=== PATIENT | male | born 1965 | race Caucasian/White ===

== ENCOUNTER 2023-08-27 11:30 | Outpatient (OUT) | payer MEDICARE, SELFPAY ==
--- NOTE | 2023-08-27 11:34 | CA_ITS ---
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 : 1965 Requested By: ELISHA HOLM Order Number: [id number] Reading MD: CRICKET ALCARAZ Interpretive Statements Biphasic doppler waveform PVR waveform with normal upstroke,amplitude and dicrotic notch Right: - significant pressure gradient between thigh and calf cuff - normal WARREN Left: - no significant pressure gradient between cuffs - normal WARREN Impression: - elevated indices (B/L thigh) consistent with calcified, noncompressible arterial guzman, which may underestimate the degree of arterial disease present - normal arterial evaluation of the lower extremities without hemodynamic impairment of the B/L lower extremities at rest (right WARREN 1.27, left WARREN 1.20) Electronically Signed On 08-28-2023 7:07:48 EST by CRICKET ALCARAZ
== END 2023-08-27 11:31 | disposition home or self-care (01) ==
LOC: CARD 11:30
PROVIDERS: PCP Nurse Practitioner; Visit Provider Nurse Practitioner
DX: I73.9 Peripheral vascular disease, unspecified (principal); M79.89 Other specified soft tissue disorders
CPT/HCPCS: 93923

== ENCOUNTER 2023-09-06 08:39 | Outpatient (OUT) | payer MEDICARE, SELFPAY ==
--- NOTE | 2023-09-06 08:41 | US_ITS ---
[place] [id number] Patient Name: SAPPHIRE PALMER MRN: [id number] date: 1965 Sex: M Assigned Patient Location: US Current Patient Location: US Accession/Order Number: [id number] Exam Date: 09/06/2023 08:46 Report Date: 09/06/2023 15:18 At the request of: ELISHA HOLM Procedure: US arterial duplex LE BI EXAMINATION: US arterial duplex LE BI HISTORY: Skin Ulcer Of Right Great Toe L97.519, Peripheral Arterial COMPARISON: No relevant comparison available. TECHNIQUE: Color duplex Doppler ultrasound evaluation analysis was performed in the usual manner. FINDINGS: RIGHT LOWER EXTREMITY ARTERIAL Triphasic waveforms proximally. Biphasic waveform below the knee. Mild scattered atherosclerotic plaque External Iliac PSV: 126.6 cm/s External Iliac EDV: 10.3 cm/s Common Femoral PSV: 106.9 cm/s Common Femoral EDV: 10.3 cm/s Superficial Femoral Proximal PSV: 101.0 cm/s Proximal EDV: 8.4 cm/s Mid PSV: 79.3 cm/s Mid EDV: 4.4 cm/s Distal PSV: 98.9 cm/s Distal EDV: 8.4 cm/s Popliteal Proximal PSV: 65.0 cm/s Popliteal Proximal EDV: 11.7 cm/s Posterior Tibial Proximal PSV: 82.8 cm/s Proximal EDV: 13.3 cm/s Mid PSV: 92.5 cm/s Mid EDV: 13.3 cm/s Distal PSV: 86.0 cm/s Distal EDV: 14.9 cm/s Anterior Tibial Proximal PSV: 58.5 cm/s Proximal EDV: 9.1 cm/s Mid PSV: 35.4 cm/s Mid EDV: 6.9 cm/s Distal PSV: 43.1 cm/s Distal EDV: 4.7 cm/s LEFT LOWER EXTREMITY ARTERIAL Triphasic waveform throughout. Mild atherosclerotic plaque External Iliac PSV: 105.0 cm/s External Iliac EDV: 8.4 cm/s Common Femoral PSV: 108.9 cm/s Common Femoral EDV: 8.4 cm/s Superficial Femoral Proximal PSV: 91.2 cm/s Proximal EDV: 4.4 cm/s Mid PSV: 91.2 cm/s Mid EDV: 0.0 cm/s Distal PSV: 91.1 cm/s Distal EDV: 0.0 cm/s Popliteal Proximal PSV: Popliteal Proximal EDV: Posterior Tibial Proximal PSV: 87.6 cm/s Proximal EDV: 8.5 cm/s Mid PSV: 56.9 cm/s Mid EDV: 0.0 cm/s Distal PSV: 108.6 cm/s Distal EDV: Anterior Tibial Proximal PSV: 42.9 cm/s Proximal EDV: 4.4 cm/s Mid PSV: 44.3 cm/s Mid EDV: 0.0 cm/s Distal PSV: 27.9 cm/s Distal EDV: 6.6 cm/s US/US arterial duplex LE BI IMPRESSION: Moderate right leg ischemic pattern distal to the knee Normal left leg waveform Electronically authenticated by: EVA ELLIS Date: 09/06/2023 15:18
== END 2023-09-06 08:40 | disposition home or self-care (01) ==
LOC: US 08:39
PROVIDERS: PCP Nurse Practitioner; Visit Provider Nurse Practitioner
DX: L97.519 Non-pressure chronic ulcer of other part of right foot with unspecified severity (principal); I73.9 Peripheral vascular disease, unspecified
CPT/HCPCS: 93925

== ENCOUNTER 2023-09-11 12:33 | Outpatient (OUT) | payer MEDICARE, SELFPAY ==
--- NOTE | 2023-09-11 12:56 | VEIN_ITS ---
Patient Name: SAPPHIRE PALMER MR#: [id number] : 1965 Exam Date: 09/11/2023 Ordering Doctor: DR EVA ELLIS M.D. RADIOLOGY REPORT PROCEDURE: FACILITY EST COMPREHENSIVE VEIN CENTER - OFFICE VISIT INITIAL COMPARISON: None. PROGRESS NOTES: [age] year old male who presents with a 4 year history of lower extremity swelling, dilated bulging veins, leg pain, aching, burning, heaviness, itching. The patient's right leg symptoms are worse than the left. There has been a progression of symptoms over time. This increases with prolonged leg dependency. The patient describes an improvement with rest, elevation, exercise, support stockings, and [id number] medications. The patient denies any signs and symptoms to suggest arterial ischemia. The patient describes a family history : Unknown family history. The patient has drinking and smoking history of colon current smoker; occasional alcohol consumption. Patient has a past medical history significant for chronic knee pain, rheumatoid arthritis, leg swelling, hypertension, chronic back pain, type 2 diabetes mellitus, cellulitis and wounds. The patient denies a history of deep venous thrombus or pulmonary embolus. See separate history and physical for medication list. No prior treatment for varicose or spider veins. Current use of compression stockings. After review of nurse notes, history and physical exam I discussed at length the pathophysiology of venous hypertension and possible treatments, therapies and strategies available. We discussed at length the importance of elevating the lower extremities above the level of the heart, increased physical activity and compression stocking use. Ultrasound venous reflux study performed today was discussed at length with the patient. The report demonstrates abnormally dilated and incompetent great saphenous veins and small saphenous veins bilaterally along with abnormal manager development veins and multiple incompetent branch saphenous varicosities.. PHYSICAL EXAM: The right leg demonstrates several varicosities, a few spider veins, toe ulceration, marked edema, significant skin changes and skin discoloration. The left leg demonstrates several varicosities, a few spider veins, no ulceration, marked edema, significant skin changes and skin discoloration. Both thighs, legs and feet were symmetrically warm to the touch. Good posterior tibial and dorsalis pedis pulses were present bilaterally. VEIN/ Facility EST Comprehensive IMPRESSION: 1. Bilateral lower extremity venous insufficiency 2. Bilateral lower extremity varicose veins 3. Marked bilateral lower extremity subcutaneous edema 4. No flow significant arterial disease 5. CEAP: C4a, EP, AP, FL PLAN: 1. Continued use of compression stockings 2. Elevated legs and increased physical activity symptomatic relief 3. Endovenous laser ablation of right great saphenous, left great saphenous, right small saphenous, left small saphenous veins. 4. Microfoam chemical ablation of bilateral branch saphenous varicosities. Nurse notes, history and physical were reviewed and confirmed, see attached forms. The nurse was present throughout the physical exam and consultation Dictated by: Kameron Morales M.D. on 09/11/2023 at 14:48 Approved by: Kameron Morales M.D. on 09/11/2023 at 14:54
--- NOTE | 2023-09-11 12:56 | VEIN_ITS ---
Patient Name: SAPPHIRE PALMER MR#: [id number] : 1965 Exam Date: 09/11/2023 Ordering Doctor: DR EVA ELLIS M.D. RADIOLOGY REPORT PROCEDURE: VC EXT VENOUS REFLUX NIKO LMTD COMPARISON: None. INDICATIONS: I83.813 Painful varicose veins of bilateral lower extremities TECHNIQUE: Duplex imaging of the lower extremity to assess the deep and superficial venous system for the presence of deep or superficial venous incompetence and to document the location and severity of disease. The study includes evaluation of the great saphenous vein (GSV), anterior accessory saphenous vein (AASV) and small saphenous vein (SSV). Patient scanned in reverse Trendelenburg and standing. FINDINGS: RIGHT LOWER EXTREMITY: Saphenofemoral Junction Reflux: Yes 9.7mm 2.2 sec GSV: Diam (mm) Reflux/ Time (sec) Proximal Thigh 7.8 Yes 1.9 Mid Thigh 6.2 Yes 2.1 Distal Thigh 7.6 Yes 2.6 Prox Calf 6.4 Yes 1.0 Mid Calf 3.4 Saphenopopliteal Junction Reflux: 7.8 Yes 1.0 SSV: Proximal Calf 7.5 Yes 2.6 Mid Calf 5.9 No AASV: Not present Proximal Thigh Mid Thigh Distal Thigh Thrombi: No acute or chronic thrombus visualized Compressibility: Normal Flow: Normal Preforator: Dist/med calf 5.8mm with 0.6s Tech Note: Incompetent GSV and SSV. Patent varicose vein prox/med calf 3.8mm with 0.5s reflux. Patent varicose vein prox/med calf 4.9mm with 0.8s reflux. 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 Tech Note: Incompetent GSV and SSV. GSV was previously ablated from SFJ to mid-thigh. Patent varicose vein dist/med calf 6.7mm with 1.2s reflux. Patent varicose vein prox/med calf 4.1mm with 3.5s reflux. CONCLUSION: 1. Abnormally dilated and incompetent great saphenous and small saphenous veins bilaterally. 2. 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 Dictated by: Kameron Morales M.D. on 09/11/2023 at 14:15 Approved by: Kameron Morales M.D. on 09/11/2023 at 14:48
== END 2023-09-11 12:34 | disposition home or self-care (01) ==
LOC: VC 12:33
PROVIDERS: PCP Nurse Practitioner; Visit Provider Radiology Diagnostic Radiology
DX: M79.89 Other specified soft tissue disorders (principal); I83.813 Varicose veins of bilateral lower extremities with pain
CPT/HCPCS: 93970; G0463

== ENCOUNTER 2023-10-09 12:46 | Outpatient (OUT) | payer MEDICARE, SELFPAY ==
--- NOTE | 2023-10-09 12:47 | VEIN_ITS ---
[address] [id number] Patient Name: SAPPHIRE PALMER MRN: [id number] date: 1965 Sex: M Assigned Patient Location: Current Patient Location: Accession/Order Number: [id number] Exam Date: 10/09/2023 12:50 Report Date: 10/09/2023 14:06 At the request of: EVA ELLIS Procedure: VC Endovenous Ablation 1VeinRT EXAMINATION: VC Endovenous Ablation 1Vein RT great saphenous vein HISTORY: I83.813 Bilateral painful varicose veins COMPARISON: No relevant comparison available. TECHNIQUE: The risks and benefits of the procedure had been previously discussed, and were rediscussed at length. Informed written consent was obtained. Aga Figueroa and Cleve Cyr assisted. Time out procedure was performed. The right lower extremity was prepared and draped in the usual sterile fashion to allow knee flexion in the sterile field. Duplex ultrasound probe was draped in a sterile cover, sterile transmission gel was used. Venous mapping was performed with the areas of dilation and large tributaries marked. The total length was 42 cm from the entry mid lower leg to 3 cm below the saphenofemoral junction. The diameter of the greater saphenous vein ranged from 5-8 mm. A 30 gauge needle and 1% buffered lidocaine was used to anesthetize the entry site. A 4 mm incision was made with a scalpel and the saphenous vein was entered percutaneously under direct ultrasound guidance with a micropuncture set, a single stick was successful in gaining access. A micro-guide wire was inserted and the needle removed. A micro-set including a dilator was inserted over the microwire and the needle and dilator were removed. A 0.018 guide wire was inserted through the micro-set and threaded through the saphenous vein to the saphenofemoral junction. The dilator was removed and an introducer sheath was inserted over the wire until the end of the sheath entered the saphenofemoral junction. The dilator and wire were removed and the 600 micron fiber was introduced and placed and positioned so that it extended beyond the sheath and was 3 cm peripheral to the saphenofemoral femoral junction. Final position of the fiber was determined by ultrasound guidance and duplex imaging. Tumescent anesthetic was delivered by ultrasound guidance. 225 cc of fluid was delivered along the entire course of the saphenous vein. The solution consisted of 1000 cc of normal saline with 40 mL of 1% lidocaine and 20 mL of sodium bicarbonate. A final positioning check was made. The energy source was turned on by means of the foot pedal and the fiber and sheath were withdrawn. The total number of Joules delivered was 2191. The laser was active for 274seconds under continuous pulse, average laser use of 8 J. Laser start time 1:39 PM 10/09/2023 . Laser stop time 1:44 PM 10/09/2023 . A duplex ultrasound revealed compressibility and flow at the saphenofemoral junction immediately after the procedure. Hemostasis at the access site was achieved. The skin incision of the saphenous vein was closed with a 4 x 4. A compression stocking was applied. Postop instructions were given. A follow up appointment was recommended and scheduled. The patient tolerated the procedure well and was discharged in good condition . VEIN/VC Endovenous Ablation 1VeinRT IMPRESSION: Technically successful endovenous laser ablation of the right saphenous vein Electronically authenticated by: EVA ELLIS Date: 10/09/2023 14:06
[2023-10-09] MEDS: LIDOCAINE HCL 1% 100 MG/10 ML MDV INJ (13:14)
[2023-10-09] MEDS: 0.9 % SODIUM CHLORIDE 500 ML, LIDOCAINE HCL 20 ML, SODIUM BICARBONATE 10 MEQ INJ (13:15)
== END 2023-10-09 12:47 | disposition home or self-care (01) ==
LOC: VC 12:46
PROVIDERS: PCP Nurse Practitioner; Visit Provider Radiology Diagnostic Radiology
DX: I83.813 Varicose veins of bilateral lower extremities with pain (principal)
CPT/HCPCS: 36478

== ENCOUNTER 2023-10-16 13:21 | Outpatient (OUT) | payer MEDICARE, SELFPAY ==
--- NOTE | 2023-10-16 13:23 | VEIN_ITS ---
Patient Name: SAPPHIRE PALMER MR#: [id number] : 1965 Exam Date: 10/16/2023 Ordering Doctor: DR EVA ELLIS M.D. RADIOLOGY REPORT PROCEDURE: VC EXT VENOUS RT LMTD COMPARISON: None. INDICATIONS: Phlebitis of superficial veins of rt lower extremity I80.01 TECHNIQUE: Lower extremity ramirez scale and Duplex Doppler evaluation of the deep venous system from the inguinal ligament through the calf veins. FINDINGS: REGION: Right lower extremity. THROMBI: Negative for DVT. Heat induced thrombus visualized 1.7cm from the SFJ. The heat induced thrombus extends from groin to proximal calf. COMPRESSIBILITY: Non-compressible segments corresponding to thrombus FLOW: Areas of no flow corresponding to thrombus OTHER: CONCLUSION: 1. Successful post ablation occlusion of right great saphenous vein. Dictated by: Kameron Morales M.D. on 10/16/2023 at 14:12 Approved by: Kameron Morales M.D. on 10/16/2023 at 14:13
--- NOTE | 2023-10-16 13:28 | VEIN_ITS ---
Patient Name: SAPPHIRE PALMER MR#: [id number] : 1965 Exam Date: 10/16/2023 Ordering Doctor: DR EVA ELLIS M.D. RADIOLOGY REPORT PROCEDURE: VC FACILITY EST LMTD VEIN CENTER - OFFICE VISIT FOLLOW UP COMPARISON: None. PROGRESS NOTES: The patient reports improvement in leg symptoms. There has been interval reduction in varicosities. The patient has followed our recommendations to walk 20-30 minutes once or twice per day since the procedure. Physical exam demonstrates decrease in varicosities of the leg. Persistent varicosities are identified along the right leg and marked edema. Review of the ultrasound performed the same day demonstrates occlusive thrombus extending throughout the treated vein(s), see separate report, consistent with a successful ablation. No thrombus extending into or beyond the saphenofemoral junction. The patient expressed a desire to proceed with treatment of bilateral lower extremity incompetent superficial veins. The patient was informed that treatment was a process and would require several procedures/sessions. VEIN/ Facility EST LMTD IMPRESSION: 1. Successful ablation of the right great saphenous vein(s). 2. Persistent marked right lower extremity edema and bilateral varicose veins and lower extremity symptoms. PLAN: 1. Endovenous laser ablation of left great saphenous vein. Nurse notes, history and physical were reviewed and confirmed, see attached forms. The nurse was present throughout the physical exam and consultation Dictated by: Kameron Morales M.D. on 10/16/2023 at 14:13 Approved by: Kameron Morales M.D. on 10/16/2023 at 14:14
--- OUTSIDE RECORDS SUMMARY | 2023-10-16 15:34 | XMS_ITS | CCD ---
Author Name Unknown Address [address] [place] [address] Organization [facility] Care Team Providers Care Assistant Restaurant General Manager Name Role Phone AICHHOLZ, CLOTH WASHER BACK TENDER ELISHA Admitting Unavailable AICHHOLZ, CLOTH WASHER BACK TENDER ELISHA Attending Unavailable AICHHOLZ, CLOTH WASHER BACK TENDER ELISHA Primary Care Unavailable AICHHOLZ, CLOTH WASHER BACK TENDER ELISHA Consulting Unavailable DR JEMIMA DELATORRE Consulting Unavailable AICHHOLZ, CLOTH WASHER BACK TENDER ELISHA Admitting Unavailable AICHHOLZ, CLOTH WASHER BACK TENDER ELISHA Attending Unavailable AICHHOLZ, CLOTH WASHER BACK TENDER ELISHA Primary Care Unavailable AICHHOLZ, CLOTH WASHER BACK TENDER ELISHA Consulting Unavailable DR JEMIMA DELATORRE Consulting Unavailable BRIAN, IMMANUEL Attending Unavailable CLIFFORD, DREAD Attending Unavailable CLIFFORD, DREAD Referring Unavailable CLIFFORD, DREAD Attending Unavailable CLIFFORD, DREAD Referring Unavailable JUSTO, RAWISH Attending Unavailable CLIFFORD, DREAD Attending Unavailable OVITT, MARIANNA Attending Unavailable OVITT, MARIANNA Referring Unavailable BRIAN, IMMANUEL Attending Unavailable BRIAN, IMMANUEL Admitting Unavailable BRIAN, IMMANUEL Attending Unavailable BRIAN, IMMANUEL Referring Unavailable BRIAN, IMMANUEL Referring Unavailable BRIAN, IMMANUEL Referring Unavailable BRIAN, IMMANUEL Referring Unavailable CLIFFORD, DREAD Referring Unavailable CLIFFORD, DREAD Referring Unavailable CLIFFORD, DREAD Attending Unavailable CLIFFORD, DREAD Referring Unavailable CLIFFORD, DREAD Attending Unavailable CLIFFORD, DREAD Referring Unavailable Allergies Allergy Classification Reported Allergen(s) Allergy Type Date of Onset Reaction(s) Facility (2 sources) Simvastatin; Translations: [SIMVASTATIN] Drug Allergy 06-19-2017 [facility] Repository Problems Active Problems Problem Classification Problem Date Documented Date Episodic/Chronic Diabetes mellitus with complications (1 source) Type 2 diabetes mellitus with diabetic polyneuropathy; Translations: [TYPE 2 DM W/DIABETIC POLYNEUROPATHY] Onset: 11-08-2022 Chronic Gout and other crystal arthropathies (4 sources) Idiopathic chronic gout, multiple sites, without tophus (tophi); Translations: [IDIOPATH CHR GOUT MX SITE NO TOPHUS] Onset: 11-01-2022 Chronic Other screening for suspected conditions (not mental disorders or infectious disease) (1 source) Encounter for screening for malignant neoplasm of prostate; Translations: [ENC SCREEN MALIG NEOPLASM PROSTATE] Onset: 11-08-2022 Episodic Residual codes; unclassified (5 sources) Localized edema; Translations: [LOCALIZED EDEMA] Onset: 11-08-2022 Episodic Spondylosis; intervertebral disc disorders; other back problems (2 sources) Postlaminectomy syndrome, not elsewhere classified; Translations: [Postlaminectomy syndrome, not elsewhere classified] Onset: 08-01-2022 Chronic Unclassified (2 sources) Post-op; Translations: [Post-op] Onset: 10-29-2022 Unclassified (2 sources) Pre-op Exam; Translations: [Pre-op Exam] Onset: 09-24-2022 Past or Other Problems Problem Classification Problem Date Documented Date Episodic/Chronic Immunizations and screening for infectious disease (2 sources) Other specified abnormal immunological findings in serum; Translations: [Other specified abnormal immunological findings in serum] Onset: 01-11-2023 Episodic Other nervous system disorders (2 sources) Other acute postprocedural pain; Translations: [Other acute postprocedural pain] Onset: 10-03-2022 Episodic Residual codes; unclassified (2 sources) Pain, unspecified; Translations: [Pain, unspecified] Onset: 10-03-2022 Episodic Spondylosis; intervertebral disc disorders; other back problems (2 sources) Intervertebral disc disorders with radiculopathy, lumbar region; Translations: [Intervertebral disc disorders with radiculopathy, lumbar region] Onset: 12-27-2022 Episodic Results Test Name Value Interpretation Reference Range Facility Office Visiton 08-06-2023 Follow-up visit [id number] Marilyn Palmer 1965 M Date Provider Department Center 08/06/2023 Dave-DREAD CAST[facility]O [facility] Family History Adopted: Yes Family history unknown: Yes Level of Service:36297 [place] OFFICE/OUTPT VISIT,PROCEDURE ONLY Reason for Visit and Comments: Baclofen Pump Refill [698] Normal [facility] Office Visiton 05-28-2023 Follow-up visit [id number] Marilyn Palmer n T 1965 M Date Provider Department Center 05/28/2023 DREAD MURO [facility] [place] Family History Adopted: Yes Family history unknown: Yes Level of Service:13076 [place] OFFICE/OUTPT VISIT,PROCEDURE ONLY Normal [facility] Office Visiton 03-26-2023 Follow-up visit [id number] Marilyn Palmer n T 1965 M Date Provider Department Center 03/26/2023 DREAD UMRO [facility] Family History Adopted: Yes Family history unknown: Yes Level of Service:38434 [place] OFFICE/OUTPT VISIT,PROCEDURE ONLY Reason for Visit and Comments: Follow-up [773453] - Pump refill - alarm date 04/10 Normal [facility] MR LUMBAR SPINE WO CONTRASTo n 02-01-2023 MR LUMBAR SPINE WO CONTRAST MR LUMBAR SPINE WO CONTRAST 02/01/2023 8:17 AM CLINICAL INDICATIONS: Back pain. Lumbar postlaminectomy syndrome. TECHNIQUE: Multiplanar multisequence MR images of the lumbar spine were obtained without IV contrast. COMPARISON: 08/12/2017. FINDINGS: Posterior antonio and screw fixation L4-S1. No suspicious bone marrow replacing process, no significant bone marrow edema. Conus terminates at T12-L1. No distal cord signal change. T12-L1: Disc height loss, diffuse disc bulge, marginal disc osteophyte extends into the foraminal extra foraminal regions. Mild left greater than right neural foraminal narrowing. Minimal thecal sac narrowing. L1-L2: Diffuse disc bulge, ligament of flavum thickening. Marginal disc osteophyte extends into the left greater than right foraminal extraforaminal regions. Moderate focal thecal sac narrowing. Moderate to severe left, mild/moderate right, neural foraminal narrowing. Trace facet effusions L2-L3: Diffuse disc bulge, marginal disc osteophyte extends into the left greater the right foraminal extra foraminal regions. Ligamentum flavum thickening. Moderate to severe focal thecal sac narrowing. Crowding of the subarticular zones without overt nerve root impingement. Posterior facet arthropathy with fluid tracking into left ligament of flavum thickening. Moderate to severe bilateral neural foraminal narrowing. L3-L4: Disc height loss, diffuse disc bulge, marginal disc osteophyte extends into the foraminal and extraforaminal regions, right more so than left. Moderate to severe focal thecal sac narrowing. Crowding bilateral subarticular zones. Moderate neural foraminal narrowing. L4-L5: Disc height loss, marginal disc osteophyte extends of the right greater than left foraminal extra foraminal regions. Prior laminectomy, capacious thecal sac. Mild/moderate right greater than left neural foraminal narrowing. L5-S1: Left hemilaminectomy. Disc height loss, diffuse disc bulge, marginal disc osteophyte extends of the right greater than left foraminal and extra foraminal regions. Mild focal thecal sac narrowing. Moderate right, mild left, neural foraminal narrowing. Fatty replacement, edema within the lower paraspinal musculature. IMPRESSION: Slightly progressive multilevel degenerative changes, level by level assessment detailed in the body of the report. Thecal sac narrowing most noted, moderate to severe, at L2-3 and L3-4. Capacious thecal sac at the operative levels. Neural foraminal narrowing most noted, moderate to severe, at left L1-2, and bilateral L2-3. Approved by:Qamar Zamarripa on02/08/2023 9:01 AM. I, Desmond Farmer,have reviewed the image(s) and agree with the findings in this report. Electronically signed: Desmond Farmer. Normal [facility] Office Visiton 01-29-2023 Follow-up visit [id number] Marilyn Palmer 1965 M Date Provider Department Center 01/29/2023 170-DREAD CASTILLO [facility] Family History Adopted: Yes Family history unknown: Yes Level of Service:59154 [place] OFFICE/OUTPT VISIT,PROCEDURE ONLY Reason for Visit and Comments: Follow-up [040820] - Pump Refill alarm date 02/07/23 [facility] Office Visiton 01-11-2023 Follow-up visit [id number] Marilyn Palmer T 1965 M Date Provider Department Center 01/11/2023 1211-KELSEA KEMP [facility] RHEUM [facility] Family History Adopted: Yes Family history unknown: Yes Level of Service:67412 [place] OFFICE/OUTPATIENT NEW LOW MDM 30-44 MINUTES (GC) Reason for Visit and Comments: New Patient [632] Normal [facility] Office Visiton 12-27-2022 Follow-up visit [id number] Marilyn Palmer T 1965 M Date Provider Department Center 12/27/2022 DREAD MUR[facility] Family History Adopted: Yes Family history unknown: Yes Level of Service:19730 [place] OFFICE/OUTPATIENT NEW LOW MDM 30-44 MINUTES Reason for Visit and Comments: New Patient [632] - Pump alarm date 02/07/23 [facility] RONI by IFAon 12-07-2022 Antinuclear Antibodies, IFA Negative Normal [facility] Comment on above: Result Comment: Nega tive <1:80 Borderline 1:80 Positive >1:80 ICAP nomenclature: AC-0 For more information about Hep-2 cell patterns use ANApatterns.org, the official website for the International Consensus on Antinuclear Antibody (RONI) Patterns (ICAP). Performed By: #### A NAIFA #### [facility] [address] [address] [address] Shweta Dillard ANTISTREPTOLYSIN O AB (ASO)o n 12-06-2022 Antistreptolysin O Ab 72.7 IU/mL Normal 0.0-200.0 [facility] Comment on above: Performed By: #### A SOAB #### [facility] [address] [address] [address] Shweta Dillard RHEUMATOID FACTORon 12-06-19 23 RA Latex Turbid. 42.4 IU/mL Critically high <14.0 [facility] Comment on above: Performed By: #### R F #### [facility] [address] [address] [address] Shweta Dillard CRPon 12-05-2022 CRP 0.5 mg/dL Normal <=1.0 [facility] Comment on above: Performed By: #### C RP ####[facility] [address] [place], [place] [address]EmDr. Shweta Dillard SED RATE WESTERGRENon 2022 SED RATE 15 mm/hr Normal <=20 [facility] Comment on above: Performed By: #### S EDR #### [facility] [address] [address] [address] Shweta Dillard US TYLER DOP LEG RTon 12-05-19 23 US TYLER DOP LEG RT EXAMINATION: US TYLER DOP LEG RT HISTORY: Localized edema COMPARISON: XR venous Doppler leg right 11/01/2022 FINDINGS: REGION: Right lower extremity THROMBI: None. COMPRESSIBILITY: Normal compressibility. FLOW: Normal waveform and antegrade flow between 5 and 20 cm/s. OTHER: Subcutaneous edema. IMPRESSION: 1. No deep vein thrombus within the right lower extremity. Electronically authenticated by: JEMIMA DELATORRE Date: 2022-12-05 10:24 Normal [facility] Office Visiton 11-28-2022 Follow-up visit [id number] Marilyn Palmer 1965 M Date Provider Department Center 11/28/2022 MARIANNA ROCHA [facility] [place] Family History Adopted: Yes Family history unknown: Yes Level of Service:66362 [place] OFFICE/OUTPT VISIT,PROCEDURE ONLY Reason for Visit and Comments: Baclofen Pump Refill [698] Normal [facility] CBC AUTO DIFFon 11-01-2022 BASO # 0.1 103/ul Normal 0.0-0.1 [facility] Comment on above: Performed By: #### C BC #### [facility] [address] [place] [address] Dr. Shweta Dillard Basophils/100 WBC (Bld) 0.8 % Normal 0.2-2.0 [facility] Comment on above: Performed By: #### C BC #### [facility] [address] [place] [address] Dr. Shweta Dillard EO # 0.3 103/ul Normal 0.0-0.7 [facility] Comment on above: Performed By: #### C BC #### [facility] [address] [place] [address] Dr. Shweta Dillard Eosinophils/100 WBC (Bld) 3.5 % Normal 0.9-7.0 [facility] Comment on above: Performed By: #### C BC #### [facility] [address] [place] [address] Dr. Shweta Dillard Erythrocyte distribution width (RBC) [Ratio] 13.2 % Normal 11.0-15.0 [facility] Comment on above: Performed By: #### C BC #### [facility] [address] [place] [address] Dr. Shweta Dillard Hematocrit (Bld) [Volume fraction] 45.6 % Normal 42.0-54.0 [facility] Comment on above: Performed By: #### C BC #### [facility] [address] [place] [address] Dr. Shweta Dillard Hemoglobin (Bld) [Mass/Vol] 13.6 g/dL Critically low 14.0-18.0 [facility] Comment on above: Performed By: #### C BC #### [facility] [address] [place] [address] Dr. Shweta Dillard IG # 0.07 10e3/ul Critically high 0.00-0.03 [facility] Comment on above: Performed By: #### C BC #### [facility] [address] [place] [address] Dr. Shweta Dillard IG % 0.7 % Critically high 0.0-0.5 [facility] Comment on above: Performed By: #### C BC #### [facility] [address] [place] [address] Dr. Shweta Dillard LYMPH # 3.4 103/ul Normal 1.2-3.8 [facility] Comment on above: Performed By: #### C BC #### [facility] [address] [place] [address] Dr. Shweta Dillard Lymphocytes/100 WBC (Bld) 34.6 % Normal 20.5-60.0 [facility] Comment on above: Performed By: #### C BC #### [facility] [address] [place] [address] Dr. Shweta Dillard MANUAL DIFF REQ NO Normal [facility] Comment on above: Performed By: #### C BC #### [facility] [address] [place] [address] Dr. Shweta Dillard MCH (RBC) [Entitic mass] 29.4 pg Normal 25.9-34.0 [facility] Comment on above: Performed By: #### C BC #### [facility] [address] [place] [address] Dr. Shweta Dillard MCHC (RBC) [Mass/Vol] 29.8 g/dL Critically low 29.9-35.2 [facility] Comment on above: Performed By: #### C BC #### [facility] [address] [place] [address] Dr. Shweta Dillard MCV (RBC) [Entitic vol] 98.7 fL Critically high 80.0-94.0 [facility] Comment on above: Performed By: #### C BC #### [facility] [address] [place] [address] Dr. Shweta Dillard MONO # 0.7 103/ul Normal 0.3-0.8 [facility] Comment on above: Performed By: #### C BC #### [facility] [address] [place] [address] Dr. Shweta Dillard Monocytes/100 WBC (Bld) 7.4 % Normal 1.7-12.0 [facility] Comment on above: Performed By: #### C BC #### [facility] [address] [place] [address] Dr. Shweta Dillard NEUT # 5.2 103/ul Normal 1.4-6.5 [facility] Comment on above: Performed By: #### C BC #### [facility] [address] [place] [address] Dr. Shweta Dillard Neutrophils/100 WBC (Bld) 53.0 % Normal 43.0-75.0 [facility] Comment on above: Performed By: #### C BC #### [facility] [address] [place] [address] Dr. Shweta Dillard Platelet mean volume (Bld) [Entitic vol] 9.9 fL Normal 9.5-13.5 [facility] Comment on above: Performed By: #### C BC #### [facility] [address] [place] [address] Dr. Shweta Dillard PLT 253 103/ul Normal 150-450 [facility] Comment on above: Performed By: #### C BC #### [facility] [address] [place], [place] [address] Dr. Shweta Dillard RBC 4.62 106/ul Critically low 4.70-6.10 [facility] Comment on above: Performed By: #### C BC #### [facility] [address] [place], [place] [address] Dr. Shweta Dillard WBC 9.8 103/ul Normal 4.0-11.0 [facility] Comment on above: Performed By: #### C BC #### [facility] [id number] Shweta Dillard DIRECT LDLon 11-01-2022 Cholesterol in LDL [Mass/Vol] 105 mg/dL Normal [facility] Comment on above: Performed By: #### U ZAIRA, CMP, DLDL, LIPID ####[facility] [address] [address]DrMarky Dillard DLDL NORMAL SEE BELOW Normal [facility] Comment on above: Result Comment: <100 mg/dl OPTIMAL 100 - 129 mg/dl NEAR OR ABOVE OPTIMAL 130 - 159 mg/dl BORDERLINE HIGH 160 - 189 mg/dl HIGH >190 mg/dl VERY HIGH Performed By: #### U ZAIRA, CMP, DLDL, LIPID ####[facility] [address] [id number][address] Shweta Dillard GLYCOHEMOGLOBIN A1Con 2022 ADA RECOMMENDATION SEE BELOW Normal [facility] Comment on above: Result Comment: ADA RECOMMENDED LIMIT 4.0 - 6.0 ADA THERAPEUTIC TARGET < 7.0 ACTION SUGGESTED > 7.0 Performed By: #### A 1C ####[facility] [address] [id number][address] Shweta Dillard Glucose [Mass/Vol] 114 mg/dL Normal [facility] Comment on above: Performed By: #### A 1C ####[facility] [address] [id number]. Shweta Dillard HbA1c (Bld) [Mass fraction] 5.6 % Normal 4.5-6.2 [facility] Comment on above: Performed By: #### A 1C ####[facility] [address] [place], [place] [address]FfDr. Shweta Dillard LIPID PROFILEon 11-01-2022 CHOL-HDL RATIO NORM SEE BELOW Normal [facility] Comment on above: Result Comment: 3.3 - 4.4 LOW RISK 4.4 - 7.1 AVERAGE RISK 7.1 - 11.0 MODERATE RISK >11.0 HIGH RISK Performed By: #### U ZAIRA, CMP, DLDL, LIPID #### [facility] [address] [address] [address] Shweta Dillard Cholesterol [Mass/Vol] 172 mg/dL Normal <=200 [facility] Comment on above: Performed By: #### U ZAIRA, CMP, DLDL, LIPID #### [facility] [address] [address] [address] Shweta Dillard Cholesterol in HDL [Mass/Vol] 31 mg/dL Critically low 40-60 [facility] Comment on above: Performed By: #### U ZAIRA, CMP, DLDL, LIPID #### [facility] [address] [address] [address] Shweta Dillard Cholesterol in LDL [Mass/Vol] 49.6 mg/dL Normal [facility] Comment on above: Performed By: #### U ZAIRA, CMP, DLDL, LIPID #### [facility] [address] [address] [address] Shweta Dillard Cholesterol.total/Ch olesterol in HDL [Mass ratio] 5.5 {ratio} Normal [facility] Comment on above: Performed By: #### U ZAIRA, CMP, DLDL, LIPID #### [facility] [address] [address] [address] Shweta Dillard HDL NORMAL > or = 60 mg/dl - LO W CARDIOVASCULAR RISK <40 mg/dl - HIGH CARDIOVASCULAR RISK Normal [facility] Comment on above: Performed By: #### U ZAIRA, CMP, DLDL, LIPID #### [facility] [address] [address] [address] Shweta Dillard LDL CALC NORMAL SEE BELOW Normal [facility] Comment on above: Result Comment: <100 mg/dl OPTIMAL 100 - 129 mg/dl NEAR OR ABOVE OPTIMAL 130 - 159 mg/dl BORDERLINE HIGH 160 - 189 mg/dl HIGH >190 mg/dl VERY HIGH Performed By: #### U ZAIRA, CMP, DLDL, LIPID #### [facility] [address] [address] [address] Shweta Dillard Triglyceride [Mass/Vol] 457 mg/dL Critically high <=150 [facility] Comment on above: Performed By: #### U ZAIRA, CMP, DLDL, LIPID #### [facility] [address] [address] [address] Shweta Dillard VLDL CALC 91.4 mg/dL Normal [facility] Comment on above: Performed By: #### U ZAIRA, CMP, DLDL, LIPID #### [facility] [address] [address] [address] Shweta Dillard MICROALBUMIN, RAND URon 10-21 mALB <1.3 Normal <=30.0 [facility] Comment on above: Performed By: #### M ALBR ####[facility] [address] [address]Dr. Shweta Dillard PROF 14(COMP METB)on 023 Albumin [Mass/Vol] 4.0 g/dL Normal 3.4-5.0 [facility] Comment on above: Performed By: #### U ZAIRA, CMP, DLDL, LIPID #### [facility] [address] [address] [address] Shweta Dillard Albumin/Globulin [Mass ratio] 1.3 {ratio} Normal [facility] Comment on above: Performed By: #### U ZAIRA, CMP, DLDL, LIPID #### [facility] [address] [address] [address] Shweta Dillard ALP [Catalytic activity/Vol] 95 U/L Normal 46-116 [facility] Comment on above: Performed By: #### U ZAIRA, CMP, DLDL, LIPID #### [facility] [address] [address] [address] Shweta Dillard ALT [Catalytic activity/Vol] 25 U/L Normal 16-63 [facility] Comment on above: Performed By: #### U ZAIRA, CMP, DLDL, LIPID #### [facility] [address] [address] [address] Shweta Dillard Anion gap [Moles/Vol] 13.4 mmol/L Normal [facility] Comment on above: Performed By: #### U ZAIRA, CMP, DLDL, LIPID #### [facility] [address] [address] [address] Shweta Dillard AST [Catalytic activity/Vol] 18 U/L Normal 15-37 [facility] Comment on above: Performed By: #### U ZAIRA, CMP, DLDL, LIPID #### [facility] [address] [address] [address] Shweta Dillard Bilirubin [Mass/Vol] 0.2 mg/dL Normal 0.2-1.0 [facility] Comment on above: Performed By: #### U ZAIRA, CMP, DLDL, LIPID #### [facility] [address] [address] [address] Shweta Dillard Calcium [Mass/Vol] 9.0 mg/dL Normal 8.5-10.1 [facility] Comment on above: Performed By: #### U ZAIRA, CMP, DLDL, LIPID #### [facility] [address] [address] [address] Shweta Dillard Chloride [Moles/Vol] 100 mmol/L Normal 98-107 [facility] Comment on above: Performed By: #### U ZAIRA, CMP, DLDL, LIPID #### [facility] [address] [address] [address] Shweta Dillard CO2 [Moles/Vol] 30.0 mmol/L Normal 21.0-32.0 [facility] Comment on above: Performed By: #### U ZAIRA, CMP, DLDL, LIPID #### [facility] [address] [address] [address] Shweta Dillard Creatinine [Mass/Vol] 0.89 mg/dL Normal 0.70-1.30 [facility] Comment on above: Performed By: #### U ZAIRA, CMP, DLDL, LIPID #### [facility] [address] [address] [address] Shweta Dillard EGFR-AF ERITREAN >60 Normal >=[address] [facility] Comment on above: Performed By: #### U ZAIRA, CMP, DLDL, LIPID #### [facility] [address] [address] [address] Shweta Dillard EGFR-NON AF ERITREAN >60 Normal >=60 [facility] Comment on above: Performed By: #### U ZAIRA, CMP, DLDL, LIPID #### [facility] [address] [address] [address] Shweta Dillard Globulin (S) [Mass/Vol] 3.1 g/dL Normal [facility] Comment on above: Performed By: #### U ZAIRA, CMP, DLDL, LIPID #### [facility] [address] [place] [address] Dr. Shweta Dillard Glucose [Mass/Vol] 125 mg/dL Critically high 74-106 [facility] Comment on above: Performed By: #### U ZAIRA, CMP, DLDL, LIPID #### [facility] [address] [address] [address] Shweta Dillard Potassium [Moles/Vol] 4.4 mmol/L Normal 3.5-5.1 [facility] Comment on above: Performed By: #### U ZAIRA, CMP, DLDL, LIPID #### [facility] [address] [address] [address] Shweta Dillard Protein [Mass/Vol] 7.1 g/dL Normal 6.4-8.2 [facility] Comment on above: Performed By: #### U ZAIRA, CMP, DLDL, LIPID #### [facility] [address] [place] [address] Dr. Shweta Dillard Sodium [Moles/Vol] 139 mmol/L Normal 136-145 [facility] Comment on above: Performed By: #### U ZAIRA, CMP, DLDL, LIPID #### [facility] [address] [address] [address] Shweta Dillard Urea nitrogen [Mass/Vol] 25.0 mg/dL Critically high 7.0-18.0 [facility] Comment on above: Performed By: #### U ZAIRA, CMP, DLDL, LIPID #### [facility] [address] [place] [address] [address] Shweta Dillard Urea nitrogen/Creatinine [Mass ratio] 28.1 mg/mg Normal [facility] Comment on above: Performed By: #### U ZAIRA, CMP, DLDL, LIPID #### [facility] [address] [address] [address] Shweta Dillard UA RANDOM W/MICROSCOPICon BACTERIA NONE SEEN Normal NONE SEEN [facility] Comment on above: Performed By: #### U AMIC ####[facility] [address] [place] [address]Dr. Shweta Dillard Bilirubin Ql (U) Negative Normal NEGATIVE [facility] Comment on above: Performed By: #### U AMIC ####[facility] [address] [place] [place] [address]Dr. Shweta Dillard CAST NONE SEEN Normal NONE SEEN [facility] Comment on above: Performed By: #### U AMIC ####[facility] [address] [place] [address]Dr. Shweta Dillard Clarity (U) CLEAR Normal CLEAR [facility] Comment on above: Performed By: #### U AMIC ####[facility] [address] [place] [address]Dr. Shweta Dillard Color (U) LT. YELLOW Normal YELLOW [facility] Comment on above: Performed By: #### U AMIC ####[facility] [address] [place] [address]Dr. Shweta Dillard Crystals LM Nom (Urine sed) NONE SEEN Normal NONE SEEN [facility] Comment on above: Performed By: #### U AMIC ####[facility] [address] [place] [address]Dr. Shweta Dillard Epithelial cells LM Ql (Urine sed) RARE Normal NONE SEEN /RARE [facility] Comment on above: Performed By: #### U AMIC ####[facility] [address] [place] [address]Dr. Shweta Dillard Glucose Ql (U) Negative Normal NEGATIVE The [facility] Comment on above: Performed By: #### U AMIC ####[facility] [address] [place] [address]Dr. Shweta Dillard Hemoglobin Ql (U) Negative Normal NEGATIVE The [facility] Comment on above: Performed By: #### U AMIC ####[facility] [address] [place], [place] [address]Dr. Shweta Dillard Ketones Ql (U) Negative Normal NEGATIVE The [facility] Comment on above: Performed By: #### U AMIC ####[facility] [address] [place], [place] [address]Dr. Shweta Dillard LEUKOCYTES Negative Normal NEGATIVE [facility] Comment on above: Performed By: #### U AMIC ####[facility] [address] [place], [place] [address]Dr. Yilan Dillard MUCOUS NONE SEEN Normal NONE SEEN [facility] Comment on above: Performed By: #### U AMIC ####[facility] [address] [place], [place] [address]Dr. Shweta Dillard Nitrite Ql (U) Negative Normal NEGATIVE [facility] Comment on above: Performed By: #### U AMIC ####[facility] [address] [place], [place] [address]Dr. Shweta Dillard pH (U) 5.0 [pH] Normal 5-9 [facility] Comment on above: Performed By: #### U AMIC ####[facility] [address] [place], [place] [address]Dr. Shweta Dillard RBC NONE SEEN Abnormal 0-2 [facility] Comment on above: Performed By: #### U AMIC ####[facility] [address] [place], [place] [address]Dr. Shweta Dillard SPEC GRAVITY 1.020 Normal 1.005-<=1.025 [facility] Comment on above: Performed By: #### U AMIC ####[facility] [address] [place], [place] [address]Og. Shweta Dillard UA PROTEIN Negative Normal NEGATIVE/ TRACE [facility] Comment on above: Performed By: #### U AMIC ####[facility] [address] [place], [place] [address]Lh. Shweta Dillard Urobilinogen Qn (U) 0.2 {Bruce'U}/dL Normal 0.2 - 1. 0 [facility] Comment on above: Performed By: #### U AMIC ####[facility] [address] [place], [place] [address]Nd. Shweta Dillard WBC NONE SEEN Normal NONE SEEN [facility] Comment on above: Performed By: #### U AMIC ####[facility] [address] [place], [place] [address]Wu. Shweta Dillard URIC ACID SERUMon 11-01-2022 Urate [Mass/Vol] 3.7 mg/dL Normal 3.5-7.2 [facility] Comment on above: Performed By: #### U ZAIRA, CMP, DLDL, LIPID #### [facility] [address] [place], [place] [address] Dr. Shweta Dillard US TYLER DOP LEG RTon 11-01-19 23 US TYLER DOP LEG RT EXAMINATION: US TYLER DOP LEG RT HISTORY: Localized edema ; right lower leg swelling COMPARISON: No relevant comparison available. FINDINGS: REGION: Right lower extremity THROMBI: None. COMPRESSIBILITY: Normal compressibility. FLOW: Normal waveform and antegrade flow between 5 and 20 cm/s. OTHER: Subcutaneous edema. IMPRESSION: 1. No deep vein thrombus within the right lower extremity. Electronically authenticated by: JEMIMA DELATORRE Date: 2022-11-01 10:54 Normal [facility] Office Visiton 10-29-2022 Follow-up visit [id number] Marilyn Palmer 1965 M Date Provider Department Center 10/29/2022 IMMANUEL ESPAÑA [facility] SURG Second Fl Family History Adopted: Yes Family history unknown: Yes Level of Service:11678 [place] POSTOP FOLLOW UP VISIT RELATED TO ORIGINAL PX Reason for Visit and Comments: Post-op [483] - s/p 10/03/22 pump replacement. Give new refill date: Patient states he has back and hip pain. Has not changed [facility] 36on 10-03-2022 36 Had pump replaced today. New alarm date 12/05/22. Please schedule patient for pump refill. Thank you. [facility] HPon 10-03-2022 HP H&P reviewed. The patient was examined and there are no changes to the H&P. [facility] NURSNOTEon 10-03-2022 NURSNOTE Discharge instructio ns reviewed with , no questions or concerns at this time. [facility] NURSNOTE 40 ml mixture of pf hydromorphone 15mg/ml; pf bupivicaine 15mg/ml injected into new medtronic pain pump by Dr. Torres. [facility] OPNOTEon 10-03-2022 OPNOTE Date: 10/03/2022 Location: [facility] OR Name: Sapphire Palmer, : 1965, Diagnosis Pre-op Diagnosis * Post laminectomy syndrome [M96.1] Post-op Diagnosis * Post laminectomy syndrome [M96.1] Procedures REPLACEMENT, PUMP, PROGRAMMABLE, FOR INTRATHECAL DRUG INFUSION [address]779 - [place] IMPLTJ REVJ/RPSG ITHCL/EDRL CATH WELDER PRODUCTION LINE COMBINATION W/O SANCHEZ Exchange of intrathecal pump with Medtronic 40 ml Synchromed II. Surgeons * Immanuel Torres - Primary Procedure Summary Anesthesia: General ASA: III Estimated Blood Loss: None Drains: * None in log * Implants Type Name Action Serial No. Device PUMP,SYNCHROMED,INFUSI ON,40CC - [id number] - [id number] Implanted [id number] Staff: Events Administrative Assistant: Arvind Jimenez RN Scrub Person: Libia Elmore CST Branch Retail Executive: Eileen Hernandez CSA Indications: Sapphire Palmer is an 57 y.o. male who is having surgery for Post laminectomy syndrome [M96.1]. Findings: Catheter patent. Complications: None; patient tolerated the procedure well. Disposition: PACU - hemodynamically stable. Condition: stable Specimens Collected: No specimens collected during this procedure. Attending Attestation: I performed the procedure. Immanuel Brian Normal [facility] OPNOTE REPLACEMENT, PUMP, PROGRAMMABLE, FOR INTRATHECAL DRUG INFUSION (L) Operative Note Date: 10/03/2022 Location: [facility] OR Name: Sapphire Palmer, : 1965, Diagnosis Pre-op Diagnosis * Post laminectomy syndrome [M96.1] Post-op Diagnosis * Post laminectomy syndrome [M96.1] Procedures REPLACEMENT, PUMP, PROGRAMMABLE, FOR INTRATHECAL DRUG INFUSION 10052 - [place] IMPLTJ REVJ/RPSG ITHCL/EDRL CATH WELDER PRODUCTION LINE COMBINATION W/O SANCHEZ Exchange of intrathecal pump with 40 ml Medtronic Synchromed II pump. Surgeons * Immanuel Torres - Primary Procedure Summary Anesthesia: General ASA: III Estimated Blood Loss: Minimal Drains: * None in log * Implants Type Name Action Serial No. Device PUMP,SYNCHROMED,INFUSI ON,40CC - [id number] - [id number] Implanted [id number] Staff: Events Administrative Assistant: Dinesh Lara RN; Arvind Jimenez RN Scrub Person: Libia Elmore, COLD WATER MACHINE OPERATOR Branch Retail Executive: Eileen Hernandez CSA Indications: Sapphire Palmer is an 57 y.o. male who is having surgery for Post laminectomy syndrome [M96.1]. He has a longstanding history of low back pain despite prior surgical intervention, and had undergone placement of an intrathecal pump system. He has been maintained on a stable dose of intrathecal morphine and bupivacaine. Recent interrogation of his intrathecal system revealed that the pump was reaching its elective replacement interval by dates. As such, the patient was offered exchange of the intrathecal pump for a new SynchroMed 2 pump. After discussion of the risks, benefits, and alternatives, he elected to proceed and informed consent was obtained. Procedure Details: The patient was brought to the operating theater. The patient was transferred from a cart to the operative table. General endotracheal anesthesia was induced without difficulty. Adequate vascular access was ensured. No Barton catheter was placed. The patient was rolled into the right lateral decubitus position and secured in this position with a morejon bag and multiple straps of tape. Care was taken to ensure that all pressure points were padded adequately. The arms were positioned in front of the patient on arm boards. The proposed sites of surgery in the left abdominal region and the site of spinal access in the low lumbar midline were identified. The patient was positioned for potential access to the lumbar site should the catheter need to be revised during the same procedure. Both sites were marked, prepped, and draped in the normal sterile fashion. A time-out was performed confirming the correct patient, procedure, and site. It was ensured that preoperative antibiotics have been delivered. Attention was turned to the abdominal site. Here, the existing well-healed transverse scar was infiltrated with 0.25% bupivacaine with epinephrine. The skin was reopened sharply along the line of the existing well-healed scar. Dissection was carried down sharply through the superficial tissue to the capsule surrounding the existing pump. This capsule was opened sharply. Monopolar cautery was used to expand the opening along the line of the existing incision. The pump could be clearly identified. Several fibrous bands were dissected free from around the margins of the pump and it was grasped with a clamp. It was extracted from the subcutaneous pocket without difficulty. The abdominal segment of catheter was scarred into the tissue surrounding the pump. It was dissected free from the scar tissue with monopolar cautery. The abdominal segment of catheter and the existing pump were wrapped in an antibiotic soaked sponge. Hemostasis was ensured within the abdominal pocket. The margins of the pocket were remodeled with monopolar cautery to better accommodate the new pump. A Touhy needle was introduced into the catheter access port of the existing pump and aspiration revealed brisk return of clear fluid consistent with a patent catheter. Meanwhile a new Medtronic SynchroMed II 40 mL pump was prepared on the back table. It was filled with 37 mL of intrathecal hydromorphone at a concentration of 15 mg/mL and bupivacaine at a concentration of 15 mg/ml. The existing pump was then disconnected the abdominal segment. The new pump was introduced onto the catheter and secured with a sutureless connection. Aspiration of the catheter access port with a Tuohy needle revealed brisk return of clear CSF. Excess portions of the catheter were then well behind the pump. It was reinserted into the subcutaneous pocket with the side port in the 10 o'clock position facing the patient. The wound was again irrigated thoroughly and hemostasis was ensured. The pump was secured to the surrounding tissue with 2-0 silk suture. Vancomycin powder was instilled within the wound to help prevent infection. The wound was then reapproximated in multiple layers with resorbable suture and the skin was closed with Dermabond. At the conclusion of skin closure, all counts were kailee (more content not included)... Normal [facility] POCT GLUCOSE METER UNSOLICIT ED RESULTSon 10-03-2022 Glucose [Mass/Vol] 115 mg/dL High 70-105 [facility] Comment on above: Result Comment: pbar retcorson Performed By: #### L [id number] ####[facility] (BEAKER)[address] [place] [address] Telephoneon 10-03-2022 Telephone [id number] Marilyn Palmer 1965 M Date Provider Department Center 10/03/2022 MARIANNA ROCHA [facility] Second Fl Family History Adopted: Yes Family history unknown: Yes Normal [facility] APTTon 09-24-2022 ACTIVATED PARTIAL THROMBOPLASTIN TIME IN PPP BY COAGULATION ASSAY 29.6 Seconds Normal 25.0-35.0 [facility] Comment on above: Performed By: #### L [id number] ####[facility] (BEAKER)[address] [place] [address] BASIC METABOLIC PANELon Anion gap [Moles/Vol] 3 mmol/L Low 7-20 [facility] Comment on above: Performed By: #### L [id number] ####[facility] [place] [address] Calcium [Mass/Vol] 9.5 mg/dL Normal 8.6-10.3 [facility] Comment on above: Performed By: #### L [id number] ####[facility] (BEAKER)[address] [place] [address] Chloride [Moles/Vol] 102 mmol/L Normal 98-107 [facility] Comment on above: Performed By: #### L [id number] ####[facility] (BEAKER)[address] [place] [address] CO2 [Moles/Vol] 32 mmol/L High 21-31 [facility] Comment on above: Performed By: #### L [id number] ####[facility] ([facility])[address] [place] [address] Creatinine [Mass/Vol] 0.78 mg/dL Normal 0.70-1.30 [facility] Comment on above: Performed By: #### L [id number] ####[facility] ([facility])[address] [place] [address] GLOMERULAR FILTRATION RATE ML/MIN/1.73 SQ M.PREDICTED 101.6 mL/min/1.73m*2 Normal >60.0 [facility] Comment on above: Result Comment: The [facility]???s estimated glomerular filtration rate (eGFR) will no longer include consideration of race in its calculation. The National Kidney Foundation???s eGFR Task Force developed new recommendations for the estimation of the glomerular filtration rate in the [place] They recommend immediate implementation of the new equation refit without the race variable in all laboratories because the calculation does not include race. In addition to not including race in the calculation and reporting, it included diversity in its development, and has acceptable performance characteristics and potential consequences that do not disproportionately affect any one group of individuals. Performed By: #### L AB15 ####[facility] ([facility])[address] [place] [address] Glucose [Mass/Vol] 109 mg/dL High 70-100 [facility] Comment on above: Performed By: #### L [id number] ####[facility] ([facility])[address] [place] [address] Potassium [Moles/Vol] 4.8 mmol/L Normal 3.5-5.1 [facility] Comment on above: Performed By: #### L AB15 ####[facility] ([facility])[address] [place] [address] Sodium [Moles/Vol] 137 mmol/L Normal 136-145 [facility] Comment on above: Performed By: #### L [id number] ####[facility] ([facility])[address] [place] [address] Urea nitrogen [Mass/Vol] 18 mg/dL Normal 7-25 [facility] Comment on above: Performed By: #### L [id number] ####[facility] [place] [address] UREA NITROGEN/CREATININE (MASS RATIO) IN SER/PLAS 23.08 Normal [facility] Comment on above: Performed By: #### L [id number] ####[facility] [place] [address] CBC WITH AUTO DIFFERENTIALon 09-24-2022 Basophils (Bld) [#/Vol] 0.07 10*3/uL Normal 0.00-0.20 [facility] Comment on above: Performed By: #### L [id number] ####[facility] ([facility] [place] [address] Basophils/100 WBC (Bld) 0.9 % Normal 0.0-1.0 [facility] Comment on above: Performed By: #### L [id number] ####[facility] (BEAKER)[address] [place] [address] Eosinophils (Bld) [#/Vol] 0.19 10*3/uL Normal 0.00-0.50 [facility] Comment on above: Performed By: #### L [id number] ####[facility] (BEAKER)[address] [place] [address] Eosinophils/100 WBC (Bld) 2.4 % Normal 0.0-6.0 [facility] Comment on above: Performed By: #### L [id number] ####[facility] (BEAKER)[address] [address] ERYTHROCYTE DISTRIBUTION WIDTH (RATIO) STANDARD DEVIATION 43.6 Normal [facility] Comment on above: Performed By: #### L [id number] ####[facility] (BEAKER)[address] [place] [address] Erythrocyte distribution width (RBC) [Ratio] 12.7 % Normal 11.5-15.0 [facility] Comment on above: Performed By: #### L [id number] ####[facility] (BEAKER)[address] [place] [address] ERYTHROCYTE MEAN CORPUSCULAR HEMOGLOBIN CONCENTRATION (G/DL) BY AUTOMATED 31.0 g/dL Low 32.0-35.0 [facility] Comment on above: Performed By: #### L [id number] ####[facility] (BEAKER)[address] [place] [address] Hematocrit (Bld) [Volume fraction] 44.5 % Normal 39.0-55.0 [facility] Comment on above: Performed By: #### L [id number] ####[facility] [place] [address] Hemoglobin (Bld) [Mass/Vol] 13.8 g/dL Normal 13.0-17.0 [facility] Comment on above: Performed By: #### L [id number] ####[facility] (BEAKER)[address] [place] [address] Immature granulocytes (Bld) [#/Vol] 0.07 10*3/uL Normal 0.00-0.20 [facility] Comment on above: Performed By: #### L [id number] ####[facility] (BEAKER)[address] [place] [address] Immature granulocytes/100 WBC (Bld) 0.9 % Normal 0.0-1.0 [facility] Comment on above: Performed By: #### L [id number] ####[facility] (BEAKER)[address] [place] [address] Lymphocytes (Bld) [#/Vol] 2.18 10*3/uL Normal 1.20-4.00 [facility] Comment on above: Performed By: #### L [id number] ####[facility] (BEAKER)[address] [place] [address] Lymphocytes/100 WBC (Bld) 27.9 % Normal 20.0-45.0 [facility] Comment on above: Performed By: #### L [id number] ####[facility] (BEAKER)[address] [place] [address] MCH (RBC) [Entitic mass] 28.9 pg Normal 27.0-33.0 [facility] Comment on above: Performed By: #### L [id number] ####[facility] (BEAKER)[address] [place] [address] MCV (RBC) [Entitic vol] 93.3 fL Normal 82.0-98.0 [facility] Comment on above: Performed By: #### L [id number] ####[facility] (BEAKER)[address] [place] [address] Monocytes (Bld) [#/Vol] 0.57 10*3/uL Normal 0.10-1.00 [facility] Comment on above: Performed By: #### L [id number] ####[facility] (BEAKER)[address] [place] [address] Monocytes/100 WBC (Bld) 7.3 % Normal 5.0-12.0 [facility] Comment on above: Performed By: #### L [id number] ####[facility] (BEAKER)[address] [place] [address] Neutrophils (Bld) [#/Vol] 4.74 10*3/uL Normal 1.60-7.60 [facility] Comment on above: Performed By: #### L [id number] ####[facility] (BEAKER)[address] [place] [address] Neutrophils/100 WBC (Bld) 60.6 % Normal 40.0-72.0 [facility] Comment on above: Performed By: #### L [id number] ####[facility] (BEAKER)[address] [place] [address] NRBC (PER 100 WBCS) BY AUTOMATED COUNT 0.0 % Normal 0.0-0.0 [facility] Comment on above: Performed By: #### L [id number] ####[facility] (BEAKER)[address] [place] [address] PLATELETS (10*3/UL) IN BLOOD AUTOMATED COUNT 251 10*3/uL Normal 150-400 [facility] Comment on above: Performed By: #### L [id number] ####[facility] (BEAKER)[address] [place] [address] RBC (Bld) [#/Vol] 4.77 10*6/uL Normal 4.20-5.70 [facility] [place] [facility] Comment on above: Performed By: #### L [id number] ####[facility] (BEAKER)[address] [place] [address] WBC (Bld) [#/Vol] 7.82 10*3/uL Normal 4.00-10.60 [facility] [place] [facility] Comment on above: Performed By: #### L [id number] ####[facility] (BEAKER)[address] [place] [address] Consulton 09-24-2022 Consult [id number] Marilyn Palmer rubens Wanger 1965 M Date Provider Department Center 09/24/2022 Donna0-IMMANUEL TORRES [facility] Second Fl Family History Adopted: Yes Family history unknown: Yes Level of Service:[address] [place] OFFICE/OUTPATIENT ESTABLISHED LOW MDM 20-29 MIN Reason for Visit and Comments: Pre-op Exam [[id number]] - pump replacement scheduled 10/03/22 Normal [facility] HPon 09-24-2022 Neurosurgery Clinic Note Chief Complaint: Intrathecal pump CAIT. Interval History: Sapphire Palmer is a 57 y.o. year-old male who presents to neurosurgery clinic to discuss exchange of his existing intrathecal pump because it is entered its elective replacement interval. He relates a very longstanding history of severe low back pain. He had undergone lumbar decompressive surgery followed by lumbar fusion, then placement of a spinal cord stimulator which was removed for lack of effect, and finally placement of an intrathecal [place] [address] Roldan. The pump has been maintained in the neurosurgery clinics at [facility]. He has had a stable pump dose since 2018. Does not currently see the pain management doctors. Recent interrogation interrogation of his pump system had revealed that the pump had reached its elective replacement interval. Problem List: Patient Active Problem List Diagnosis Lumbar post-laminectomy syndrome Lumbosacral spondylosis without myelopathy Cellulitis of lower limb Chronic back pain Contact dermatitis Degeneration of lumbar intervertebral disc Edema of lower extremity HTN (hypertension), benign Hip pain Knee pain Postoperative pain Pure hyperglyceridemia Retention of urine Sciatica Solar degeneration Stasis dermatitis Muscle spasm of back Pain-dysfunction syndrome Severe obesity (BMI 35.0-39.9) with comorbidity (CMS/HCC) Varicose veins of left lower extremity with pain Venous insufficiency of both lower extremities Past Medical History: Past Medical History: Diagnosis Date Arthritis Gout Hyperlipidemia Hypertension Prediabetes 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 Sleep apnea Past Surgical History: Past Surgical History: Procedure Laterality Date BACK SURGERY SCS Implant & Removal, Lumbar Fusion IMPLANTATION / REPLACEMENT INFUSION PUMP PROSTHODONTIC PROCEDURE Medications: Current Outpatient Medications Medication Instructions acetaminophen (TYLENOL) 650 mg, oral, Every 6 hours PRN albuterol 90 mcg/actuation inhaler 2 puffs, inhalation, Every 4 hours PRN cetirizine (ZyrTEC) 10 mg tablet 1 tablet, oral, Daily febuxostat (Uloric) 40 mg tablet 1 tablet, oral, Daily flu vacc [id number] 6mos up,PF, (Fluzone Quad [id number], PF,) 60 mcg (15 mcg x 4)/0.5 mL syringe PHARMACY ADMINISTERED furosemide (Lasix) 20 mg tablet 1 tablet, oral, Daily PRN lisinopriL-hydrochloro thiazide 20-12.5 mg tablet 1 tablet, oral, Daily RT metFORMIN (Glucophage) 500 mg tablet 1 tablet, oral, Twice daily. Allergies: Allergies Allergen Reactions Simvastatin Swelling Other reaction(s): Other Pt unsure of reaction Review of Systems: Review of Systems Constitutional: Negative. Respiratory: Negative. Genitourinary: Negative. Neurological: Positive for headaches. Exam: Vitals: Vitals: 09/24/22 0944 BP: 126/70 Pulse: 69 Temp: 36.8 ???C (98.3 ???F) General: Awake, alert, NAD. Well groomed. HEENT: Normocephalic, atraumatic. Neck supple without lymphadenopathy. Heart: Regular rate and rhythm. Lungs: Clear to auscultation bilaterally. Abdomen: Soft, non-tender, non-distended. Bowel sounds present. Well healed left abdominal pump site. Extremities: No cyanosis or edema. No noted deformities. Neurologic: Appropriate affect during exam. Oriented x 3. Normal fluency and prosody of speech. Content appropriate and higher function appears intact. CN II-XII grossly intact. PERRL. EOMI. Face symmetric strength and sensation. Tongue midline. Shoulder shrug full strength and symmetric. Palate elevates symmetrically. Motor 5/5 throughout. No pronator drift. Sensation intact to light touch throughout. FTN intact. Interrogation: Vehcontronic 40 ml Synchromed II Refill date: 10/12/22 EOS date: 12/03/21 Primary drug: Hydromorphone 15mg/ml Secondary drug: Bupivacaine 15 mg/ml Current volume: 12 ml Primary drug rate 7.679 mg /day PTM: 0.141 mg q 12 hrs Silenced CAIT alarm today. Lab: No visits with results within 30 Day(s) from this visit. Latest known visit with results is: [facility] Encounter on 03/05/2019 Component Date Value Ref Range Status Glucose 03/05/2019 114 (A) 70 - 100 mg/dL Final BUN 03/05/2019 17 7 - 25 mg/dL Final Creatinine 03/05/2019 0.79 0.70 - 1.30 mg/dL Final Sodium 03/05/2019 135 (A) 136 - 145 meq/L Final Potassium 03/05/2019 4.3 3.5 - 5.1 meq/L Final Chloride 03/05/2019 103 98 - 107 meq/L Final CO2 03/05/2019 27 21 - 31 meq/L Final Calcium 03/05/2019 9.3 8.6 - 10.3 mg/dL Final eGFR - Non- 03/05/2019 >60 >60 ml/min/1.73sq m Final eGFR - 03/05/2019 >60 >60 ml/min/1.73sq m Final Imaging: No results found for this or any previous visit from the past 360 days. Impression: Mr. Palmer is a 57-year-old gentleman with a chronic pain syndrome pain syndrome primarily involving the low back. He has been on a stable dose of stable dose (more content not included)... Normal [facility] Letter (Out)on 09-24-2022 Letter (Out) [id number] Marilyn Palmer 1965 M Date Provider Department Center 09/24/2022 [id number], GENERIC PRO*INIT None Family History Adopted: Yes Family history unknown: Yes Normal [facility] MRSA/MSSA DNA NASALon 2021 MRSA DNA Negative Normal Negative, Invalid [facility] Comment on above: Performed By: #### L [id number] ####[facility] ([employer])[address] [place] [address] MSSA DNA Negative Normal Negative, Invalid [facility] Comment on above: Performed By: #### L [id number] ####[facility] ([facility])[address] [place] [address] PROTIME-INRon 09-24-2022 INR IN PPP BY COAGULATION ASSAY 0.92 Normal 0.90-1.10 [facility] Comment on above: Result Comment: ACCC P RECOMMENDED INR FOR WARFARIN THERAPY CONDITION INR PROPHYLAXIS OF VENOUS THROMBOSIS 2-3 (HIGH-RISK SURGERY) TREATMENT OF VENOUS THROMBOSIS 2-3 TREATMENT OF PULMONARY EMBOLISM 2-3 PREVENTION OF SYSTEMIC EMBOLISM: 2-3 ACUTE MYOCARDIAL INFARCTION TISSUE HEART VALVES VALVULAR HEART DISEASE ATRIAL FIBRILLATION RECURRENT SYSTEMIC EMBOLISM MECHANICAL HEART VALVE 2.5-3.5 FROM: ORAL ANTICOAGULANTS. MECHANISM OF ACTION, CLINICAL EFFECTIVENESS, AND OPTIMAL THERAPEUTIC RANGE. CHEST 1995;108:231S-246S. Performed By: #### L [id number] ####[facility] ([employer])[address] [place] [address] PROTHROMBIN TIME (PT) IN PPP BY COAGULATION ASSAY 12.4 Seconds Normal 12.3-14.8 [facility] Comment on above: Performed By: #### L [id number] ####[facility] ([facility])[address] [place] [address] SARS-COV-2 IGG, QUALITATIVEo n 09-24-2022 COVID-19 IGG ANTIBODY Negative Normal Negative [facility] Comment on above: Result Comment: Nega tive results do not rule out SARS-CoV-2 infection, particularly in those who have been in contact with the virus. Follow-up testing with a molecular diagnostic test should be considered to rule out infection in these individuals. Results from antibody testing should not be used as the sole basis to diagnose or exclude SARS-CoV-2 infection or to inform infection status. INTERPRETIVE INFORMATION: COVID-19 IgG, Qualitative by DENISE The COVID-19 IgG, Qualitative by DENISE test is for in vitro diagnostic use under an FDA Emergency Use Authorization (EUA). In compliance with this authorization, please visit [email or web address] for more information and to access the applicable information sheets. This test should not be used for screening of donated blood. Use for the qualitative detection of IgG antibodies against the nucleocapsid protein of SARS-CoV-2 (COVID-19) that develop in response to natural infection with SARS-CoV-2. These antibodies do not develop as a result of a COVID-19 vaccination. There are no current recommendations for assessing COVID-19 vaccine response. Performed by [facility], [address] [place], [place] [id number] [email or web address], Kaden Montejo MD, PHD, Lab. Director Performed By: #### L [id number] ####[facility] ([facility])[address] [place] [address] TYPE AND SCREENon 09-24-2022 AB SCREEN Negative Normal [facility] Comment on above: Performed By: #### L [id number] ####[facility], ABO group Nom (Bld) O Normal [facility] Comment on above: Performed By: #### L [id number] ####[facility], RH TYPE IN BLOOD Positive Normal [facility] Comment on above: Performed By: #### L [id number] ####[facility], Encounters Encounter Date Encounter Type Care Provider Facility Start: 08-06-2023 ambulatory [facility] Start: 05-28-2023 ambulatory [facility] Start: 03-26-2023 ambulatory [facility] Start: 02-01-2023 End: 02-02-2023 ambulatory DREAD CASTILLO [facility] Start: 01-29-2023 ambulatory [facility] Start: 01-11-2023 End: 01-11-2023 ambulatory KEL[facility] Start: 12-27-2022 End: 12-28-2022 ambulatory [facility] Start: 12-27-2022 ambulatory [facility] Start: 12-05-2022 End: 12-06-2022 ambulatory MANDA HOLM Facility:[facility] Start: 11-28-2022 End: [facility] Start: 11-01-2022 End: 11-02-2022 ambulatory MANDA HOLM Facility:[facility] Start: 10-29-2022 End: 10-29-2022 ambulatory [facility] Start: 10-03-2022 End: 10-04-2022 ambulatory [facility] Start: 09-24-2022 End: 09-25-2022 ambulatory [facility] Start: 09-24-2022 End: 09-24-2022 [facility] Procedures Date Procedure Procedure Detail Performing Clinician Start: 11-01-2022 PSA screening MANDA HOLM Comment on above: Performed By: #### P [facility] #### [facility] [address] [place] [address] Dr. Shweta Dillard Payers Date Payer Category Payer Unknown [id number] 1965 Unknown [id number] 1957 Medicare [id number] Clinical Notes 04-27-2021 to 08-06-2023 Note Date & Type Note Facility 08-06-2023 Note PROCEDURE PERFORMED: Intrathecal pump refill. PERFORMING PROVIDER: Dread Castillo Nurse Practitioner. NIGHT MONITOR: Marcy Avendano RN PREPROCEDURE DIAGNOSIS: Post laminectomy syndrome POSTPROCEDURE DIAGNOSIS: Post laminectomy syndrome INDICATION FOR THE PROCEDURE: 57 year old male here for follow up for intrathecal pain pump refill. He states his dose currently has continued to control his pain. 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 Torres No date: KNEE SURGERY; Left No date: PROSTHODONTIC PROCEDURE Social History Tobacco Use Smoking status: Every Day Packs/day: 1.00 Years: 25.00 Pack years: 25 Types: Cigarettes Smokeless tobacco: Never Alcohol use: Yes Alcohol/week: 1.0 standard drink Types: 1 Cans of beer per week Drug use: Never Review of patient's family history indicates: Adopted: Yes -- Simvastatin -- Swelling -- Other reaction(s): Other Pt unsure of reaction Patient's Medications New Prescriptions No medications on file Previous Medications ACETAMINOPHEN (TYLENOL) 325 MG TABLET Take 650 mg by mouth every 6 (six) hours if needed. ALBUTEROL 90 MCG/ACTUATION INHALER Inhale 2 puffs every 4 (four) hours if needed. CETIRIZINE (ZYRTEC) 10 MG TABLET Take 1 tablet by mouth in the morning. FEBUXOSTAT (ULORIC) 40 MG TABLET Take 1 tablet by mouth 1 (one) time each day. FUROSEMIDE (LASIX) 20 MG TABLET Take 1 tablet by mouth if needed each day. LISINOPRIL 30 MG TABLET Take 30 mg by mouth in the morning. METFORMIN (GLUCOPHAGE) 500 MG TABLET Take 1 tablet by mouth with breakfast. Twice daily. Modified Medications No medications on file Discontinued Medications No medications on file Physical examination: BP 139/78 Pulse 62 Resp 16 Ht 1.854 m (6' 1 ) Wt 122 kg (270 lb) SpO2 98% BMI 35.62 kg/m??? Constitutional: In no apparent distress. Vital signs reviewed. Chest: Respirations regular and nonlabored. Extremities without edema. Skin warm and dry without pallor. -pain pump at Left lower quadrant Neuro: GCS 15/15. Attention and memory intact. Musculoskeletal: Moves all extremities symmetrically. Muscle tone without hyper or hypotonicity. Muscle bulk appropriate for age. DESCRIPTION OF THE PROCEDURE: The patient was taken to the procedure room. A time-out was performed and the patient's identity as well as the procedure to be performed and the medication and concentration were verified by 2 nurses. Start time: 0945 End time: The pump was interrogated prior to initiation of the procedure. The patient was positioned supine. The area over the pump site was cleansed with chloraprep and allowed to dry. Area was draped in sterile fashion. The pump was accessed using sterile technique utilizing the needle provided in the Medtronic pump refill kit. The remaining medication in the pump reservoir was withdrawn, discarded, and witnessed by 2 nurses. 8ml of waste. The pump reservoir was refilled. The needle was withdrawn. Site was cleaned and sterile bandage applied. The patient tolerated the procedure well. Pump was reprogrammed following the refill using the information below and reprogramming was verified by 2 nurses. Pump printout was provided to patient . The patient will follow up for pump refill as scheduled or sooner if new or worsening problems. Discussed with patient signs and symptoms of medication overdose or withdrawal and other potential complications. EXPECTED REMAINING VOLUME OF MEDICATION IN RESERVOIR PRIOR TO REFILL: 7.9ml ACTUAL REMAINING VOLUME OF MEDICATION IN RESERVOIR PRIOR TO REFILL: 8.1ml CURRENT MEDICATION AND CONCENTRATION PRIOR TO REFILL: Dilaudid 15 mg/mL with bupivacaine 15 mg/mL, 40 mL. CURRENT DOSE: Dilaudid 6.902 mg/day with bupivacaine mg/day disabled ptm VOLUME OF MEDICATION REFILLED: 40ml BRIDGE BOLUS PROGRAMMED: n/a NEW DOSE: n/a COMPLICATIONS: None. ESTIMATED BLOOD LOSS: None. CAIT: June 2029 ALARM DATE: 10/27/23 REFILL DATE: 10/22/23 Diagnosis Plan 1. Postlaminectomy syndrome, unspecified region PUMP W REPROG & REFILL REQUIRING PHYSICIAN SKILL [facility] 05-28-2023 Note PROCEDURE PERFORMED: Intrathecal pump refill. PERFORMING PROVIDER: Dread Castillo Nurse Practitioner. NIGHT MONITOR: Marcy Avendano RN PREPROCEDURE DIAGNOSIS: Post laminectomy syndrome POSTPROCEDURE DIAGNOSIS: Post laminectomy syndrome INDICATION FOR THE PROCEDURE: 57 year old male here for follow up for intrathecal pain pump refill. He states his dose currently has continued to control his pain. 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 Torres No date: KNEE SURGERY; Left No date: PROSTHODONTIC PROCEDURE Social History Tobacco Use Smoking status: Every Day Packs/day: 1.00 Years: 25.00 Pack years: 25 Types: Cigarettes Smokeless tobacco: Never Alcohol use: Yes Alcohol/week: 1.0 standard drink Types: 1 Cans of beer per week Drug use: Never Review of patient's family history indicates: Adopted: Yes -- Simvastatin -- Swelling -- Other reaction(s): Other Pt unsure of reaction Patient's Medications New Prescriptions No medications on file Previous Medications ACETAMINOPHEN (TYLENOL) 325 MG TABLET Take 650 mg by mouth every 6 (six) hours if needed. ALBUTEROL 90 MCG/ACTUATION INHALER Inhale 2 puffs every 4 (four) hours if needed. CETIRIZINE (ZYRTEC) 10 MG TABLET Take 1 tablet by mouth in the morning. FEBUXOSTAT (ULORIC) 40 MG TABLET Take 1 tablet by mouth 1 (one) time each day. FUROSEMIDE (LASIX) 20 MG TABLET Take 1 tablet by mouth if needed each day. LISINOPRIL 30 MG TABLET Take 30 mg by mouth in the morning. METFORMIN (GLUCOPHAGE) 500 MG TABLET Take 1 tablet by mouth with breakfast. Twice daily. Modified Medications No medications on file Discontinued Medications No medications on file Physical examination: BP 139/78 Pulse 62 Resp 16 Ht 1.854 m (6' 1 ) Wt 122 kg (270 lb) SpO2 98% BMI 35.62 kg/m??? Constitutional: In no apparent distress. Vital signs reviewed. Chest: Respirations regular and nonlabored. Extremities without edema. Skin warm and dry without pallor. -pain pump at Left lower quadrant Neuro: GCS 15/15. Attention and memory intact. Musculoskeletal: Moves all extremities symmetrically. Muscle tone without hyper or hypotonicity. Muscle bulk appropriate for age. DESCRIPTION OF THE PROCEDURE: The patient was taken to the procedure room. A time-out was performed and the patient's identity as well as the procedure to be performed and the medication and concentration were verified by 2 nurses. Start time: 1004 End time: 1024 The pump was interrogated prior to initiation of the procedure. The patient was positioned supine. The area over the pump site was cleansed with chloraprep and allowed to dry. Area was draped in sterile fashion. The pump was accessed using sterile technique utilizing the needle provided in the Medtronic pump refill kit. The remaining medication in the pump reservoir was withdrawn, discarded, and witnessed by 2 nurses. 8ml of waste. The pump reservoir was refilled. The needle was withdrawn. Site was cleaned and sterile bandage applied. The patient tolerated the procedure well. Pump was reprogrammed following the refill using the information below and reprogramming was verified by 2 nurses. Pump printout was provided to patient . The patient will follow up for pump refill as scheduled or sooner if new or worsening problems. Discussed with patient signs and symptoms of medication overdose or withdrawal and other potential complications. EXPECTED REMAINING VOLUME OF MEDICATION IN RESERVOIR PRIOR TO REFILL: 7.6ml ACTUAL REMAINING VOLUME OF MEDICATION IN RESERVOIR PRIOR TO REFILL: 8ml CURRENT MEDICATION AND CONCENTRATION PRIOR TO REFILL: Dilaudid 15 mg/mL with bupivacaine 15 mg/mL, 40 mL. CURRENT DOSE: Dilaudid 6.902 mg/day with bupivacaine mg/day disabled ptm VOLUME OF MEDICATION REFILLED: 40ml BRIDGE BOLUS PROGRAMMED: n/a NEW DOSE: n/a COMPLICATIONS: None. ESTIMATED BLOOD LOSS: None. CAIT: June 2029 ALARM DATE: 08/18/23 REFILL DATE: 08/06/23 Diagnosis Plan 1. Lumbar post-laminectomy syndrome PUMP W REPROG & REFILL REQUIRING PHYSICIAN SKILL [facility] 03-26-2023 Note PROCEDURE PERFORMED: Intrathecal pump refill. PERFORMING PROVIDER: Dread Castillo Nurse Practitioner. NIGHT MONITOR: Marcy Avendano RN PREPROCEDURE DIAGNOSIS: Post laminectomy syndrome POSTPROCEDURE DIAGNOSIS: Post laminectomy syndrome INDICATION FOR THE PROCEDURE: 57 year old male here for follow up for intrathecal pain pump refill. He states his dose currently has continued to control his pain. 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 Torres No date: KNEE SURGERY; Left No date: PROSTHODONTIC PROCEDURE Social History Tobacco Use Smoking status: Every Day Packs/day: 1.00 Years: 25.00 Pack years: 25 Types: Cigarettes Smokeless tobacco: Never Alcohol use: Yes Alcohol/week: 1.0 standard drink Types: 1 Cans of beer per week Drug use: Never Review of patient's family history indicates: Adopted: Yes -- Simvastatin -- Swelling -- Other reaction(s): Other Pt unsure of reaction Patient's Medications New Prescriptions No medications on file Previous Medications ACETAMINOPHEN (TYLENOL) 325 MG TABLET Take 650 mg by mouth every 6 (six) hours if needed. ALBUTEROL 90 MCG/ACTUATION INHALER Inhale 2 puffs every 4 (four) hours if needed. CETIRIZINE (ZYRTEC) 10 MG TABLET Take 1 tablet by mouth in the morning. FEBUXOSTAT (ULORIC) 40 MG TABLET Take 1 tablet by mouth 1 (one) time each day. FUROSEMIDE (LASIX) 20 MG TABLET Take 1 tablet by mouth if needed each day. LISINOPRIL 30 MG TABLET Take 30 mg by mouth in the morning. METFORMIN (GLUCOPHAGE) 500 MG TABLET Take 1 tablet by mouth with breakfast. Twice daily. Modified Medications No medications on file Discontinued Medications No medications on file Physical examination: BP 139/78 Pulse 62 Resp 16 Ht 1.854 m (6' 1 ) Wt 122 kg (270 lb) SpO2 98% BMI 35.62 kg/m??? Constitutional: In no apparent distress. Vital signs reviewed. Chest: Respirations regular and nonlabored. Extremities without edema. Skin warm and dry without pallor. -pain pump at Left lower quadrant Neuro: GCS 15/15. Attention and memory intact. Musculoskeletal: Moves all extremities symmetrically. Muscle tone without hyper or hypotonicity. Muscle bulk appropriate for age. DESCRIPTION OF THE PROCEDURE: The patient was taken to the procedure room. A time-out was performed and the patient's identity as well as the procedure to be performed and the medication and concentration were verified by 2 nurses. Start time: 0945 End time: 1003 The pump was interrogated prior to initiation of the procedure. The patient was positioned supine. The area over the pump site was cleansed with chloraprep and allowed to dry. Area was draped in sterile fashion. The pump was accessed using sterile technique utilizing the needle provided in the Medtronic pump refill kit. The remaining medication in the pump reservoir was withdrawn, discarded, and witnessed by 2 nurses. 8ml of waste. The pump reservoir was refilled. The needle was withdrawn. Site was cleaned and sterile bandage applied. The patient tolerated the procedure well. Pump was reprogrammed following the refill using the information below and reprogramming was verified by 2 nurses. Pump printout was provided to patient . The patient will follow up for pump refill as scheduled or sooner if new or worsening problems. Discussed with patient signs and symptoms of medication overdose or withdrawal and other potential complications. EXPECTED REMAINING VOLUME OF MEDICATION IN RESERVOIR PRIOR TO REFILL: 11.2ml ACTUAL REMAINING VOLUME OF MEDICATION IN RESERVOIR PRIOR TO REFILL: 10ml CURRENT MEDICATION AND CONCENTRATION PRIOR TO REFILL: Dilaudid 15 mg/mL with bupivacaine 15 mg/mL, 40 mL. CURRENT DOSE: Dilaudid 7.673 mg/day with bupivacaine 7.673 mg/day with patient administered dose 0.141 mg per dose, 1 dose every 12 hours as needed for pain. VOLUME OF MEDICATION REFILLED: 40ml BRIDGE BOLUS PROGRAMMED: n/a NEW DOSE: n/a COMPLICATIONS: None. ESTIMATED BLOOD LOSS: None. CAIT: June 2029 ALARM DATE: 06/05/2023 REFILL DATE: 05/28/2023 Diagnosis Plan 1. Postlaminectomy syndrome, lumbar PUMP W REPROG & REFILL REQUIRING PHYSICIAN SKILL [facility] 01-29-2023 Note PROCEDURE PERFORMED: Intrathecal pump refill. PERFORMING PROVIDER: Dread Castillo Nurse Practitioner. NIGHT MONITOR: Marcy Godinez RN PREPROCEDURE DIAGNOSIS: Post laminectomy syndrome POSTPROCEDURE DIAGNOSIS: Post laminectomy syndrome INDICATION FOR THE PROCEDURE: 57 year old male here for follow up for intrathecal pain pump refill. He states his dose currently has continued to control his pain. 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 Torres No date: KNEE SURGERY; Left No date: PROSTHODONTIC PROCEDURE Social History Tobacco Use Smoking status: Every Day Packs/day: 1.00 Years: 25.00 Pack years: 25 Types: Cigarettes Smokeless tobacco: Never Alcohol use: Yes Alcohol/week: 1.0 standard drink Types: 1 Cans of beer per week Drug use: Never Review of patient's family history indicates: Adopted: Yes -- Simvastatin -- Swelling -- Other reaction(s): Other Pt unsure of reaction Patient's Medications New Prescriptions No medications on file Previous Medications ACETAMINOPHEN (TYLENOL) 325 MG TABLET Take 650 mg by mouth every 6 (six) hours if needed. ALBUTEROL 90 MCG/ACTUATION INHALER Inhale 2 puffs every 4 (four) hours if needed. CETIRIZINE (ZYRTEC) 10 MG TABLET Take 1 tablet by mouth in the morning. FEBUXOSTAT (ULORIC) 40 MG TABLET Take 1 tablet by mouth 1 (one) time each day. FUROSEMIDE (LASIX) 20 MG TABLET Take 1 tablet by mouth if needed each day. LISINOPRIL 30 MG TABLET Take 30 mg by mouth in the morning. METFORMIN (GLUCOPHAGE) 500 MG TABLET Take 1 tablet by mouth with breakfast. Twice daily. Modified Medications No medications on file Discontinued Medications No medications on file Physical examination: BP 139/78 Pulse 62 Resp 16 Ht 1.854 m (6' 1 ) Wt 122 kg (270 lb) SpO2 98% BMI 35.62 kg/m??? Constitutional: In no apparent distress. Vital signs reviewed. Chest: Respirations regular and nonlabored. Extremities without edema. Skin warm and dry without pallor. -pain pump at Left lower quadrant Neuro: GCS 15/15. Attention and memory intact. Musculoskeletal: Moves all extremities symmetrically. Muscle tone without hyper or hypotonicity. Muscle bulk appropriate for age. DESCRIPTION OF THE PROCEDURE: The patient was taken to the procedure room. A time-out was performed and the patient's identity as well as the procedure to be performed and the medication and concentration were verified by 2 nurses. Start time: 1022 End time: 1030 The pump was interrogated prior to initiation of the procedure. The patient was positioned supine. The area over the pump site was cleansed with chloraprep and allowed to dry. Area was draped in sterile fashion. The pump was accessed using sterile technique utilizing the needle provided in the Medtronic pump refill kit. The remaining medication in the pump reservoir was withdrawn, discarded, and witnessed by 2 nurses. 8ml of waste. The pump reservoir was refilled. The needle was withdrawn. Site was cleaned and sterile bandage applied. The patient tolerated the procedure well. Pump was reprogrammed following the refill using the information below and reprogramming was verified by 2 nurses. Pump printout was provided to patient . The patient will follow up for pump refill as scheduled or sooner if new or worsening problems. Discussed with patient signs and symptoms of medication overdose or withdrawal and other potential complications. EXPECTED REMAINING VOLUME OF MEDICATION IN RESERVOIR PRIOR TO REFILL: 8ml ACTUAL REMAINING VOLUME OF MEDICATION IN RESERVOIR PRIOR TO REFILL: 8ml CURRENT MEDICATION AND CONCENTRATION PRIOR TO REFILL: Dilaudid 15 mg/mL with bupivacaine 15 mg/mL, 40 mL. CURRENT DOSE: Dilaudid 7.673 mg/day with bupivacaine 7.673 mg/day with patient administered dose 0.141 mg per dose, 1 dose every 12 hours as needed for pain. VOLUME OF MEDICATION REFILLED: 40ml BRIDGE BOLUS PROGRAMMED: n/a NEW DOSE: n/a COMPLICATIONS: None. ESTIMATED BLOOD LOSS: None. CAIT: June 2029 ALARM DATE: 04/10/23 REFILL DATE: 03/26/23 Diagnosis Plan 1. Lumbar post-laminectomy syndrome PUMP W REPROG & REFILL REQUIRING PHYSICIAN SKILL [facility] 01-11-2023 Note ---- Attestation signed by Tal Chery MD at 01/11/2023 4:07 PM By using the attestations below, the signing clinician agrees that I have read and verify that the documentation has been personally reviewed by me and ensure that the documentation accurately reflects the encounter. GC: I personally saw this patient on the day of the encounter, performed the tay portion(s) of the service and participated in the management and confirm the resident's documentation. Please note there may be an additional personal documentation from me. ---- Subjective Patient ID: Sapphire Palmer is a 57 y.o. male who presents for No chief complaint on file.. HPI 57 year old male with past medical history of HTN, gout, pre diabetic, asthma, back pain 2/2 degenerative disc disease s/p surgery and pain pump presented to our clinic to establish care. He was referred by his PCP for concerns of elevated Rheumatoid factor. Has had leg swelling for 6 years now. Pt reports that it feels as if they continue to worsen. Unsure as to why rheumatoid factor was done. It was elevated, inflammatory markers are negative. He was given Prednisone as per the pt and while he was on it his leg swelling was reduced and they felt clay temperer than usual. Pt denies pain in small joints of his hands, morning stiffness or joint swelling. Review of Systems Constitutional: Negative for appetite change, chills, diaphoresis, fatigue and fever. HENT: Negative for congestion, mouth sores, nosebleeds, sinus pressure and sinus pain. Eyes: Negative for pain, discharge, redness and itching. Respiratory: Negative for cough and shortness of breath. Cardiovascular: Positive for leg swelling. Negative for chest pain and palpitations. Musculoskeletal: Positive for back pain. Negative for arthralgias, gait problem, joint swelling and myalgias. Objective There were no vitals taken for this visit. Physical Exam Constitutional: Appearance: Normal appearance. HENT: Head: Normocephalic and atraumatic. Nose: Nose normal. Mouth/Throat: Mouth: Mucous membranes are moist. Eyes: Extraocular Movements: Extraocular movements intact. Pulmonary: Effort: Pulmonary effort is normal. Musculoskeletal: General: Normal range of motion. Cervical back: Normal range of motion. Neurological: Mental Status: He is alert. Assessment/Plan Diagnoses and all orders for this visit: Rheumatoid factor positive - Sedimentation rate - C-reactive protein - Cyclic citrul peptide antibody, IgG - Protein electrophoresis, serum - Hepatitis C antibody 57 year old male with past medical history of HTN, gout, pre diabetic, asthma, back pain 2/2 degenerative disc disease s/p surgery and pain pump presented to our clinic to establish care. He was referred by his PCP for concerns of elevated Rheumatoid factor. Elevated rheumatoid factor -Does not seem to be of clinical significance at this point given that he does not have symptoms of RA like swelling, pain or morning stiffness of small joints -His inflammatory markers were also negative Plan: -Will obtain CCP, Hepatitis C and SPEP and repeat inflammatory markers -Follow up in 8 months 2. Leg swelling -Not explained by elevated RF -Needs to be evaluated by lymphedema or started on diuretic, management per PCP Seen by Dr. Chery and Dr. Kemp [facility] 12-27-2022 Note HPI: Referral source: 12/27/22 CC: Chief Complaint Patient presents with New Patient Pump alarm date 02/07/23 Pain Assessment Pain Assessment: 0-10 Pain Score: 7 Pain Type: Chronic pain Pain Location: Back Pain Orientation: Lower, Right, Left Pain Radiating Towards: Hips Pain Descriptors: Sharp, Stabbing, Shooting, Burning, Tingling, Dull, Aching, Throbbing, Cramping, Other (Comment) (Weakness) Pain Frequency: Constant/continuous Pain Onset: Ongoing Date Pain First Started: (15+ years ago) Clinical Progression: Gradually improving Aggravating Factors: Bending, Other (Comment) (Sitting, lifting and getting up from sitting) Result of Injury: No Work-Related Injury: No Pain Interventions: Other (Comment) (Physical Therapy few years ago) Sapphire Palmer is a 57 y.o. year-old male lumbar decompressive surgery followed by lumbar fusion L4- S1, then placement of a spinal cord stimulator which was removed for lack of effect, and finally placement of an intrathecal [place] [address] Roldan. Changed on 10/[address] Torres. He continues to have low back pain 04/29 that goes down to his bilateral hips to his on his anterior thighs to knees. He states can stand but has hard time walking for long periods of time. He staets his pump does help him with his pain and functional capacity. He is currently on Dilaudid 15 mg/mL with bupivacaine 15 mg/mL, 40 mL. Dilaudid 7.673 mg/day with bupivacaine 7.673 mg/day with patient administered dose 0.141 mg per dose, 1 dose every 12 hours as needed for pain. He has not had updated xray or MRI of his lumbar spine since 2016. 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 Torres KNEE SURGERY Left PROSTHODONTIC PROCEDURE Imaging: MRI LUMBAR SPINE W WO CONTRAST 08/12/2017 10:14 AM EDT SIGNS AND SYMPTOMS: M54.5 Low back pain I10 TECHNOLOGIST COMMENTS: Lower back pain with bilateral lower extremity pain and difficulty ambulating. QUESTION FOR THE RADIOLOGIST: , , please schedule on a clinic day of [facility] Saturday day or am, to be schedule in 3 weeks , , , Ordering Provider - TANGELA ERICKSON MD , ...More In Sending System PROTOCOL: The following pulse sequences were utilized when imaging the lumbar spine: sagittal T2, sagittal T1, sagittal STIR, axial T2, and axial T1. Post contrast images obtained in sagittal T1 and axial T1. CONTRAST: Contrast: DOTAREM, 20 milliliter, Intravenous COMPARISON: MRI dated October 20, 2013 FINDINGS: The bones of the lumbar spine are in anatomic alignment. There is evidence of posterior fusion from L4 through S1. There is preservation of vertebral body heights. There is moderate intervertebral disc height loss at T12-L1 with Modic type II endplate degenerative change. There is also mild disc height loss at L2-L3 and L3-L4 with Modic type I endplate edema at L2-L3. The marrow signals within normal limits, otherwise. The conus terminates at the inferior endplate of the T12 vertebral body level. No epidural or paraspinous fluid collection is appreciated. There is enhancing scar tissue in the posterior lateral right epidural space at the L5-S1 level on series 6 image 6 and series 8 image 6, closely approximating the posterior margin of the traversing right S1 nerve root. There is however no evidence of nerve root encasement. A pain pump catheter is present. Extensive the spinal canal at the level of the L1-L2 intervertebral disc and extending cranially off the superior margin of this study. At T12-L1: There is a broad-based disc bulge contributing to mild spinal canal stenosis with mild left greater than right neural foraminal narrowing. At L1-L2: There is a normal disc, central canal, and neural foramen. At L2-L3: There is a circumferential disc bulge with bilateral facet and ligamentum flavum degenerative change causing mild to moderate spinal canal narrowing along with moderate to severe bilateral neural foraminal narrowing. At L3-L4: There is a circumferential disc bulge with a T2 hyperintense annular fissure centrally. There is mild spinal canal narrowing with moderate right and mild left neural foraminal narrowing. At L4-L5: There is endplate osteophyte formation without significant disc pathology. No spinal canal narrowing. There is mild bilateral neural foraminal stenosis. At L5-S1: Bilateral facet degenerative changes are present with endplate osteophyte formation. This contributes to moderate bilateral neural foraminal narrowin (more content not included)... [facility] 11-28-2022 Note PROCEDURE PERFORMED: Intrathecal pump refill. PERFORMING PROVIDER: Marianna Nur Nurse Practitioner. NIGHT MONITOR: Dulce Fink MA. PREPROCEDURE DIAGNOSIS: Lumbar postlaminectomy syndrome. POSTPROCEDURE DIAGNOSIS: Lumbar postlaminectomy syndrome. INDICATION FOR THE PROCEDURE: Longstanding low back pain. No dose change is being requested at this time. 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 No date: Sleep apnea Past Surgical History: No date: BACK SURGERY Comment: SCS Implant & Removal, Lumbar Fusion No date: IMPLANTATION / REPLACEMENT INFUSION PUMP No date: PROSTHODONTIC PROCEDURE Social History Tobacco Use Smoking status: Every Day Packs/day: 1.00 Years: 25.00 Pack years: 25 Types: Cigarettes Smokeless tobacco: Never Alcohol use: Yes Alcohol/week: 1.0 standard drink Types: 1 Cans of beer per week Drug use: Never Review of patient's family history indicates: Adopted: Yes -- Simvastatin -- Swelling -- Other reaction(s): Other Pt unsure of reaction Patient's Medications New Prescriptions No medications on file Previous Medications ACETAMINOPHEN (TYLENOL) 325 MG TABLET Take 650 mg by mouth every 6 (six) hours if needed. ALBUTEROL 90 MCG/ACTUATION INHALER Inhale 2 puffs every 4 (four) hours if needed. CETIRIZINE (ZYRTEC) 10 MG TABLET Take 1 tablet by mouth in the morning. FEBUXOSTAT (ULORIC) 40 MG TABLET Take 1 tablet by mouth 1 (one) time each day. FLU VACC [id number] 6MOS UP,PF, (FLUZONE QUAD [id number], PF,) 60 MCG (15 MCG X 4)/0.5 ML [facility] ADMINISTERED FUROSEMIDE (LASIX) 20 MG TABLET Take 1 tablet by mouth if needed each day. LISINOPRIL-HYDROCHLOROTHIAZIDE 20-12.5 MG TABLET Take 1 tablet by mouth in the morning. METFORMIN (GLUCOPHAGE) 500 MG TABLET Take 1 tablet by mouth. Twice daily. Modified Medications No medications on file Discontinued Medications ALLOPURINOL (ZYLOPRIM) 100 MG TABLET Take 1 tablet by mouth 1 (one) time each day. CETIRIZINE 10 MG CAPSULE Take 1 tablet by mouth 1 (one) time each day. FINASTERIDE (PROSCAR) 5 MG TABLET Take 1 tablet by mouth 1 (one) time each day. FUROSEMIDE (LASIX) 40 MG TABLET Take 1 tablet by mouth 1 (one) time each day. LISINOPRIL 30 MG TABLET Take 1 tablet by mouth 1 (one) time each day. NICOTINE (NICODERM CQ) 21 MG/[address] 1 patch on the skin 1 (one) time each day. OMEGA-3 (FISH OIL) 300-1,000 MG CAPSULE Take 1,000 mg by mouth in the morning and at bedtime. TAMSULOSIN (FLOMAX) 0.4 MG 24 HR CAPSULE Take 1 capsule by mouth 1 (one) time each day. TIOTROPIUM (SPIRIVA WITH HANDIHALER) 18 MCG INHALATION CAPSULE Physical examination: BP 127/77 (BP Location: Left arm) Pulse 64 Temp 36.7 ???C (98.1 ???F) (Oral) Ht 1.829 m (6') Wt 122 kg (270 lb) BMI 36.62 kg/m??? Constitutional: In no apparent distress. Vital signs reviewed. Chest: Respirations regular and nonlabored. Extremities without edema. Skin warm and dry without pallor. Neuro: GCS 15/15. Attention and memory intact. No dysarthria or aphasia. Musculoskeletal: Moves all extremities symmetrically. Muscle tone without hyper or hypotonicity. Muscle bulk appropriate for age. Ambulatory without a device with antalgic gait. DESCRIPTION OF THE PROCEDURE: The patient was taken to the procedure room. A time-out was performed and the patient's identity as well as the procedure to be performed and the medication and concentration were verified by 2 nurses. Start time: 1045. End time: 1125. The pump was interrogated prior to initiation of the procedure. The patient was positioned right lateral decubitus. The area over the pump site was cleansed with Betadine and allowed to dry. Area was draped in sterile fashion. There was difficulty accessing the pump that ultimately required the use of ultrasound for successful access. The pump was accessed using sterile technique utilizing the needle provided in the [employer] pump refill kit. The remaining medication in the pump reservoir was withdrawn, discarded, and witnessed by 2 nurses. The pump reservoir was refilled. The needle was withdrawn. Site was cleaned and sterile bandage applied. The patient tolerated the procedure well. Pump was reprogrammed following the refill using the information below and reprogramming was verified by 2 nurses. Pump printout was provided to patient. The patient will follow up for pump refill as scheduled or sooner if new or worsening problems. Discussed with patient signs and symptoms of medication overdose or withdrawal and other potential complications. EXPECTED REMAINING VOLUME OF MEDICATION IN RESERVOIR PRIOR TO REFILL: 6.6 mL. ACTUAL REMAINING VOLUME OF MEDICATION IN RESERVOIR PRIOR TO REFILL: 7mL old drug wasted and witnessed by 2 nurses. CURRENT MEDICATION AND CONCENTRATION PRIOR TO R (more content not included)... [facility] 10-29-2022 Note Neurosurgery Clinic Note Chief Complaint: Post op. Interval History: Sapphire Palmer is a 57 y.o. year-old male who presents for postoperative follow-up after recent exchange of an indwelling intrathecal pump for treatment of chronic pain. He denies any difficulty with his wounds and states they have been healing well. His pain is under stable control. He notes no symptoms of overdose or withdrawal. In general in general he is pleased in general he is pleased with with his surgery. With his surgery. Problem List: Patient Active Problem List Diagnosis Lumbar post-laminectomy syndrome Lumbosacral spondylosis without myelopathy Cellulitis of lower limb Chronic back pain Contact dermatitis Degeneration of lumbar intervertebral disc Edema of lower extremity HTN (hypertension), benign Hip pain Knee pain Postoperative pain Pure hyperglyceridemia Retention of urine Sciatica Solar degeneration Stasis dermatitis Muscle spasm of back Pain-dysfunction syndrome Severe obesity (BMI 35.0-39.9) with comorbidity (CMS/HCC) Varicose veins of left lower extremity with pain Venous insufficiency of both lower extremities Chronic pain syndrome Past Medical History: Past Medical History: Diagnosis Date Arthritis Chronic pain disorder Diabetes mellitus (CMS/HCC) Gout Hyperlipidemia Hypertension Joint pain Prediabetes 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 Past Surgical History: Past Surgical History: Procedure Laterality Date BACK SURGERY SCS Implant & Removal, Lumbar Fusion BACK SURGERY IMPLANTATION / REPLACEMENT INFUSION PUMP 2015, DILAUDID INTRATHECAL PUMP IMPLANTATION 10/03/2022 Exchange of intrathecal pump, Dr. Torres KNEE SURGERY Left PROSTHODONTIC PROCEDURE Medications: Current Outpatient Medications Medication Instructions acetaminophen (TYLENOL) 650 mg, oral, Every 6 hours PRN albuterol 90 mcg/actuation inhaler 2 puffs, inhalation, Every 4 hours PRN cetirizine (ZyrTEC) 10 mg tablet 1 tablet, oral, Daily febuxostat (Uloric) 40 mg tablet 1 tablet, oral, Daily flu vacc [id number] 6mos up,PF, (Fluzone Quad [id number], PF,) 60 mcg (15 mcg x 4)/0.5 mL syringe PHARMACY ADMINISTERED furosemide (Lasix) 20 mg tablet 1 tablet, oral, Daily PRN lisinopriL-hydrochlorothiazide 20-12.5 mg tablet 1 tablet, oral, Daily RT metFORMIN (Glucophage) 500 mg tablet 1 tablet, oral, Daily with breakfast, Twice daily. Allergies: Allergies Allergen Reactions Simvastatin Swelling Other reaction(s): Other Pt unsure of reaction Review of Systems: Review of Systems Constitutional: Negative. Negative for chills, fatigue and fever. Musculoskeletal: Positive for back pain (has back pain and hip pain). Neurological: Negative. Negative for dizziness, tremors, seizures, syncope, facial asymmetry, speech difficulty, weakness, light-headedness, numbness and headaches. Exam: Vitals: Vitals: 10/29/22 0948 BP: 123/70 Pulse: 60 Temp: 36.6 ???C (97.9 ???F) General: Awake, alert, NAD. Well groomed. HEENT: Normocephalic, atraumatic. Neck supple without lymphadenopathy. Heart: Regular rate and rhythm. Lungs: Clear to auscultation bilaterally. Abdomen: Soft, non-tender, non-distended. Bowel sounds present. Left abdominal site healing well with small residual dermabond in place. Extremities: No cyanosis or edema. No noted deformities. Lab: Admission on 10/03/2022, Discharged on 10/03/2022 Component Date Value Ref Range Status Glucose POC 10/03/2022 115 (A) 70 - 105 mg/dL Final Imaging: No results found for this or any previous visit from the past 360 days. Impression: Mr. Palmer is a 57-year-old gentleman who presents for postoperative follow-up after undergoing exchange of his existing Medtronic 40 cc SynchroMed 2 pump on 10/03/2022. He is healing well and has no new concerns today. He may liberalize his activity but was advised not to soak the wounds in water until the skin was completely healed. Plan: The patient was given a new refill and alarm date today. We will also coordinate his transition to ongoing care by the pain management team. [facility] 10-03-2022 Note Patient: Sapphire fragoso Procedure Summary Date: 10/03/22 Room / Location: [facility] OPERATING ROOM 03 / [facility] Operating Room Anesthesia Start: 953 Anesthesia Stop: 110 Procedure: REPLACEMENT, PUMP, PROGRAMMABLE, FOR INTRATHECAL DRUG INFUSION (Left) Diagnosis: Post laminectomy syndrome (Post laminectomy syndrome [M96.1]) Surgeons: Immanuel Torres MD Responsible Provider: Vishal Red MD Anesthesia Type: general ASA Status: 3 Anesthesia Type: general Vitals Value Taken Time BP 132/68 10/03/22 1102 Temp 36.4 ???C (97.5 ???F) 10/03/22 1102 Pulse 67 10/03/22 1102 Resp 21 10/03/22 1102 SpO2 100 % 10/03/22 1102 Anesthesia Post Evaluation Patient location during evaluation: PACU Patient participation: complete - patient participated Level of consciousness: awake and alert Pain management: adequate Airway patency: patent Cardiovascular status: acceptable Respiratory status: acceptable Hydration status: acceptable No notable events documented. [facility] 10-03-2022 Note Airway Date/Time: 10/03/2022 10:00 AM Urgency: elective Airway not difficult General Information and Staff Patient location during procedure: OR Resident/PRESS SERVICE READER/CAA: Aislinn Stephens MD Performed: resident/PRESS SERVICE READER/CAA Indications and Patient Condition Indications for airway management: anesthesia Spontaneous ventilation: present Sedation level: deep Preoxygenated: yes Mask difficulty assessment: 1 - vent by mask Planned trial extubation Final Airway Details Final airway type: endotracheal airway Successful airway: ETT Successful intubation technique: video laryngoscopy Blade: Agudelo Blade size: #3 ETT size (mm): 7.5 Cormack-Lehane Classification: grade I - full view of glottis Placement verified by: chest auscultation and capnometry Measured from: lips ETT to lips (cm): 23 Number of attempts at approach: 1 [facility] 10-03-2022 Note Patient: Sapphire fragoso Procedure Information Date/Time: 10/03/22 1000 Procedure: REPLACEMENT, PUMP, PROGRAMMABLE, FOR INTRATHECAL DRUG INFUSION (Left) - C-arm, Medtronic Syncromed II 40 mL Intrathecal Pain Pump,start at 10 am-surgeon has meeting, Lateral decubitus, standard table, beanbag, arm licea, axillary roll, lots of foam, wide silk tape, REP NOTIFIED 09/12 JK Location: [facility] OPERATING ROOM 03 / [facility] Operating Room Surgeons: Immanuel Torres MD Relevant Problems Cardio (+) HTN (hypertension), benign (+) Varicose veins of left lower extremity with pain (+) Venous insufficiency of both lower extremities Clinical information reviewed: Tobacco Allergies Meds Med Hx Surg Hx Fam Hx Soc Hx Physical Exam Airway Mallampati: I TM distance: >3 FB Neck ROM: full Cardiovascular Rhythm: regular Rate: normal Comments: HTN, on lasix and Lisinopril, Can climb a flight of stairs slowly. Denies any angina/equivalents with exertion. Denies OH/Stents/Known cardiac issues Dental Comments: Missing upper. None loose lower Pulmonary Breath sounds clear to auscultation Comments: Smoker 1ppd since age of 20. Denies using inhalers. Possible SUSANA-snores. Abdominal - normal exam (+) obese Abdomen: soft Other findings: 09/24/22 IMPRESSION: Normal sinus rhythm Incomplete right bundle branch block Borderline ECG HTN controlled on meds, DM2 on metformin not on insulin. Sugars in low 100s fasting. Has a dilaudid bupi intrathecal pump here for routine replacement of pump and check of catheter. No narcotics used over the pain pump. Current pain 6/10. Anesthesia Plan ASA 3 general (Lateral) The patient is a current smoker. Patient was previously instructed to abstain from smoking on day of procedure. Patient smoked on day of procedure. intravenous induction Postoperative administration of opioids is intended. Anesthetic plan and risks discussed with patient. Use of blood products discussed with patient who consented to blood products. Additional Equipment Requests Other Requests: Lateral arm board and ax roll [facility] 09-24-2022 Note Neurosurgery Clinic Note Chief Complaint: Intrathecal pump CAIT. Interval History: Sapphire Palmer is a 57 y.o. year-old male who presents to neurosurgery clinic to discuss exchange of his existing intrathecal pump because it is entered its elective replacement interval. He relates a very longstanding history of severe low back pain. He had undergone lumbar decompressive surgery followed by lumbar fusion, then placement of a spinal cord stimulator which was removed for lack of effect, and finally placement of an intrathecal [place] [address] [place]. The pump has been maintained in the neurosurgery clinics at [facility]. He has had a stable pump dose since 2018. Does not currently see the pain management doctors. Recent interrogation interrogation of his pump system had revealed that the pump had reached its elective replacement interval. Problem List: Patient Active Problem List Diagnosis Lumbar post-laminectomy syndrome Lumbosacral spondylosis without myelopathy Cellulitis of lower limb Chronic back pain Contact dermatitis Degeneration of lumbar intervertebral disc Edema of lower extremity HTN (hypertension), benign Hip pain Knee pain Postoperative pain Pure hyperglyceridemia Retention of urine Sciatica Solar degeneration Stasis dermatitis Muscle spasm of back Pain-dysfunction syndrome Severe obesity (BMI 35.0-39.9) with comorbidity (CMS/HCC) Varicose veins of left lower extremity with pain Venous insufficiency of both lower extremities Past Medical History: Past Medical History: Diagnosis Date Arthritis Gout Hyperlipidemia Hypertension Prediabetes 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 Sleep apnea Past Surgical History: Past Surgical History: Procedure Laterality Date BACK SURGERY SCS Implant & Removal, Lumbar Fusion IMPLANTATION / REPLACEMENT INFUSION PUMP PROSTHODONTIC PROCEDURE Medications: Current Outpatient Medications Medication Instructions acetaminophen (TYLENOL) 650 mg, oral, Every 6 hours PRN albuterol 90 mcg/actuation inhaler 2 puffs, inhalation, Every 4 hours PRN cetirizine (ZyrTEC) 10 mg tablet 1 tablet, oral, Daily febuxostat (Uloric) 40 mg tablet 1 tablet, oral, Daily flu vacc [id number] 6mos up,PF, (Fluzone Quad [id number], PF,) 60 mcg (15 mcg x 4)/0.5 mL syringe PHARMACY ADMINISTERED furosemide (Lasix) 20 mg tablet 1 tablet, oral, Daily PRN lisinopriL-hydrochlorothiazide 20-12.5 mg tablet 1 tablet, oral, Daily RT metFORMIN (Glucophage) 500 mg tablet 1 tablet, oral, Twice daily. Allergies: Allergies Allergen Reactions Simvastatin Swelling Other reaction(s): Other Pt unsure of reaction Review of Systems: Review of Systems Constitutional: Negative. Respiratory: Negative. Genitourinary: Negative. Neurological: Positive for headaches. Exam: Vitals: Vitals: 09/24/22 0944 BP: 126/70 Pulse: 69 Temp: 36.8 ???C (98.3 ???F) General: Awake, alert, NAD. Well groomed. HEENT: Normocephalic, atraumatic. Neck supple without lymphadenopathy. Heart: Regular rate and rhythm. Lungs: Clear to auscultation bilaterally. Abdomen: Soft, non-tender, non-distended. Bowel sounds present. Well healed left abdominal pump site. Extremities: No cyanosis or edema. No noted deformities. Neurologic: Appropriate affect during exam. Oriented x 3. Normal fluency and prosody of speech. Content appropriate and higher function appears intact. CN II-XII grossly intact. PERRL. EOMI. Face symmetric strength and sensation. Tongue midline. Shoulder shrug full strength and symmetric. Palate elevates symmetrically. Motor 5/5 throughout. No pronator drift. Sensation intact to light touch throughout. FTN intact. Interrogation: Vehcontronic 40 ml Synchromed II Refill date: 10/12/22 EOS date: 12/03/21 Primary drug: Hydromorphone 15mg/ml Secondary drug: Bupivacaine 15 mg/ml Current volume: 12 ml Primary drug rate 7.679 mg /day PTM: 0.141 mg q 12 hrs Silenced CAIT alarm today. Lab: No visits with results within 30 Day(s) from this visit. Latest known visit with results is: [facility] Encounter on 03/05/2019 Component Date Value Ref Range Status Glucose 03/05/2019 114 (A) 70 - 100 mg/dL Final BUN 03/05/2019 17 7 - 25 mg/dL Final Creatinine 03/05/2019 0.79 0.70 - 1.30 mg/dL Final Sodium 03/05/2019 135 (A) 136 - 145 meq/L Final Potassium 03/05/2019 4.3 3.5 - 5.1 meq/L Final Chloride 03/05/2019 103 98 - 107 meq/L Final CO2 03/05/2019 27 21 - 31 meq/L Final Calcium 03/05/2019 9.3 8.6 - 10.3 mg/dL Final eGFR - Non- 03/05/2019 >60 >60 ml/min/1.73sq m Final eGFR - 03/05/2019 >60 >60 ml/min/1.73sq m Final Imaging: No results found for this or any previous visit from the past 360 days. Impression: Mr. Palmer is a 57-year-old gentleman with a chronic pain syndrome pain syndrome primarily involving the low back. He has been on a stable dose of stable dose (more content not included)... [facility] 03-29-2022 Note MR#: [id number] [facility] Pt. Name: Sapphire Palmer Surgery Date: 03/28/2022 Room #: 2H Date of : 1965 PROCEDURE NOTE ATTENDING: Marianna Nur NP PERFORMING PROVIDER: Marianna Nur Nurse Practitioner. NIGHT MONITOR: Hyacinth Coleman RN. PREPROCEDURE DIAGNOSIS: Lumbar post-laminectomy syndrome. POSTPROCEDURE DIAGNOSIS: Lumbar post-laminectomy syndrome. PROCEDURE PERFORMED: Intrathecal pump refill. INDICATION FOR THE PROCEDURE: The patient has a chronic longstanding low back and leg pain. He is not requesting a pump dose change at this time. Vital signs reviewed and found to be stable. He is alert and awake. In no apparent distress. Respirations are regular and nonlabored. Skin is warm, dry without pallor. He moves all extremities symmetrically. Ambulatory without device and with an antalgic gait. DESCRIPTION OF THE PROCEDURE: The patient was taken to the procedure room. A time-out was performed and the patient's identity as well as the procedure to be performed and the medication and concentration were verified by 2 nurses. The pump was interrogated prior to initiation of procedure. The patient was positioned in the right lateral decubitus position. The area over the pump site was cleansed with Betadine and allowed to dry. Area was draped in sterile fashion. The pump was accessed using sterile technique utilizing the needle provided in the Vehcontronic pump refill kit. The old medication in the pump reservoir was withdrawn, discarded, and witnessed by 2 nurses. The pump reservoir was refilled. Needle was withdrawn. Site was cleaned and sterile bandage applied. The patient tolerated the procedure well. Pump was reprogrammed following the refill using the information below and reprogramming was verified by 2 nurses. Pump printout was provided to the patient. The patient will follow up for pump refill as scheduled or sooner if new or worsening problems. Discussed with patient signs and symptoms of medication overdose or withdrawal and other potential complications. Expected remaining volume of medication reservoir prior to refill: 10.3 mL. Actual remaining volume: 8 mL of old drug, which was discarded, wasted, and witnessed by 2 nurses. Current drug and concentration prior to refill: Dilaudid 15 mg/mL with bupivacaine 15 mg/mL. Current dose: Dilaudid 6.979 mg per day with bupivacaine 6.979 mg per day with the patient administered dose of 0.141 mg per dose, 1 dose every 6 hours as needed for pain. Volume of medication refilled: Dilaudid 15 mg/mL with bupivacaine 15 mg/mL, 40 mL volume. Alarm date: June 11, 2022. Refill date: May 30, 2022. COMPLICATIONS: None. ESTIMATED BLOOD LOSS: None. Electronically Signed by: Marianna Nur NP 03/30/2022 06:05 P Marianna Nur NP Date Dict: 03/28/2022/10:46 A/Marianna Nur NP Date Trans: 03/29/2022 01:46 Mady/ulysses [id number] [facility] 01-24-2022 Note MR#: [id number] [facility] Pt. Name: Sapphire Palmer Surgery Date: 01/24/2022 Room #: Date of : 1965 PROCEDURE NOTE ATTENDING: Marianna Nur NP PERFORMING PROVIDER: Marianna Nur Nurse Practitioner. NIGHT MONITOR: Hyacinth Coleman RN. PREPROCEDURE DIAGNOSIS: Lumbar post-laminectomy syndrome. POSTPROCEDURE DIAGNOSIS: Lumbar post-laminectomy syndrome. PROCEDURE PERFORMED: Intrathecal pump refill. INDICATION FOR THE PROCEDURE: This is a patient who has longstanding chronic low back and leg pain due to lumbar post-laminectomy syndrome. No dose change is being requested at this time. Vital signs were reviewed and found to be stable. He is alert and awake. In no apparent distress. Respirations regular and nonlabored. Skin is warm and dry without pallor. He moves all extremities symmetrically. Ambulatory with an antalgic gait without a device. DESCRIPTION OF THE PROCEDURE: The patient was taken to the procedure room. A time-out was performed, and the patient's identity as well as the procedure to be performed and the medication and concentration were verified by 2 nurses. The pump was interrogated prior to initiation of procedure. The patient was positioned in the right lateral decubitus position. The area of the pump site was cleansed with Betadine and allowed to dry. Area was draped in sterile fashion. The pump was accessed using sterile technique utilizing the needle provided in the Medtronic pump refill kit. The old medication in the pump reservoir was withdrawn, discarded, and witnessed by 2 nurses. The pump reservoir was refilled. The needle was withdrawn. Site was clean and sterile bandage applied. The patient tolerated procedure well. Pump was reprogrammed following the refill using the information below and reprogramming was verified by 2 nurses. Pump printout was provided to the patient. The patient will follow up for pump refill as scheduled or sooner if new or worsening problems. Discussed with the patient signs and symptoms of medication overdose or withdrawal and other potential complications. Expected remaining volume of medication in reservoir prior to refill: 6.8 mL. Actual remaining volume: 5 mL of old drug, which was discarded, wasted, and witnessed by 2 nurses. Current drug and concentration prior to refill: Dilaudid 15 mg/mL with bupivacaine 15 mg/mL. Current dose: Dilaudid 6.979 mg per day with bupivacaine 6.979 mg per day with the patient administered dose of 0.141 mg per dose, 1 dose every 6 hours as needed for pain. Volume of medication refilled: Dilaudid 15 mg/mL with bupivacaine 15 mg/mL, 40 mL volume. Alarm date: April 09, 2022. Refill date: March 28, 2022. COMPLICATIONS: None. ESTIMATED BLOOD LOSS: None. Electronically Signed by: Marianna Nur NP 01/26/2022 03:24 P Marianna Nur NP Date Dict: 01/24/2022/01:37 P/Marianna Nur NP Date Trans: 01/24/2022 04:48 P/ulysses [id number] [facility] 11-16-2021 Note MR#: [id number] [facility] Pt. Name: Sapphire Palmer Surgery Date: 11/15/2021 Room #: 1H Date of : 1965 PROCEDURE NOTE ATTENDING: Marianna Nur NP PREPROCEDURE DIAGNOSIS: Lumbar post-laminectomy syndrome. POSTPROCEDURE DIAGNOSIS: Lumbar post-laminectomy syndrome. PROCEDURE PERFORMED: Intrathecal pump refill. INDICATION FOR THE PROCEDURE: This patient has a longstanding chronic pain in his back and legs. He is not requesting a pump dose change at this time. Vital signs were reviewed and found to be stable. He is alert and awake. In no apparent distress. Respirations are regular and nonlabored. Skin is warm and dry without pallor. He moves all extremities symmetrically with a somewhat antalgic gait. Ambulatory without a device. DESCRIPTION OF THE PROCEDURE: The patient was taken to the procedure room. A time-out was performed, and the patient's identity as well as the procedure to be performed and the medication and concentration were verified by 2 nurses. The pump was interrogated prior to initiation of procedure. The patient was positioned in the right lateral decubitus position. The area of the pump site was cleansed with Betadine and allowed to dry. Area was draped in sterile fashion. The pump was accessed using sterile technique utilizing the needle provided in the Medtronic pump refill kit. The old medication in the pump reservoir was withdrawn, discarded, and witnessed by 2 nurses. The pump reservoir was refilled. The needle was withdrawn. Site was cleaned and sterile bandage applied. The patient tolerated the procedure well. Pump was reprogrammed following the refill using the information below and reprogramming was verified by 2 nurses. Pump printout was provided to the patient. The patient will follow up for pump refill as scheduled or sooner if new or worsening problems. Discussed with the patient signs and symptoms of medication overdose or withdrawal and other potential complications. Expected remaining volume of medication in reservoir prior to refill: 10.1 mL. Actual remaining volume: 8 mL of old drug, which was discarded, wasted, and witnessed by 2 nurses. Current drug and concentration prior to refill: Dilaudid 15 mg/mL, bupivacaine 15 mg/mL. Current dose: Dilaudid 6.979 mg per day with bupivacaine 6.979 mg per day with the patient administered dose of 0.141 mg per dose, 1 dose every 6 hours as needed for pain. Volume of medication refilled: Dilaudid 15 mg/mL with bupivacaine 15 mg/mL, 40 mL volume. Alarm date: January 29, 2022. Refill date: January 17, 2022. COMPLICATIONS: None. ESTIMATED BLOOD LOSS: None. Electronically Signed by: Marianna Nur NP 11/20/2021 12:27 P Marianna Nur NP Date Dict: 11/15/2021/11:02 A/Marianna Nur NP Date Trans: 11/16/2021 03:25 Mady/ulysses [id number] [facility] 09-14-2021 Note MR#: [id number] [facility] Pt. Name: Sapphire Palmer Surgery Date: 09/13/2021 Room #: 1H Date of : 1965 PROCEDURE NOTE ATTENDING: Marianna Nur NP PREPROCEDURE DIAGNOSIS: Lumbar post-laminectomy syndrome. POSTPROCEDURE DIAGNOSIS: Lumbar post-laminectomy syndrome. PROCEDURE PERFORMED: Intrathecal pump refill. INDICATION FOR THE PROCEDURE: This is a patient who has longstanding low back and leg pain due to lumbar post-laminectomy syndrome. He is requesting a slight pump dose increase at this time. He states he does use his the patient administered doses about once per day. Discussed that he can use every 6 hours as needed and that if he is only using them once per day could decrease frequency but patient would like to remain unchanged at this time. Vital signs are reviewed and found to be stable. He is alert and awake. In no apparent distress. Respirations regular and nonlabored. Skin is warm and dry without pallor. He moves all extremities symmetrically. Ambulatory without a device with an antalgic gait. DESCRIPTION OF THE PROCEDURE: The patient was taken to the procedure room. A time-out was performed, and the patient's identity as well as the procedure to be performed and the medication and concentration were verified by 2 nurses. The pump was interrogated prior to initiation of procedure. The patient was positioned in the right lateral decubitus position. The area of the pump site was cleansed with Betadine and allowed to dry. Area was draped in sterile fashion. The pump was accessed using sterile technique utilizing the needle provided in the Medtronic pump refill kit. The old medication in the pump reservoir was withdrawn, discarded, and witnessed by 2 nurses. The pump reservoir was refilled. Needle was withdrawn. Site was cleaned and sterile bandage applied. The patient tolerated the procedure well. Pump was reprogrammed following the refill using the information below and reprogramming was verified by 2 nurses. Pump printout was provided to the patient. The patient will follow up for pump refill as scheduled or sooner for worsening problems. Discussed with the patient signs and symptoms of medication overdose or withdrawal and other potential complications. Expected remaining volume of medication in reservoir prior to refill: 9.8 mL. Actual remaining volume: 10 mL of old drug, which was discarded, wasted, and witnessed by 2 nurses. Current drug and concentration prior to refill: Dilaudid 15 mg/mL with bupivacaine 15 mg/mL. Current dose: Dilaudid 6.341 mg per day with bupivacaine 6.341 mg per day with the patient administered dose of 0.141 mg per dose, 1 dose every 6 hours as needed for pain. Volume of medication refilled: Dilaudid 15 mg/mL, bupivacaine 15 mg/mL, 40 mL volume. New dose: Increased 10% to new daily dose of Dilaudid 6.979 mg per day with bupivacaine 6.979 mg per day with the patient administered dose of 0.141 mg per dose, 1 dose every 6 hours as needed for pain. Alarm date: November 27, 2021. Refill date: November 15, 2021. COMPLICATIONS: None. ESTIMATED BLOOD LOSS: None. Electronically Signed by: Marianna Nur NP 09/19/2021 08:13 A Marianna Nur NP Date Dict: 09/13/2021/10:37 A/Marianna Nur NP Date Trans: 09/13/2021 11:54 P/ulysses [id number] [facility] 07-05-2021 Note MR#: [id number] [facility] Pt. Name: Sapphire Palmer Surgery Date: 07/05/2021 Room #: 1H Date of : 1965 PROCEDURE NOTE ATTENDING: Marianna Nur NP NIGHT MONITOR: Hyacinth Coleman RN PREPROCEDURE DIAGNOSIS: Lumbar post-laminectomy syndrome. POSTPROCEDURE DIAGNOSIS: Lumbar post-laminectomy syndrome. PROCEDURE PERFORMED: Intrathecal pump refill. INDICATION FOR THE PROCEDURE: This patient has longstanding chronic low back pain due to lumbar post-laminectomy syndrome. He is not requesting a pump dose change at this time. Vital signs reviewed and found to be stable. He is alert and awake. In no apparent distress. Respirations regular and unlabored. Skin is warm and dry with pallor. He moves all extremities symmetrically. He is ambulatory independently with a somewhat antalgic gait. DESCRIPTION OF PROCEDURE: The patient was taken to the procedure room. A time-out was performed and the patient's identity as well as the procedure to be performed and the medication and concentration were verified by 2 nurses. The pump was interrogated prior to initiation of procedure. The patient was positioned in the right lateral decubitus position. The area over the pump site was cleansed with Betadine and allowed to dry. The area was draped in sterile fashion. The pump was accessed using sterile technique utilizing the needle provided in the Medtronic pump refill kit. The old medication in the pump reservoir was withdrawn, discarded, and witnessed by 2 nurses. The pump reservoir was refilled. The needle was withdrawn. Site was cleaned and sterile bandage was applied. The patient tolerated the procedure well. Pump was reprogrammed following the refill using the information below and reprogramming was verified by 2 nurses. Pump printout was provided to the patient. The patient will follow up for pump refill as scheduled or sooner if new or worsening problems. Discussed with the patient signs and symptoms of medication overdose or withdrawal and other potential complications. Expected remaining volume of medication in reservoir prior to refill: 9.7 mL. Actual remaining volume: 8 mL of old drug, which was discarded, wasted, and witnessed by 2 nurses. Current drug and concentration prior to refill: Dilaudid 15 mg/mL with bupivacaine 15 mg/mL. Current dose: Dilaudid 6.341 mg per day with bupivacaine 6.341 mg per day with the patient administered dose of 0.141 mg per dose, 1 dose every 6 hours as needed for pain. Volume of medication refilled: Dilaudid 15 mg/mL with bupivacaine 15 mg/mL, 40 mL volume. Alarm date: September 25, 2021. Refill date: September 13, 2021. COMPLICATIONS: None. ESTIMATED BLOOD LOSS: None. Electronically Signed by: Marianna Nur NP 07/07/2021 12:00 P Marianna Nur NP Date Dict: 07/05/2021/11:09 Mady/Marianna Nur NP Date Trans: 07/05/2021 12:01 P/mmo [id number] [facility] 04-27-2021 Note MR#: [id number] [facility] Pt. Name: Sapphire Palmer Surgery Date: 04/26/2021 Room #: 1H Date of : 1965 PROCEDURE NOTE ATTENDING: Marianna Nur NP NIGHT MONITOR: Hyacinth Coleman RN PREPROCEDURE DIAGNOSIS: Lumbar post-laminectomy syndrome. POSTPROCEDURE DIAGNOSIS: Lumbar post-laminectomy syndrome. PROCEDURE PERFORMED: Intrathecal pump refill. INDICATION FOR THE PROCEDURE: The patient has longstanding low back pain due to lumbar post-laminectomy syndrome. He is requesting a slight pump dose change at this time. Vital signs reviewed and found to be stable. He is alert and awake. In no apparent distress. Respirations are regular and nonlabored. Skin is warm and dry without pallor. He moves all extremities symmetrically. He is ambulatory without a device with an antalgic gait. DESCRIPTION OF PROCEDURE: The patient was taken to the procedure room. A time-out was performed. The patient's identity as well as procedure to be performed and the medication and concentration were verified by 2 nurses. The pump was interrogated prior to initiation of procedure. The patient was positioned in the right lateral decubitus position. The area over the pump site was cleansed with Betadine and allowed to dry. Area was draped in sterile fashion. The pump was accessed using sterile technique utilizing the needle provided in the Medtronic pump refill kit. The old medication in pump reservoir was withdrawn, discarded, and witnessed by 2 nurses. The pump reservoir was refilled. Needle was withdrawn. Site was cleaned and sterile bandage was applied. The patient tolerated the procedure well. Pump was reprogrammed following the refill using the information below and reprogramming was verified by 2 nurses. Pump printout was provided to the patient. The patient will follow up for pump refill as scheduled or sooner for new or worsening problems. Discussed with the patient signs and symptoms of medication overdose or withdrawal and other potential complications. Expected remaining volume of medication in reservoir prior to refill: 8.4 mL. Actual remaining volume: 7.5 mL of old drug, which was discarded, wasted, and witnessed by 2 nurses. Current drug and concentration prior to refill: Dilaudid 15 mg/mL with bupivacaine 15 mg/mL. Current dose: Dilaudid 6.038 mg per day with bupivacaine 6.038 mg per day with the patient administered dose of 0.141 mg per dose, 1 dose every 6 hours as needed for pain. Volume of medication refilled: Dilaudid 15mg/mL with bupivacaine 15 mg/mL, 40 mL volume. New dose: Increased 5% to new daily dose of Dilaudid 6.341 mg per day with bupivacaine 6.341 mg per day with the patient administered dose of 0.141 mg per dose, 1 dose every 6 hours as needed for pain. Alarm date: 07/17/2021. Refill date: 07/05/2021. COMPLICATIONS: None. ESTIMATED BLOOD LOSS: None. Electronically Signed by: Marianna Nur NP 04/28/2021 04:20 P Marianna Nur NP Date Dict: 04/26/2021/11:09 Mady/Marianna Nur NP Date Trans: 04/27/2021 02:00 A/ulysses [id number] [facility] Summary Purpose Family History No Family History Records FoundNo Family History Records FoundNo Family History Records Found Advance Directives No Advanced Directives Records FoundNo Advanced Directives Records FoundNo Advanced Directives Records Found Additional Source Comments (unrecognized sect ion and content) No Status Records FoundNo Status Records FoundNo Status Records Found INFORMATION SOURCE (unrecogn ized section and content) DATE CREATED AUTHOR 04/03/2022 [facility] DATE CREATED AUTHOR AUTHOR'S ORGANIZ ATION 12/10/2022 [facility] DATE CREATED AUTHOR AUTHOR'S ORGANIZ ATION 08/11/2023 [facility] FOR RECORDS PERTAINING TO PATIENTS WHO ARE OR HAVE BEEN ENROLLED IN A CHEMICAL DEPENDENCY/SUBSTANCEABUSE PROGRAM, SOME INFORMATION MAY BE OMITTED. This clinical summary was aggregated from multiple sources. Caution should be exercised in using it in the provision of clinical care. This summary normalizes information from multiple sources, and as a consequence, information in this document may materially change the coding, format and clinical context of patient data. In addition, data may be omitted in some cases. CLINICAL DECISIONS SHOULD BE BASED ON THE PRIMARY CLINICAL RECORDS. The [facility] [facility]. provides no warranty or guarantee of the accuracy or completeness of information in this document.
== END 2023-10-16 13:22 | disposition home or self-care (01) ==
LOC: VC 13:21
PROVIDERS: PCP Nurse Practitioner; Visit Provider Radiology Diagnostic Radiology
DX: I80.01 Phlebitis and thrombophlebitis of superficial vessels of right lower extremity (principal)
CPT/HCPCS: 93971; G0463

== ENCOUNTER 2023-10-18 10:07 | Outpatient (OUT) | payer MEDICARE, SELFPAY ==
[2023-10-18] MEDS: LIDOCAINE HCL 1% 100 MG/10 ML MDV INJ (10:07)
[2023-10-18] MEDS: 0.9 % SODIUM CHLORIDE 500 ML, LIDOCAINE HCL 20 ML, SODIUM BICARBONATE 10 MEQ INJ (10:07)
--- NOTE | 2023-10-18 10:08 | VEIN_ITS ---
The [address] [address] Patient Name: SAPPHIRE PALMER MRN: [id number] date: 1965 Sex: M Assigned Patient Location: Current Patient Location: Accession/Order Number: [id number] Exam Date: 10/18/2023 10:12 Report Date: 10/18/2023 11:36 At the request of: EVA ELLIS Procedure: VC Endovenous Ablation 1VeinLT EXAMINATION: VC Endovenous Ablation 1VeinLT HISTORY: I83.813 Bilateral painful varicose veins The risks and benefits of the procedure had been previously discussed, and were rediscussed at length. Informed written consent was obtained. Cleve Cyr RN and Micki Figueroa RDMS, RVT assisted. Time out procedure was performed. The left lower extremity was prepared and draped in the usual sterile fashion to allow knee flexion in the sterile field. Duplex ultrasound probe was draped in a sterile cover, sterile transmission gel was used. Venous mapping was performed with the areas of dilation and large tributaries marked. The total length was 22 cm from the entry just [id number] to midproximal thigh at level of prior vein closure. The diameter of the left great saphenous vein ranged from 5.7 mm. A 30 gauge needle and 1% buffered lidocaine was used to anesthetize the entry site. A 4 mm incision was made with a scalpel and the saphenous vein was entered percutaneously under direct ultrasound guidance with a micropuncture set, a single stick was successful in gaining access. A micro-guide wire was inserted and the needle removed. A micro-set including a dilator was inserted over the microwire and the needle and dilator were removed. A guide wire was inserted through the micro-set and guided through the saphenous vein to the saphenofemoral junction. The dilator was removed and an introducer sheath was inserted over the wire until the end of the sheath entered the saphenofemoral junction. The dilator and wire were removed and the 600 micron fiber was introduced and placed and positioned so that it extended beyond the sheath and was 3 cm distal to the saphenofemoral or saphenopopliteal junction. Final position of the fiber was determined by ultrasound guidance and duplex imaging. Tumescent anesthetic was delivered by ultrasound guidance. 175 cc of fluid was delivered along the entire course of the saphenous vein. The solution consisted of 1000 cc of normal saline with 40 mL of 1% lidocaine and 20 mL of sodium bicarbonate. A final positioning check was made. The energy source was turned on by means of the foot pedal and the fiber and sheath were withdrawn. The total number of Joules delivered was 1305. The laser was active for 163 seconds under continuous pulse, average laser use of 8 J. Laser start time 11:05 AM, 10/18/2023. Laser stop time 11:08 AM, 10/18/2023. A duplex ultrasound revealed compressibility and flow at the saphenofemoral junction immediately after the procedure. Hemostasis at the access site was achieved. The skin incision of the saphenous vein was closed with a 4 x 4. A compression stocking was applied. Postop instructions were given. A follow up appointment was recommended and scheduled. The patient tolerated the procedure well. Electronically authenticated by: JEMIMA DELATORRE Date: 10/18/2023 11:36
--- OUTSIDE RECORDS SUMMARY | 2023-10-18 10:11 | XMS_ITS | CCD ---
Author Name Unknown Address [address] [place] [address] Organization [facility] Care Team Providers Care Cigarette Examiner Name Role Phone AICHHOLZ, SUPERVISOR [employer] ELISHA Admitting Unavailable AICHHOLZ, SUPERVISOR [employer]HA Attending Unavailable AICHHOLZ, SUPERVISOR [employer] Primary Care Unavailable AICHHOLZ, SUPERVISOR [employer] Consulting Unavailable DR JEMIMA DELATORRE Consulting Unavailable AICHHOLZ, SUPERVISOR [employer] Admitting Unavailable AICHHOLZ, SUPERVISOR [employer] Attending Unavailable AICHHOLZ, SUPERVISOR [employer] Primary Care Unavailable AICHHOLZ, SUPERVISOR [employer] Consulting Unavailable DR JEMIMA DELATORRE Consulting [...] Simvastatin; Translations: [SIMVASTATIN] Drug Allergy 06-19-2017 [facility] Repository Problems Active Problems Problem Classification [...] Range Facility Office Visiton 08-06-2023 Follow-up visit [id number] Marilyn Palmer 1965 M Date Provider Department Center 08/06/2023 Dave-DREAD CASTILLO MP PAIN [facility] Family History Adopted: Yes Family history unknown: Yes Level of Service:69201 RI OFFICE/OUTPT VISIT,PROCEDURE ONLY Reason for Visit and Comments: Baclofen Pump Refill [698] Normal [facility] Office Visiton 05-28-2023 Follow-up visit [id number] Marilyn Palmer n T 1965 M Date Provider Department Center 05/28/2023 DREAD MURO PAIN [facility] [place] Family History Adopted: Yes Family history unknown: Yes Level of Service:12258 RI OFFICE/OUTPT VISIT,PROCEDURE ONLY Normal [facility] Office Visiton 03-26-2023 Follow-up visit [id number] Marilyn Palmer n T 1965 M Date Provider Department Center 03/26/2023 DREAD MURO [facility] Family History Adopted: Yes Family history unknown: Yes Level of Service:28493 RI OFFICE/OUTPT VISIT,PROCEDURE ONLY Reason for Visit and Comments: Follow-up [182530] - Pump refill - alarm date 04/10 Normal [facility] MR LUMBAR SPINE WO CONTRASTo n [...] this report. Electronically signed: Desmond Farmer. Normal [facility] Office Visiton 01-29-2023 Follow-up visit [id number] Marilyn Palmer 1965 M Date Provider Department Center 01/29/2023 170-DREAD CASTILLO MP [facility] Family History Adopted: Yes Family history unknown: Yes Level of Service:49745 RI OFFICE/OUTPT VISIT,PROCEDURE ONLY Reason for Visit and Comments: Follow-up [460771] - Pump Refill alarm date 02/07/23 [facility] Office Visiton 01-11-2023 Follow-up visit [id number] Marilyn Palmer T 1965 M Date Provider Department Center 01/11/2023 1211-KELSEA KEMP [facility] RHEUM José Miguel He[facility] Family History Adopted: Yes Family history unknown: Yes Level of Service:18426 RI OFFICE/OUTPATIENT NEW LOW MDM 30-44 MINUTES (GC) Reason for Visit and Comments: New Patient [632] Normal [facility] Office Visiton 12-27-2022 Follow-up visit [id number] Marilyn Palmer T 1965 M Date Provider Department Center 12/27/2022 DREAD MURO PAIN [facility] Family History Adopted: Yes Family history unknown: Yes Level of Service:06838 RI OFFICE/OUTPATIENT NEW LOW MDM 30-44 MINUTES Reason for Visit and Comments: New Patient [632] - Pump alarm date 02/07/23 [facility] RONI by IFAon 12-07-2022 Antinuclear Antibodies, IFA Negative Normal [facility] Comment on above: Result Comment: Nega tive <1:80 Borderline 1:80 Positive >1:80 ICAP nomenclature: AC-0 For more information about Hep-2 cell patterns use ANApatterns.org, the official website for the International Consensus on Antinuclear Antibody (RONI) Patterns (ICAP). Performed By: #### A NAIFA #### [facility] [address] [address] [address] Shweta Dillard ANTISTREPTOLYSIN O AB (ASO)o n 12-06-2022 Antistreptolysin O Ab 72.7 IU/mL Normal 0.0-200.0 [facility] Comment on above: Performed By: #### A SOAB #### [facility] [address] [address] [address] Shweta Dillard RHEUMATOID FACTORon 12-06-19 23 RA Latex Turbid. 42.4 IU/mL Critically high <14.0 [facility] Comment on above: Performed By: #### R F #### [facility] [address] [address] [address] Shweta Dillard CRPon 12-05-2022 CRP 0.5 mg/dL Normal <=1.0 [facility] Comment on above: Performed By: #### C RP ####[facility] [address] [place], [place] [address]BsDr. Shweta Dillard SED RATE WESTERGRENon 2022 SED RATE 15 mm/hr Normal <=20 [facility] Comment on above: Performed By: #### S EDR #### [facility] [address] [address] [address] Shweta Dillard US TYLER DOP LEG [...] by: JEMIMA DELATORRE Date: 2022-12-05 10:24 Normal [facility] Office Visiton 11-28-2022 Follow-up visit [id number] Marilyn Palmer 1965 M Date Provider Department Center 11/28/2022 MARIANNA [facility] SURG [place] Family History Adopted: Yes Family history unknown: Yes Level of Service:85188 RI OFFICE/OUTPT VISIT,PROCEDURE ONLY Reason for Visit and Comments: Baclofen Pump Refill [698] Normal [facility] CBC AUTO DIFFon 11-01-2022 BASO # 0.1 103/ul Normal 0.0-0.1 [facility] Comment on above: Performed By: #### C BC #### [facility] [address] [place] [address] Dr. Shweta Dillard Basophils/100 WBC (Bld) 0.8 % Normal 0.2-2.0 [facility] Comment on above: Performed By: #### C BC #### [facility] [address] [place] [address] Dr. Shweta Dillard EO # 0.3 103/ul Normal 0.0-0.7 [facility] Comment on above: Performed By: #### C BC #### [facility] [address] [place] [address] Dr. Shweta Dillard Eosinophils/100 WBC (Bld) 3.5 % Normal 0.9-7.0 [facility] Comment on above: Performed By: #### C BC #### [facility] [address] [place] [address] Dr. Shweta Dillard Erythrocyte distribution width (RBC) [Ratio] 13.2 % Normal 11.0-15.0 [facility] Comment on above: Performed By: #### C BC #### [facility] [address] [place] [address] Dr. Shewta Dillard Hematocrit (Bld) [Volume fraction] 45.6 % Normal 42.0-54.0 [facility] Comment on above: Performed By: #### C BC #### [facility] [address] [place] [address] Dr. Shweta Dillard Hemoglobin (Bld) [Mass/Vol] 13.6 g/dL Critically low 14.0-18.0 [facility] Comment on above: Performed By: #### C BC #### [facility] [address] [place] [address] Dr. Shweta Dillard IG # 0.07 10e3/ul Critically high 0.00-0.03 [facility] Comment on above: Performed By: #### C BC #### [facility] [address] [place] [address] Dr. Shweta Dillard IG % 0.7 % Critically high 0.0-0.5 [facility] Comment on above: Performed By: #### C BC #### [facility] [address] [place] [address] Dr. Shweta Dillard LYMPH # 3.4 103/ul Normal 1.2-3.8 [facility] Comment on above: Performed By: #### C BC #### [facility] [address] [place] [address] Dr. Shweta Dillard Lymphocytes/100 WBC (Bld) 34.6 % Normal 20.5-60.0 [facility] Comment on above: Performed By: #### C BC #### [facility] [address] [place] [address] Dr. Shweta Dillard MANUAL DIFF REQ NO Normal [facility] Comment on above: Performed By: #### C BC #### [facility] [address] [place] [address] Dr. Shweta Dillard MCH (RBC) [Entitic mass] 29.4 pg Normal 25.9-34.0 [facility] Comment on above: Performed By: #### C BC #### [facility] [address] [place] [address] Dr. Shweta Dillard MCHC (RBC) [Mass/Vol] 29.8 g/dL Critically low 29.9-35.2 [facility] Comment on above: Performed By: #### C BC #### [facility] [address] [place] [address] Dr. Shweta Dillard MCV (RBC) [Entitic vol] 98.7 fL Critically high 80.0-94.0 [facility] Comment on above: Performed By: #### C BC #### [facility] [address] [place] [address] Dr. Swheta Dillard MONO # 0.7 103/ul Normal 0.3-0.8 [facility] Comment on above: Performed By: #### C BC #### [facility] [address] [place] [address] Dr. Shweta Dillard Monocytes/100 WBC (Bld) 7.4 % Normal 1.7-12.0 [facility] Comment on above: Performed By: #### C BC #### [facility] [address] [place] [address] Dr. Shweta Dillard NEUT # 5.2 103/ul Normal 1.4-6.5 [facility] Comment on above: Performed By: #### C BC #### [facility] [address] [place] [address] Dr. Shweta Dillard Neutrophils/100 WBC (Bld) 53.0 % Normal 43.0-75.0 [facility] Comment on above: Performed By: #### C BC #### [facility] [address] [place] [address] Dr. Shweta Dillard Platelet mean volume (Bld) [Entitic vol] 9.9 fL Normal 9.5-13.5 [facility] Comment on above: Performed By: #### C BC #### [facility] [address] [place] [address] Dr. Shweta Dillard PLT 253 103/ul Normal 150-450 [facility] Comment on above: Performed By: #### C BC #### [facility] [address] [place], [place] [address] Dr. Shweta Dillard RBC 4.62 106/ul Critically low 4.70-6.10 [facility] Comment on above: Performed By: #### C BC #### [facility] [address] [place], [place] [address] Dr. Shweta Dillard WBC 9.8 103/ul Normal 4.0-11.0 [facility] Comment on above: Performed By: #### C BC #### [facility] [id number] Shweta Dillard DIRECT LDLon 11-01-2022 Cholesterol in LDL [Mass/Vol] 105 mg/dL Normal [facility] Comment on above: Performed By: #### U ZAIRA, CMP, DLDL, LIPID ####[facility] [address] [address]DrMarky Dillard DLDL NORMAL SEE BELOW Normal [facility] Comment on above: Result Comment: <100 mg/dl OPTIMAL 100 - 129 mg/dl NEAR OR ABOVE OPTIMAL 130 - 159 mg/dl BORDERLINE HIGH 160 - 189 mg/dl HIGH >190 mg/dl VERY HIGH Performed By: #### U ZAIRA, CMP, DLDL, LIPID ####[facility] [address] [id number]. Shweta Dillard GLYCOHEMOGLOBIN A1Con 2022 ADA RECOMMENDATION SEE BELOW Normal [facility] Comment on above: Result Comment: ADA RECOMMENDED LIMIT 4.0 - 6.0 ADA THERAPEUTIC TARGET < 7.0 ACTION SUGGESTED > 7.0 Performed By: #### A 1C ####[facility] [address] [id number]. Shweta Dillard Glucose [Mass/Vol] 114 mg/dL Normal [facility] Comment on above: Performed By: #### A 1C ####[facility] [address] [id number]. Shweta Dillrad HbA1c (Bld) [Mass fraction] 5.6 % Normal 4.5-6.2 [facility] Comment on above: Performed By: #### A 1C ####[facility] [address] [place], [place] [address]EvDr. Shweta Dillard LIPID PROFILEon 11-01-2022 CHOL-HDL RATIO NORM SEE BELOW Normal [facility] Comment on above: Result Comment: 3.3 - 4.4 LOW RISK 4.4 - 7.1 AVERAGE RISK 7.1 - 11.0 MODERATE RISK >11.0 HIGH RISK Performed By: #### U ZAIRA, CMP, DLDL, LIPID #### [facility] [address] [address] [address] Shweta Dillard Cholesterol [Mass/Vol] 172 mg/dL Normal <=200 [facility] Comment on above: Performed By: #### U ZAIRA, CMP, DLDL, LIPID #### [facility] [address] [address] [address] Shweta Dillard Cholesterol in HDL [Mass/Vol] 31 mg/dL Critically low 40-60 [facility] Comment on above: Performed By: #### U ZAIRA, CMP, DLDL, LIPID #### [facility] [address] [address] [address] Shweta Dillard Cholesterol in LDL [Mass/Vol] 49.6 mg/dL Normal [facility] Comment on above: Performed By: #### U ZAIRA, CMP, DLDL, LIPID #### [facility] [address] [address] [address] Shweta Dillard Cholesterol.total/Ch olesterol in HDL [Mass ratio] 5.5 {ratio} Normal [facility] Comment on above: Performed By: #### U ZAIRA, CMP, DLDL, LIPID #### [facility] [address] [address] [address] Shweta Dillard HDL NORMAL > or = 60 mg/dl - LO W CARDIOVASCULAR RISK <40 mg/dl - HIGH CARDIOVASCULAR RISK Normal [facility] Comment on above: Performed By: #### U ZAIRA, CMP, DLDL, LIPID #### [facility] [address] [address] [address] Shweta Dillard LDL CALC NORMAL SEE BELOW Normal [facility] Comment on above: Result Comment: <100 mg/dl OPTIMAL 100 - 129 mg/dl NEAR OR ABOVE OPTIMAL 130 - 159 mg/dl BORDERLINE HIGH 160 - 189 mg/dl HIGH >190 mg/dl VERY HIGH Performed By: #### U ZAIRA, CMP, DLDL, LIPID #### [facility] [address] [address] [address] Shweta Dillard Triglyceride [Mass/Vol] 457 mg/dL Critically high <=150 [facility] Comment on above: Performed By: #### U ZAIRA, CMP, DLDL, LIPID #### [facility] [address] [address] [address] Shweta Dillard VLDL CALC 91.4 mg/dL Normal [facility] Comment on above: Performed By: #### U ZAIRA, CMP, DLDL, LIPID #### [facility] [address] [address] [address] Shweta Dillard MICROALBUMIN, RAND URon 10-21 mALB <1.3 Normal <=30.0 [facility] Comment on above: Performed By: #### M ALBR ####[facility] [address] [address]Dr. Shweta Dillard PROF 14(COMP METB)on 023 Albumin [Mass/Vol] 4.0 g/dL Normal 3.4-5.0 [facility] Comment on above: Performed By: #### U ZAIRA, CMP, DLDL, LIPID #### [facility] [address] [address] [address] Shweta Dillard Albumin/Globulin [Mass ratio] 1.3 {ratio} Normal [facility] Comment on above: Performed By: #### U ZAIRA, CMP, DLDL, LIPID #### [facility] [address] [address] [address] Shweta Dillard ALP [Catalytic activity/Vol] 95 U/L Normal 46-116 [facility] Comment on above: Performed By: #### U ZAIRA, CMP, DLDL, LIPID #### [facility] [address] [address] [address] Shweta Dillard ALT [Catalytic activity/Vol] 25 U/L Normal 16-63 [facility] Comment on above: Performed By: #### U ZAIRA, CMP, DLDL, LIPID #### [facility] [address] [address] [address] Shweta Dillard Anion gap [Moles/Vol] 13.4 mmol/L Normal [facility] Comment on above: Performed By: #### U ZAIRA, CMP, DLDL, LIPID #### [facility] [address] [address] [address] Shweta Dillard AST [Catalytic activity/Vol] 18 U/L Normal 15-37 [facility] Comment on above: Performed By: #### U ZAIRA, CMP, DLDL, LIPID #### [facility] [address] [address] [address] Shweta Dillard Bilirubin [Mass/Vol] 0.2 mg/dL Normal 0.2-1.0 [facility] Comment on above: Performed By: #### U ZAIRA, CMP, DLDL, LIPID #### [facility] [address] [address] [address] Shweta Dillard Calcium [Mass/Vol] 9.0 mg/dL Normal 8.5-10.1 [facility] Comment on above: Performed By: #### U ZAIRA, CMP, DLDL, LIPID #### [facility] [address] [address] [address] Shweta Dillard Chloride [Moles/Vol] 100 mmol/L Normal 98-107 [facility] Comment on above: Performed By: #### U ZAIRA, CMP, DLDL, LIPID #### [facility] [address] [address] [address] Shweta Dillard CO2 [Moles/Vol] 30.0 mmol/L Normal 21.0-32.0 [facility] Comment on above: Performed By: #### U ZAIRA, CMP, DLDL, LIPID #### [facility] [address] [address] [address] Shweta Dillard Creatinine [Mass/Vol] 0.89 mg/dL Normal 0.70-1.30 [facility] Comment on above: Performed By: #### U ZAIRA, CMP, DLDL, LIPID #### [facility] [address] [address] [address] Shweta Dillard EGFR-AF BURUNDIAN >60 Normal >=60 [facility] Comment on above: Performed By: #### U ZAIRA, CMP, DLDL, LIPID #### [facility] [address] [address] [address] Shweta Dillard EGFR-NON AF BURUNDIAN >60 Normal >=60 [facility] Comment on above: Performed By: #### U ZAIRA, CMP, DLDL, LIPID #### [facility] [address] [address] [address] Shweta Dillard Globulin (S) [Mass/Vol] 3.1 g/dL Normal [facility] Comment on above: Performed By: #### U ZAIRA, CMP, DLDL, LIPID #### [facility] [address] [place] [address] Dr. Shweta Dillard Glucose [Mass/Vol] 125 mg/dL Critically high 74-106 [facility] Comment on above: Performed By: #### U ZAIRA, CMP, DLDL, LIPID #### [facility] [address] [address] [address] Shweta Dillard Potassium [Moles/Vol] 4.4 mmol/L Normal 3.5-5.1 [facility] Comment on above: Performed By: #### U ZAIRA, CMP, DLDL, LIPID #### [facility] [address] [address] [address] Shweta Dillard Protein [Mass/Vol] 7.1 g/dL Normal 6.4-8.2 [facility] Comment on above: Performed By: #### U ZAIRA, CMP, DLDL, LIPID #### [facility] [address] [place] [address] Dr. Shweta Dillard Sodium [Moles/Vol] 139 mmol/L Normal 136-145 [facility] Comment on above: Performed By: #### U ZAIRA, CMP, DLDL, LIPID #### [facility] [address] [address] [address] Shweta Dillard Urea nitrogen [Mass/Vol] 25.0 mg/dL Critically high 7.0-18.0 [facility] Comment on above: Performed By: #### U ZAIRA, CMP, DLDL, LIPID #### [facility] [address] [address] [address] Shweta Dillard Urea nitrogen/Creatinine [Mass ratio] 28.1 mg/mg Normal [facility] Comment on above: Performed By: #### U ZAIRA, CMP, DLDL, LIPID #### [facility] [address] [address] [address] Shweta Dillard UA RANDOM W/MICROSCOPICon BACTERIA NONE SEEN Normal NONE SEEN [facility] Comment on above: Performed By: #### U AMIC ####[facility] [address] [address]Dr. Shweta Dillard Bilirubin Ql (U) Negative Normal NEGATIVE [facility] Comment on above: Performed By: #### U AMIC ####[facility] [address] [address]Dr. Shweta Dillard CAST NONE SEEN Normal NONE SEEN [facility] Comment on above: Performed By: #### U AMIC ####[facility] [address] [address]Dr. Shweta Dillard Clarity (U) CLEAR Normal CLEAR [facility] Comment on above: Performed By: #### U AMIC ####[facility] [address] [address]Dr. Shweta Dillard Color (U) LT. YELLOW Normal YELLOW [facility] Comment on above: Performed By: #### U AMIC ####[facility] [address] [address]Dr. Shweta Dillard Crystals LM Nom (Urine sed) NONE SEEN Normal NONE SEEN [facility] Comment on above: Performed By: #### U AMIC ####[facility] [address] [address]Dr. Shweta Dillard Epithelial cells LM Ql (Urine sed) RARE Normal NONE SEEN /RARE [facility] Comment on above: Performed By: #### U AMIC ####[facility] [address] [address]Dr. Shweta Dillard Glucose Ql (U) Negative Normal NEGATIVE [facility] Comment on above: Performed By: #### U AMIC ####[facility] [address] [address]Dr. Shweta Dillard Hemoglobin Ql (U) Negative Normal NEGATIVE [facility] Comment on above: Performed By: #### U AMIC ####[facility] [address] [place], [place] [address]Dr. Shweta Dillard Ketones Ql (U) Negative Normal NEGATIVE [facility] Comment on above: Performed By: #### U AMIC ####[facility] [address] [place], [place] [address]Dr. Shweta Dillard LEUKOCYTES Negative Normal NEGATIVE [facility] Comment on above: Performed By: #### U AMIC ####[facility] [address] [place], [place] [address]Dr. Yilan Dillard MUCOUS NONE SEEN Normal NONE SEEN [facility] Comment on above: Performed By: #### U AMIC ####[facility] [address] [place], [place] [address]Dr. Shweta Dillard Nitrite Ql (U) Negative Normal NEGATIVE [facility] Comment on above: Performed By: #### U AMIC ####[facility] [address] [place], [place] [address]Dr. Shweta Dillard pH (U) 5.0 [pH] Normal 5-9 [facility] Comment on above: Performed By: #### U AMIC ####[facility] [address] [place], [place] [address]Dr. Shweta Dillard RBC NONE SEEN Abnormal 0-2 [facility] Comment on above: Performed By: #### U AMIC ####[facility] [address] [place], [place] [address]Dr. Shweta Dillard SPEC GRAVITY 1.020 Normal 1.005-<=1.025 [facility] Comment on above: Performed By: #### U AMIC ####[facility] [address] [place], [place] [address]Na. Shweta Dillard UA PROTEIN Negative Normal NEGATIVE/ TRACE [facility] Comment on above: Performed By: #### U AMIC ####[facility] [address] [place], [place] [address]Ii. Shweta Dillard Urobilinogen Qn (U) 0.2 {Bruce'U}/dL Normal 0.2 - 1. 0 [facility] Comment on above: Performed By: #### U AMIC ####[facility] [address] [place], [place] [address]Iw. Shweta Dillard WBC NONE SEEN Normal NONE SEEN [facility] Comment on above: Performed By: #### U AMIC ####[facility] [address] [place], [place] [address]Dm. Shweta Dillard URIC ACID SERUMon 11-01-2022 Urate [Mass/Vol] 3.7 mg/dL Normal 3.5-7.2 [facility] Comment on above: Performed By: #### U ZAIRA, CMP, DLDL, LIPID #### [facility] [address] [place], [place] [address] Dr. Shweta Dillard US TYLER DOP LEG [...] JEMIMA DELATORRE Date: 2022-11-01 10:54 Normal [facility] Office Visiton 10-29-2022 Follow-up visit [id number] Marilyn Palmer 1965 M Date Provider Department Center 10/29[facility]20[facility] [place] Family History Adopted: Yes Family history unknown: Yes Level of Service:92154 RI POSTOP FOLLOW UP VISIT RELATED TO ORIGINAL PX Reason for Visit and Comments: Post-op [483] - s/p 10/03/22 pump replacement. Give new refill date: Patient states he has back and hip pain. Has not changed [facility] 36on 10-03-2022 36 Had pump replaced today. New alarm date 12/05/22. Please schedule patient for pump refill. Thank you. [facility] HPon 10-03-2022 HP H&P reviewed. The patient was examined and there are no changes to the H&P. [facility] NURSNOTEon 10-03-2022 NURSNOTE Discharge instructio ns reviewed with , no questions or concerns at this time. [facility] NURSNOTE 40 ml mixture of pf hydromorphone 15mg/ml; pf bupivicaine 15mg/ml injected into new medtronic pain pump by Dr. Torres. [facility] OPNOTEon 10-03-2022 OPNOTE Date: 10/03/2022 Location: [facility] OR Name: Sapphire Palmer, : 1965, Diagnosis Pre-op Diagnosis * Post laminectomy syndrome [M96.1] Post-op Diagnosis * Post laminectomy syndrome [M96.1] Procedures REPLACEMENT, PUMP, PROGRAMMABLE, FOR INTRATHECAL DRUG INFUSION 45744 - [place] IMPLTJ REVJ/RPSG ITHCL/EDRL CATH GEOPHYSICAL DATA TECHNICIAN W/O SANCHEZ Exchange of intrathecal pump with Medtronic 40 ml Synchromed II. Surgeons * Immanuel Torres - Primary Procedure Summary Anesthesia: General ASA: III Estimated Blood Loss: None Drains: * None in log * Implants Type Name Action Serial No. Device PUMP,SYNCHROMED,INFUSI ON,40CC - [id number] - [id number] Implanted [id number] Staff: Signal Worker: Arvind Jimenez RN Scrub Person: Libia Elmore CST Stewardesses Teacher: Eileen Hernandez CSA Indications: Sapphire Palmer is an 57 y.o. male who is having surgery for Post laminectomy syndrome [M96.1]. Findings: Catheter patent. Complications: None; patient tolerated the procedure well. Disposition: PACU - hemodynamically stable. Condition: stable Specimens Collected: No specimens collected during this procedure. Attending Attestation: I performed the procedure. Immanuel Brian Normal [facility] OPNOTE REPLACEMENT, PUMP, PROGRAMMABLE, FOR INTRATHECAL DRUG INFUSION (L) Operative Note Date: 10/03/2022 Location: [facility] OR Name: Sapphire Palmer, : 1965, Diagnosis Pre-op Diagnosis * Post laminectomy syndrome [M96.1] Post-op Diagnosis * Post laminectomy syndrome [M96.1] Procedures REPLACEMENT, PUMP, PROGRAMMABLE, FOR INTRATHECAL DRUG INFUSION 01352 - RI IMPLTJ REVJ/RPSG ITHCL/EDRL CATH GEOPHYSICAL DATA TECHNICIAN W/O SANCHEZ Exchange of intrathecal pump with 40 ml Medtronic Synchromed II pump. Surgeons * Immanuel Torres - Primary Procedure Summary Anesthesia: General ASA: III Estimated Blood Loss: Minimal Drains: * None in log * Implants Type Name Action Serial No. Device PUMP,SYNCHROMED,INFUSI ON,40CC - [id number] - [id number] Implanted [id number] Staff: Signal Worker: Dinesh Lara RN; Arvind Jimenez RN Scrub Person: Libia Elmore, RN MDS COORDINATOR Stewardesses Teacher: Eileen Hernandez CSA Indications: Sapphire Palmer is [...] were kailee (more content not included)... Normal [facility] POCT GLUCOSE METER UNSOLICIT ED RESULTSon 10-03-2022 Glucose [Mass/Vol] 115 mg/dL High 70-105 [facility] Comment on above: Result Comment: pbar retcorson Performed By: #### L [id number] ####[facility] (BEAKER)[address] [place] [address] Telephoneon 10-03-2022 Telephone [phone] Marilyn Palmer 1965 M Date Provider Department Center 10/03/2022 MARIANNA ROCHA [facility] SURG Second Fl Family History Adopted: Yes Family history unknown: Yes Normal [facility] APTTon 09-24-2022 ACTIVATED PARTIAL THROMBOPLASTIN TIME IN PPP BY COAGULATION ASSAY 29.6 Seconds Normal 25.0-35.0 [facility] Comment on above: Performed By: #### L [id number] ####[facility] (BEAKER)[address] [place] [address] BASIC METABOLIC PANELon Anion gap [Moles/Vol] 3 mmol/L Low 7-20 [facility] Comment on above: Performed By: #### L [id number] ####[facility] [place] [address] Calcium [Mass/Vol] 9.5 mg/dL Normal 8.6-10.3 [facility] Comment on above: Performed By: #### L [id number] ####[facility] (BEAKER)[address] [place] [address] Chloride [Moles/Vol] 102 mmol/L Normal 98-107 [facility] Comment on above: Performed By: #### L [id number] ####[facility] (BEAKER)[address] [place] [address] CO2 [Moles/Vol] 32 mmol/L High 21-31 [facility] Comment on above: Performed By: #### L [id number] ####[facility] ([facility])[address] [place] [address] Creatinine [Mass/Vol] 0.78 mg/dL Normal 0.70-1.30 [facility] Comment on above: Performed By: #### L [id number] ####[facility] ([facility])[address] [place] [address] GLOMERULAR FILTRATION RATE ML/MIN/1.73 SQ M.PREDICTED 101.6 mL/min/1.73m*2 Normal >60.0 [facility] Comment on above: Result Comment: The [facility]???s estimated glomerular filtration rate (eGFR) will [...] of individuals. Performed By: #### L [id number] ####[facility] ([facility])[address] [place] [address] Glucose [Mass/Vol] 109 mg/dL High 70-100 [facility] Comment on above: Performed By: #### L [id number] ####[facility] ([facility])[address] [place] [address] Potassium [Moles/Vol] 4.8 mmol/L Normal 3.5-5.1 [facility] Comment on above: Performed By: #### L [id number] ####[facility] ([facility])[address] [place] [address] Sodium [Moles/Vol] 137 mmol/L Normal 136-145 [facility] Comment on above: Performed By: #### L [id number] ####[facility] ([facility])[address] [place] [address] Urea nitrogen [Mass/Vol] 18 mg/dL Normal 7-25 [facility] Comment on above: Performed By: #### L [id number] ####[facility] [address] UREA NITROGEN/CREATININE (MASS RATIO) IN SER/PLAS 23.08 Normal [facility] Comment on above: Performed By: #### L [id number] ####[facility] [address] CBC WITH AUTO DIFFERENTIALon 09-24-2022 Basophils (Bld) [#/Vol] 0.07 10*3/uL Normal 0.00-0.20 [facility] Comment on above: Performed By: #### L [id number] ####[facility] ([facility] [address] Basophils/100 WBC (Bld) 0.9 % Normal 0.0-1.0 [facility] Comment on above: Performed By: #### L [id number] ####[facility] (BEAKER)[address] [address] Eosinophils (Bld) [#/Vol] 0.19 10*3/uL Normal 0.00-0.50 [facility] Comment on above: Performed By: #### L [id number] ####[facility] (BEAKER)[address] [address] Eosinophils/100 WBC (Bld) 2.4 % Normal 0.0-6.0 [facility] Comment on above: Performed By: #### L [id number] ####[facility] (BEAKER)[address] [address] ERYTHROCYTE DISTRIBUTION WIDTH (RATIO) STANDARD DEVIATION 43.6 Normal [facility] Comment on above: Performed By: #### L [id number] ####[facility] (BEAKER)[address] [address] Erythrocyte distribution width (RBC) [Ratio] 12.7 % Normal 11.5-15.0 [facility] Comment on above: Performed By: #### L [id number] ####[facility] (BEAKER)[address] [place] [address] ERYTHROCYTE MEAN CORPUSCULAR HEMOGLOBIN CONCENTRATION (G/DL) BY AUTOMATED 31.0 g/dL Low 32.0-35.0 [facility] Comment on above: Performed By: #### L [id number] ####[facility] (BEAKER)[address] [place] [address] Hematocrit (Bld) [Volume fraction] 44.5 % Normal 39.0-55.0 [facility] Comment on above: Performed By: #### L [id number] ####[facility] [place] [address] Hemoglobin (Bld) [Mass/Vol] 13.8 g/dL Normal 13.0-17.0 [facility] Comment on above: Performed By: #### L [id number] ####[facility] (BEAKER)[address] [place] [address] Immature granulocytes (Bld) [#/Vol] 0.07 10*3/uL Normal 0.00-0.20 [facility] Comment on above: Performed By: #### L [id number] ####[facility] (BEAKER)[address] [place] [address] Immature granulocytes/100 WBC (Bld) 0.9 % Normal 0.0-1.0 [facility] Comment on above: Performed By: #### L [id number] ####[facility] (BEAKER)[address] [place] [address] Lymphocytes (Bld) [#/Vol] 2.18 10*3/uL Normal 1.20-4.00 [facility] Comment on above: Performed By: #### L [id number] ####[facility] (BEAKER)[address] [place] [address] Lymphocytes/100 WBC (Bld) 27.9 % Normal 20.0-45.0 [facility] Comment on above: Performed By: #### L [id number] ####[facility] (BEAKER)[address] [place] [address] MCH (RBC) [Entitic mass] 28.9 pg Normal 27.0-33.0 [facility] Comment on above: Performed By: #### L [id number] ####[facility] (BEAKER)[address] [place] [address] MCV (RBC) [Entitic vol] 93.3 fL Normal 82.0-98.0 [facility] Comment on above: Performed By: #### L [id number] ####[facility] (BEAKER)[address] [place] [address] Monocytes (Bld) [#/Vol] 0.57 10*3/uL Normal 0.10-1.00 [facility] Comment on above: Performed By: #### L [id number] ####[facility] (BEAKER)[address] [place] [address] Monocytes/100 WBC (Bld) 7.3 % Normal 5.0-12.0 [facility] Comment on above: Performed By: #### L [id number] ####[facility] (BEAKER)[address] [place] [address] Neutrophils (Bld) [#/Vol] 4.74 10*3/uL Normal 1.60-7.60 [facility] Comment on above: Performed By: #### L [id number] ####[facility] (BEAKER)[address] [place] [address] Neutrophils/100 WBC (Bld) 60.6 % Normal 40.0-72.0 [facility] Comment on above: Performed By: #### L [id number] ####[facility] (BEAKER)[address] [place] [address] NRBC (PER 100 WBCS) BY AUTOMATED COUNT 0.0 % Normal 0.0-0.0 [facility] Comment on above: Performed By: #### L [id number] ####[facility] (BEAKER)[address] [place] [address] PLATELETS (10*3/UL) IN BLOOD AUTOMATED COUNT 251 10*3/uL Normal 150-400 [facility] Comment on above: Performed By: #### L [id number] ####[facility] (BEAKER)[address] [place] [address] RBC (Bld) [#/Vol] 4.77 10*6/uL Normal 4.20-5.70 [facility] Comment on above: Performed By: #### L [id number] ####[facility] (BEAKER)[address] [place] [address] WBC (Bld) [#/Vol] 7.82 10*3/uL Normal 4.00-10.60 [facility] Comment on above: Performed By: #### L [id number] ####[facility] (BEAKER)[address] [place] [address] Consulton 09-24-2022 Consult [id number] Marilyn Palmer rubens Wagner 1965 M Date Provider Department Center 09/24/2022 Donna0-IMMANUEL TORRES [facility] SURG Second Fl Family History Adopted: Yes Family history unknown: Yes Level of Service:48130 [place] OFFICE/OUTPATIENT ESTABLISHED LOW MDM 20-29 MIN Reason for Visit and Comments: Pre-op Exam [[id number]] - pump replacement scheduled 10/03/22 Normal [facility] HPon 09-24-2022 Neurosurgery Clinic Note Chief [...] been maintained in the neurosurgery clinics at [facility]. He has had a stable pump dose [...] tablet 1 tablet, oral, Daily flu vacc [id number] 6mos up,PF, (Fluzone Quad 0657-2896, PF,) 60 mcg (15 mcg x 4)/0.5 [...] to light touch throughout. FTN intact. Interrogation: Job App Plustronic 40 ml Synchromed II Refill date: 10/12/22 [...] stable dose (more content not included)... Normal [facility] Letter (Out)on 09-24-2022 Letter (Out) [id number] Marilyn Palmer 1965 M Date Provider Department Center 09/24/2022 [id number], GENERIC PRO*INIT None Family History Adopted: Yes Family history unknown: Yes Normal [facility] MRSA/MSSA DNA NASALon 2021 MRSA DNA Negative Normal Negative, Invalid [facility] Comment on above: Performed By: #### L [id number] ####[facility] (INXPO)[address] [place] [address] MSSA DNA Negative Normal Negative, Invalid [facility] Comment on above: Performed By: #### L [id number] ####[facility] ([facility])[address] [place] [address] PROTIME-INRon 09-24-2022 INR IN PPP BY COAGULATION ASSAY 0.92 Normal 0.90-1.10 [facility] Comment on above: Result Comment: ACCC [...] CHEST 1995;108:231S-246S. Performed By: #### L [id number] ####[facility] ([employer])[address] [place] [address] PROTHROMBIN TIME (PT) IN PPP BY COAGULATION ASSAY 12.4 Seconds Normal 12.3-14.8 [facility] Comment on above: Performed By: #### L [id number] ####[facility] (BEAKER)[address] [place] [address] SARS-COV-2 IGG, QUALITATIVEo n 09-24-2022 COVID-19 IGG ANTIBODY Negative Normal Negative [facility] Comment on above: Result Comment: Nega [...] In compliance with this authorization, please visit [email or web address] for more information and to access the [...] for assessing COVID-19 vaccine response. Performed by [employer] [address] [place], [place] [id number] www.[employer], Kaden Montejo MD, PHD, Lab. Director Performed By: #### L [id number] ####[facility] (ION)[address] [place] [address] TYPE AND SCREENon 09-24-2022 AB SCREEN Negative Normal [facility] Comment on above: Performed By: #### L [id number] ####[facility] BLOOD [facility], ABO group Nom (Bld) O Normal [facility] Comment on above: Performed By: #### L [id number] ####[facility], RH TYPE IN BLOOD Positive Normal [facility] Comment on above: Performed By: #### L [id number] ####[facility], Encounters Encounter Date Encounter Type Care Provider Facility Start: 08-06-2023 ambulatory DREAD CASTILLO [facility] Start: 05-28-2023 ambulatory DREAD CASTILLO [facility] Start: 03-26-2023 ambulatory DREAD CASTILLO [facility] Start: 02-01-2023 End: 02-02-2023 ambulatory DREAD CASTILLO [facility] Start: 01-29-2023 ambulatory DREAD CASTILLO [facility] Start: 01-11-2023 End: 01-11-2023 ambulatory KELSEA [facility] Start: 12-27-2022 End: 12-28-2022 ambulatory DREAD [facility] Start: 12-27-2022 ambulatory DREAD CASTILLO [facility] Start: 12-05-2022 End: 12-06-2022 ambulatory MANDA HOLM Facility:[facility] Start: 11-28-2022 End: [facility]: 11-01-2022 End: 11-02-2022 ambulatory MANDA HOLM Facility:[facility] Start: 10-29-2022 End: 10-29-2022 ambulatory [facility] Start: 10-03-2022 End: 10-04-2022 ambulatory [facility] Start: 09-24-2022 End: 09-25-2022 ambulatory [facility] Start: 09-24-2022 End: 09-24-2022 [facility] Procedures Date Procedure Procedure Detail Performing Clinician Start: 11-01-2022 PSA screening MANDA HOLM Comment on above: Performed By: #### P [facility] #### [facility] [address] [place] [address] Dr. Shweta Dillard Payers Date Payer Category Payer Unknown [id number] 1965 Unknown [id number] 1957 Medicare [id number] Clinical Notes 04-27-2021 to 08-06-2023 Note Date & Type Note Facility 08-06-2023 Note PROCEDURE PERFORMED: Intrathecal pump refill. PERFORMING PROVIDER: Dread Castillo Nurse Practitioner. FIELD RESEARCH ASSOCIATE: Marcy Avendano RN PREPROCEDURE DIAGNOSIS: Post laminectomy [...] W REPROG & REFILL REQUIRING PHYSICIAN SKILL [facility] 05-28-2023 Note PROCEDURE PERFORMED: Intrathecal pump refill. PERFORMING PROVIDER: Dread Castillo Nurse Practitioner. FIELD RESEARCH ASSOCIATE: Marcy Avendano RN PREPROCEDURE DIAGNOSIS: Post laminectomy [...] W REPROG & REFILL REQUIRING PHYSICIAN SKILL [facility] 03-26-2023 Note PROCEDURE PERFORMED: Intrathecal pump refill. PERFORMING PROVIDER: Dread Castillo Nurse Practitioner. FIELD RESEARCH ASSOCIATE: Marcy Avendano RN PREPROCEDURE DIAGNOSIS: Post laminectomy [...] W REPROG & REFILL REQUIRING PHYSICIAN SKILL [facility] 01-29-2023 Note PROCEDURE PERFORMED: Intrathecal pump refill. PERFORMING PROVIDER: Dread Castillo Nurse Practitioner. FIELD RESEARCH ASSOCIATE: Marcy Godinez RN PREPROCEDURE DIAGNOSIS: Post laminectomy [...] W REPROG & REFILL REQUIRING PHYSICIAN SKILL [facility] 01-11-2023 Note ---- Attestation signed by [...] leg swelling was reduced and they felt rn manager than usual. Pt denies pain in small [...] Seen by Dr. Chery and Dr. Kemp [facility] 12-27-2022 Note HPI: Referral source: 12/27/22 [...] please schedule on a clinic day of [facility] Saturday day or am, to be schedule [...] neural foraminal narrowin (more content not included)... [facility] 11-28-2022 Note PROCEDURE PERFORMED: Intrathecal pump refill. PERFORMING PROVIDER: Marianna Nur Nurse Practitioner. FIELD RESEARCH ASSOCIATE: Dulce Fink MA. PREPROCEDURE DIAGNOSIS: Lumbar postlaminectomy [...] 1 (one) time each day. FLU VACC [id number] 6MOS UP,PF, (FLUZONE QUAD 7036-0854, PF,) 60 MCG (15 MCG X 4)/0.5 [...] technique utilizing the needle provided in the [employer] App Plustronic pump refill kit. The remaining medication in [...] PRIOR TO R (more content not included)... [facility] 10-29-2022 Note Neurosurgery Clinic Note Chief [...] tablet 1 tablet, oral, Daily flu vacc [id number] 6mos up,PF, (Fluzone Quad 3758-2394, PF,) 60 mcg (15 mcg x 4)/0.5 [...] ongoing care by the pain management team. [facility] 10-03-2022 Note Patient: Sapphire fraogso Procedure Summary Date: 10/03/22 Room / Location: [facility] OPERATING ROOM 03 / [facility] Operating Room Anesthesia Start: 953 Anesthesia [...] Hydration status: acceptable No notable events documented. [facility] 10-03-2022 Note Airway Date/Time: 10/03/2022 10:00 AM Urgency: elective Airway not difficult General Information and Staff Patient location during procedure: OR Resident/UNIT MANAGER CONVENIENCE STORES/CAA: Aislinn Stephens MD Performed: resident/UNIT MANAGER [employer]/CAA Indications and Patient Condition Indications for airway [...] 23 Number of attempts at approach: 1 [facility] 10-03-2022 Note Patient: Sapphire fragoso Procedure Information Date/Time: 10/03/22 1000 Procedure: REPLACEMENT, PUMP, PROGRAMMABLE, FOR INTRATHECAL DRUG INFUSION (Left) - C-arm, Medtronic Syncromed II 40 mL Intrathecal Pain Pump,start at 10 am-surgeon has meeting, Lateral decubitus, standard table, beanbag, arm licea, axillary roll, lots of foam, wide silk tape, REP NOTIFIED 09/12 JK Location: [facility] OPERATING ROOM 03 / [facility] Operating Room Surgeons: Immanuel Torres MD [...] slowly. Denies any angina/equivalents with exertion. Denies AL/Stents/Known cardiac issues Dental Comments: Missing upper. None [...] Requests: Lateral arm board and ax roll [facility] 09-24-2022 Note Neurosurgery Clinic Note Chief [...] been maintained in the neurosurgery clinics at [facility]. He has had a stable pump dose [...] tablet 1 tablet, oral, Daily flu vacc [id number] 6mos up,PF, (Fluzone Quad 2193-0272, PF,) 60 mcg (15 mcg x 4)/0.5 [...] to light touch throughout. FTN intact. Interrogation: Job App Plustronic 40 ml Synchromed II Refill date: 10/12/22 [...] of stable dose (more content not included)... [facility] 03-29-2022 Note MR#: [id number] [facility] Pt. Name: Sapphire Palmer Surgery Date: 03/28/2022 Room #: 2H Date of : 1965 PROCEDURE NOTE ATTENDING: Marianna Nur NP PERFORMING PROVIDER: Marianna Nur Nurse Practitioner. FIELD RESEARCH ASSOCIATE: Hyacinth Coleman RN. PREPROCEDURE DIAGNOSIS: Lumbar post-laminectomy [...] technique utilizing the needle provided in the [employer] Plustronic pump refill kit. The old medication in [...] Nur NP Date Trans: 03/29/2022 01:46 Mady/ulysses [id number]:[id number] [facility] 01-24-2022 Note MR#: [id number] [facility] Pt. Name: Sapphire Palmer Surgery Date: 01/24/2022 Room #: Date of : 1965 PROCEDURE NOTE ATTENDING: Marianna Nur NP PERFORMING PROVIDER: Marianna Nur Nurse Practitioner. FIELD RESEARCH ASSOCIATE: Hyacinth Coleman RN. PREPROCEDURE DIAGNOSIS: Lumbar post-laminectomy [...] Nur NP Date Trans: 01/24/2022 04:48 P/ulysses [id number] [facility] 11-16-2021 Note MR#: [id number] [facility] Pt. Name: Sapphire Palmer Surgery Date: [...] Nur NP Date Trans: 11/16/2021 03:25 Mady/ulysses [id number] [facility] 09-14-2021 Note MR#: [id number] [facility] Pt. Name: Sapphire Palmer Surgery Date: [...] Nur NP Date Trans: 09/13/2021 11:54 P/ulysses [id number] [facility] 07-05-2021 Note MR#: [id number] [facility] Pt. Name: Sapphire Palmer Surgery Date: 07/05/2021 Room #: 1H Date of : 1965 PROCEDURE NOTE ATTENDING: Marianna Nur NP FIELD RESEARCH ASSOCIATE: Hyacinth Coleman RN PREPROCEDURE DIAGNOSIS: Lumbar post-laminectomy [...] Nur NP Date Trans: 07/05/2021 12:01 P/mmo [id number] [facility] 04-27-2021 Note MR#: [id number] [facility] Pt. Name: Sapphire Palmer Surgery Date: 04/26/2021 Room #: 1H Date of : 1965 PROCEDURE NOTE ATTENDING: Marianna Nur NP FIELD RESEARCH ASSOCIATE: Hyacinth Coleman RN PREPROCEDURE DIAGNOSIS: Lumbar post-laminectomy [...] Marianna Nur NP 04/28/2021 04:20 P Marianna Nru NP Date Dict: 04/26/2021/11:09 Mady/Marianna Nur NP Date Trans: 04/27/2021 02:00 A/ulysses [id number]:[id number] [facility] Summary Purpose Family History No Family History Records FoundNo Family History Records FoundNo Family History Records Found Advance Directives No Advanced Directives Records FoundNo Advanced Directives Records FoundNo Advanced Directives Records Found Additional Source Comments (unrecognized sect ion and content) No Status Records FoundNo Status Records FoundNo Status Records Found INFORMATION SOURCE (unrecogn ized section and content) DATE CREATED AUTHOR 04/03/2022 [facility] DATE CREATED AUTHOR AUTHOR'S ORGANIZ ATION 12/10/2022 [facility] DATE CREATED AUTHOR AUTHOR'S ORGANIZ ATION 08/11/2023 [facility] FOR RECORDS PERTAINING TO PATIENTS WHO ARE [...] BE BASED ON THE PRIMARY CLINICAL RECORDS. [facility]. provides no warranty or guarantee of the accuracy or completeness of information in this document.
== END 2023-10-18 10:08 | disposition home or self-care (01) ==
LOC: VC 10:07
PROVIDERS: PCP Radiology Diagnostic Radiology; Visit Provider Radiology Diagnostic Radiology
DX: I83.813 Varicose veins of bilateral lower extremities with pain (principal)
CPT/HCPCS: 36478

== ENCOUNTER 2023-10-25 11:08 | Outpatient (OUT) | payer MEDICARE, SELFPAY ==
--- NOTE | 2023-10-25 11:10 | VEIN_ITS ---
Patient Name: SAPPHIRE PALMER MR#: [id number] : 1965 Exam Date: 10/25/2023 Ordering Doctor: DR JOHNIE PEREZ M.D. RADIOLOGY REPORT PROCEDURE: VC EXT VENOUS LT LIMITED COMPARISON: None. INDICATIONS: I80.02 Phlebitis of superficial veins of lt lower extremity TECHNIQUE: Lower extremity ramirez scale and Duplex Doppler evaluation of the deep venous system from the inguinal ligament through the calf veins. FINDINGS: REGION: Left lower extremity. THROMBI: Negative for DVT. Heat induced thrombus visualized arising at mid thigh and extending through proximal calf. COMPRESSIBILITY: Non-compressible segments corresponding to thrombus FLOW: Areas of no flow corresponding to thrombus CONCLUSION: Post ablation occlusion of the treated left great saphenous vein, no deep vein thrombus Dictated by: Johnie Perez MD on 10/25/2023 at 12:13 Approved by: Johnie Perez MD on 10/25/2023 at 12:14
--- NOTE | 2023-10-25 11:10 | VEIN_ITS ---
Patient Name: SAPPHIRE PALMER MR#: [id number] : 1965 Exam Date: 10/25/2023 Ordering Doctor: DR JOHNIE PEREZ M.D. RADIOLOGY REPORT PROCEDURE: [facility] - OFFICE VISIT FOLLOW UP [facility] PROGRESS NOTES: The patient reports some mild tenderness of the distal left thigh related to intravenous laser ablation of the left great saphenous vein. The patient did not require oral analgesics. The patient has worn his compression stocking and try to exercise. Physical exam demonstrates the incision is sealed. No areas of erythema or warmth. No active ulceration. Thrombosed left great saphenous vein can be partially palpated Review of the ultrasound performed the same day demonstrates occlusive thrombus extending throughout the treated left great saphenous vein. No deep vein thrombus. The patient expressed a desire to proceed with treatment of incompetent small saphenous veins with intravenous laser ablation. VEIN/[facility] IMPRESSION: 1. Successful ablation of the left great saphenous vein 2. Persistent incompetent bilateral small saphenous vein. PLAN: Intravenous laser ablation right small saphenous vein Nurse notes, history and physical were reviewed and confirmed, see attached forms. The nurse was present throughout the physical exam and consultation Dictated by: Johnie Perez MD on 10/25/2023 at 12:15 Approved by: Johnie Perez MD on 10/25/2023 at 12:16
--- OUTSIDE RECORDS SUMMARY | 2023-10-25 11:23 | XMS_ITS | CCD ---
Author Name Unknown Address [address] [place] [address] Organization [facility] Care Team Providers Care Radial Drill Press Set Up Operator Name Role Phone AICHHOLZ, HOBBING PRESS OPERATOR ELISHA Admitting Unavailable AICHHOLZ, HOBBING PRESS OPERATOR ELISHA Attending Unavailable AICHHOLZ, HOBBING PRESS OPERATOR ELISHA Primary Care Unavailable AICHHOLZ, HOBBING PRESS OPERATOR ELISHA Consulting Unavailable DR JEMIMA DELATORRE Consulting Unavailable AICHHOLZ, HOBBING PRESS OPERATOR ELISHA Admitting Unavailable AICHHOLZ, HOBBING PRESS OPERATOR ELISHA Attending Unavailable AICHHOLZ, HOBBING PRESS OPERATOR ELISHA Primary Care Unavailable AICHHOLZ, HOBBING PRESS OPERATOR ELISHA Consulting Unavailable DR JEMIMA DELATORRE Consulting Unavailable CLIFFORD, DREAD Attending Unavailable CLIFFORD, DREAD Referring Unavailable JUSTO, RAWISH Attending Unavailable CLIFFORD, DREAD Attending Unavailable OVITT, MARIANNA Attending Unavailable OVITT, MARIANNA Referring Unavailable BRIAN, IMMANUEL Attending Unavailable CLIFFORD, DREAD Attending Unavailable CLIFFORD, DREAD Referring Unavailable CLIFFORD, DREAD Attending Unavailable CLIFFORD, DREAD Referring Unavailable CLIFFORD, DREAD Attending Unavailable CLIFFORD, DREAD Referring Unavailable CLIFFORD, DREAD Attending Unavailable CLIFFORD, DREAD Referring Unavailable CLIFFORD, DREAD Referring Unavailable CLIFFORD, DREAD Referring Unavailable Allergies Allergy Classification Reported Allergen(s) Allergy Type Date of Onset Reaction(s) Facility (2 sources) Simvastatin; Translations: [SIMVASTATIN] Drug Allergy 06-19-2017 [facility] Repository Problems Active Problems Problem Classification Problem [...] (2 sources) Post-op; Translations: [Post-op] Onset: 10-29-2022 Past or Other Problems Problem Classification Problem Date Documented Date Episodic/Chronic Immunizations and screening for infectious disease (2 sources) Other specified abnormal immunological findings in serum; Translations: [Other specified abnormal immunological findings in serum] Onset: 01-11-2023 Episodic Spondylosis; intervertebral disc disorders; other back problems (2 sources) Intervertebral disc disorders with radiculopathy, lumbar region; Translations: [Intervertebral disc disorders with radiculopathy, lumbar region] Onset: 12-27-2022 Episodic Results Test Name Value Interpretation Reference Range Facility Office Visiton 10-22-2023 Follow-up visit [id number] Sapphire Palmer 1965 [facility] Provider Department Center 10/22/2023 DREAD MURO MP PAIN Medical [place] Family History Adopted: Yes Family history unknown: Yes Level of Service:71528 [place] OFFICE/OUTPT VISIT,PROCEDURE ONLY Reason for Visit and Comments: Follow-up [252314] [facility] Office Visiton 08-06-2023 Follow-up visit [id number] Sapphire Palmer 1965 [facility] Provider Department Center 08/06/2023 DREAD MURO MP Medical [place] Family History Adopted: Yes Family history unknown: Yes Level of Service:63490 [place] OFFICE/OUTPT VISIT,PROCEDURE ONLY Reason for Visit and Comments: Baclofen Pump Refill [698] [facility] Office Visiton 05-28-2023 Follow-up visit [id number] Sapphire Palmer 1965 [facility] Provider Department Center 05/28/2023 DREAD MURO MP PAIN Medical [place] Family History Adopted: Yes Family history unknown: Yes Level of Service:08837 [place] OFFICE/OUTPT VISIT,PROCEDURE ONLY Normal [facility] Office Visiton 03-26-2023 Follow-up visit [id number] Sapphire Palmer 1965 M Date Provider Department Center 03/26/2023 170-CLIFFORD DREAD TRACEY PAIN Medical [place] Family History Adopted: Yes Family history unknown: Yes Level of Service:86519 [place] OFFICE/OUTPT VISIT,PROCEDURE ONLY Reason for Visit and Comments: Follow-up [495883] - Pump refill - alarm date 04/10 Normal [facility] MR LUMBAR SPINE WO CONTRASTo n 02-01-2023 [...] in this report. Electronically signed: Desmond Farmer. [facility] Office Visiton 01-29-2023 Follow-up visit [id number] Sapphire Palmer 1965 Date Provider Department Center 01/29/2023 170-DREAD CASTILLO MP PAIN Medical [place] Family History Adopted: Yes Family history unknown: Yes Level of Service:36412 [place] OFFICE/OUTPT VISIT,PROCEDURE ONLY Reason for Visit and Comments: Follow-up [864208] - Pump Refill alarm date 02/07/23 [facility] Office Visiton 01-11-2023 Follow-up visit [id number] Sapphire Palmer 1965 M Date Provider Department Center 01/11/2023 1211-KELSEA KEMP C RHEUM José Miguel Heal Family History Adopted: Yes Family history unknown: Yes Level of Service:51770 [place] OFFICE/OUTPATIENT NEW LOW MDM 30-44 MINUTES (GC) Reason for Visit and Comments: New Patient [632] [facility] Office Visiton 12-27-2022 Follow-up visit [id number] Sapphire Palmer 1965 M Date Provider Department Center 12/27/2022 DREAD MURO MP PAIN Medical [place] Family History Adopted: Yes Family history unknown: Yes Level of Service:80220 [place] OFFICE/OUTPATIENT NEW LOW MDM 30-44 MINUTES Reason for Visit and Comments: New Patient [632] - Pump alarm date 02/07/23 Normal [facility] RONI by IFAon 12-07-2022 Antinuclear Antibodies, IFA Negative Normal [facility] Comment on above: Result Comment: Nega tive <1:80 Borderline 1:80 Positive >1:80 ICAP nomenclature: AC-0 For more information about Hep-2 cell patterns use ANApatterns.org, the official website for the International Consensus on Antinuclear Antibody (RONI) Patterns (ICAP). Performed By: #### A NAIFA #### [facility] [address] [address] [address] Shweta Dillard ANTISTREPTOLYSIN O AB (ASO)o n 12-06-2022 Antistreptolysin O Ab 72.7 IU/mL Normal 0.0-200.0 [facility] Comment on above: Performed By: #### A SOAB #### [facility] [address] [address] [address] Shweta Dillard RHEUMATOID FACTORon 12-06-19 RA Latex Turbid. 42.4 IU/mL Critically high <14.0 [facility] Comment on above: Performed By: #### R F #### [facility] [address] [address] [address] Shweta Dillard CRPon 12-05-2022 CRP 0.5 mg/dL Normal <=1.0 [facility] Comment on above: Performed By: #### C RP ####[facility] [address] [place], [place] [address]QnDr. Shweta Dillard SED RATE WESTERGRENon 2022 SED RATE 15 mm/hr Normal <=20 [facility] Comment on above: Performed By: #### S EDR #### [facility] [address] [address] [address] Shweta Dillard US TYLER DOP LEG RTon 02-15-20 23 US TYLER DOP LEG RT EXAMINATION: [...] by: JEMIMA DELATORRE Date: 2022-12-05 10:24 Normal [facility] Office Visiton 11-28-2022 Follow-up visit [id number] Sapphire Palmer Kristy 1965 M Date Provider Department Center 11/28/2022 Chance-MARIANNA HAYES [facility] SURG Second Fl Family History Adopted: Yes Family history unknown: Yes Level of Service:54666 [place] OFFICE/OUTPT VISIT,PROCEDURE ONLY Reason for Visit and Comments: Baclofen Pump Refill [698] Normal [facility] CBC AUTO DIFFon 11-01-2022 BASO # 0.1 103/ul Normal 0.0-0.1 [facility] Comment on above: Performed By: #### C BC #### [facility] [address] [place] [address] Dr. Shweta Dillard Basophils/100 WBC (Bld) 0.8 % Normal 0.2-2.0 [facility] Comment on above: Performed By: #### C BC #### [facility] [address] [place] [address] Dr. Shweta Dillard EO # 0.3 103/ul Normal 0.0-0.7 [facility] Comment on above: Performed By: #### C BC #### [facility] [address] [place] [address] Dr. Shweta Dillard Eosinophils/100 WBC (Bld) 3.5 % Normal 0.9-7.0 [facility] Comment on above: Performed By: #### C BC #### [facility] [address] [place] [address] Dr. Shweta Dillard Erythrocyte distribution width (RBC) [Ratio] 13.2 % Normal 11.0-15.0 [facility] Comment on above: Performed By: #### C BC #### [facility] [address] [place] [address] Dr. Shweta Dillard Hematocrit (Bld) [Volume fraction] 45.6 % Normal 42.0-54.0 [facility] Comment on above: Performed By: #### C BC #### [facility] [address] [place] [address] Dr. Shweta Dillard Hemoglobin (Bld) [Mass/Vol] 13.6 g/dL Critically low 14.0-18.0 [facility] Comment on above: Performed By: #### C BC #### [facility] [address] [place] [address] Dr. Shweta Dillard IG # 0.07 10e3/ul Critically high 0.00-0.03 [facility] Comment on above: Performed By: #### C BC #### [facility] [address] [place] [address] Dr. Shweta Dillard IG % 0.7 % Critically high 0.0-0.[address] [facility] Comment on above: Performed By: #### C BC #### [facility] [address] [place] [address] Dr. Shweta Dillard LYMPH # 3.4 103/ul Normal 1.2-3.8 [facility] Comment on above: Performed By: #### C BC #### [facility] [address] [place] [address] Dr. Shweta Dillard Lymphocytes/100 WBC (Bld) 34.6 % Normal 20.5-60.0 [facility] Comment on above: Performed By: #### C BC #### [facility] [address] [place] [address] Dr. Shweta Dillard MANUAL DIFF REQ NO Normal [facility] Comment on above: Performed By: #### C BC #### [facility] [address] [place] [address] Dr. Shweta Dillard MCH (RBC) [Entitic mass] 29.4 pg Normal 25.9-34.0 [facility] Comment on above: Performed By: #### C BC #### [facility] [address] [address] [address] Shweta Dillard MCHC (RBC) [Mass/Vol] 29.8 g/dL Critically low 29.9-35.2 [facility] Comment on above: Performed By: #### C BC #### [facility] [address] [place] [address] Dr. Shweta Dillard MCV (RBC) [Entitic vol] 98.7 fL Critically high 80.0-94.0 [facility] Comment on above: Performed By: #### C BC #### [facility] [address] [place] [address] Dr. Shweta Dillard MONO # 0.7 103/ul Normal 0.3-0.8 [facility] Comment on above: Performed By: #### C BC #### [facility] [address] [place] [address] Dr. Shweta Dillard Monocytes/100 WBC (Bld) 7.4 % Normal 1.7-12.0 [facility] Comment on above: Performed By: #### C BC #### [facility] [address] [place] [address] Dr. Shweta Dillard NEUT # 5.2 103/ul Normal 1.4-6.5 [facility] Comment on above: Performed By: #### C BC #### [facility] [address] [place] [address] Dr. Shweta Dillard Neutrophils/100 WBC (Bld) 53.0 % Normal 43.0-75.0 [facility] Comment on above: Performed By: #### C BC #### [facility] [address] [place] [address] Dr. Shweta Dillard Platelet mean volume (Bld) [Entitic vol] 9.9 fL Normal 9.5-13.5 [facility] Comment on above: Performed By: #### C BC #### [facility] [address] [place] [address] Dr. Shweta Dillard PLT 253 103/ul Normal 150-450 [facility] Comment on above: Performed By: #### C BC #### [facility] [address] [place] [address] Dr. Shweta Dillard RBC 4.62 106/ul Critically low 4.70-6.10 [facility] Comment on above: Performed By: #### C BC #### [facility] [address] [address] [address] Shweta Dillard WBC 9.8 103/ul Normal 4.0-11.0 [facility] Comment on above: Performed By: #### C BC #### [facility] [address] [address] [address] Shweta Dillard DIRECT LDLon 11-01-2022 Cholesterol in LDL [Mass/Vol] 105 mg/dL Normal [facility] Comment on above: Performed By: #### U ZAIRA, CMP, DLDL, LIPID ####[facility] [address] [address]DrMarky Dillard DLDL NORMAL SEE BELOW Normal [facility] Comment on above: Result Comment: <100 mg/dl OPTIMAL 100 - 129 mg/dl NEAR OR ABOVE OPTIMAL 130 - 159 mg/dl BORDERLINE HIGH 160 - 189 mg/dl HIGH >190 mg/dl VERY HIGH Performed By: #### U ZAIRA, CMP, DLDL, LIPID ####[facility] [address] [address]Dr. Shweta Dillard GLYCOHEMOGLOBIN A1Con 2022 ADA RECOMMENDATION SEE BELOW Normal [facility] Comment on above: Result Comment: ADA RECOMMENDED LIMIT 4.0 - 6.0 ADA THERAPEUTIC TARGET < 7.0 ACTION SUGGESTED > 7.0 Performed By: #### A 1C ####[facility] [address] [address]Dr. Shweta Dillard Glucose [Mass/Vol] 114 mg/dL Normal [facility] Comment on above: Performed By: #### A 1C ####[facility] [address] [address]Dr. Shweta Dillard HbA1c (Bld) [Mass fraction] 5.6 % Normal 4.5-6.2 [facility] Comment on above: Performed By: #### A 1C ####[facility] [address] [address]Dr. Shweta Dillard LIPID PROFILEon 11-01-2022 CHOL-HDL RATIO NORM SEE BELOW Normal [facility] Comment on above: Result Comment: 3.3 - 4.4 LOW RISK 4.4 - 7.1 AVERAGE RISK 7.1 - 11.0 MODERATE RISK >11.0 HIGH RISK Performed By: #### U ZAIRA, CMP, DLDL, LIPID #### [facility] [address] [address] [address] Shweta Dillard Cholesterol [Mass/Vol] 172 mg/dL Normal <=200 [facility] Comment on above: Performed By: #### U ZAIRA, CMP, DLDL, LIPID #### [facility] [address] [address] [address] Shweta Dillard Cholesterol in HDL [Mass/Vol] 31 mg/dL Critically low 40-60 [facility] Comment on above: Performed By: #### U ZAIRA, CMP, DLDL, LIPID #### [facility] [address] [address] [address] Shweta Dillard Cholesterol in LDL [Mass/Vol] 49.6 mg/dL Normal [facility] Comment on above: Performed By: #### U ZAIRA, CMP, DLDL, LIPID #### [facility] [address] [address] [address] Shweta Dillard Cholesterol.total/Cho lesterol in HDL [Mass ratio] 5.5 {ratio} Normal [facility] Comment on above: Performed By: #### U ZAIRA, CMP, DLDL, LIPID #### [facility] [address] [address] [address] Shweta Dillard HDL NORMAL > or = 60 mg/dl - LOW CARDIOVASCULAR RISK <40 mg/dl - HIGH CARDIOVASCULAR RISK Normal [facility] Comment on above: Performed By: #### U ZAIRA, CMP, DLDL, LIPID #### [facility] [address] [address] [address] Shweta Dillard LDL CALC NORMAL SEE BELOW Normal [facility] Comment on above: Result Comment: <100 mg/dl OPTIMAL 100 - 129 mg/dl NEAR OR ABOVE OPTIMAL 130 - 159 mg/dl BORDERLINE HIGH 160 - 189 mg/dl HIGH >190 mg/dl VERY HIGH Performed By: #### U ZAIRA, CMP, DLDL, LIPID #### [facility] [address] [address] [address] Shweta Dillard Triglyceride [Mass/Vol] 457 mg/dL Critically high <=150 [facility] Comment on above: Performed By: #### U ZAIRA, CMP, DLDL, LIPID #### [facility] [address] [address] [address] Shweta Dillard VLDL CALC 91.4 mg/dL Normal [facility] Comment on above: Performed By: #### U ZAIRA, CMP, DLDL, LIPID #### [facility] [address] [address] [address] Shweta Dillard MICROALBUMIN, RAND URon 10-21 mALB <1.3 Normal <=30.0 [facility] Comment on above: Performed By: #### M ALBR ####[facility] [address] [address]Dr. Shweta Dillard PROF 14(COMP METB)on 023 Albumin [Mass/Vol] 4.0 g/dL Normal 3.4-5.0 [facility] Comment on above: Performed By: #### U ZAIRA, CMP, DLDL, LIPID #### [facility] [address] [address] [address] Shweta Dillard Albumin/Globulin [Mass ratio] 1.3 {ratio} Normal [facility] Comment on above: Performed By: #### U ZAIRA, CMP, DLDL, LIPID #### [facility] [address] [address] [address] Shweta Dillard ALP [Catalytic activity/Vol] 95 U/L Normal 46-116 [facility] Comment on above: Performed By: #### U ZAIRA, CMP, DLDL, LIPID #### [facility] [address] [address] [address] Shweta Dillard ALT [Catalytic activity/Vol] 25 U/L Normal 16-63 [facility] Comment on above: Performed By: #### U ZAIRA, CMP, DLDL, LIPID #### [facility] [address] [address] [address] Shweta Dillard Anion gap [Moles/Vol] 13.4 mmol/L Normal Th e [facility] Comment on above: Performed By: #### U ZAIRA, CMP, DLDL, LIPID #### [facility] [address] [address] [address] Shweta Dillard AST [Catalytic activity/Vol] 18 U/L Normal 15-37 [facility] Comment on above: Performed By: #### U ZAIRA, CMP, DLDL, LIPID #### [facility] [address] [address] [address] Shweta Dillard Bilirubin [Mass/Vol] 0.2 mg/dL Normal 0.2-1.0 [facility] Comment on above: Performed By: #### U ZAIRA, CMP, DLDL, LIPID #### [facility] [address] [place] [address] Dr. Shweta Dillard Calcium [Mass/Vol] 9.0 mg/dL Normal 8.5-10.1 [facility] Comment on above: Performed By: #### U ZAIRA, CMP, DLDL, LIPID #### [facility] [address] [address] [address] Shweta Dillard Chloride [Moles/Vol] 100 mmol/L Normal 98-107 [facility] Comment on above: Performed By: #### U ZAIRA, CMP, DLDL, LIPID #### [facility] [address] [address] [address] Shweta Dillard CO2 [Moles/Vol] 30.0 mmol/L Normal 21.0-32.0 [facility] Comment on above: Performed By: #### U ZAIRA, CMP, DLDL, LIPID #### [facility] [address] [address] [address] Shweta Dillard Creatinine [Mass/Vol] 0.89 mg/dL Normal 0.70-1.30 [facility] Comment on above: Performed By: #### U ZAIRA, CMP, DLDL, LIPID #### [facility] [address] [address] [address] Shweta Dillard EGFR-AF LATVIAN >60 Normal >=60 [facility] Comment on above: Performed By: #### U ZAIRA, CMP, DLDL, LIPID #### [facility] [address] [address] [address] Shweta Dillard EGFR-NON AF LATVIAN >60 Normal >=60 [facility] Comment on above: Performed By: #### U ZAIRA, CMP, DLDL, LIPID #### [facility] [address] [address] [address] Shweta Dillard Globulin (S) [Mass/Vol] 3.1 g/dL Normal [facility] Comment on above: Performed By: #### U ZAIRA, CMP, DLDL, LIPID #### [facility] [address] [address] [address] Shweta Dillard Glucose [Mass/Vol] 125 mg/dL Critically high 74-106 [facility] Comment on above: Performed By: #### U ZAIRA, CMP, DLDL, LIPID #### [facility] [address] [address] [address] Shweta Dillard Potassium [Moles/Vol] 4.4 mmol/L Normal 3.5-5.1 [facility] Comment on above: Performed By: #### U ZAIRA, CMP, DLDL, LIPID #### [facility] [address] [address] [address] Shweta Dillard Protein [Mass/Vol] 7.1 g/dL Normal 6.4-8.2 [facility] Comment on above: Performed By: #### U ZAIRA, CMP, DLDL, LIPID #### [facility] [address] [address] [address] Shweta Dillard Sodium [Moles/Vol] 139 mmol/L Normal 136-145 [facility] Comment on above: Performed By: #### U ZAIRA, CMP, DLDL, LIPID #### [facility] [address] [address] [address] Shweta Dillard Urea nitrogen [Mass/Vol] 25.0 mg/dL Critically high 7.0-18.0 [facility] Comment on above: Performed By: #### U ZAIRA, CMP, DLDL, LIPID #### [facility] [address], [place] [address] Dr. Shweta Dillard Urea nitrogen/Creatinine [Mass ratio] 28.1 mg/mg Normal [facility] Comment on above: Performed By: #### U ZAIRA, CMP, DLDL, LIPID #### [facility] [address], [place] [address] Dr. Shweta Dillard UA RANDOM W/MICROSCOPICon BACTERIA NONE SEEN Normal NONE SEEN [facility] Comment on above: Performed By: #### U AMIC ####[facility] [address] [address]Dr. Shweta Dillard Bilirubin Ql (U) Negative Normal NEGATIVE [facility] Comment on above: Performed By: #### U AMIC ####[facility] [address] [address]DrMarky Dillard CAST NONE SEEN Normal NONE SEEN [facility] Comment on above: Performed By: #### U AMIC ####[facility] [address] [address]Dr. Shweta Dillard Clarity (U) CLEAR Normal CLEAR [facility] Comment on above: Performed By: #### U AMIC ####[facility] [address] [address]Dr. Shweta Dillard Color (U) LT. YELLOW Normal YELLOW [facility] Comment on above: Performed By: #### U AMIC ####[facility] [address] [address]Dr. Shweta Dillard Crystals LM Nom (Urine sed) NONE SEEN Normal NONE SEEN [facility] Comment on above: Performed By: #### U AMIC ####[facility] [address] [id number]. Shweta Dillard Epithelial cells LM Ql (Urine sed) RARE Normal NONE SEEN /RARE [facility] Comment on above: Performed By: #### U AMIC ####[facility] [address] [address]Dr. Shweta Dillard Glucose Ql (U) Negative Normal NEGATIVE [facility] Comment on above: Performed By: #### U AMIC ####[facility] [address] [address]Dr. Shweta Nishant Hemoglobin Ql (U) Negative Normal NEGATIVE [facility] Comment on above: Performed By: #### U AMIC ####[facility] [address] [address]Dr. Shweta Dillard Ketones Ql (U) Negative Normal NEGATIVE [facility] Comment on above: Performed By: #### U AMIC ####[facility] [address] [place], [place] [address]Dr. Shweta Dillard LEUKOCYTES Negative Normal NEGATIVE [facility] Comment on above: Performed By: #### U AMIC ####[facility] [address] [place], [place] [address]Dr. Shweta Dillard MUCOUS NONE SEEN Normal NONE SEEN [facility] Comment on above: Performed By: #### U AMIC ####[facility] [address] [place], [place] [address]Dr. Shweta Dillard Nitrite Ql (U) Negative Normal NEGATIVE [facility] Comment on above: Performed By: #### U AMIC ####[facility] [address] [place], [place] [address]Dr. Shweta Dillard pH (U) 5.0 [pH] Normal 5-9 [facility] Comment on above: Performed By: #### U AMIC ####[facility] [address] [place], [place] [address]Dr. Shweta Dillard RBC NONE SEEN Abnormal 0-2 [facility] Comment on above: Performed By: #### U AMIC ####[facility] [address] [place], [place] [address]Dr. Shweta Dillard SPEC GRAVITY 1.020 Normal 1.005-<=1.025 [facility] Comment on above: Performed By: #### U AMIC ####[facility] [address] [place], [place] [address]Dr. Shweta Dillard UA PROTEIN Negative Normal NEGATIVE/ TRACE [facility] Comment on above: Performed By: #### U AMIC ####[facility] [address] [place], [place] [address]Rr. Shweta Dillard Urobilinogen Qn (U) 0.2 {Bruce'U}/dL Normal 0.2 - 1. 0 [facility] Comment on above: Performed By: #### U AMIC ####[facility] [id number] [place], [place] [address]EyMarky Dillard WBC NONE SEEN Normal NONE SEEN [facility] Comment on above: Performed By: #### U AMIC ####[facility] [address] [place], [place] [address]HqMarky Dillard URIC ACID SERUMon 11-01-2022 Urate [Mass/Vol] 3.7 mg/dL Normal 3.5-7.2 [facility] Comment on above: Performed By: #### U ZAIRA, CMP, DLDL, LIPID #### [facility] [address], [place] [address] Dr. Shweta Dillard US TYLER DOP LEG [...] JEMIMA DELATORRE Date: 2022-11-01 10:54 Normal [facility] Office Visiton 10-29-2022 Follow-up visit [id number] Sapphire Palmer 1965 M Date Provider Department Center 10/29/2022 IMMANUEL ESPAÑA [facility] SURG Second Fl Family History Adopted: Yes Family history unknown: Yes Level of Service:09110 [place] POSTOP FOLLOW UP VISIT RELATED TO ORIGINAL PX Reason for Visit and Comments: Post-op [483] - s/p 10/03/22 pump replacement. Give new refill date: Patient states he has back and hip pain. Has not changed Normal [facility] Encounters Encounter Date Encounter Type Care Provider Facility Start: 10-22-2023 ambulatory DREAD CLIFFORD [facility] Start: 08-06-2023 ambulatory DREAD CASTILLO [facility] Start: 05-28-2023 ambulatory DREAD CASTILLO [facility] Start: 03-26-2023 ambulatory DREAD CASTILLO [facility] Start: 02-01-2023 End: 02-02-2023 ambulatory DREAD CASTLILO [facility] Start: 01-29-2023 ambulatory DREAD CASTILLO [facility] Start: 01-11-2023 End: 01-11-[address] [facility] Start: 12-27-2022 End: 12-28-2022 ambulatory DREAD CLIFFORD [facility] Start: 12-27-2022 ambulatory DREAD CASTILLO [facility] Start: 12-05-2022 End: 12-06-2022 ambulatory MANDA HOLM Facility:[facility] Start: 11-28-2022 End: 11-28-2022 ambulatory MARIANNA ABIGAIL [facility] Start: 11-01-2022 End: 11-02-2022 ambulatory MANDA HOLM Facility:[facility] Start: 10-29-2022 End: 10-29-2022 ambulatory IMMANUEL TORRES [facility] Procedures Date Procedure Procedure Detail Performing Clinician Start: 11-01-2022 PSA screening MANDA HOLM Comment on above: Performed By: #### P [facility] #### [facility] [address] [place] [address] Dr. Shweta Dillard Payers Date Payer Category Payer Unknown [id number] 1965 Unknown [id number] 1957 Medicare [id number] Clinical Notes 04-27-2021 to 10-22-2023 Note Date & Type Note Facility 10-22-2023 Note PROCEDURE PERFORMED: Intrathecal pump refill. PERFORMING PROVIDER: Dread Castillo Nurse Practitioner. REFINERY OPERATOR ALKYLATION: Marcy David RN PREPROCEDURE DIAGNOSIS: Post laminectomy syndrome POSTPROCEDURE [...] were verified by 2 nurses. Start time: 929 End time: 944 The pump was interrogated prior to initiation [...] OF MEDICATION IN RESERVOIR PRIOR TO REFILL: 4.6ml ACTUAL REMAINING VOLUME OF MEDICATION IN RESERVOIR PRIOR TO REFILL: 5.5ml CURRENT MEDICATION AND CONCENTRATION PRIOR TO REFILL: Dilaudid 15 mg/mL with bupivacaine 15 mg/mL, 40 mL. CURRENT DOSE: Dilaudid 6.902 mg/day with bupivacaine mg/day disabled ptm VOLUME OF MEDICATION REFILLED: 40ml BRIDGE BOLUS PROGRAMMED: n/a NEW DOSE: n/a COMPLICATIONS: None. ESTIMATED BLOOD LOSS: None. CAIT: June 2029 ALARM DATE: 01/12/24 REFILL DATE: 01/07/24 Diagnosis Plan 1. Post laminectomy syndrome PUMP W REPROG & REFILL REQUIRING PHYSICIAN SKILL [facility] 08-06-2023 Note PROCEDURE PERFORMED: Intrathecal pump refill. PERFORMING PROVIDER: Dread Castillo, Nurse Practitioner. REFINERY OPERATOR ALKYLATION: Marcy Avendano RN PREPROCEDURE DIAGNOSIS: Post laminectomy [...] date: IMPLANTATION / REPLACEMENT INFUSION PUMP Comment: [id number] 10/03/2022: INTRATHECAL PUMP IMPLANTATION Comment: Exchange of [...] W REPROG & REFILL REQUIRING PHYSICIAN SKILL [facility] 05-28-2023 Note PROCEDURE PERFORMED: Intrathecal pump refill. PERFORMING PROVIDER: Dread Castillo, Nurse Practitioner. REFINERY OPERATOR ALKYLATION: Marcy Avendano RN PREPROCEDURE DIAGNOSIS: Post laminectomy [...] IMPLANTATION / REPLACEMENT INFUSION PUMP Comment: 2015, [place] 10/03/2022: INTRATHECAL PUMP IMPLANTATION Comment: Exchange of [...] W REPROG & REFILL REQUIRING PHYSICIAN SKILL [facility] 03-26-2023 Note PROCEDURE PERFORMED: Intrathecal pump refill. PERFORMING PROVIDER: Dread Castillo, Nurse Practitioner. REFINERY OPERATOR ALKYLATION: Marcy Avendano RN PREPROCEDURE DIAGNOSIS: Post laminectomy [...] date: IMPLANTATION / REPLACEMENT INFUSION PUMP Comment: 2016, [place] 10/03/2022: INTRATHECAL PUMP IMPLANTATION Comment: Exchange of [...] technique utilizing the needle provided in the Smart [employer] pump refill kit. The remaining medication in [...] W REPROG & REFILL REQUIRING PHYSICIAN SKILL [facility] 01-29-2023 Note PROCEDURE PERFORMED: Intrathecal pump refill. PERFORMING PROVIDER: Dread Castillo, Nurse Practitioner. 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 Pt denies pain in small [...] Seen by Dr. Chery and Dr. Kemp [facility] 12-27-2022 Note HPI: Referral source: 12/27/22 CC: [...] please schedule on a clinic day of Divina's Saturday day or am, to be schedule [...] neural foraminal narrowin (more content not included)... [facility] 11-28-2022 Note PROCEDURE PERFORMED: Intrathecal pump refill. PERFORMING PROVIDER: Marianna Hayes Nurse Practitioner. REFINERY OPERATOR ALKYLATION: Dulce Fink MA. PREPROCEDURE DIAGNOSIS: Lumbar postlaminectomy [...] 1 (one) time each day. FLU VACC [id number] 6MOS UP,PF, (FLUZONE QUAD [id number], PF,) 60 MCG (15 MCG X 4)/0.5 [...] PRIOR TO R (more content not included)... [facility] 10-29-2022 Note Neurosurgery Clinic Note Chief Complaint: [...] tablet 1 tablet, oral, Daily flu vacc [id number] 6mos up,PF, (Fluzone Quad [id number], PF,) 60 mcg (15 mcg x 4)/0.5 [...] ongoing care by the pain management team. [facility] 03-29-2022 Note MR#: [id number] [facility] Pt. Name: Sapphire Palmer [facility] Date: 03/28/2022 Room #: 2H Date of : 1965 PROCEDURE NOTE ATTENDING: Marianna Hayes NP PERFORMING PROVIDER: Marianna Ovitt, Nurse Practitioner. REFINERY OPERATOR ALKYLATION: Hyacinth Coleman RN. PREPROCEDURE DIAGNOSIS: Lumbar post-laminectomy [...] BLOOD LOSS: None. Electronically Signed by: Marianna Hayes NP 03/30/2022 06:05 P Marianna Hayes NP Date Dict: 03/28/2022/10:46 A/Marianna Hayes NP Date Trans: 03/29/2022 01:46 A/ulysses [id number] [facility] 01-24-2022 Note MR#: [id number] [facility] Pt. Name: Sapphire Palmer [facility] Date: 01/24/2022 Room #: 1H Date of : 1965 PROCEDURE NOTE ATTENDING: Marianna Hayes NP PERFORMING PROVIDER: Marianna Hayes Nurse Practitioner. REFINERY OPERATOR ALKYLATION: Hyacinth Coleman RN. PREPROCEDURE DIAGNOSIS: Lumbar post-laminectomy [...] technique utilizing the needle provided in the Smart [employer] pump refill kit. The old medication in [...] BLOOD LOSS: None. Electronically Signed by: Marianna Hayes NP 01/26/2022 03:24 P Marianna Hayes NP Date Dict: 01/24/2022/01:37 P/Marianna Hayes NP Date Trans: 01/24/2022 04:48 P/ulysses [id number] [facility] 11-16-2021 Note MR#: [id number] [facility] Pt. Name: Sapphire Palmer [facility] Date: 11/15/2021 Room #: 1H Date of : 1965 PROCEDURE NOTE ATTENDING: Marianna Hayes NP PREPROCEDURE DIAGNOSIS: Lumbar post-laminectomy syndrome. POSTPROCEDURE [...] BLOOD LOSS: None. Electronically Signed by: Marianna Hayes NP 11/20/2021 12:27 P Marianna Hayes NP Date Dict: 11/15/2021/11:02 A/Marianna Hayes NP Date Trans: 11/16/2021 03:25 A/ulysses [id number] [facility] 09-14-2021 Note MR#: [id number] [facility] Pt. Name: Sapphire Palmer [facility] Date: 09/13/2021 Room #: 1H Date of : 1965 PROCEDURE NOTE ATTENDING: Marianna Hayes NP PREPROCEDURE DIAGNOSIS: Lumbar post-laminectomy syndrome. POSTPROCEDURE [...] technique utilizing the needle provided in the Smart [employer] pump refill kit. The old medication in [...] BLOOD LOSS: None. Electronically Signed by: Marianna Hayes NP 09/19/2021 08:13 A Marianna Hayes NP Date Dict: 09/13/2021/10:37 A/Marianna Hayes NP Date Trans: 09/13/2021 11:54 P/angeliao [id number] [facility] 07-05-2021 Note MR#: [id number] [facility] Pt. Name: Sapphire Palmer [facility] Date: 07/05/2021 Room #: Date of : 1965 PROCEDURE NOTE ATTENDING: Marianna Hayes NP REFINERY OPERATOR ALKYLATION: Hyacinth Coleman RN PREPROCEDURE DIAGNOSIS: Lumbar post-laminectomy [...] technique utilizing the needle provided in the Smart [employer] pump refill kit. The old medication in [...] BLOOD LOSS: None. Electronically Signed by: Marianna Hayes NP 07/07/2021 12:00 P Marianna Hayes, FINANCIAL COMPLIANCE MANAGER Date Dict: 07/05/2021/11:09 A/Marianna Hayes NP Date Trans: 07/05/2021 12:01 P/mmo [id number] [facility] 04-27-2021 Note MR#: [id number] [facility] Pt. Name: Sapphire Palmer [facility] Date: 04/26/2021 Room #: 1H Date of : 1965 PROCEDURE NOTE ATTENDING: Marianna Hayes NP REFINERY OPERATOR ALKYLATION: Hyacinth Coleman RN PREPROCEDURE DIAGNOSIS: Lumbar post-laminectomy [...] BLOOD LOSS: None. Electronically Signed by: Marianna Hayes NP 04/28/2021 04:20 P Marianna Hayes NP Date Dict: 04/26/2021/11:09 Mady/Marianna Hayes NP Date Trans: 04/27/2021 02:00 A/ulysses [id number] [facility] Summary Purpose Family History No Family History Records FoundNo Family History Records FoundNo Family History Records Found Advance Directives No Advanced Directives Records FoundNo Advanced Directives Records FoundNo Advanced Directives Records Found Additional Source Comments (unrecognized sect ion and content) No Status Records FoundNo Status Records FoundNo Status Records Found INFORMATION SOURCE (unrecogn ized section and content) DATE CREATED AUTHOR 04/03/2022 [facility] DATE CREATED AUTHOR AUTHOR'S ORGANIZ ATION 12/10/2022 [facility] DATE CREATED AUTHOR AUTHOR'S ORGANIZ ATION 10/22/2023 [facility] FOR RECORDS PERTAINING TO PATIENTS WHO [...] BE BASED ON THE PRIMARY CLINICAL RECORDS. [facility]. provides no warranty or guarantee of the accuracy or completeness of information in this document.
== END 2023-10-25 11:09 | disposition home or self-care (01) ==
LOC: VC 11:09
PROVIDERS: PCP Radiology Diagnostic Radiology; Visit Provider Radiology Diagnostic Radiology
DX: I80.02 Phlebitis and thrombophlebitis of superficial vessels of left lower extremity (principal)
CPT/HCPCS: 93971; G0463

== ENCOUNTER 2023-10-31 08:40 | Outpatient (OUT) | payer MEDICARE, SELFPAY ==
--- NOTE | 2023-10-31 08:41 | VEIN_ITS ---
[address] [address] Patient Name: SAPPHIRE PALMER MRN: [id number] date: 1965 Sex: M Assigned Patient Location: Current Patient Location: Accession/Order Number: [id number] Exam Date: 10/31/2023 08:44 Report Date: 10/31/2023 09:54 At the request of: EVA ELLIS Procedure: VC Endovenous Ablation 1VeinRT EXAMINATION: VC Endovenous Ablation 1Vein, right small saphenous vein HISTORY: I83.813 Bilateral painful varicose veins COMPARISON: No relevant comparison available. TECHNIQUE: The risks and benefits of the procedure had been previously discussed, and were rediscussed at length. Informed written consent was obtained. Aga Figueroa and Cleve Cyr assisted. Time out procedure was performed. The right lower extremity was prepared and draped in the usual sterile fashion. Duplex ultrasound probe was draped in a sterile cover, sterile transmission gel was used. Venous mapping was performed with the areas of dilation and large tributaries marked. The total length was 47 cm from the entry 4 cm above the lateral malleolus to the mid posterior thigh, this was a thigh extension. The diameter of the small bowel saphenous vein ranged from 5-8 mm. A 30 gauge needle and 1% buffered lidocaine was used to anesthetize the entry site. A 4 mm incision was made with a scalpel and the saphenous vein was entered percutaneously under direct ultrasound guidance with a micropuncture set, a single stick was successful in gaining access. A micro-guide wire was inserted and the needle removed. A micro-set including a dilator was inserted over the microwire and the needle and dilator were removed. A 0.018 guide wire was inserted through the micro-set and threaded through the saphenous vein . The dilator was removed and an introducer sheath was inserted over the wire until. The dilator and wire were removed and the 600 micron fiber was introduced and placed and positioned so that it extended beyond the sheath and . Final position of the fiber was determined by ultrasound guidance and duplex imaging. Tumescent anesthetic was delivered by ultrasound guidance. 250 cc of fluid was delivered along the entire course of the saphenous vein. The solution consisted of 1000 cc of normal saline with 40 mL of 1% lidocaine and 20 mL of sodium bicarbonate. A final positioning check was made. The energy source was turned on by means of the foot pedal and the fiber and sheath were withdrawn. The total number of Joules delivered was 2214. The laser was active for 277seconds under continuous pulse, average laser use of 8 J. Laser start time 931 AM 10/31/2023. Laser stop time 936AM 10/31/2023. A duplex ultrasound revealed compressibility and flow at the saphenofemoral junction immediately after the procedure. Hemostasis at the access site was achieved. The skin incision of the saphenous vein was closed with a 4 x 4. A compression stocking was applied. Postop instructions were given. A follow up appointment was recommended and scheduled. The patient tolerated the procedure well and was discharged in good condition . VEIN/VC Endovenous Ablation 1VeinRT IMPRESSION: Technically successful endovenous laser ablation right small saphenous vein Electronically authenticated by: EVA ELLIS Date: 10/31/2023 09:54
--- OUTSIDE RECORDS SUMMARY | 2023-10-31 08:43 | XMS_ITS | CCD ---
Author Name Unknown Address [address] [place] [address] Organization [facility] Care Team Providers Care Electrical Power Engineer Name Role Phone AICHHOLZ, CORN DETASSELER MACHINE OPERATOR ELISHA Admitting Unavailable AICHHOLZ, CORN DETASSELER MACHINE OPERATOR ELISHA Attending Unavailable AICHHOLZ, CORN DETASSELER MACHINE OPERATOR ELISHA Primary Care Unavailable AICHHOLZ, CORN DETASSELER MACHINE OPERATOR ELISHA Consulting Unavailable DR JEMIMA DELATORRE Consulting Unavailable AICHHOLZ, CORN DETASSELER MACHINE OPERATOR ELISHA Admitting Unavailable AICHHOLZ, CORN DETASSELER MACHINE OPERATOR ELISHA Attending Unavailable AICHHOLZ, CORN DETASSELER MACHINE OPERATOR ELISHA Primary Care Unavailable AICHHOLZ, CORN DETASSELER MACHINE OPERATOR ELISHA Consulting Unavailable DR JEMIMA DELATORRE [...] Simvastatin; Translations: [SIMVASTATIN] Drug Allergy 06-19-2017 [facility] Repository Problems Active Problems Problem Classification [...] Range Facility Office Visiton 10-22-2023 Follow-up visit [id number] Sapphire Palmer 1965 [facility] Provider Department Center 10/22/2023 DREAD MURO MP PAIN [facility] [place] Family History Adopted: Yes Family history unknown: Yes Level of Service:11325 [place] OFFICE/OUTPT VISIT,PROCEDURE ONLY Reason for Visit and Comments: Follow-up [654410] [facility] Office Visiton 08-06-2023 Follow-up visit [id number] Sapphire Palmer 1965 [facility] Provider Department Center 08/06/2023 DREAD MURO MP Medical [place] Family History Adopted: Yes Family history unknown: Yes Level of Service:99471 [place] OFFICE/OUTPT VISIT,PROCEDURE ONLY Reason for Visit and Comments: Baclofen Pump Refill [698] [facility] Office Visiton 05-28-2023 Follow-up visit [id number] Sapphire Palmer 1965 [facility] Provider Department Center 05/28/2023 DREAD MURO MP PAIN Medical [place] Family History Adopted: Yes Family history unknown: Yes Level of Service:26511 [place] OFFICE/OUTPT VISIT,PROCEDURE ONLY Normal [facility] Office Visiton 03-26-2023 Follow-up visit [id number] Sapphire Palmer 1965 M Date Provider Department Center 03/26/2023 170-CLIFFORD DREAD TRACEY PAIN Medical [place] Family History Adopted: Yes Family history unknown: Yes Level of Service:28677 [place] OFFICE/OUTPT VISIT,PROCEDURE ONLY Reason for Visit and Comments: Follow-up [947107] - Pump refill - alarm date 04/10 Normal [facility] MR LUMBAR SPINE WO CONTRASTo n [...] in this report. Electronically signed: Desmond Farmer. [facility] Office Visiton 01-29-2023 Follow-up visit [id number] Sapphire Palmer 1965 Date Provider Department Center 01/29/2023 170-DREAD CASTILLO MP PAIN Medical [place] Family History Adopted: Yes Family history unknown: Yes Level of Service:08771 [place] OFFICE/OUTPT VISIT,PROCEDURE ONLY Reason for Visit and Comments: Follow-up [052068] - Pump Refill alarm date 02/07/23 [facility] Office Visiton 01-11-2023 Follow-up visit [id number] Sapphire Palmer 1965 M Date Provider Department Center 01/11/2023 1211-KELSEA KEMP C RHEUM José Miguel Heal Family History Adopted: Yes Family history unknown: Yes Level of Service:05385 [place] OFFICE/OUTPATIENT NEW LOW MDM 30-44 MINUTES (GC) Reason for Visit and Comments: New Patient [632] [facility] Office Visiton 12-27-2022 Follow-up visit [id number] Sapphire Palmer 1965 M Date Provider Department Center 12/27/2022 DREAD MURO MP PAIN Medical [place] Family History Adopted: Yes Family history unknown: Yes Level of Service:77378 [place] OFFICE/OUTPATIENT NEW LOW MDM 30-44 MINUTES Reason for Visit and Comments: New Patient [632] - Pump alarm date 02/07/23 Normal [facility] RONI by IFAon 12-07-2022 Antinuclear Antibodies, IFA Negative Normal [facility] Comment on above: Result Comment: Nega tive <1:80 Borderline 1:80 Positive >1:80 ICAP nomenclature: AC-0 For more information about Hep-2 cell patterns use ANApatterns.org, the official website for the International Consensus on Antinuclear Antibody (RONI) Patterns (ICAP). Performed By: #### A NAIFA #### [facility] [address] [address] [address] Shweta Dillard ANTISTREPTOLYSIN O AB (ASO)o n 12-06-2022 Antistreptolysin O Ab 72.7 IU/mL Normal 0.0-200.0 [facility] Comment on above: Performed By: #### A SOAB #### [facility] [address] [address] [address] Shweta Dillard RHEUMATOID FACTORon 12-06-19 RA Latex Turbid. 42.4 IU/mL Critically high <14.0 [facility] Comment on above: Performed By: #### R F #### [facility] [address] [address] [address] Shweta Dillard CRPon 12-05-2022 CRP 0.5 mg/dL Normal <=1.0 [facility] Comment on above: Performed By: #### C RP ####[facility] [address] [place], [place] [address]RuDr. Shweta Dillard SED RATE WESTERGRENon 2022 SED RATE 15 mm/hr Normal <=20 [facility] Comment on above: Performed By: #### S EDR #### [facility] [address] [address] [address] Shweta Dillard US TYLER DOP LEG [...] JEMIMA DELATORRE Date: 2022-12-05 10:24 Normal [facility] Office Visiton 11-28-2022 Follow-up visit [id number] Sapphire Palmer Kristy 1965 M Date Provider Department Center 11/28/2022 Chance-MARIANNA HAYES [facility] SURG Second Fl Family History Adopted: Yes Family history unknown: Yes Level of Service:83918 [place] OFFICE/OUTPT VISIT,PROCEDURE ONLY Reason for Visit and Comments: Baclofen Pump Refill [698] Normal [facility] CBC AUTO DIFFon 11-01-2022 BASO # 0.1 103/ul Normal 0.0-0.1 [facility] Comment on above: Performed By: #### C BC #### [facility] [address] [place] [address] Dr. Shweta Dillard Basophils/100 WBC (Bld) 0.8 % Normal 0.2-2.0 [facility] Comment on above: Performed By: #### C BC #### [facility] [address] [place] [address] Dr. Shweta Dillard EO # 0.3 103/ul Normal 0.0-0.7 [facility] Comment on above: Performed By: #### C BC #### [facility] [address] [place] [address] Dr. Shweta Dillard Eosinophils/100 WBC (Bld) 3.5 % Normal 0.9-7.0 [facility] Comment on above: Performed By: #### C BC #### [facility] [address] [place] [address] Dr. Shweta Dillard Erythrocyte distribution width (RBC) [Ratio] 13.2 % Normal 11.0-15.0 [facility] Comment on above: Performed By: #### C BC #### [facility] [address] [place] [address] Dr. Shweta Dillard Hematocrit (Bld) [Volume fraction] 45.6 % Normal 42.0-54.0 [facility] Comment on above: Performed By: #### C BC #### [facility] [address] [place] [address] Dr. Shweta Dillard Hemoglobin (Bld) [Mass/Vol] 13.6 g/dL Critically low 14.0-18.0 [facility] Comment on above: Performed By: #### C BC #### [facility] [address] [place] [address] Dr. Shweta Dillard IG # 0.07 10e3/ul Critically high 0.00-0.03 [facility] Comment on above: Performed By: #### C BC #### [facility] [address] [place] [address] Dr. Shweta Dillard IG % 0.7 % Critically high 0.0-0.5 [facility] Comment on above: Performed By: #### C BC #### [facility] [address] [place] [address] Dr. Shweta Dillard LYMPH # 3.4 103/ul Normal 1.2-3.8 [facility] Comment on above: Performed By: #### C BC #### [facility] [address] [place] [address] Dr. Shweta Dillard Lymphocytes/100 WBC (Bld) 34.6 % Normal 20.5-60.0 [facility] Comment on above: Performed By: #### C BC #### [facility] [address] [place] [address] Dr. Shweta Dillard MANUAL DIFF REQ NO Normal [facility] Comment on above: Performed By: #### C BC #### [facility] [address] [place] [address] Dr. Shweta Dillard MCH (RBC) [Entitic mass] 29.4 pg Normal 25.9-34.0 [facility] Comment on above: Performed By: #### C BC #### [facility] [address] [address] [address] Shweta Dillard MCHC (RBC) [Mass/Vol] 29.8 g/dL Critically low 29.9-35.2 [facility] Comment on above: Performed By: #### C BC #### [facility] [address] [place] [address] Dr. Shweta Dillard MCV (RBC) [Entitic vol] 98.7 fL Critically high 80.0-94.0 [facility] Comment on above: Performed By: #### C BC #### [facility] [address] [place] [address] Dr. Shweta Dillard MONO # 0.7 103/ul Normal 0.3-0.8 [facility] Comment on above: Performed By: #### C BC #### [facility] [address] [place] [address] Dr. Shweta Dillard Monocytes/100 WBC (Bld) 7.4 % Normal 1.7-12.0 [facility] Comment on above: Performed By: #### C BC #### [facility] [address] [place] [address] Dr. Shweta Dillard NEUT # 5.2 103/ul Normal 1.4-6.5 [facility] Comment on above: Performed By: #### C BC #### [facility] [address] [place] [address] Dr. Shweta Dillard Neutrophils/100 WBC (Bld) 53.0 % Normal 43.0-75.0 [facility] Comment on above: Performed By: #### C BC #### [facility] [address] [place] [address] Dr. Shweta Dillard Platelet mean volume (Bld) [Entitic vol] 9.9 fL Normal 9.5-13.5 [facility] Comment on above: Performed By: #### C BC #### [facility] [address] [place] [address] Dr. Shweta Dillard PLT 253 103/ul Normal 150-450 [facility] Comment on above: Performed By: #### C BC #### [facility] [address] [place] [address] Dr. Shweta Dillard RBC 4.62 106/ul Critically low 4.70-6.10 [facility] Comment on above: Performed By: #### C BC #### [facility] [address] [address] [address] Shweta Dillard WBC 9.8 103/ul Normal 4.0-11.0 [facility] Comment on above: Performed By: #### C BC #### [facility] [address] [address] [address] Shweta Dillard DIRECT LDLon 11-01-2022 Cholesterol in LDL [Mass/Vol] 105 mg/dL Normal [facility] Comment on above: Performed By: #### U ZAIRA, CMP, DLDL, LIPID ####[facility] [address] [address]DrMarky Dillard DLDL NORMAL SEE BELOW Normal [facility] Comment on above: Result Comment: <100 mg/dl OPTIMAL 100 - 129 mg/dl NEAR OR ABOVE OPTIMAL 130 - 159 mg/dl BORDERLINE HIGH 160 - 189 mg/dl HIGH >190 mg/dl VERY HIGH Performed By: #### U ZAIRA, CMP, DLDL, LIPID ####[facility] [address] [address]Dr. Shweta Dillard GLYCOHEMOGLOBIN A1Con 2022 ADA RECOMMENDATION SEE BELOW Normal [facility] Comment on above: Result Comment: ADA RECOMMENDED LIMIT 4.0 - 6.0 ADA THERAPEUTIC TARGET < 7.0 ACTION SUGGESTED > 7.0 Performed By: #### A 1C ####[facility] [address] [address]Dr. Shweta Dillard Glucose [Mass/Vol] 114 mg/dL Normal [facility] Comment on above: Performed By: #### A 1C ####[facility] [address] [address]Dr. Shweta Dillard HbA1c (Bld) [Mass fraction] 5.6 % Normal 4.5-6.2 [facility] Comment on above: Performed By: #### A 1C ####[facility] [address] [address]Dr. Shweta Dillard LIPID PROFILEon 11-01-2022 CHOL-HDL RATIO NORM SEE BELOW Normal [facility] Comment on above: Result Comment: 3.3 - 4.4 LOW RISK 4.4 - 7.1 AVERAGE RISK 7.1 - 11.0 MODERATE RISK >11.0 HIGH RISK Performed By: #### U ZAIRA, CMP, DLDL, LIPID #### [facility] [address] [address] [address] Shweta Dillard Cholesterol [Mass/Vol] 172 mg/dL Normal <=200 [facility] Comment on above: Performed By: #### U ZAIRA, CMP, DLDL, LIPID #### [facility] [address] [address] [address] Shweta Dillard Cholesterol in HDL [Mass/Vol] 31 mg/dL Critically low 40-60 [facility] Comment on above: Performed By: #### U ZAIRA, CMP, DLDL, LIPID #### [facility] [address] [address] [address] Shweta Dillard Cholesterol in LDL [Mass/Vol] 49.6 mg/dL Normal [facility] Comment on above: Performed By: #### U ZAIRA, CMP, DLDL, LIPID #### [facility] [address] [address] [address] Shweta Dillard Cholesterol.total/Cho lesterol in HDL [Mass ratio] 5.5 {ratio} Normal [facility] Comment on above: Performed By: #### U ZAIRA, CMP, DLDL, LIPID #### [facility] [address] [address] [address] Shweta Dillard HDL NORMAL > or = 60 mg/dl - LOW CARDIOVASCULAR RISK <40 mg/dl - HIGH CARDIOVASCULAR RISK Normal [facility] Comment on above: Performed By: #### U ZAIRA, CMP, DLDL, LIPID #### [facility] [address] [address] [address] Shweta Dillard LDL CALC NORMAL SEE BELOW Normal [facility] Comment on above: Result Comment: <100 mg/dl OPTIMAL 100 - 129 mg/dl NEAR OR ABOVE OPTIMAL 130 - 159 mg/dl BORDERLINE HIGH 160 - 189 mg/dl HIGH >190 mg/dl VERY HIGH Performed By: #### U ZAIRA, CMP, DLDL, LIPID #### [facility] [address] [address] [address] Shweta Dillard Triglyceride [Mass/Vol] 457 mg/dL Critically high <=150 [facility] Comment on above: Performed By: #### U ZAIRA, CMP, DLDL, LIPID #### [facility] [address] [address] [address] Shweta Dillard VLDL CALC 91.4 mg/dL Normal [facility] Comment on above: Performed By: #### U ZAIRA, CMP, DLDL, LIPID #### [facility] [address] [address] [address] Shweta Dillard MICROALBUMIN, RAND URon 10-21 mALB <1.3 Normal <=30.0 [facility] Comment on above: Performed By: #### M ALBR ####[facility] [address] [address]Dr. Shweta Dillard PROF 14(COMP METB)on 023 Albumin [Mass/Vol] 4.0 g/dL Normal 3.4-5.0 [facility] Comment on above: Performed By: #### U ZAIRA, CMP, DLDL, LIPID #### [facility] [address] [address] [address] Shweta Dillard Albumin/Globulin [Mass ratio] 1.3 {ratio} Normal [facility] Comment on above: Performed By: #### U ZAIRA, CMP, DLDL, LIPID #### [facility] [address] [address] [address] Shweta Dillard ALP [Catalytic activity/Vol] 95 U/L Normal 46-116 [facility] Comment on above: Performed By: #### U ZAIRA, CMP, DLDL, LIPID #### [facility] [address] [address] [address] Shweta Dillard ALT [Catalytic activity/Vol] 25 U/L Normal 16-63 [facility] Comment on above: Performed By: #### U ZAIRA, CMP, DLDL, LIPID #### [facility] [address] [address] [address] Shweta Dillard Anion gap [Moles/Vol] 13.4 mmol/L Normal Th e [facility] Comment on above: Performed By: #### U ZAIRA, CMP, DLDL, LIPID #### [facility] [address] [address] [address] Shweta Dillard AST [Catalytic activity/Vol] 18 U/L Normal 15-37 [facility] Comment on above: Performed By: #### U ZAIRA, CMP, DLDL, LIPID #### [facility] [address] [address] [address] Shweta Dillard Bilirubin [Mass/Vol] 0.2 mg/dL Normal 0.2-1.0 [facility] Comment on above: Performed By: #### U ZAIRA, CMP, DLDL, LIPID #### [facility] [address] [place] [address] Dr. Shweta Dillard Calcium [Mass/Vol] 9.0 mg/dL Normal 8.5-10.1 [facility] Comment on above: Performed By: #### U ZAIRA, CMP, DLDL, LIPID #### [facility] [address] [address] [address] Shweta Dillard Chloride [Moles/Vol] 100 mmol/L Normal 98-107 [facility] Comment on above: Performed By: #### U ZAIRA, CMP, DLDL, LIPID #### [facility] [address] [address] [address] Shweta Dillard CO2 [Moles/Vol] 30.0 mmol/L Normal 21.0-32.0 [facility] Comment on above: Performed By: #### U ZAIRA, CMP, DLDL, LIPID #### [facility] [address] [address] [address] Shweta Dillard Creatinine [Mass/Vol] 0.89 mg/dL Normal 0.70-1.30 [facility] Comment on above: Performed By: #### U ZAIRA, CMP, DLDL, LIPID #### [facility] [address] [address] [address] Shweta Dillard EGFR-AF [place]IZ[place] >60 Normal >=60 [facility] Comment on above: Performed By: #### U ZAIRA, CMP, DLDL, LIPID #### [facility] [address] [address] [address] Shweta Dillard EGFR-NON AF [place]IZEN [place] >60 Normal >=60 [facility] Comment on above: Performed By: #### U ZAIRA, CMP, DLDL, LIPID #### [facility] [address] [address] [address] Shweta Dillard Globulin (S) [Mass/Vol] 3.1 g/dL Normal [facility] Comment on above: Performed By: #### U ZAIRA, CMP, DLDL, LIPID #### [facility] [address] [address] [address] Shweta Dillard Glucose [Mass/Vol] 125 mg/dL Critically high 74-106 [facility] Comment on above: Performed By: #### U ZAIRA, CMP, DLDL, LIPID #### [facility] [address] [address] [address] Shweta Dillard Potassium [Moles/Vol] 4.4 mmol/L Normal 3.5-5.1 [facility] Comment on above: Performed By: #### U ZAIRA, CMP, DLDL, LIPID #### [facility] [address] [address] [address] Shweta Dillard Protein [Mass/Vol] 7.1 g/dL Normal 6.4-8.2 [facility] Comment on above: Performed By: #### U ZAIRA, CMP, DLDL, LIPID #### [facility] [address] [address] [address] Shweta Dillard Sodium [Moles/Vol] 139 mmol/L Normal 136-145 [facility] Comment on above: Performed By: #### U ZAIRA, CMP, DLDL, LIPID #### [facility] [address] [address] [address] Shweta Dillard Urea nitrogen [Mass/Vol] 25.0 mg/dL Critically high 7.0-18.0 [facility] Comment on above: Performed By: #### U ZAIRA, CMP, DLDL, LIPID #### [facility] [address] [place], [place] [address] Dr. Shweta Dillard Urea nitrogen/Creatinine [Mass ratio] 28.1 mg/mg Normal [facility] Comment on above: Performed By: #### U ZAIRA, CMP, DLDL, LIPID #### [facility] [address] [place], [place] [address] Dr. Shweta Dillard UA RANDOM W/MICROSCOPICon BACTERIA NONE SEEN Normal NONE SEEN [facility] Comment on above: Performed By: #### U AMIC ####[facility] [address] [address]Dr. Shweta Dillard Bilirubin Ql (U) Negative Normal NEGATIVE [facility] Comment on above: Performed By: #### U AMIC ####[facility] [address] [address]DrMarky Dillard CAST NONE SEEN Normal NONE SEEN [facility] Comment on above: Performed By: #### U AMIC ####[facility] [address] [address]Dr. Shweta Dillard Clarity (U) CLEAR Normal CLEAR [facility] Comment on above: Performed By: #### U AMIC ####[facility] [address] [address]Dr. Shweta Dillard Color (U) LT. YELLOW Normal YELLOW [facility] Comment on above: Performed By: #### U AMIC ####[facility] [address] [address]Dr. Shweta Dillard Crystals LM Nom (Urine sed) NONE SEEN Normal NONE SEEN [facility] Comment on above: Performed By: #### U AMIC ####[facility] [address] [place] [address]Dr. Shweta Dillard Epithelial cells LM Ql (Urine sed) RARE Normal NONE SEEN /RARE [facility] Comment on above: Performed By: #### U AMIC ####[facility] [address] [address]Dr. Shweta Dillard Glucose Ql (U) Negative Normal NEGATIVE The [facility] Comment on above: Performed By: #### U AMIC ####[facility] [address] [address]Dr. Shweta Nishant Hemoglobin Ql (U) Negative Normal NEGATIVE The [facility] Comment on above: Performed By: #### U AMIC ####[facility] [address] [address]Dr. Shweta Dillard Ketones Ql (U) Negative Normal NEGATIVE The [facility] Comment on above: Performed By: #### U AMIC ####[facility] [address] [place], [place] [address]Dr. Shweta Dillard LEUKOCYTES Negative Normal NEGATIVE [facility] Comment on above: Performed By: #### U AMIC ####[facility] [address] [place], [place] [address]Dr. Shweta Dillard MUCOUS NONE SEEN Normal NONE SEEN [facility] Comment on above: Performed By: #### U AMIC ####[facility] [address] [place], [place] [address]Dr. Shweta Dillard Nitrite Ql (U) Negative Normal NEGATIVE The [facility] Comment on above: Performed By: #### U AMIC ####[facility] [address] [place], [place] [address]Dr. Shweta Dillard pH (U) 5.0 [pH] Normal 5-9 [facility] Comment on above: Performed By: #### U AMIC ####[facility] [address] [place], [place] [address]Dr. Shweta Dillard RBC NONE SEEN Abnormal 0-2 [facility] Comment on above: Performed By: #### U AMIC ####[facility] [address] [place], [place] [address]Dr. Shweta Dillard SPEC GRAVITY 1.020 Normal 1.005-<=1.025 [facility] Comment on above: Performed By: #### U AMIC ####[facility] [address] [place], [place] [address]Dr. Shweta Dillard UA PROTEIN Negative Normal NEGATIVE/ TRACE [facility] Comment on above: Performed By: #### U AMIC ####[facility] [address] [place], [place] [address]Oh. Shweta Dillard Urobilinogen Qn (U) 0.2 {Bruce'U}/dL Normal 0.2 - 1. 0 [facility] Comment on above: Performed By: #### U AMIC ####[facility] [address] [place], [place] [address]YsMarky Dillard WBC NONE SEEN Normal NONE SEEN [facility] Comment on above: Performed By: #### U AMIC ####[facility] [address] [place], [place] [address]VlMraky Dillard URIC ACID SERUMon 11-01-2022 Urate [Mass/Vol] 3.7 mg/dL Normal 3.5-7.2 [facility] Comment on above: Performed By: #### U ZAIRA, CMP, DLDL, LIPID #### [facility] [address] [place], [place] [address] Dr. Shweta Dillard US TYLER DOP LEG [...] JEMIMA DELATORRE Date: 2022-11-01 10:54 Normal [facility] Office Visiton 10-29-2022 Follow-up visit [id number] Sapphire Palmer 1965 M Date Provider Department Center 10/29/2022 [facility] Second Fl Family History Adopted: Yes Family history unknown: Yes Level of Service:12327 [place] POSTOP FOLLOW UP VISIT RELATED TO ORIGINAL PX Reason for Visit and Comments: Post-op [483] - s/p 10/03/22 pump replacement. Give new refill date: Patient states he has back and hip pain. Has not changed Normal [facility] Encounters Encounter Date Encounter Type Care Provider Facility Start: 10-22-2023 ambulatory DREAD CLIFFORD [facility] Start: 08-06-2023 ambulatory DREAD CASTILLO [facility] Start: 05-28-2023 ambulatory DREAD CASTILLO [facility] Start: 03-26-2023 ambulatory DREAD CASTILLO [facility] Start: 02-01-2023 End: 02-02-2023 ambulatory DREAD CASTILLO [facility] Start: 01-29-2023 ambulatory DREAD CASTILLO [facility] Start: 01-11-2023 End: 01-11-2023 ambulatory KELSEA [facility] Start: 12-27-2022 End: 12-28-2022 ambulatory DREAD CLIFFORD [facility] Start: 12-27-2022 ambulatory DREAD CASTILLO [facility] Start: 12-05-2022 End: 12-06-2022 ambulatory MANDA HOLM Facility:[facility] Start: 11-28-2022 End: 11-28-2022 ambulatory MARIANNA ABIGAIL [facility] Start: 11-01-2022 End: 11-02-2022 ambulatory MANDA HOLM Facility:[facility] Start: 10-29-2022 End: 10-29-2022 ambulatory IMMANUEL TORRES [facility] Procedures Date Procedure Procedure Detail Performing Clinician Start: 11-01-2022 PSA screening MANDA HOLM Comment on above: Performed By: #### [facility] #### [facility] [address] [place] [address] Dr. Shweta Dillard Payers Date Payer Category Payer Unknown [id number] 1965 Unknown [id number] 1957 Medicare [id number] Clinical Notes 04-27-2021 to 10-22-2023 Note Date & Type Note Facility 10-22-2023 Note PROCEDURE PERFORMED: Intrathecal pump refill. PERFORMING PROVIDER: Dread Castillo Nurse Practitioner. TECHNOLOGY AND ENGINEERING TEACHER: Marcy David RN PREPROCEDURE DIAGNOSIS: Post laminectomy [...] W REPROG & REFILL REQUIRING PHYSICIAN SKILL [facility] 08-06-2023 Note PROCEDURE PERFORMED: Intrathecal pump refill. PERFORMING PROVIDER: Dread Castillo, Nurse Practitioner. TECHNOLOGY AND ENGINEERING TEACHER: Marcy Avendano RN PREPROCEDURE DIAGNOSIS: Post laminectomy [...] W REPROG & REFILL REQUIRING PHYSICIAN SKILL [facility] 05-28-2023 Note PROCEDURE PERFORMED: Intrathecal pump refill. PERFORMING PROVIDER: Dread Castillo, Nurse Practitioner. TECHNOLOGY AND ENGINEERING TEACHER: Marcy Avendano RN PREPROCEDURE DIAGNOSIS: Post laminectomy [...] W REPROG & REFILL REQUIRING PHYSICIAN SKILL [facility] 03-26-2023 Note PROCEDURE PERFORMED: Intrathecal pump refill. PERFORMING PROVIDER: Dread Castillo, Nurse Practitioner. TECHNOLOGY AND ENGINEERING TEACHER: Marcy Avendano RN PREPROCEDURE DIAGNOSIS: Post laminectomy [...] technique utilizing the needle provided in the [employer] Interactivetronic pump refill kit. The remaining medication in [...] W REPROG & REFILL REQUIRING PHYSICIAN SKILL [facility] 01-29-2023 Note PROCEDURE PERFORMED: Intrathecal pump refill. PERFORMING PROVIDER: Dread Castillo, Nurse Practitioner. 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 Pt denies pain in small [...] Seen by Dr. Chery and Dr. Kemp [facility] 12-27-2022 Note HPI: Referral source: 12/27/22 [...] IMPLANTATION 10/03/2022 Exchange of intrathecal pump, Dr. Torers KNEE SURGERY Left PROSTHODONTIC PROCEDURE Imaging: MRI [...] neural foraminal narrowin (more content not included)... [facility] 11-28-2022 Note PROCEDURE PERFORMED: Intrathecal pump refill. PERFORMING PROVIDER: Marianna Hayes Nurse Practitioner. TECHNOLOGY AND ENGINEERING TEACHER: Dulce Fink MA. PREPROCEDURE DIAGNOSIS: Lumbar postlaminectomy [...] 1 (one) time each day. FLU VACC [id number] 6MOS UP,PF, (FLUZONE QUAD [id number], PF,) 60 MCG (15 MCG X 4)/0.5 [...] PRIOR TO R (more content not included)... [facility] 10-29-2022 Note Neurosurgery Clinic Note Chief [...] tablet 1 tablet, oral, Daily flu vacc [id number] 6mos up,PF, (Fluzone Quad [id number], PF,) 60 mcg (15 mcg x 4)/0.5 [...] ongoing care by the pain management team. [facility] 03-29-2022 Note MR#: [id number] [facility] Pt. Name: S[facility]hire [facility] Date: 03/28/2022 Room #: 2H Date of : 1965 PROCEDURE NOTE ATTENDING: Marianna Hayes NP PERFORMING PROVIDER: Marianna Ovitt, Nurse Practitioner. TECHNOLOGY AND ENGINEERING TEACHER: Hyacinth Coleman RN. PREPROCEDURE DIAGNOSIS: Lumbar post-laminectomy [...] Hayes NP Date Trans: 03/29/2022 01:46 A/ulysses [id number] [facility] 01-24-2022 Note MR#: [id number] [facility] Pt. Name: Sapphire [facility] Date: 01/24/2022 Room #: 1H Date of : 1965 PROCEDURE NOTE ATTENDING: Marianna Hayes NP PERFORMING PROVIDER: Marianna Hayes Nurse Practitioner. TECHNOLOGY AND ENGINEERING TEACHER: Hyacinth Coleman RN. PREPROCEDURE DIAGNOSIS: Lumbar post-laminectomy [...] technique utilizing the needle provided in the Star[employer] Interactivetronic pump refill kit. The old medication in [...] ESTIMATED BLOOD LOSS: None. Electronically Signed by: Marinana Hayes NP 01/26/2022 03:24 P Marianna Hayes NP Date Dict: 01/24/2022/01:37 P/Marianna Hayes NP Date Trans: 01/24/2022 04:48 P/ulysses [id number] [facility] 11-16-2021 Note MR#: [id number] [facility] Pt. Name: S[facility]hire [facility] Date: [...] Hayes NP Date Trans: 11/16/2021 03:25 A/ulysses [id number] [facility] 09-14-2021 Note MR#: [id number] [facility] Pt. Name: S[facility] Date: [...] technique utilizing the needle provided in the [employer] Interactivetronic pump refill kit. The old medication in [...] Hayes NP Date Trans: 09/13/2021 11:54 P/angeliao [id number] [facility] 07-05-2021 Note MR#: [id number] [facility] Pt. Name: S[facility] Date: 07/05/2021 Room #: Date of : 1965 PROCEDURE NOTE ATTENDING: Marianna Hayes NP TECHNOLOGY AND ENGINEERING TEACHER: Hyacinth Coleman RN PREPROCEDURE DIAGNOSIS: Lumbar post-laminectomy [...] technique utilizing the needle provided in the [employer] Interactivetronic pump refill kit. The old medication in [...] Hayes NP 07/07/2021 12:00 P Marianna Hayes, FIRE SPRINKLER INSPECTOR Date Dict: 07/05/2021/11:09 A/Marianna Hayes NP Date Trans: 07/05/2021 12:01 P/mmo [id number] [facility] 04-27-2021 Note MR#: [id number] [facility] Pt. Name: [facility] Date: 04/26/2021 Room #: 1H Date of : 1965 PROCEDURE NOTE ATTENDING: Marianna Hayes NP TECHNOLOGY AND ENGINEERING TEACHER: Hyacinth Coleman RN PREPROCEDURE DIAGNOSIS: Lumbar post-laminectomy [...] Hayes NP Date Trans: 04/27/2021 02:00 A/ulysses [id number] [facility] Summary Purpose Family History No Family History Records FoundNo Family History Records FoundNo Family History Records Found Advance Directives No Advanced Directives Records FoundNo Advanced Directives Records FoundNo Advanced Directives Records Found Additional Source Comments (unrecognized sect ion and content) No Status Records FoundNo Status Records FoundNo Status Records Found INFORMATION SOURCE (unrecogn ized section and content) DATE CREATED AUTHOR 04/03/2022 [facility] DATE CREATED AUTHOR AUTHOR'S ORGANIZ ATION 12/10/2022 [facility] DATE CREATED AUTHOR AUTHOR'S ORGANIZ ATION 10/27/2023 [facility] FOR RECORDS PERTAINING TO PATIENTS WHO [...] BE BASED ON THE PRIMARY CLINICAL RECORDS. [facility]. provides no warranty or guarantee of the accuracy or completeness of information in this document.
[2023-10-31] MEDS: LIDOCAINE HCL 1% 100 MG/10 ML MDV INJ (08:45)
[2023-10-31] MEDS: 0.9 % SODIUM CHLORIDE 500 ML, LIDOCAINE HCL 20 ML, SODIUM BICARBONATE 10 MEQ INJ (08:45)
== END 2023-10-31 08:41 | disposition home or self-care (01) ==
LOC: VC 08:40
PROVIDERS: PCP Radiology Diagnostic Radiology; Visit Provider Radiology Diagnostic Radiology
DX: I83.813 Varicose veins of bilateral lower extremities with pain (principal)
CPT/HCPCS: 36478

== ENCOUNTER 2023-11-07 09:12 | Outpatient (OUT) | payer MEDICARE, SELFPAY ==
--- NOTE | 2023-11-07 09:14 | VEIN_ITS ---
Patient Name: SAPPHIRE PALMER MR#: [id number] : 1965 Exam Date: 11/07/2023 Ordering Doctor: DR JOHNIE PEREZ M.D. RADIOLOGY REPORT PROCEDURE: VC EXT VENOUS RT LMTD COMPARISON: VC EXT VENOUS RT LMTD, 10/16/2023. INDICATIONS: Phlebitis of superficial vein of rt lower extremity I80.01 TECHNIQUE: Lower extremity ramirez scale and Duplex Doppler evaluation of the deep venous system from the inguinal ligament through the calf veins. FINDINGS: REGION: Right lower extremity. THROMBI: Negative for DVT. Heat induced thrombus visualized arising at mid thigh and is non compressible through distal calf. COMPRESSIBILITY: Non-compressible segments corresponding to thrombus FLOW: Areas of no flow corresponding to thrombus CONCLUSION: Post ablation occlusion of the treated right small saphenous vein with no deep vein thrombus Dictated by: Johnie Perez MD on 11/07/2023 at 09:52 Approved by: Johnie Perez MD on 11/07/2023 at 09:53
--- NOTE | 2023-11-07 09:14 | VEIN_ITS ---
Patient Name: SAPPHIRE PALMER MR#: [id number] : 1965 Exam Date: 11/07/2023 Ordering Doctor: DR JOHNIE PEREZ M.D. RADIOLOGY REPORT PROCEDURE: [facility] EST LMTD [facility]IN [facility] - OFFICE VISIT FOLLOW UP COMPARISON: [facility] EST LMTD, 10/25/2023. [facility] EST LMTD, 10/16/2023. PROGRESS NOTES: The patient reports no significant element intravenous laser ablation of saphenous vein. Patient did not require analgesics. The patient has worn his compression stocking. The patient does report significant improvement in his overall swelling Physical exam demonstrates asymmetric moderate swelling of the right calf and ankle. The small saphenous vein cannot be definitively palpated. Moderate hemosiderin staining. No active ulceration. No erythema warmth to suggest thrombophlebitis or cellulitis. Review of the ultrasound performed the same day demonstrates occlusive thrombus extending throughout the treated right small saphenous vein, this was a thigh extension period no deep vein thrombus The patient expressed a desire to proceed with treatment of incompetent left small saphenous vein. [facility] EST LMTD IMPRESSION: 1. Successful ablation of the right small saphenous vein 2. Persistent incompetent left small saphenous vein. PLAN: Intravenous laser ablation left small saphenous vein Nurse notes, history and physical were reviewed and confirmed, see attached forms. The nurse was present throughout the physical exam and consultation Dictated by: Johnie Perez MD on 11/07/2023 at 10:10 Approved by: Johnie Perez MD on 11/07/2023 at 10:13
--- OUTSIDE RECORDS SUMMARY | 2023-11-07 09:27 | XMS_ITS | CCD ---
Author Name Unknown Address [address] [place] [address] Organization [facility] Care Team Providers Care Training Project Manager Name Role Phone AICHHOLZ, CASTING MACHINE OPERATOR HELPER ELISHA Admitting Unavailable AICHHOLZ, CASTING MACHINE OPERATOR HELPER ELISHA Attending Unavailable AICHHOLZ, CASTING MACHINE OPERATOR HELPER ELISHA Primary Care Unavailable AICHHOLZ, CASTING MACHINE OPERATOR HELPER ELISHA Consulting Unavailable DR JEMIMA DELATORRE Consulting Unavailable AICHHOLZ, CASTING MACHINE OPERATOR HELPER ELISHA Admitting Unavailable AICHHOLZ, CASTING MACHINE OPERATOR HELPER ELISHA Attending Unavailable AICHHOLZ, CASTING MACHINE OPERATOR HELPER ELISHA Primary Care Unavailable AICHHOLZ, CASTING MACHINE OPERATOR HELPER ELISHA Consulting Unavailable DR JEMIMA DELATORRE Consulting [...] DREAD Referring Unavailable CLIFFORD, DREAD Referring Unavailable THERESE AYALA Attending Unavailable AICHHOLZ, ELISHA J Referring Unavailable AICHHOLZ, ELISHA J Primary Care Unavailable Allergies Allergy Classification Reported Allergen(s) Allergy Type Date of Onset Reaction(s) Facility (3 sources) Simvastatin; Translations: [SIMVASTATIN] Drug Allergy 06-19-2017 [facility] Repository Problems Active Problems Problem Classification Problem Date Documented Date Episodic/Chronic Diabetes mellitus with complications (1 source) Type 2 diabetes mellitus with diabetic polyneuropathy; Translations: [TYPE 2 DM W/DIABETIC POLYNEUROPATHY] Onset: 11-08-2022 Chronic Gout and other crystal arthropathies (4 sources) Idiopathic chronic gout, multiple sites, without tophus (tophi); Translations: [IDIOPATH CHR GOUT MX SITE NO TOPS] Onset: 11-01-2022 Chronic Other screening for suspected [...] Range Facility Office Visiton 10-22-2023 Follow-up visit [id number] Sapphire Palmer 1965 M Date Provider Department Center 10/22/2023 DREAD MURO MP [facility] Family History Adopted: Yes Family history unknown: Yes Level of Service:37487 [place] OFFICE/OUTPT VISIT,PROCEDURE ONLY Reason for Visit and Comments: Follow-up [141633] [facility] Office Visiton 08-06-2023 Follow-up visit [id number] Sapphire Palmer 1965 M Date Provider Department Center 08/06/2023 DREAD MURO MP PAIN [facility] [place] Family History Adopted: Yes Family history unknown: Yes Level of Service:56727 [place] OFFICE/OUTPT VISIT,PROCEDURE ONLY Reason for Visit and Comments: Baclofen Pump Refill [698] [facility] Office Visiton 05-28-2023 Follow-up visit [id number] Sapphire Palmer 1965 M Date Provider Department Center 05/28/2023 DREAD MURO TRACEY PAIN [facility] [place] Family History Adopted: Yes Family history unknown: Yes Level of Service:45833 [place] OFFICE/OUTPT VISIT,PROCEDURE ONLY Normal [facility] Office Visiton 03-26-2023 Follow-up visit [id number] Sapphire Palmer T 1965 M Date Provider Department Center 03/26/2023 DREAD MURO MP PAIN [facility] Family History Adopted: Yes Family history unknown: Yes Level of Service:59635 [place] OFFICE/OUTPT VISIT,PROCEDURE ONLY Reason for Visit and Comments: Follow-up [123685] - Pump refill - alarm date 04/10 Normal [facility] MR LUMBAR SPINE WO CONTRASTo n 02-01-2023 [...] in this report. Electronically signed: Desmond Farmer. [facility] Office Visiton 01-29-2023 Follow-up visit [id number] Sapphire Palmer 1965 M Date Provider Department Center 01/29/2023 170-DREAD CASTILLO MP PAIN [facility] Family History Adopted: Yes Family history unknown: Yes Level of Service:88423 [place] OFFICE/OUTPT VISIT,PROCEDURE ONLY Reason for Visit and Comments: Follow-up [921004] - Pump Refill alarm date 02/07/23 [facility] Office Visiton 01-11-2023 Follow-up visit [id number] Sapphire Palmer 1965 M Date Provider Department Center 01/11/2023 1211-KELSEA KEMP [facility] RHEUM José Miguel Heal Family History Adopted: Yes Family history unknown: Yes Level of Service:72499 [place] OFFICE/OUTPATIENT NEW LOW MDM 30-44 MINUTES (GC) Reason for Visit and Comments: New Patient [632] [facility] Office Visiton 12-27-2022 Follow-up visit [id number] Sapphire Palmer 1965 M Date Provider Department Center 12/27/2022 DREAD MURO MP PAIN [facility] Family History Adopted: Yes Family history unknown: Yes Level of Service:81299 [place] OFFICE/OUTPATIENT NEW LOW MDM 30-44 MINUTES Reason for Visit and Comments: New Patient [632] - Pump alarm date 02/07/23 Normal [facility] RONI by IFAon 12-07-2022 Antinuclear Antibodies, IFA Negative Normal [facility] Comment on above: Result Comment: Nega tive <1:80 Borderline 1:80 Positive >1:80 ICAP nomenclature: AC-0 For more information about Hep-2 cell patterns use ANApatterns.org, the official website for the International Consensus on Antinuclear Antibody (RONI) Patterns (ICAP). Performed By: #### A NAIFA #### [facility] [address] [place] [address] Dr. Shweta Dillard ANTISTREPTOLYSIN O AB (ASO)o n 12-06-2022 Antistreptolysin O Ab 72.7 IU/mL Normal 0.0-200.0 [facility] Comment on above: Performed By: #### A SOAB #### [facility] [address] [place] [address] Dr. Shweta Dillard RHEUMATOID FACTORon 12-06-19 23 RA Latex Turbid. 42.4 IU/mL Critically high <14.0 [facility] Comment on above: Performed By: #### R F #### [facility] [address] [place] [address] Dr. Shweta Dillard CRPon 12-05-2022 CRP 0.5 mg/dL Normal <=1.0 [facility] Comment on above: Performed By: #### C RP ####[facility] [address] [place], [place] [address]Dr. Shweta Dillard SED RATE WESTERGRENon 2022 SED RATE 15 mm/hr Normal <=20 [facility] Comment on above: Performed By: #### S EDR #### [facility] [address] [place] [address] Dr. Shweta Dillard US TYLER DOP LEG [...] by: JEMIMA DELATORRE Date: 2022-12-05 10:24 Normal [facility] Office Visiton 11-28-2022 Follow-up visit [id number] Sapphire Palmer 1965 M Date Provider Department Center 11/28/2022 MARIANNA ROCHA [facility] SURG [place] Family History Adopted: Yes Family history unknown: Yes Level of Service:56370 [place] OFFICE/OUTPT VISIT,PROCEDURE ONLY Reason for Visit and Comments: Baclofen Pump Refill [698] Normal [facility] CBC AUTO DIFFon 11-01-2022 BASO # 0.1 103/ul Normal 0.0-0.1 [facility] Comment on above: Performed By: #### C BC #### [facility] [address] [place] [address] Dr. Shweta Dillard Basophils/100 WBC (Bld) 0.8 % Normal 0.2-2.0 [facility] Comment on above: Performed By: #### C BC #### [facility] [address] [place] [address] Dr. Shweta Dillard EO # 0.3 103/ul Normal 0.0-0.7 [facility] Comment on above: Performed By: #### C BC #### [facility] [address] [place] [address] Dr. Shweta Dillard Eosinophils/100 WBC (Bld) 3.5 % Normal 0.9-7.0 [facility] Comment on above: Performed By: #### C BC #### [facility] [address] [place] [address] Dr. Shweta Dillard Erythrocyte distribution width (RBC) [Ratio] 13.2 % Normal 11.0-15.0 [facility] Comment on above: Performed By: #### C BC #### [facility] [address] [place] [address] Dr. Shweta Dillard Hematocrit (Bld) [Volume fraction] 45.6 % Normal 42.0-54.0 [facility] Comment on above: Performed By: #### C BC #### [facility] [address] [place] [address] Dr. Shweta Dillard Hemoglobin (Bld) [Mass/Vol] 13.6 g/dL Critically low 14.0-18.0 [facility] Comment on above: Performed By: #### C BC #### [facility] [address] [place] [address] Dr. Shweta Dillard IG # 0.07 10e3/ul Critically high 0.00-0.03 [facility] Comment on above: Performed By: #### C BC #### [facility] [address] [place] [address] Dr. Shweta Dillard IG % 0.7 % Critically high 0.0-0.5 [facility] Comment on above: Performed By: #### C BC #### [facility] [address] [place] [address] Dr. Shweta Dillard LYMPH # 3.4 103/ul Normal 1.2-3.8 [facility] Comment on above: Performed By: #### C BC #### [facility] [address] [place] [address] Dr. Shweta Dillard Lymphocytes/100 WBC (Bld) 34.6 % Normal 20.5-60.0 [facility] Comment on above: Performed By: #### C BC #### [facility] [address] [place] [address] Dr. Shweta Dillard MANUAL DIFF REQ NO Normal [facility] Comment on above: Performed By: #### C BC #### [facility] [address] [place] [address] Dr. Shweta Dillard MCH (RBC) [Entitic mass] 29.4 pg Normal 25.9-34.0 [facility] Comment on above: Performed By: #### C BC #### [facility] [address] [address] [address] Shweta Dillard MCHC (RBC) [Mass/Vol] 29.8 g/dL Critically low 29.9-35.2 [facility] Comment on above: Performed By: #### C BC #### [facility] [address] [address] [address] Shweta Dillard MCV (RBC) [Entitic vol] 98.7 fL Critically high 80.0-94.0 [facility] Comment on above: Performed By: #### C BC #### [facility] [address] [place] [address] Dr. Shweta Dillard MONO # 0.7 103/ul Normal 0.3-0.8 [facility] Comment on above: Performed By: #### C BC #### [facility] [address] [place] [address] Dr. Shweta Dillard Monocytes/100 WBC (Bld) 7.4 % Normal 1.7-12.0 [facility] Comment on above: Performed By: #### C BC #### [facility] [address] [place] [address] Dr. Shweta Dillard NEUT # 5.2 103/ul Normal 1.4-6.5 [facility] Comment on above: Performed By: #### C BC #### [facility] [address] [place] [address] Dr. Shweta Dillard Neutrophils/100 WBC (Bld) 53.0 % Normal 43.0-75.0 [facility] Comment on above: Performed By: #### C BC #### [facility] [address] [place] [address] Dr. Shweta Dillard Platelet mean volume (Bld) [Entitic vol] 9.9 fL Normal 9.5-13.5 [facility] Comment on above: Performed By: #### C BC #### [facility] [address] [place] [address] Dr. Shweta Dillard PLT 253 103/ul Normal 150-450 [facility] Comment on above: Performed By: #### C BC #### [facility] [address] [place], [place] [address] Dr. Shweta Dillard RBC 4.62 106/ul Critically low 4.70-6.10 [facility] Comment on above: Performed By: #### C BC #### [facility] [address] [place], [place] [address] Dr. Shweta Dillard WBC 9.8 103/ul Normal 4.0-11.0 [facility] Comment on above: Performed By: #### C BC #### [facility] [address] [place], [place] [address] Dr. Shweta Dillard DIRECT LDLon 11-01-2022 Cholesterol in LDL [Mass/Vol] 105 mg/dL Normal [facility] Comment on above: Performed By: #### U ZAIRA, CMP, DLDL, LIPID ####[facility] [address] [id number] Dillard DLDL NORMAL SEE BELOW Normal [facility] Comment on above: Result Comment: <100 mg/dl OPTIMAL 100 - 129 mg/dl NEAR OR ABOVE OPTIMAL 130 - 159 mg/dl BORDERLINE HIGH 160 - 189 mg/dl HIGH >190 mg/dl VERY HIGH Performed By: #### U ZAIRA, CMP, DLDL, LIPID ####[facility] [address] [place], [place] [address]VyDr. Shweta Dillard GLYCOHEMOGLOBIN A1Con 2022 ADA RECOMMENDATION SEE BELOW Normal [facility] Comment on above: Result Comment: ADA RECOMMENDED LIMIT 4.0 - 6.0 ADA THERAPEUTIC TARGET < 7.0 ACTION SUGGESTED > 7.0 Performed By: #### A 1C ####[facility] [address] [place], [place] [address]AxMarky Dillard Glucose [Mass/Vol] 114 mg/dL Normal [facility] Comment on above: Performed By: #### A 1C ####[facility] [address] [place], [place] [address]MlMarky Dillard HbA1c (Bld) [Mass fraction] 5.6 % Normal 4.5-6.2 [facility] Comment on above: Performed By: #### A 1C ####[facility] [address] [place], [place] [address]AqDr. Shweta Dillard LIPID PROFILEon 11-01-2022 CHOL-HDL RATIO NORM SEE BELOW Normal [facility] Comment on above: Result Comment: 3.3 - 4.4 LOW RISK 4.4 - 7.1 AVERAGE RISK 7.1 - 11.0 MODERATE RISK >11.0 HIGH RISK Performed By: #### U ZAIRA, CMP, DLDL, LIPID #### [facility] [address] [address] [address] Shweta Dillard Cholesterol [Mass/Vol] 172 mg/dL Normal <=200 [facility] Comment on above: Performed By: #### U ZAIRA, CMP, DLDL, LIPID #### [facility] [address] [address] [address] Shweta Dillard Cholesterol in HDL [Mass/Vol] 31 mg/dL Critically low 40-60 [facility] Comment on above: Performed By: #### U ZAIRA, CMP, DLDL, LIPID #### [facility] [address] [address] [address] Shweta Dillard Cholesterol in LDL [Mass/Vol] 49.6 mg/dL Normal [facility] Comment on above: Performed By: #### U ZAIRA, CMP, DLDL, LIPID #### [facility] [address] [address] [address] Shweta Dillard Cholesterol.total/Cho lesterol in HDL [Mass ratio] 5.5 {ratio} Normal [facility] Comment on above: Performed By: #### U ZAIRA, CMP, DLDL, LIPID #### [facility] [address] [address] [address] Shweta Dillard HDL NORMAL > or = 60 mg/dl - LOW CARDIOVASCULAR RISK <40 mg/dl - HIGH CARDIOVASCULAR RISK Normal [facility] Comment on above: Performed By: #### U ZAIRA, CMP, DLDL, LIPID #### [facility] [address] [address] [address] Shweta Dillard LDL CALC NORMAL SEE BELOW Normal [facility] Comment on above: Result Comment: <100 mg/dl OPTIMAL 100 - 129 mg/dl NEAR OR ABOVE OPTIMAL 130 - 159 mg/dl BORDERLINE HIGH 160 - 189 mg/dl HIGH >190 mg/dl VERY HIGH Performed By: #### U ZAIRA, CMP, DLDL, LIPID #### [facility] [address] [id number] Shweta Dillard Triglyceride [Mass/Vol] 457 mg/dL Critically high <=150 [facility] Comment on above: Performed By: #### U ZAIRA, CMP, DLDL, LIPID #### [facility] [address] [id number] Shweta Dillard VLDL CALC 91.4 mg/dL Normal [facility] Comment on above: Performed By: #### U ZAIRA, CMP, DLDL, LIPID #### [facility] [address] [id number] Shweta Dillard MICROALBUMIN, RAND URon 10-21 mALB <1.3 Normal <=30.0 [facility] Comment on above: Performed By: #### M ALBR ####[facility] [address] [place], [place] [address]DcDr. Shweta Dillard PROF 14(COMP METB)on 023 Albumin [Mass/Vol] 4.0 g/dL Normal 3.4-5.0 [facility] Comment on above: Performed By: #### U ZAIRA, CMP, DLDL, LIPID #### [facility] [address] [id number] Shweta Dillard Albumin/Globulin [Mass ratio] 1.3 {ratio} Normal [facility] Comment on above: Performed By: #### U ZAIRA, CMP, DLDL, LIPID #### [facility] [address] [place], [place] [address] Dr. Shweta Dillard ALP [Catalytic activity/Vol] 95 U/L Normal 46-116 [facility] Comment on above: Performed By: #### U ZAIRA, CMP, DLDL, LIPID #### [facility] [address] [id number] [address] Shweta Dillard ALT [Catalytic activity/Vol] 25 U/L Normal 16-63 [facility] Comment on above: Performed By: #### U ZAIRA, CMP, DLDL, LIPID #### [facility] [address] [address] [address] Shweta Dillard Anion gap [Moles/Vol] 13.4 mmol/L Normal [facility] Comment on above: Performed By: #### U ZAIRA, CMP, DLDL, LIPID #### [facility] [address] [address] [address] Shweta Dillard AST [Catalytic activity/Vol] 18 U/L Normal 15-37 [facility] Comment on above: Performed By: #### U ZAIRA, CMP, DLDL, LIPID #### [facility] [address] [place] [address] Dr. Shweta Dillard Bilirubin [Mass/Vol] 0.2 mg/dL Normal 0.2-1.0 [facility] Comment on above: Performed By: #### U ZAIRA, CMP, DLDL, LIPID #### [facility] [address] [address] [address] Shweta Dillard Calcium [Mass/Vol] 9.0 mg/dL Normal 8.5-10.1 [facility] Comment on above: Performed By: #### U ZAIRA, CMP, DLDL, LIPID #### [facility] [address] [place] [address] Dr. Shweta Dillard Chloride [Moles/Vol] 100 mmol/L Normal 98-107 [facility] Comment on above: Performed By: #### U ZAIRA, CMP, DLDL, LIPID #### [facility] [address] [place] [address] Dr. Shweta Dillard CO2 [Moles/Vol] 30.0 mmol/L Normal 21.0-32.0 [facility] Comment on above: Performed By: #### U ZAIRA, CMP, DLDL, LIPID #### [facility] [address] [place] [address] Dr. Shweta Dillard Creatinine [Mass/Vol] 0.89 mg/dL Normal 0.70-1.30 [facility] Comment on above: Performed By: #### U ZAIRA, CMP, DLDL, LIPID #### [facility] [address] [address] [address] Shweta Dillard EGFR-AF LITHUANIAN >60 Normal >=60 [facility] Comment on above: Performed By: #### U ZAIRA, CMP, DLDL, LIPID #### [facility] [address] [address] [address] Shweta Dillard EGFR-NON AF LITHUANIAN >60 Normal >=60 [facility] Comment on above: Performed By: #### U ZAIRA, CMP, DLDL, LIPID #### [facility] [address] [address] [address] Shweta Dillard Globulin (S) [Mass/Vol] 3.1 g/dL Normal [facility] Comment on above: Performed By: #### U ZAIRA, CMP, DLDL, LIPID #### [facility] [address] [address] [address] Shweta Dillard Glucose [Mass/Vol] 125 mg/dL Critically high 74-106 [facility] [place] [facility] Comment on above: Performed By: #### U ZAIRA, CMP, DLDL, LIPID #### [facility] [address] [address] [address] Shweta Dillard Potassium [Moles/Vol] 4.4 mmol/L Normal 3.5-5.1 [facility] Comment on above: Performed By: #### U ZAIRA, CMP, DLDL, LIPID #### [facility] [address] [address] [address] Shweta Dillard Protein [Mass/Vol] 7.1 g/dL Normal 6.4-8.2 [facility] Comment on above: Performed By: #### U ZAIRA, CMP, DLDL, LIPID #### [facility] [address] [address] [address] Shweta Dillard Sodium [Moles/Vol] 139 mmol/L Normal 136-145 [facility] Comment on above: Performed By: #### U ZAIRA, CMP, DLDL, LIPID #### [facility] [address] [address] [address] Shweta Dillard Urea nitrogen [Mass/Vol] 25.0 mg/dL Critically high 7.0-18.0 [facility] Comment on above: Performed By: #### U ZAIRA, CMP, DLDL, LIPID #### [facility] [address] [address] [address] Shweta Dillard Urea nitrogen/Creatinine [Mass ratio] 28.1 mg/mg Normal [facility] Comment on above: Performed By: #### U ZAIRA, CMP, DLDL, LIPID #### [facility] [address] [address] [address] Shweta Dillard UA RANDOM W/MICROSCOPICon BACTERIA NONE SEEN Normal NONE SEEN [facility] Comment on above: Performed By: #### U AMIC ####[facility] [address] [address]Dr. Shweta Dillard Bilirubin Ql (U) Negative Normal NEGATIVE [facility] Comment on above: Performed By: #### U AMIC ####[facility] [address] [address]Dr. Shweta Dillard CAST NONE SEEN Normal NONE SEEN [facility] Comment on above: Performed By: #### U AMIC ####[facility] [address] [address]Dr. Shweta Dillard Clarity (U) CLEAR Normal CLEAR [facility] Comment on above: Performed By: #### U AMIC ####[facility] [address] [id number]. Shweta Dillard Color (U) LT. YELLOW Normal YELLOW [facility] Comment on above: Performed By: #### U AMIC ####[facility] [address] [address]Dr. Shweta Dillard Crystals LM Nom (Urine sed) NONE SEEN Normal NONE SEEN [facility] Comment on above: Performed By: #### U AMIC ####[facility] [address] [place] [address]Dr. Shweta Dillard Epithelial cells LM Ql (Urine sed) RARE Normal NONE SEEN /RARE [facility] Comment on above: Performed By: #### U AMIC ####[facility] [address] [address]Dr. Shweta Dillard Glucose Ql (U) Negative Normal NEGATIVE [facility] Comment on above: Performed By: #### U AMIC ####[facility] [address] [place], [place] [address]Dr. Shweta Dillard Hemoglobin Ql (U) Negative Normal NEGATIVE [facility] Comment on above: Performed By: #### U AMIC ####[facility] [address] [place], [place] [address]Dr. Shweta Dillard Ketones Ql (U) Negative Normal NEGATIVE [facility] Comment on above: Performed By: #### U AMIC ####[facility] [address] [place], [place] [address]Dr. Lisbethraheel Dillard LEUKOCYTES Negative Normal NEGATIVE [facility] Comment on above: Performed By: #### U AMIC ####[facility] [address] [place], [place] [address]Dr. Lisbethraheel Nishant MUCOUS NONE SEEN Normal NONE SEEN [facility] Comment on above: Performed By: #### U AMIC ####[facility] [address] [place], [place] [address]Dr. Shweta Dillard Nitrite Ql (U) Negative Normal NEGATIVE [facility] Comment on above: Performed By: #### U AMIC ####[facility] [address] [place], [place] [address]Dr. Lisbethraheel Nishant pH (U) 5.0 [pH] Normal 5-9 [facility] Comment on above: Performed By: #### U AMIC ####[facility] [address] [place], [place] [address]Dr. Shweta Dillard RBC NONE SEEN Abnormal 0-2 [facility] Comment on above: Performed By: #### U AMIC ####[facility] [address] [place], [place] [address]Dr. Shweta Dillard SPEC GRAVITY 1.020 Normal 1.005-<=1.025 [facility] Comment on above: Performed By: #### U AMIC ####[facility] [address] [place], [place] [address]DrMarky Dillard UA PROTEIN Negative Normal NEGATIVE/ TRACE [facility] Comment on above: Performed By: #### U AMIC ####[facility] [address] [place], [place] [address]KdDr. Shweta Dillard Urobilinogen Qn (U) 0.2 {Bruce'U}/dL Normal 0.2 - 1. 0 [facility] Comment on above: Performed By: #### U AMIC ####[facility] [address] [place], [place] [address]ZrMarky Dillard WBC NONE SEEN Normal NONE SEEN [facility] Comment on above: Performed By: #### U AMIC ####[facility] [address] [place], [place] [address]OvMarky Dillard URIC ACID SERUMon 11-01-2022 Urate [Mass/Vol] 3.7 mg/dL Normal 3.5-7.2 [facility] Comment on above: Performed By: #### U ZAIRA, CMP, DLDL, LIPID #### [facility] [address] [place], [place] [address] Dr. Shweta Dillard US TYLER DOP LEG [...] JEMIMA DELATORRE Date: 2022-11-01 10:54 Normal [facility] Office Visiton 10-29-2022 Follow-up visit [id number] Sapphire Palmer 1965 M Date Provider Department Center 10/29/2022 [facility]G [place] Family History Adopted: Yes Family history unknown: Yes Level of Service:56570 [place] POSTOP FOLLOW UP VISIT RELATED TO ORIGINAL PX Reason for Visit and Comments: Post-op [483] - s/p 10/03/22 pump replacement. Give new refill date: Patient states he has back and hip pain. Has not changed Normal [facility] Encounters Encounter Date Encounter Type Care Provider Facility Start: 10-31-2023 End: 10-31-2023 ambulatory [facility] [facility] Start: 10-22-2023 ambulatory DREAD CASTILLO [facility] Start: 08-06-2023 ambulatory DREAD CASTILLO [facility] Start: 05-28-2023 ambulatory DREAD CASTILLO [facility] Start: 03-26-2023 ambulatory DREAD CASTILLO [facility] Start: 02-01-2023 End: 02-02-2023 ambulatory DREAD [facility] Start: 01-29-2023 ambulatory DREAD CASTILLO [facility] Start: 01-11-2023 End: 01-11-2023 ambulatory KELSEA [facility] Start: 12-27-2022 End: 12-28-2022 ambulatory DREAD [facility] Start: 12-27-2022 ambulatory DREAD CASTILLO [facility] Start: 12-05-2022 End: 12-06-2022 ambulatory MANDA HOLM Facility:[facility] Start: 11-28-2022 End: 11-28-2022 ambulatory MARIANNA HAYES [facility] Start: 11-01-2022 End: 11-02-2022 ambulatory MANDA HOLM Facility:[facility] Start: 10-29-2022 End: 10-29-2022 ambulatory IMMANUEL TORRES [facility] Procedures Date Procedure Procedure Detail Performing Clinician Start: 11-01-2022 PSA screening MANDA HOLM Comment on above: Performed By: #### [facility] #### [facility] [address] [place] [address] Dr. Shweta Dillard Payers Date Payer Category Payer Unknown [id number] 1965 Unknown [id number] [id number] [id number] 1965 Unknown [id number] 1965 Unknown [id number] 1957 Medicare [id number] Clinical Notes 04-27-2021 to 10-22-2023 Note Date & Type Note Facility 10-22-2023 Note PROCEDURE PERFORMED: Intrathecal pump refill. PERFORMING PROVIDER: Dread Castillo, Nurse Practitioner. SHRIMP PACKER: Marcy David RN PREPROCEDURE DIAGNOSIS: Post laminectomy [...] W REPROG & REFILL REQUIRING PHYSICIAN SKILL [facility] 08-06-2023 Note PROCEDURE PERFORMED: Intrathecal pump refill. PERFORMING PROVIDER: Dread Castillo Nurse Practitioner. SHRIMP PACKER: Marcy Avendano RN PREPROCEDURE DIAGNOSIS: Post laminectomy [...] W REPROG & REFILL REQUIRING PHYSICIAN SKILL [facility] 05-28-2023 Note PROCEDURE PERFORMED: Intrathecal pump refill. PERFORMING PROVIDER: Dread Castillo Nurse Practitioner. SHRIMP PACKER: Marcy Avendano RN PREPROCEDURE DIAGNOSIS: Post laminectomy [...] W REPROG & REFILL REQUIRING PHYSICIAN SKILL [facility] 03-26-2023 Note PROCEDURE PERFORMED: Intrathecal pump refill. PERFORMING PROVIDER: Dread Castillo Nurse Practitioner. SHRIMP PACKER: Marcy Avendano RN PREPROCEDURE DIAGNOSIS: Post laminectomy [...] W REPROG & REFILL REQUIRING PHYSICIAN SKILL [facility] 01-29-2023 Note PROCEDURE PERFORMED: Intrathecal pump refill. PERFORMING PROVIDER: Dread Castillo Nurse Practitioner. SHRIMP PACKER: Marcy Godinez RN PREPROCEDURE DIAGNOSIS: Post laminectomy [...] W REPROG & REFILL REQUIRING PHYSICIAN SKILL [facility] 01-11-2023 Note ---- Attestation signed by Tal [...] leg swelling was reduced and they felt cop examiner than usual. Pt denies pain in small [...] Seen by Dr. Chery and Dr. Kemp [facility] 12-27-2022 Note HPI: Referral source: 12/27/22 CC: [...] please schedule on a clinic day of [place] Saturday day or am, to be schedule [...] neural foraminal narrowin (more content not included)... [facility] 11-28-2022 Note PROCEDURE PERFORMED: Intrathecal pump refill. PERFORMING PROVIDER: Marianna Hayes Nurse Practitioner. SHRIMP PACKER: Dulce Fink MA. PREPROCEDURE DIAGNOSIS: Lumbar postlaminectomy [...] 1 (one) time each day. FLU VACC [id number] 6MOS UP,PF, (FLUZONE QUAD [id number], PF,) 60 MCG (15 MCG X 4)/0.5 [...] PRIOR TO R (more content not included)... [facility] 10-29-2022 Note Neurosurgery Clinic Note Chief Complaint: [...] tablet 1 tablet, oral, Daily flu vacc [id number] 6mos up,PF, (Fluzone Quad [id number], PF,) 60 mcg (15 mcg x 4)/0.5 [...] ongoing care by the pain management team. [facility] 03-29-2022 Note MR#: [id number] [facility] Pt. Name: Sapphire [facility] Date: 03/28/2022 Room #: 2H Date of : 1965 PROCEDURE NOTE ATTENDING: Marianna Hayes NP PERFORMING PROVIDER: Marianna Hayes, Nurse Practitioner. SHRIMP PACKER: Hyacinth Coleman RN. PREPROCEDURE DIAGNOSIS: Lumbar post-laminectomy [...] Hayes NP Date Trans: 03/29/2022 01:46 A/ulysses DN_JN:[id number] [facility] 01-24-2022 Note MR#: [id number] [facility] Pt. Name: Sapphire Palmer [facility] Date: 01/24/2022 Room #: Date of : 1965 PROCEDURE NOTE ATTENDING: Marianna Hayes NP PERFORMING PROVIDER: Marianna Hayes Nurse Practitioner. SHRIMP PACKER: Hyacinth Coleman RN. PREPROCEDURE DIAGNOSIS: Lumbar post-laminectomy [...] Hayes NP Date Trans: 01/24/2022 04:48 P/ulysses DN_JN:[id number] [facility] 11-16-2021 Note MR#: [id number] [facility] Pt. Name: Hammer, Sapphire T Surgery Date: 11/15/2021 Room #: 1H Date [...] A/Marianna Hayes NP Date Trans: 11/16/2021 03:25 A/mmo [id number] [facility] 09-14-2021 Note MR#: [id number] [facility] Pt. Name: Sapphire Palmer [facility] Date: 09/13/2021 [...] A/Marianna Hayes NP Date Trans: 09/13/2021 11:54 P/ulysses [id number] [facility] 07-05-2021 Note MR#: [id number] [facility] Pt. Name: Sapphire Palmer [facility] Date: 07/05/2021 Room #: 1H Date of : 1965 PROCEDURE NOTE ATTENDING: Marianna Hayes NP SHRIMP PACKER: Hyacinth Coleman RN PREPROCEDURE DIAGNOSIS: Lumbar post-laminectomy [...] Marianna Hayes NP 07/07/2021 12:00 P Marianna Hayes NP Date Dict: 07/05/2021/11:09 A/Marianna Hayes NP Date Trans: 07/05/2021 12:01 P/mmo [id number] [facility] 04-27-2021 Note MR#: [id number] [facility] Pt. Name: Sapphire Palmer [facility] Date: 04/26/2021 Room #: Date of : 1965 PROCEDURE NOTE ATTENDING: Marianna Hayes NP SHRIMP PACKER: Hyacinth Coleman RN PREPROCEDURE DIAGNOSIS: Lumbar post-laminectomy [...] technique utilizing the needle provided in the [employer] pump refill kit. The old medication in [...] Hayes NP Date Trans: 04/27/2021 02:00 A/ulysses DN_JN:[id number] [facility] Summary Purpose Family History No Family History Records FoundNo Family History Records FoundNo Family History Records FoundNo Family History Records Found Advance Directives No Advanced Directives Records FoundNo Advanced Directives Records FoundNo Advanced Directives Records FoundNo Advanced Directives Records Found Additional Source Comments (unrecognized sect ion and content) No Status Records FoundNo Status Records FoundNo Status Records FoundNo Status Records Found INFORMATION SOURCE (unrecogn ized section and content) DATE CREATED AUTHOR 04/03/2022 [facility] DATE CREATED AUTHOR AUTHOR'S ORGANIZ ATION 12/10/2022 [facility] DATE CREATED AUTHOR AUTHOR'S ORGANIZ ATION 10/27/2023 [facility] DATE CREATED AUTHOR AUTHOR'S ORGANIZ ATION 11/03/2023 [facility] FOR RECORDS PERTAINING TO PATIENTS WHO ARE [...] BE BASED ON THE PRIMARY CLINICAL RECORDS. [facility] [employer] provides no warranty or guarantee of the accuracy or completeness of information in this document.
== END 2023-11-07 09:13 | disposition home or self-care (01) ==
LOC: VC 09:13
PROVIDERS: PCP Radiology Diagnostic Radiology; Visit Provider Radiology Diagnostic Radiology
DX: I80.01 Phlebitis and thrombophlebitis of superficial vessels of right lower extremity (principal)
CPT/HCPCS: 93971; G0463

== ENCOUNTER 2023-11-20 10:12 | Outpatient (OUT) | payer MEDICARE, SELFPAY ==
--- NOTE | 2023-11-20 10:16 | VEIN_ITS ---
[address] [address] Patient Name: SAPPHIRE PALMER MRN: [id number] date: 1965 Sex: M Assigned Patient Location: Current Patient Location: Accession/Order Number: [id number] Exam Date: 11/20/2023 10:17 Report Date: 11/20/2023 11:33 At the request of: EVA ELLIS Procedure: VC Endovenous Ablation 1VeinLT EXAMINATION: VC Endovenous Ablation 1Vein left small saphenous vein HISTORY: Pain due to varicose veins of bilateral legs I83.813 COMPARISON: No relevant comparison available. TECHNIQUE: The risks and benefits of the procedure had been previously discussed, and were rediscussed at length. Informed written consent was obtained. Jackelyn Cee and Cleve Cyr assisted. Time out procedure was performed. The left lower extremity was prepared and draped in the usual sterile fashion. Duplex ultrasound probe was draped in a sterile cover, sterile transmission gel was used. Venous mapping was performed with the areas of dilation and large tributaries marked. The total length was 42 cm from the entry 2 cm above the lateral malleolus to 3 cm below the saphenofemoral junction. The diameter of the small bowel saphenous vein ranged from 4-5mm. A 30 gauge needle and 1% buffered lidocaine was used to anesthetize the entry site. A 4 mm incision was made with a scalpel and the saphenous vein was entered percutaneously under direct ultrasound guidance with a micropuncture set, a single stick was successful in gaining access. A micro-guide wire was inserted and the needle removed. A micro-set including a dilator was inserted over the microwire and the needle and dilator were removed. A 0.018 guide wire was inserted through the micro-set and threaded through the saphenous vein. The dilator was removed and an introducer sheath was inserted over the wire. The dilator and wire were removed and the 600 micron fiber was introduced and placed and positioned so that it extended beyond the sheath. Final position of the fiber was determined by ultrasound guidance and duplex imaging. Tumescent anesthetic was delivered by ultrasound guidance. 200 cc of fluid was delivered along the entire course of the saphenous vein. The solution consisted of 1000 cc of normal saline with 40 mL of 1% lidocaine and 20 mL of sodium bicarbonate. A final positioning check was made. The energy source was turned on by means of the foot pedal and the fiber and sheath were withdrawn. The total number of Joules delivered was 2039. The laser was active for 255 seconds under continuous pulse, average laser use of 8 J. Laser start time 11:08 AM 11/20/2023 . Laser stop time 11:13 AM 11/20/2023 . A duplex ultrasound revealed compressibility and flow at the saphenofemoral junction immediately after the procedure. Hemostasis at the access site was achieved. The skin incision of the saphenous vein was closed with a 4 x 4. A compression stocking was applied. Postop instructions were given. A follow up appointment was recommended and scheduled. The patient tolerated the procedure well and was discharged in good condition . VEIN/VC Endovenous Ablation 1VeinLT IMPRESSION: Technically successful endovenous laser ablation of the left small saphenous vein Electronically authenticated by: EVA ELLIS Date: 11/20/2023 11:33
[2023-11-20] MEDS: LIDOCAINE HCL 1% 100 MG/10 ML MDV INJ (10:27)
[2023-11-20] MEDS: 0.9 % SODIUM CHLORIDE 500 ML, LIDOCAINE HCL 20 ML, SODIUM BICARBONATE 10 MEQ INJ (10:28)
== END 2023-11-20 10:13 | disposition home or self-care (01) ==
LOC: VC 10:12
PROVIDERS: PCP Radiology Diagnostic Radiology; Visit Provider Radiology Diagnostic Radiology
DX: I83.813 Varicose veins of bilateral lower extremities with pain (principal)
CPT/HCPCS: 36478

== ENCOUNTER 2023-11-27 10:39 | Outpatient (OUT) | payer MEDICARE, SELFPAY ==
--- NOTE | 2023-11-27 10:40 | VEIN_ITS ---
Patient Name: SAPPHIRE PALMER MR#: [id number] : 1965 Exam Date: 11/27/2023 Ordering Doctor: DR JOHNIE PEREZ M.D. RADIOLOGY REPORT PROCEDURE: VC EXT VENOUS LT LIMITED COMPARISON: VC EXT VENOUS LT LIMITED, 10/25/2023. INDICATIONS: Phlebitis of superficial vein of left lower extremity I80.02 TECHNIQUE: Lower extremity ramirez scale and Duplex Doppler evaluation of the deep venous system from the inguinal ligament through the calf veins. FINDINGS: REGION: Left lower extremity. THROMBI: Negative for DVT. Heat induced thrombus in left SSV and thigh extension COMPRESSIBILITY: Non-compressible segments corresponding to thrombus FLOW: Areas of no flow corresponding to thrombus CONCLUSION: Post ablation occlusion of the treated left small saphenous vein which was a thigh extension. No deep vein thrombus Dictated by: Johnie Perez MD on 11/27/2023 at 11:16 Approved by: Johnie Perez MD on 11/27/2023 at 11:17
--- NOTE | 2023-11-27 10:41 | VEIN_ITS ---
Patient Name: SAPPHIRE PALMER MR#: [id number] : 1965 Exam Date: 11/27/2023 Ordering Doctor: DR JOHNIE PEREZ M.D. RADIOLOGY REPORT PROCEDURE: [facility] EST LMTD VEIN [facility]ENTER - OFFICE VISIT FOLLOW UP COMPARISON: [facility] EST TD, 11/07/2023. [facility] EST TD, 10/25/2023. PROGRESS NOTES: The patient reports no significant problems following intravenous laser ablation of the left small saphenous vein. The patient did not require oral analgesics. The patient has worn his compression stockings and exercise Physical exam demonstrates some minimal bruising related to tumescence injection. No erythema or warmth to suggest cellulitis or thrombophlebitis. No active ulceration Review of the ultrasound performed the same day demonstrates occlusive thrombus extending throughout the treated left small saphenous vein which was a thigh extension. No deep vein thrombus. The patient expressed a desire to proceed with treatment of incompetent varicose veins with micro foam chemical ablation. VEIN/[facility] EST TD IMPRESSION: 1. Successful ablation of the left small saphenous vein 2. Persistent bilateral incompetent varicose veins. PLAN: Micro foam chemical ablation right leg incompetent varicose veins Nurse notes, history and physical were reviewed and confirmed, see attached forms. The nurse was present throughout the physical exam and consultation Dictated by: Johnie Perez MD on 11/27/2023 at 12:15 Approved by: Johnie Perez MD on 11/27/2023 at 12:16
== END 2023-11-27 10:40 | disposition home or self-care (01) ==
LOC: VC 10:39
PROVIDERS: PCP Radiology Diagnostic Radiology; Visit Provider Radiology Diagnostic Radiology
DX: I80.02 Phlebitis and thrombophlebitis of superficial vessels of left lower extremity (principal)
CPT/HCPCS: 93971; G0463

== ENCOUNTER 2023-12-06 08:43 | Outpatient (OUT) | payer MEDICARE, SELFPAY ==
--- NOTE | 2023-12-06 08:47 | VEIN_ITS ---
[address] [address] Patient Name: SAPPHRIE PALMER MRN: [id number] date: 1965 Sex: M Assigned Patient Location: Current Patient Location: Accession/Order Number: [id number] Exam Date: 12/06/2023 08:50 Report Date: 12/06/2023 10:19 At the request of: EVA ELLIS Procedure: VC INJ Foam Sclerosant W[facility] CENTER MANAGER PROCEDURE: VC INJ Foam Sclerosant WUS CARE CENTER MANAGER HISTORY: Pain due to varicose veins of bilateral legs I83.813 Pre-operative Diagnosis: CEAP class C4a venous insufficiency with pain, tenderness, edema and incompetent branch saphenous vein(s), chronic venous insufficiency right leg secondary to venous incompetence Post-operative Diagnosis: CEAP class C4a venous insufficiency with pain, tenderness, edema and incompetent branch saphenous vein(s), chronic venous insufficiency right leg secondary to venous incompetence Procedure Performed: 1. Ultrasound-guided microfoam chemical ablation with Varithenaregistered 2. Intraoperative ultrasound guidance Physician: Kameron Morales M.D. Anesthesia: None Indications for Procedure: 58 year old male. Symptoms including bilateral lower extremity swelling, pain, cramping, dilated bulging veins, skin changes for many years despite conservative medical therapy including medical compression stockings, exercise and analgesics. Prior procedures include endovenous laser ablation. Multiple incompetent varicosities of the right leg. Duplex scan showed reflux and enlarged diameters up to 4 mm. The patient underwent informed consent including management options where the complications of infection, bleeding, pain, and skin injury were discussed. Particular attention was spent discussing thrombus extension and deep vein thrombosis as well as the possibility of pulmonary embolus and treatment with oral or injectable blood thinners. Procedure: The patient walked to the procedure room. All applicable staff donned appropriate apparel. A procedure timeout was performed to confirm correct patient, correct extremity, correct procedure, and correct room set-up including presence of all applicable supplies, devices, and drugs. A duplex ultrasound, performed by myself confirmed the location and incompetence of branch saphenous varicosities and their course was marked on the skin together with the dilated tributaries. The extent of treatment of the vein and the associated varicosities was determined through ultrasound mapping. The skin was prepped and then punctured with a butterfly needle and advanced under ultrasound guidance. The Varithenaregistered canister was activated and the canister was primed and purged as required in the instructions for use. Varithenaregistered was drawn into a sterile syringe. Varithenaregistered was slowly administered at 0.5-1.0 cc/second with close observation by ultrasound of its course in the vessels. Total volume utilized was: 15 mL (7 mL into a 4 mm varicosity distal anterior lower leg; 4 mL into a 4 mm varicosity lateral mid lower leg; 4 mL into a 4 mm varicosity medial proximal upper leg). Following administration of Varithenaregistered the leg was elevated and the patient was asked to repeatedly dorsiflex the ankle to limit flow of Varithenaregistered into perforating veins. Once appropriate spasm had been confirmed in the treated veins, the vascular catheter was removed from the leg and light pressure was applied over the puncture site for hemostasis. The common femoral and deep superficial veins were then evaluated for flow and compressibility prior to dressing placement. The lower extremity was kept elevated at 45 degrees above the horizontal and cording material was applied over the saphenous segments and tributaries to allow for eccentric compression over the target vessels including the targeted saphenous vein(s). A multilayer dressing was applied consisting of foam pads, coban and thigh-high 20-30 mm Hg compression elastic support hose were placed on the patient. The leg was lowered only after compression had been applied and the patient was immediately ambulatory. The patient ambulated 10 minutes under supervision and was without apparent concerns at time of release. Post-care instructions include advising patient to keep post-treatment bandages in place and dry for 48 hours, avoid extended periods of inactivity, avoid heavy exercise for one week, wear compression stockings on the treated leg continuously for two weeks, to walk daily for 10 minutes over the next month. The patient was instructed to take an anti-inflammatory medicine as needed and to follow up for color duplex scan of the Saphenous veins, the treated branch saphenous varicosities, the adjacent deep veins, and additional treatment within 7 days. PERSONNEL: Cleve Cyr RN Electronically authenticated by: KAMERON MORALES Date: 12/06/2023 10:19
--- OUTSIDE RECORDS SUMMARY | 2023-12-06 09:05 | XMS_ITS | CCD ---
Author Name Unknown Address [address] [place] [address] Organization [facility] Care Team Providers Care Climate Change Risk Assessor Name Role Phone MIHAI, LEAK OPERATOR PARAFFIN PLANT MIRTHA Admitting Unavailable AICHHOLZ, LEAK OPERATOR [employer]IN [employer] MIRTHA Attending Unavailable AICHHOLZ, LEAK OPERATOR [employer]IN [employer] MIRTHA Primary Care Unavailable AICHHOLZ, LEAK OPERATOR [employer] MIRTHA Consulting Unavailable DR JEMIMA DELATORRE Consulting Unavailable AICHHOLZ, LEAK OPERATOR [employer] MIRTHA Admitting Unavailable AICHHOLZ, LEAK OPERATOR [employer] MIRTHA Attending Unavailable AICHHOLZ, LEAK OPERATOR [employer]IN [employer] MIRTHA Primary Care Unavailable AICHHOLZ, LEAK OPERATOR [employer]IN [employer] MIRTHA Consulting Unavailable DR JEMIMA DELATORRE Consulting Unavailable [...] Referring Unavailable THERESE AYALA Attending Unavailable AICHHOLZ, MIRTHA J Referring Unavailable AICHHOLZ, MIRTHA J Primary Care Unavailable Aichholz CELL LINER-MANDA Mirtha Laury Primary Care Provider Allergies Allergy Classification Reported Allergen(s) Allergy Type Date of Onset Reaction(s) Facility (3 sources) Simvastatin; Translations: [SIMVASTATIN] Drug Allergy 7 [facility] Repository (1 source) Simvastatin Drug Allergy 9 Other (See Comments) [facility] Medications Current Medications Medication Drug Class(es) Dates Sig (Normalized) Sig (Original) acetaminophen 325 mg oral tablet (1 source) take 2 tablets by mouth every six hours as needed for pain acetaminophen (TYLENOL) 325 mg tablet Take 2 tablets (650 mg total) by mouth every 6 (six) hours as needed for pain. 0 Active cetirizine hydrochloride 10 mg oral capsule (1 source) Histamine-1 Receptor Antagonist take 1 capsule by mouth once daily cetirizine (ZyrTEC) 10 mg capsule Take 1 capsule by mouth daily. 0 Active febuxostat 40 mg oral tablet (1 source) Xanthine Oxidase Inhibitor take 1 tablet by mouth in the morning febuxostat (ULORIC) 40 mg tablet Take 1 tablet (40 mg total) by mouth in the morning. 0 Active fenofibrate 48 mg oral tablet (1 source) Peroxisome Proliferator Receptor alpha Agonist Start: 01-13-2015 take 1 tablet by mouth in the morning fenofibrate (TRICOR) 48 mg tablet Take 1 tablet (48 mg total) by mouth in the morning. 0 01/13/2015 Active finasteride 5 mg oral tablet (1 source) 5-alpha Reductase Inhibitor Start: 03-20-2021 take 1 tablet by mouth once daily finasteride (PROSCAR) 5 mg tablet Take 5 mg by mouth daily. 0 03/20/2021 Active furosemide 20 mg oral tablet (2 sources) Loop Diuretic Start: 08-23-2020 take 1 tablet by mouth once daily furosemide (LASIX) 20 mg tablet Take 1 tablet by mouth daily. 0 08/23/2020 Active Start: 03-22-2019 take 1 tablet by alexandru once daily furosemide (LASIX) 40 mg tablet Take 40 mg by mouth daily. 0 03/22/2019 Active hydroCHLOROthiazide 12.5 mg / lisinopril 20 mg oral tablet (1 source) Thiazide Diuretic, Angiotensin Converting Enzyme Inhibitor Start: 01-13-2015 take 1 tablet by mouth once in the morning lisinopril-hydroCHLOROthiazide (PRINZIDE,ZESTORETIC) 20-12.5 mg per tablet Take 1 tablet by mouth in the morning. 0 01/13/2015 Active lisinopril 30 mg oral tablet (1 source) Angiotensin Converting Enzyme Inhibitor Start: 03-15-2021 take 1 tablet by mouth once daily lisinopriL (PRINIVIL,ZESTRIL) 30 mg tablet Take 30 mg by mouth daily. 0 03/15/2021 Active meloxicam 15 mg oral tablet (1 source) Nonsteroidal Anti-inflammat ory Drug take 1 tablet by mouth in the morning meloxicam (MOBIC) 15 mg tablet Take 1 tablet (15 mg total) by mouth in the morning. 0 Active metFORMIN hydrochloride 500 mg oral tablet (1 source) Biguanide Start: 03-06-2019 take 1 tablet by mouth once daily at breakfast metFORMIN (GLUCOPHAGE) 500 mg tablet Take 500 mg by mouth daily with breakfast. 0 03/06/2019 Active spironolactone 50 mg oral tablet (1 source) Aldosterone Antagonist take 1 tablet by mouth in the morning spironolactone (ALDACTONE) 50 mg tablet Take 1 tablet (50 mg total) by mouth in the morning. 0 Active triamcinolone acetonide 1 mg/ml topical cream (1 source) Corticosteroid triamcinolone (K ENALOG) 0.1 % cream Apply 1 each topically 2 (two) times a day. 0 Active Problems Active Problems Problem Classification Problem Date Documented Date Episodic/Chronic Diabetes mellitus with complications (1 source) Type 2 diabetes mellitus with diabetic polyneuropathy; Translations: [TYPE 2 DM W/DIABETIC POLYNEUROPATHY] Onset: 11-08-2022 Chronic Essential hypertension (1 source) Essential hypertension; Translations: [Essential (primary) hypertension] Onset: 11-05-2013 07-21-2020 Chronic Gout and other crystal arthropathies (4 sources) Idiopathic chronic gout, multiple sites, without tophus (tophi); Translations: [IDIOPATH CHR GOUT MX SITE NO TOPHUS] Onset: 11-01-2022 Chronic Other diseases of veins and lymphatics (2 sources) Venous insufficiency of leg; Translations: [Venous insufficiency (chronic) (peripheral)] Onset: 12-17-2019 11-17-2023 Episodic Other nutritional; endocrine; and metabolic disorders (2 sources) Severe obesity; Translations: [Morbid (severe) obesity due to excess calories] Onset: 08-04-2020 11-17-2023 Chronic Other screening for suspected conditions (not mental disorders or infectious disease) (1 source) Encounter for screening for malignant neoplasm of prostate; Translations: [ENC SCREEN MALIG NEOPLASM PROSTATE] Onset: 11-08-2022 Episodic Residual codes; unclassified (5 sources) Localized edema; Translations: [LOCALIZED EDEMA] Onset: 11-08-2022 Episodic Spondylosis; intervertebral disc disorders; other back problems (3 sources) Postlaminectomy syndrome, not elsewhere classified; Translations: [Lumbar post-laminectomy syndrome] Onset: 08-06-2014 Chronic Spondylosis; intervertebral disc disorders; other back problems (4 sources) Intervertebral disc disorders with radiculopathy, lumbar region; Translations: [Chronic back pain ] Onset: 07-21-2020 Episodic Unclassified (2 sources) Post-op; Translations: [Post-op] Onset: 10-29-2022 Varicose veins of lower extremity (2 sources) Pain co-occurrent and due to varicose veins of left leg; Translations: [Varicose veins of left lower extremity with pain] Onset: 12-17-2019 11-17-2023 Episodic Past or Other Problems Problem Classification Problem Date Documented Date Episodic/Chronic Allergic reactions (1 source) Contact dermatitis; Translations: [Unspecified contact dermatitis, unspecified cause] Onset: 11-05-2013 07-21-2020 Episodic Immunizations and screening for infectious disease (2 sources) Other specified abnormal immunological findings in serum; Translations: [Other specified abnormal immunological findings in serum] Onset: 01-11-2023 Episodic Other diseases of veins and lymphatics (1 source) Stasis dermatitis; Translations: [Venous insufficiency (chronic) (peripheral)] Onset: 07-21-2020 07-21-2020 Episodic Other non-traumatic joint disorders (1 source) Hip pain; Translations: [Pain in unspecified hip] Onset: 05-29-2017 07-21-2020 Episodic Other non-traumatic joint disorders (1 source) Pain in unspecified knee; Translations: [Pain in joint, lower leg] Onset: 05-29-2017 07-21-2020 Episodic Residual codes; unclassified (1 source) Edema of lower extremity; Translations: [Localized edema] Onset: 07-21-2020 07-21-2020 Episodic Results Test Name Value Interpretation Reference Range Facility Office [facility] 10-22-2023 Follow-up visit [id number] Sapphire Palmer 1965 M Date Provider Department Center 10/22/2023 DREAD [facility] Family History Adopted: Yes Family history unknown: Yes Level of Service:90422 [place] OFFICE/OUTPT VISIT,PROCEDURE ONLY Reason for Visit and Comments: Follow-up [484355] Normal [facility] Office [facility] 08-06-2023 Follow-up visit [id number] Sapphire Palmer 1965 M Date Provider Department Center 08/06/2023 DREAD [facility]UR[facility] [place] Family History Adopted: Yes Family history unknown: Yes Level of Service:36614 [place] OFFICE/OUTPT VISIT,PROCEDURE ONLY Reason for Visit and Comments: Baclofen Pump Refill [698] [facility] Office [facility] 05-28-2023 Follow-up visit [id number] Sapphire Palmer 1965 M Date Provider Department Center 05/28/2023 DREAD MURO [facility] [place] Family History Adopted: Yes Family history unknown: Yes Level of Service:56052 [place] OFFICE/OUTPT VISIT,PROCEDURE ONLY [facility] Office [place] 03-26-2023 Follow-up visit [id number] Sapphire Palmer 1965 Date Provider Department [place] 03/26/2023 DREAD MURO [facility] [place] Family History Adopted: Yes Family history unknown: Yes Level of Service:19716 [place] OFFICE/OUTPT VISIT,PROCEDURE ONLY Reason for Visit and Comments: Follow-up [284245] - Pump refill - alarm date 04/10 [facility] MR LUMBAR SPINE WO CONTRASTo n [...] in this report. Electronically signed: Desmond Farmer. [facility] Office [facility] 01-29-2023 Follow-up visit [id number] Sapphire Palmer 1965 M Date Provider Department Center 01/29/2023 Dave-DREAD [facility]ST[facility] Family History Adopted: Yes Family history unknown: Yes Level of Service:10823 [place] OFFICE/OUTPT VISIT,PROCEDURE ONLY Reason for Visit and Comments: Follow-up [897364] - Pump Refill alarm date 02/07/23 [facility] Office [place] 01-11-2023 Follow-up visit [id number] Sapphire Palmer T 1965 M Date Provider Department Center 01/11/2023 1211-KELSEA KEMP [facility] RHEUM José Miguel Heal Family History Adopted: Yes Family history unknown: Yes Level of Service:17829 [place] OFFICE/OUTPATIENT NEW LOW MDM 30-44 MINUTES (GC) Reason for Visit and Comments: New Patient [632] [facility] Office [facility] 12-27-2022 Follow-up visit [id number] Sapphire Palmer T 1965 M Date Provider Department Center 12/27/2022 170-DREAD [facility] Family History Adopted: Yes Family history unknown: Yes Level of Service:55960 [place] OFFICE/OUTPATIENT NEW LOW MDM 30-44 MINUTES Reason for Visit and Comments: New Patient [632] - Pump alarm date 02/07/23 [facility] RONI by IFAon 12-07-2022 Antinuclear Antibodies, IFA Negative Normal [facility] Comment on above: Result Comment: Nega tive <1:80 Borderline 1:80 Positive >1:80 ICAP nomenclature: AC-0 For more information about Hep-2 cell patterns use ANApatterns.org, the official website for the International Consensus on Antinuclear Antibody (RONI) Patterns (ICAP). Performed By: #### A NAIFA #### [facility] [address] [place] [address] Dr. Shweta Dillard ANTISTREPTOLYSIN O AB (ASO)o n 12-06-2022 Antistreptolysin O Ab 72.7 IU/mL Normal 0.0-200.0 [facility] Comment on above: Performed By: #### A SOAB #### [facility] [address] [place] [address] Dr. Shweta Dillard RHEUMATOID FACTORon 12-06-19 RA Latex Turbid. 42.4 IU/mL Critically high <14.0 [facility] Comment on above: Performed By: #### R F #### [facility] [address] [address] [address] Shweta Dillard CRPon 12-05-2022 CRP 0.5 mg/dL Normal <=1.0 [facility] Comment on above: Performed By: #### C RP ####[facility] [address] [place] [address]Dr. Shweta Dillard SED RATE WESTERGRENon 2022 SED RATE 15 mm/hr Normal <=20 [facility] Comment on above: Performed By: #### S EDR #### [facility] [address] [place] [address] Dr. Shweta Dillard US TYLER DOP LEG [...] by: JEMIMA DELATORRE Date: 2022-12-05 10:24 Normal [facility] Office Visiton 11-28-2022 Follow-up visit [id number] Sapphire Palmer 1965 M Date Provider Department Center 11/28/2022 MARIANNA ROCHA [facility]G [place] Family History Adopted: Yes Family history unknown: Yes Level of Service:27456 [place] OFFICE/OUTPT VISIT,PROCEDURE ONLY Reason for Visit and Comments: Baclofen Pump Refill [698] Normal [facility] CBC AUTO DIFFon 11-01-2022 BASO # 0.1 103/ul Normal 0.0-0.1 [facility] Comment on above: Performed By: #### C BC #### [facility] [address] [place] [address] Dr. Shweta Dillard Basophils/100 WBC (Bld) 0.8 % Normal 0.2-2.0 [facility] Comment on above: Performed By: #### C BC #### [facility] [address] [place] [address] Dr. Shweta Dillard EO # 0.3 103/ul Normal 0.0-0.7 [facility] Comment on above: Performed By: #### C BC #### [facility] [address] [place] [address] Dr. Shweta Dillard Eosinophils/100 WBC (Bld) 3.5 % Normal 0.9-7.0 [facility] Comment on above: Performed By: #### C BC #### [facility] [address] [place] [address] Dr. Shweta Dillard Erythrocyte distribution width (RBC) [Ratio] 13.2 % Normal 11.0-15.0 [facility] Comment on above: Performed By: #### C BC #### [facility] [address] [place] [address] Dr. Shweta Dillard Hematocrit (Bld) [Volume fraction] 45.6 % Normal 42.0-54.0 [facility] Comment on above: Performed By: #### C BC #### [facility] [address] [place] [address] Dr. Shweta Dillard Hemoglobin (Bld) [Mass/Vol] 13.6 g/dL Critically low 14.0-18.0 [facility] Comment on above: Performed By: #### C BC #### [facility] [address] [place] [address] Dr. Shweta Dillard IG # 0.07 10e3/ul Critically high 0.00-0.03 [facility] Comment on above: Performed By: #### C BC #### [facility] [address] [place] [address] Dr. Shweta Dillard IG % 0.7 % Critically high 0.0-0.5 [facility] Comment on above: Performed By: #### C BC #### [facility] [address] [place] [address] Dr. Shweta Dillard LYMPH # 3.4 103/ul Normal 1.2-3.8 [facility] Comment on above: Performed By: #### C BC #### [facility] [address] [place] [address] Dr. Shweta Dillard Lymphocytes/100 WBC (Bld) 34.6 % Normal 20.5-60.0 [facility] Comment on above: Performed By: #### C BC #### [facility] [address] [place] [address] Dr. Shweta Dillard MANUAL DIFF REQ NO Normal [facility] Comment on above: Performed By: #### C BC #### [facility] [address] [place] [address] Dr. Shweta Dillard MCH (RBC) [Entitic mass] 29.4 pg Normal 25.9-34.0 [facility] Comment on above: Performed By: #### C BC #### [facility] [address] [place] [address] Dr. Shweta Dillard MCHC (RBC) [Mass/Vol] 29.8 g/dL Critically low 29.9-35.2 [facility] Comment on above: Performed By: #### C BC #### [facility] [address] [place] [address] Dr. Shweta Dillard MCV (RBC) [Entitic vol] 98.7 fL Critically high 80.0-94.0 [facility] Comment on above: Performed By: #### C BC #### [facility] [address] [place] [address] Dr. Shweta Dillard MONO # 0.7 103/ul Normal 0.3-0.8 [facility] Comment on above: Performed By: #### C BC #### [facility] [address] [place] [address] Dr. Shweta Dillard Monocytes/100 WBC (Bld) 7.4 % Normal 1.7-12.0 [facility] Comment on above: Performed By: #### C BC #### [facility] [address] [place] [address] Dr. Shweta Dillard NEUT # 5.2 103/ul Normal 1.4-6.5 [facility] Comment on above: Performed By: #### C BC #### [facility] [address] [place] [address] Dr. Shweta Dillard Neutrophils/100 WBC (Bld) 53.0 % Normal 43.0-75.0 [facility] Comment on above: Performed By: #### C BC #### [facility] [address], [place] [address] Dr. Shweta Dillard Platelet mean volume (Bld) [Entitic vol] 9.9 fL Normal 9.5-13.5 [facility] Comment on above: Performed By: #### C BC #### [facility] [address], [place] [address] Dr. Shweta Dillard PLT 253 103/ul Normal 150-450 [facility] Comment on above: Performed By: #### C BC #### [facility] [address], [place] [address] Dr. Shweta Dillard RBC 4.62 106/ul Critically low 4.70-6.10 [facility] Comment on above: Performed By: #### C BC #### [facility] [id number] Shweta Dillard WBC 9.8 103/ul Normal 4.0-11.0 [facility] Comment on above: Performed By: #### C BC #### [facility] [address], [place] [address] Dr. Shweta Dillard DIRECT LDLon 11-01-2022 Cholesterol in LDL [Mass/Vol] 105 mg/dL Normal [facility] Comment on above: Performed By: #### U ZAIRA, CMP, DLDL, LIPID ####[facility] [address] [place], [place] [address]DiDr. Shweta Dillard DLDL NORMAL SEE BELOW Normal [facility] Comment on above: Result Comment: <100 mg/dl OPTIMAL 100 - 129 mg/dl NEAR OR ABOVE OPTIMAL 130 - 159 mg/dl BORDERLINE HIGH 160 - 189 mg/dl HIGH >190 mg/dl VERY HIGH Performed By: #### U ZAIRA, CMP, DLDL, LIPID ####[facility] [address] [place], [place] [address]XkDr. Shweta Dillard GLYCOHEMOGLOBIN A1Con 2022 ADA RECOMMENDATION SEE BELOW Normal [facility] Comment on above: Result Comment: ADA RECOMMENDED LIMIT 4.0 - 6.0 ADA THERAPEUTIC TARGET < 7.0 ACTION SUGGESTED > 7.0 Performed By: #### A 1C ####[facility] [address] [place], [place] [address]BiDr. Shweta Dillard Glucose [Mass/Vol] 114 mg/dL Normal [facility] Comment on above: Performed By: #### A 1C ####[facility] [address] [place], [place] [address]JiDr. Shweta Dillard HbA1c (Bld) [Mass fraction] 5.6 % Normal 4.5-6.2 [facility] Comment on above: Performed By: #### A 1C ####[facility] [address] [place], [place] [address]DhDr. Shweta Dillard LIPID PROFILEon 11-01-2022 CHOL-HDL RATIO NORM SEE BELOW Normal [facility] Comment on above: Result Comment: 3.3 - 4.4 LOW RISK 4.4 - 7.1 AVERAGE RISK 7.1 - 11.0 MODERATE RISK >11.0 HIGH RISK Performed By: #### U ZAIRA, CMP, DLDL, LIPID #### [facility] [address] [address] [address] Shweta Dillard Cholesterol [Mass/Vol] 172 mg/dL Normal <=200 [facility] Comment on above: Performed By: #### U ZAIRA, CMP, DLDL, LIPID #### [facility] [address] [address] [address] Shweta Dillard Cholesterol in HDL [Mass/Vol] 31 mg/dL Critically low 40-60 [facility] Comment on above: Performed By: #### U ZAIRA, CMP, DLDL, LIPID #### [facility] [address] [address] [address] Shweta Dillard Cholesterol in LDL [Mass/Vol] 49.6 mg/dL Normal [facility] Comment on above: Performed By: #### U ZAIRA, CMP, DLDL, LIPID #### [facility] [address] [address] [address] Shweta Dillard Cholesterol.total/Cho lesterol in HDL [Mass ratio] 5.5 {ratio} Normal [facility] Comment on above: Performed By: #### U ZAIRA, CMP, DLDL, LIPID #### [facility] [address], [place] [address] Dr. Shweta Dillard HDL NORMAL > or = 60 mg/dl - LOW CARDIOVASCULAR RISK <40 mg/dl - HIGH CARDIOVASCULAR RISK Normal [facility] Comment on above: Performed By: #### U ZAIRA, CMP, DLDL, LIPID #### [facility] [address], [place] [address] Dr. Shweta Dillard LDL CALC NORMAL SEE BELOW Normal [facility] Comment on above: Result Comment: <100 mg/dl OPTIMAL 100 - 129 mg/dl NEAR OR ABOVE OPTIMAL 130 - 159 mg/dl BORDERLINE HIGH 160 - 189 mg/dl HIGH >190 mg/dl VERY HIGH Performed By: #### U ZAIRA, CMP, DLDL, LIPID #### [facility] [address] [address] [address] Shweta Dillard Triglyceride [Mass/Vol] 457 mg/dL Critically high <=150 [facility] Comment on above: Performed By: #### U ZAIRA, CMP, DLDL, LIPID #### [facility] [address] [address] [address] Shweta Dillard VLDL CALC 91.4 mg/dL Normal [facility] Comment on above: Performed By: #### U ZAIRA, CMP, DLDL, LIPID #### [facility] [address], [place] [address] Dr. Shweta Dillard MICROALBUMIN, RAND URon 10-21 mALB <1.3 Normal <=30.0 [facility] Comment on above: Performed By: #### M ALBR ####[facility] [address] [place], [place] [address]BhDr. Shweta Dillard PROF 14(COMP METB)on 023 Albumin [Mass/Vol] 4.0 g/dL Normal 3.4-5.0 [facility] Comment on above: Performed By: #### U ZAIRA, CMP, DLDL, LIPID #### [facility] [address], [place] [address] Dr. Shweta Dillard Albumin/Globulin [Mass ratio] 1.3 {ratio} Normal [facility] Comment on above: Performed By: #### U ZAIRA, CMP, DLDL, LIPID #### [facility] [address] [address] [address] Shweta Dillard ALP [Catalytic activity/Vol] 95 U/L Normal 46-116 [facility] Comment on above: Performed By: #### U ZAIRA, CMP, DLDL, LIPID #### [facility] [address] [place] [address] Dr. Shweta Dillard ALT [Catalytic activity/Vol] 25 U/L Normal 16-63 [facility] Comment on above: Performed By: #### U ZAIRA, CMP, DLDL, LIPID #### [facility] [address] [place] [address] Dr. Shweta Dillard Anion gap [Moles/Vol] 13.4 mmol/L Normal [facility] Comment on above: Performed By: #### U ZAIRA, CMP, DLDL, LIPID #### [facility] [address] [place] [address] Dr. Shweta Dillard AST [Catalytic activity/Vol] 18 U/L Normal 15-37 [facility] Comment on above: Performed By: #### U ZAIRA, CMP, DLDL, LIPID #### [facility] [address] [place] [address] Dr. Shweta Dillard Bilirubin [Mass/Vol] 0.2 mg/dL Normal 0.2-1.0 [facility] Comment on above: Performed By: #### U ZAIRA, CMP, DLDL, LIPID #### [facility] [address] [place] [address] Dr. Shweta Dillard Calcium [Mass/Vol] 9.0 mg/dL Normal 8.5-10.1 [facility] Comment on above: Performed By: #### U ZAIRA, CMP, DLDL, LIPID #### [facility] [address] [place] [address] Dr. Shweta Dillard Chloride [Moles/Vol] 100 mmol/L Normal 98-107 [facility] Comment on above: Performed By: #### U ZAIRA, CMP, DLDL, LIPID #### [facility] [address] [address] [address] Shweta Dillard CO2 [Moles/Vol] 30.0 mmol/L Normal 21.0-32.0 [facility] Comment on above: Performed By: #### U ZAIRA, CMP, DLDL, LIPID #### [facility] [address] [address] [address] Shweta Dillard Creatinine [Mass/Vol] 0.89 mg/dL Normal 0.70-1.30 [facility] Comment on above: Performed By: #### U ZAIRA, CMP, DLDL, LIPID #### [facility] [address] [address] [address] Shweta Dillard EGFR-AF IVORIAN >60 Normal >=60 [facility] Comment on above: Performed By: #### U ZAIRA, CMP, DLDL, LIPID #### [facility] [address] [place] [address] Dr. Shweta Dillard EGFR-NON AF IVORIAN >60 Normal >=60 [facility] Comment on above: Performed By: #### U ZAIRA, CMP, DLDL, LIPID #### [facility] [address] [address] [address] Shweta Dillard Globulin (S) [Mass/Vol] 3.1 g/dL Normal [facility] Comment on above: Performed By: #### U ZAIRA, CMP, DLDL, LIPID #### [facility] [address] [address] [address] Shweta Dillard Glucose [Mass/Vol] 125 mg/dL Critically high 74-106 T [facility] Comment on above: Performed By: #### U ZAIRA, CMP, DLDL, LIPID #### [facility] [address] [address] [address] Shweta Dillard Potassium [Moles/Vol] 4.4 mmol/L Normal 3.5-5.1 [facility] Comment on above: Performed By: #### U ZAIRA, CMP, DLDL, LIPID #### [facility] [address] [address] [address] Shweta Dillard Protein [Mass/Vol] 7.1 g/dL Normal 6.4-8.2 The [facility] Comment on above: Performed By: #### U ZAIRA, CMP, DLDL, LIPID #### [facility] [address] [address] [address] Shweta Dillard Sodium [Moles/Vol] 139 mmol/L Normal 136-145 The [facility] Comment on above: Performed By: #### U ZAIRA, CMP, DLDL, LIPID #### [facility] [address] [address] [address] Shweta Dillard Urea nitrogen [Mass/Vol] 25.0 mg/dL Critically high 7.0-18.0 [facility] Comment on above: Performed By: #### U ZAIRA, CMP, DLDL, LIPID #### [facility] [address] [address] [address] Shweta Dillard Urea nitrogen/Creatinine [Mass ratio] 28.1 mg/mg Normal [facility] Comment on above: Performed By: #### U ZAIRA, CMP, DLDL, LIPID #### [facility] [address] [address] [address] Shweta Dillard UA RANDOM W/MICROSCOPICon BACTERIA NONE SEEN Normal NONE SEEN [facility] Comment on above: Performed By: #### U AMIC ####[facility] [address] [address]DrMarky Dillard Bilirubin Ql (U) Negative Normal NEGATIVE The [facility] Comment on above: Performed By: #### U AMIC ####[facility] [address] [address]DrMarky Dillard CAST NONE SEEN Normal NONE SEEN [facility] Comment on above: Performed By: #### U AMIC ####[facility] [address] [address]Dr. Shweta Dillard Clarity (U) CLEAR Normal CLEAR [facility] Comment on above: Performed By: #### U AMIC ####[facility] [address] [address]Dr. Shweta Dillard Color (U) LT. YELLOW Normal YELLOW [facility] Comment on above: Performed By: #### U AMIC ####[facility] [address] [address]Dr. Shweta Dillard Crystals LM Nom (Urine sed) NONE SEEN Normal NONE SEEN [facility] Comment on above: Performed By: #### U AMIC ####[facility] [address] [address]Dr. Shweta Dillard Epithelial cells LM Ql (Urine sed) RARE Normal NONE SEEN /RARE [facility] Comment on above: Performed By: #### U AMIC ####[facility] [address] [address]Dr. Lisbethraheel Dillard Glucose Ql (U) Negative Normal NEGATIVE The [facility] Comment on above: Performed By: #### U AMIC ####[facility] [address] [address]Dr. Shweta Dillard Hemoglobin Ql (U) Negative Normal NEGATIVE The [facility] Comment on above: Performed By: #### U AMIC ####[facility] [address] [place], [place] [address]Dr. Shweta Dillard Ketones Ql (U) Negative Normal NEGATIVE The [facility] Comment on above: Performed By: #### U AMIC ####[facility] [address] [place], [place] [address]Dr. Yilan Dillard LEUKOCYTES Negative Normal NEGATIVE [facility] Comment on above: Performed By: #### U AMIC ####[facility] [address] [address]Dr. Yilan Dillard MUCOUS NONE SEEN Normal NONE SEEN [facility] Comment on above: Performed By: #### U AMIC ####[facility] [address] [address]Dr. Shweta Dillard Nitrite Ql (U) Negative Normal NEGATIVE The [facility] Comment on above: Performed By: #### U AMIC ####[facility] [address] [address]Dr. Shweta Dillard pH (U) 5.0 [pH] Normal 5-9 [facility] Comment on above: Performed By: #### U AMIC ####[facility] [address] [place], [place] [address]Ie. Lisbethraheel Dillard RBC NONE SEEN Abnormal 0-2 [facility] Comment on above: Performed By: #### U AMIC ####[facility] [address] [place], [place] [address]Fc. Shweta Dillard SPEC GRAVITY 1.020 Normal 1.005-<=1.025 The [facility] Comment on above: Performed By: #### U AMIC ####[facility] [address] [id number]. Shweta Dillard UA PROTEIN Negative Normal NEGATIVE/ TRACE [facility] Comment on above: Performed By: #### U AMIC ####[facility] [address] [id number]. Shweta Dillard Urobilinogen Qn (U) 0.2 {Bruce'U}/dL Normal 0.2 - 1. 0 [facility] Comment on above: Performed By: #### U AMIC ####[facility] [address] [id number]. Shweta Dillard WBC NONE SEEN Normal NONE SEEN [facility] Comment on above: Performed By: #### U AMIC ####[facility] [address] [id number] Dillard URIC ACID SERUMon 11-01-2022 Urate [Mass/Vol] 3.7 mg/dL Normal 3.5-7.2 The [facility] Comment on above: Performed By: #### U ZAIRA, CMP, DLDL, LIPID #### [facility] [address], [place] [address] Dr. Shweta Dillard US TYLER DOP LEG [...] JEMIMA DELATORRE Date: 2022-11-01 10:54 Normal [facility] Office Visiton 10-29-2022 Follow-up visit [id number] Sapphire Palmer 1965 M Date Provider Department Center 10/29/2022 Jenny-IMMANUEL TORRES [facility] SURG Second Fl Family History Adopted: Yes Family history unknown: Yes Level of Service:276[address] [place] POSTOP FOLLOW UP VISIT RELATED TO ORIGINAL PX Reason for Visit and Comments: Post-op [483] - s/p 10/03/22 pump replacement. Give new refill date: Patient states he has back and hip pain. Has not changed Normal [facility] Vital Signs Date Time Vital Sign Value Performing Clinician Faci lity 10-31-2023 13:59-0500 Diastolic blood pressure 78 mm[Hg] Therese Ayala MD Work Phone: [facility] 10-31-2023 13:59-0500 Heart rate 62 /min Therese Ayala MD Work Phone: [facility] 10-31-2023 13:59-0500 Systolic blood pressure 124 mm[Hg] Therese Ayala MD Work Phone: [facility] 10-31-2023 13:58-0500 Body height 182.9 cm Therese Ayala MD Work Phone: [facility] 10-31-2023 13:58-0500 Body mass index (BMI) [Ratio] 34.56 kg/m2 Therese Ayala MD Work Phone: [facility] 10-31-2023 13:58-0500 Body weight 115.58 kg Therese Ayala MD Work Phone: [facility] 10-31-2023 13:58-0500 Respiratory rate 18 /min Therese Ayala MD Work Phone: [facility] Encounters Encounter Date Encounter Type Care Provider Facility Start: 10-31-2023 End: 10-31-2023 ambulatory THERESE AYALA [facility] Start: 10-31-2023 End: 10-31-2023 Office outpatient visit 25 minutes Therese Ayala MD Work Phone: [facility] Comment on above: Venous insufficiency of both lower extremities (Primary Dx); Varicose veins of left lower extremity with pain ; Chronic back pain, unspecified back location, unspecified back pain laterality; Severe obesity (BMI 35.0-39.9) with comorbidity (CMS-HCC) Start: 10-22-2023 ambulatory DREAD CASTILLO [facility] Start: 08-06-2023 ambulatory DREAD CASTILLO [facility] Start: 05-28-2023 ambulatory DREAD CASTILLO [facility] Start: 03-26-2023 ambulatory DREAD CASTILLO [facility] Start: 02-01-2023 End: 02-02-2023 ambulatory DREAD [facility] Start: 01-29-2023 ambulatory DREAD CASTILLO [facility] Start: 01-11-2023 End: 01-11-2023 ambulatory KELSEA [facility] Start: 12-27-2022 End: 12-28-2022 ambulatory DREAD [facility] Start: 12-27-2022 ambulatory DREAD CASTILLO [facility] Start: 12-05-2022 End: 12-06-2022 ambulatory MANDA DUARTE Facility:[facility] Start: 11-28-2022 End: 11-28-2022 ambulatory MARIANNA HAYES [facility] Start: 11-01-2022 End: 11-02-2022 ambulatory MANDA DUARTE Facility:[facility] Start: 10-29-2022 End: 10-29-2022 ambulatory IMMANUEL TORRES [facility] Procedures Date Procedure Procedure Detail Performing Clinician Start: 11-01-2022 PSA screening MANDA DUARTE Comment on above: Performed By: #### P [facility] #### [facility] [address] [place] [address] Dr. Shweta Dillard Plan of Treatment Date Care Activity Detail Author Start: 10-31-2024 Adult BMI Screening Adult BMI Screening [facility] Start: 10-31-2024 Tobacco Screening Tobacco Screening [facility] Start: 01-30-2024 End: 01-30-2024 Patient encounter procedure 01/30/2024 10:50 AM EDT Office Visit [facility] [address] [place] [address] Merary Sue MD [address], [address] [address] [facility] Start: 06-21-2023 COVID-19 Vaccine () COVID-19 Vaccine () [facility] Start: 06-21-2023 Influenza vaccination Influenza Vaccine [facility] Start: 2017 Administration of varicella zoster vaccine Zoster (Shingles) Vaccine (1 of 2) [facility] Start: 1986 DTaP,Tdap and Td Vaccines (1 - Tdap) DTaP,Tdap and Td Vaccines (1 - Tdap) [facility] Start: 1985 Adult BMI Follow Up Plan Adult BMI Follow Up Plan [facility] Start: 1985 Diabetic foot examination Diabetic Foot Exam [facility] Start: 1979 Depression Screening Depression Screening [facility] Start: 1967 Glaucoma screening Diabetic Ophthalmology Exam [facility] Start: 1967 Tobacco Counseling Tobacco Counseling [facility] Start: 1967 Urine screening for protein Urine Microalbumin [facility] Immunizations Immunization Date Immunization Notes Care Provider Fa cility 07-13-2021 influenza virus vaccine, unspecified formulation Therese Ayala MD Work Phone: [facility] 02-21-2021 COVID-19, mRNA, LNP- S, PF, 100mcg/0.5mL Dose Therese Ayala MD Work Phone: [facility] 01-24-2021 COVID-19, mRNA, LNP- S, PF, 100mcg/0.5mL Dose Therese Ayala MD Work Phone: [facility] Payers Date Payer Category Payer Medicare A[employer]NA MEDICARE A ETNA MEDICARE PLAN (PPO) [id number] 2021-Present [phone] [address] [place] [address] [id number] 2018 Medicaid MEDICAID [place] -[place] ONLY [id number] 2018-Present [phone] [address] [place] [address] [id number] 2018 Unknown [id number] 1965 Unknown [id number] 1965 Unknown [id number] 1965 Unknown [id number] 1957 Medicare [id number] Social History Date Type Detail Facility Start: 10-21-1985 [facility] Start: 10-21-1985 History of tobacco use Cigarette Smo ker [facility] Start: 12-01-2020 End: 10-31-2023 Cigarettes smoked current (pack per day) - Reported 1 [facility] Start: 10-31-2023 Tobacco use and exposure Smokeless tobacco non-user [facility] Start: 10-31-2023 Alcohol intake Current drinke r of alcohol (finding) [facility] Start: 12-01-2020 End: 10-31-2023 Tobacco use panel [facility] Childcare Unknown [facility] Start: 07-27-2020 Alcohol Comment weekends [facility] Start: 1965 Sex Assigned At Not on file P [facility] Clinical Notes 04-27-2021 to 10-31-2023 Therese Ayala MD - 10/31/2023 11:10 AM EST Note Date & Type Note Facility 10-31-2023 History of Present illness Narrative CHIEF COMPLAINT: Chief Complaint Patient presents with Follow-up Follow up with recent testing. Patient notes he had right leg ablation this morning and [facility]. Pain states pain more to right leg 5/10. HISTORY OF PRESENT ILLNESS: Sapphire Palmer is a 58 y.o. male who presents to the office today for evaluation of bilateral lower extremity venous insufficiency. Patient had laser ablation earlier today before he saw me. Patient's main concerns or complaints is lower extremity swelling and pain. Patient states that the pain is more in the right leg than the left leg. It is over the medial thigh and calf areas. Patient rated the pain as 5/10. Pain is aching in nature. Patient wears his compression stockings and try to elevate his lower extremities. Patient denies any chest pain or shortness breath. Patient denies any wounds over his lower extremities. Patient reports that the swelling and the pain in the lower extremities have been going on for several months. He has been trying to wear his compression stockings but it is too painful. Patient also tries to elevate his lower extremities. Patient has no new complaints. ALLERGIES: Allergies Allergen Reactions Simvastatin Other (See Comments) Pt unsure of reaction MEDICATIONS: Current Outpatient Medications Medication Sig Dispense Refill acetaminophen (TYLENOL) 325 mg tablet Take 2 tablets (650 mg total) by mouth every 6 (six) hours as needed for pain. febuxostat (ULORIC) 40 mg tablet Take 1 tablet (40 mg total) by mouth in the morning. fenofibrate (TRICOR) 48 mg tablet Take 1 tablet (48 mg total) by mouth in the morning. lisinopril-hydroCHLOROthiazide (PRINZIDE,ZESTORETIC) 20-12.5 mg per tablet Take 1 tablet by mouth in the morning. triamcinolone (KENALOG) 0.1 % cream Apply 1 each topically 2 (two) times a day. cetirizine (ZyrTEC) 10 mg capsule Take 1 capsule by mouth daily. (Patient not taking: Reported on 10/31/2023) finasteride (PROSCAR) 5 mg tablet Take 5 mg by mouth daily. (Patient not taking: Reported on 10/31/2023) furosemide (LASIX) 20 mg tablet Take 1 tablet by mouth daily. (Patient not taking: Reported on 10/31/2023) furosemide (LASIX) 40 mg tablet Take 40 mg by mouth daily. (Patient not taking: Reported on 10/31/2023) 0 lisinopriL (PRINIVIL,ZESTRIL) 30 mg tablet Take 30 mg by mouth daily. (Patient not taking: Reported on 10/31/2023) meloxicam (MOBIC) 15 mg tablet Take 1 tablet (15 mg total) by mouth in the morning. metFORMIN (GLUCOPHAGE) 500 mg tablet Take 500 mg by mouth daily with breakfast. (Patient not taking: Reported on 10/31/2023) spironolactone (ALDACTONE) 50 mg tablet Take 1 tablet (50 mg total) by mouth in the morning. No current facility-administered medications for this visit. SOCIAL HISTORY: Social History Tobacco Use Smoking status: Every Day Packs/day: 1 Types: Cigarettes Start date: 1985 Smokeless tobacco: Never Substance Use Topics Alcohol use: Yes Alcohol/week: 20.0 standard drinks of alcohol Types: 20 Cans of beer per week Comment: weekends REVIEW OF SYSTEMS: Review of Systems Constitutional: Negative for activity change, appetite change, chills, fatigue, fever and unexpected weight change. HENT: Negative for facial swelling and trouble swallowing. Eyes: Negative for visual disturbance. Respiratory: Negative for chest tightness and shortness of breath. Cardiovascular: Positive for leg swelling. Negative for chest pain. Gastrointestinal: Negative for abdominal pain. Genitourinary: Negative for flank pain and frequency. Musculoskeletal: Positive for arthralgias, back pain and myalgias. Negative for joint swelling. Skin: Positive for color change. Negative for pallor, rash and wound. Neurological: Negative for dizziness, syncope, facial asymmetry, speech difficulty, weakness, light-headedness and numbness. Hematological: Negative for adenopathy. PHYSICAL EXAM: Physical Exam Vitals reviewed. Constitutional: General: He is not in acute distress. Neck: Vascular: No JVD. Cardiovascular: Rate and Rhythm: Normal rate. Pulses: Radial pulses are 2+ on the right side and 2+ on the left side. Dorsalis pedis pulses are 1+ on the right side and 1+ on the left side. Posterior tibial pulses are 1+ on the right side and 1+ on the left side. Heart sounds: No murmur heard. Comments: No carotid bruits. Pulmonary: Breath sounds: Normal breath sounds. Abdominal: Palpations: Abdomen is soft. There is no mass. Tenderness: There is no abdominal tenderness. Musculoskeletal: General: No tenderness. Cervical back: Neck supple. Right lower leg: Edema present. Left lower leg: Edema present. Feet: Right foot: Skin integrity: Erythema present. Left foot: Skin integrity: Erythema present. Skin: General: Skin is warm. Coloration: Skin is not pale. Findings: Erythema present. Neurological: Mental Status: He is alert and oriented to person, place, and time. VASCULAR EXAM: Vascular: Right Lower Extremity Right lower extremity pulses DP: 1+ PT: 1+ Right lower extremity edema: 2+ and pitting Right Lower Extremity Skin Integrity: Positive for erythema and varicosity. Left Lower Extremity Left lower extremity pulses DP: 1+ PT: 1+ Left lower extremity edema: 2+ and pitting Left Lower Extremity Skin Integrity: Positive for erythema and varicosity. Right Upper Extremity Right upper extremity pulses Radial: 2+ Left Upper Extremity Left upper extremity pulses Radial: 2+ ASSESSMENT AND PLAN: Sapphire was seen today for follow-up. 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 I reviewed his venous duplex ultrasound that was done recently. Patient has incompetent saphenous veins bilaterally as well as perforators. He just had laser ablation earlier today of the greater saphenous vein. I told him to continue with his compression stockings and elevate his lower extremities. I will see him back in 3 months for follow-up. [facility] Note PROCEDURE PERFORMED: Intrathecal pump refill. PERFORMING PROVIDER: Dread Castillo Nurse Practitioner. CAR PRE COOLER: Marcy David RN PREPROCEDURE DIAGNOSIS: Post laminectomy [...] IMPLANTATION / REPLACEMENT INFUSION PUMP Comment: 2016, IONID 10/03/2022: INTRATHECAL PUMP IMPLANTATION Comment: Exchange [...] were verified by 2 nurses. Start time: 0930 End time: 0945 The pump was interrogated prior to initiation of the procedure. The patient was positioned supine. The area over the pump site was cleansed with chloraprep and allowed to dry. Area was draped in sterile fashion. The pump was accessed using sterile technique utilizing the needle provided in the Net[employer]tr[employer] pump refill kit. The remaining medication in [...] W REPROG & REFILL REQUIRING PHYSICIAN SKILL [facility] 08-06-2023 Note PROCEDURE PERFORMED: Intrathecal pump refill. PERFORMING PROVIDER: Dread Castillo, Nurse Practitioner. CAR PRE COOLER: Marcy Avendano RN PREPROCEDURE DIAGNOSIS: Post laminectomy [...] date: IMPLANTATION / REPLACEMENT INFUSION PUMP Comment: TIMBO Yanez 10/03/2022: INTRATHECAL PUMP IMPLANTATION Comment: Exchange of [...] W REPROG & REFILL REQUIRING PHYSICIAN SKILL [facility] 05-28-2023 Note PROCEDURE PERFORMED: Intrathecal pump refill. PERFORMING PROVIDER: Dread Castillo, Nurse Practitioner. CAR PRE COOLER: Marcy Avendano RN PREPROCEDURE DIAGNOSIS: Post laminectomy [...] technique utilizing the needle provided in the [employer]end[employer] pump refill kit. The remaining medication in [...] W REPROG & REFILL REQUIRING PHYSICIAN SKILL [facility] 03-26-2023 Note PROCEDURE PERFORMED: Intrathecal pump refill. PERFORMING PROVIDER: Dread Castillo Nurse Practitioner. CAR PRE COOLER: Marcy Avendano RN PREPROCEDURE DIAGNOSIS: Post laminectomy [...] W REPROG & REFILL REQUIRING PHYSICIAN SKILL [facility] 01-29-2023 Note PROCEDURE PERFORMED: Intrathecal pump refill. PERFORMING PROVIDER: Dread Castillo, Nurse Practitioner. CAR PRE COOLER: Marcy Godinez RN PREPROCEDURE DIAGNOSIS: Post laminectomy [...] date: IMPLANTATION / REPLACEMENT INFUSION PUMP Comment: TIMBO Yanez 10/03/2022: INTRATHECAL PUMP IMPLANTATION Comment: Exchange of [...] W REPROG & REFILL REQUIRING PHYSICIAN SKILL [facility] 01-11-2023 Note Attestation signed by Tal Chery MD at [...] be an additional personal documentation from me. Subjective Patient ID: Sapphire Palmer is a [...] leg swelling was reduced and they felt creeler than usual. Pt denies pain in small [...] Seen by Dr. Chery and Dr. Kemp [facility] 12-27-2022 Note HPI: Referral source: 12/27/22 [...] please schedule on a clinic day of Divina' Saturday day or am, to be schedule [...] neural foraminal narrowin (more content not included)... [facility] 11-28-2022 Note PROCEDURE PERFORMED: Intrathecal pump refill. PERFORMING PROVIDER: Marianna Hayes Nurse Practitioner. CAR PRE COOLER: Dulce Fink MA. PREPROCEDURE DIAGNOSIS: Lumbar postlaminectomy [...] 1 (one) time each day. FLU VACC [id number] 6MOS UP,PF, (FLUZONE QUAD [id number], PF,) 60 MCG (15 MCG X 4)/0.5 [...] PRIOR TO R (more content not included)... [facility] 10-29-2022 Note Neurosurgery Clinic Note Chief [...] tablet 1 tablet, oral, Daily flu vacc [id number] 6mos up,PF, (Fluzone Quad [id number], PF,) 60 mcg (15 mcg x 4)/0.5 [...] ongoing care by the pain management team. [facility] 03-29-2022 Note MR#: [id number] [facility] Pt. Name: Sapphire Palmer Surgery Date: 03/28/2022 Room #: 2H Date of : 1965 PROCEDURE NOTE ATTENDING: Marianna Hayes NP PERFORMING PROVIDER: Marianna Hayes Nurse Practitioner. CAR PRE COOLER: Hyacinth Coleman RN. PREPROCEDURE DIAGNOSIS: Lumbar post-laminectomy [...] by: Marianna Hayes NP 03/30/2022 06:05 P ___ Marianna Hayes, MUD CAR WORKER Date Dict: 03/28/2022/10:46 A/Marianna Hayes NP Date Trans: 03/29/2022 01:46 Mady/ulysses [id number]:[id number] [facility] 01-24-2022 Note MR#: [id number] [facility] Pt. Name: Sapphire Palmer Surgery Date: 01/24/2022 Room #: 1H Date of : 1965 PROCEDURE NOTE ATTENDING: Marianna Hayes NP PERFORMING PROVIDER: Marianna Hayes Nurse Practitioner. CAR PRE COOLER: Hyacinth Coleman RN. PREPROCEDURE DIAGNOSIS: Lumbar post-laminectomy [...] technique utilizing the needle provided in the [employer]endtr[employer] pump refill kit. The old medication in [...] by: Marianna Hayes NP 01/26/2022 03:24 P ___ Marianna Hayes NP Date Dict: 01/24/2022/01:37 P/Marianna Hayes NP Date Trans: 01/24/2022 04:48 P/ulysses [id number] [facility] 11-16-2021 Note MR#: [id number] [facility] Pt. Name: Sapphire Palmer Surgery Date: [...] by: Marianna Hayes NP 11/20/2021 12:27 P ___ Marianna Hayes NP Date Dict: 11/15/2021/11:02 A/Marianna Hayes NP Date Trans: 11/16/2021 03:25 A/ulysses [id number]_JN:[id number] [facility] 09-14-2021 Note MR#: [id number] [facility] Pt. Name: Sapphire Palmer Surgery Date: [...] by: Marianna Hayes NP 09/19/2021 08:13 A ___ Marianna Hayes NP Date Dict: 09/13/2021/10:37 A/Marianna Hayes NP Date Trans: 09/13/2021 11:54 P/ulysses [id number] [facility] 07-05-2021 Note MR#: [id number] [facility] Pt. Name: Sapphire Palmer Surgery Date: 07/05/2021 Room #: Date of : 1965 PROCEDURE NOTE ATTENDING: Marianna Hayes NP CAR PRE COOLER: Hyacinth Coleman RN PREPROCEDURE DIAGNOSIS: Lumbar post-laminectomy [...] by: Marianna Hayes NP 07/07/2021 12:00 P ___ Marianna Hayes NP Date Dict: 07/05/2021/11:09 Mady/Marianna Hayes NP Date Trans: 07/05/2021 12:01 P/ulysses [id number] [facility] 04-27-2021 Note MR#: [id number] [facility] Pt. 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 Chronic back pain, unspecified back location, unspecified back pain laterality Severe obesity (BMI 35.0-39.9) with comorbidity (CMS-HCC) [facility] this encounter [facility] filed[facility]ed in [facility] Purpose Family History No Family History [...] and content) DATE CREATED AUTHOR 04/03/2022 [facility] DATE CREATED AUTHOR AUTHOR'S ORGANIZ ATION 12/10/2022 [facility] DATE CREATED AUTHOR AUTHOR'S ORGANIZ ATION 10/27/2023 [facility] DATE CREATED AUTHOR AUTHOR'S ORGANIZ ATION 11/03/2023 [facility] Reason for Visit (unrecogniz ed section and content) Reason Comments Follow-up Follow up with recen t testing. Patient notes he had right leg ablation this morning and [facility]. Pain states pain more to right leg 5/10. Care Teams (unrecognized sec tion and content) Climate Change Risk Assessor Relationship Specialty Start Date End Date Mirtha Duarte, CELL LINER-LEAK OPERATOR [employer] [address] [place] [address] PCP - General Nurse Practitioner 05/29/23 FOR RECORDS PERTAINING TO PATIENTS WHO ARE [...] BE BASED ON THE PRIMARY CLINICAL RECORDS. [employer] provides no warranty or guarantee of the accuracy or completeness of information in this document.
== END 2023-12-06 08:44 | disposition home or self-care (01) ==
LOC: VC 08:43
PROVIDERS: PCP Radiology Diagnostic Radiology; Visit Provider Radiology Diagnostic Radiology
DX: I83.813 Varicose veins of bilateral lower extremities with pain (principal)
CPT/HCPCS: 36466

== ENCOUNTER 2023-12-17 07:43 | Outpatient (OUT) | payer MEDICARE, SELFPAY ==
--- OUTSIDE RECORDS SUMMARY | 2023-12-17 07:45 | XMS_ITS | CCD ---
Author Name Unknown Address [address] [place] [address] Organization [facility] Care Team Providers Care [employer] Crewmember Name Role Phone MIHAI, CNC WOOD LATHE OPERATOR MIRTHA Admitting Unavailable AICHHOLZ, CNC WOOD LATHE OPERATOR MIRTHA Attending Unavailable AICHHOLZ, CNC WOOD LATHE OPERATOR MIRTHA Primary Care Unavailable AICHHOLZ, CNC WOOD LATHE OPERATOR MIRTHA Consulting Unavailable DR JEMIMA DELATORRE Consulting Unavailable AICHHOLZ, CNC WOOD LATHE OPERATOR MIRTHA Admitting Unavailable AICHHOLZ, CNC WOOD LATHE OPERATOR MIRTHA Attending Unavailable AICHHOLZ, CNC WOOD LATHE OPERATOR MIRTHA Primary Care Unavailable AICHHOLZ, CNC WOOD LATHE OPERATOR MIRTHA Consulting Unavailable DR JEMIMA DELATORRE Consulting [...] AICHHOLZ, MIRTHA J Primary Care Unavailable Aichholz ELECTRICIAN MASTER-MANDA Mirtha Laury Primary Care Provider Allergies Allergy Classification Reported Allergen(s) Allergy Type Date of Onset Reaction(s) Facility (3 sources) Simvastatin; Translations: [SIMVASTATIN] Drug Allergy 7 [facility] Repository (1 source) Simvastatin Drug Allergy 9 [...] Range Facility Office Visiton 10-22-2023 Follow-up visit [id number] Sapphire Pamler 1965 M Date Provider Department Center 10/22/2023 DREAD MURO MP PAIN [facility] Family History Adopted: Yes Family history unknown: Yes Level of Service:58165 [place] OFFICE/OUTPT VISIT,PROCEDURE ONLY Reason for Visit and Comments: Follow-up [190140] Normal [facility] [place] Office Visiton 08-06-2023 Follow-up visit [id number] Sapphire Palmer 1965 M Date Provider Department Center 08/06/2023 DREAD MURO MP PAIN [facility] [place] Family History Adopted: Yes Family history unknown: Yes Level of Service:22569 [place] OFFICE/OUTPT VISIT,PROCEDURE ONLY Reason for Visit and Comments: Baclofen Pump Refill [698] [facility] Office Visiton 05-28-2023 Follow-up visit [id number] Sapphire Palmer 1965 M Date Provider Department Center 05/28/2023 DREAD MURO MP PAIN [facility] [place] Family History Adopted: Yes Family history unknown: Yes Level of Service:97925 NH OFFICE/OUTPT VISIT,PROCEDURE ONLY [facility] Office Visiton 03-26-2023 Follow-up visit [id number] Sapphire Palmer 1965 Date Provider Department [place] 03/26/2023 DREAD MURO MP PAIN [facility] [place] Family History Adopted: Yes Family history unknown: Yes Level of Service:95507 [place] OFFICE/OUTPT VISIT,PROCEDURE ONLY Reason for Visit and Comments: Follow-up [837400] - Pump refill - alarm date 04/10 [facility] MR LUMBAR SPINE WO CONTRASTo n [...] in this report. Electronically signed: Desmond Farmer. [facility] Office Visiton 01-29-2023 Follow-up visit [id number] Sapphire Palmer 1965 M Date Provider Department Center 01/29/2023 Dave-DREAD CASTILLO PAIN [facility] Family History Adopted: Yes Family history unknown: Yes Level of Service:54257 [place] OFFICE/OUTPT VISIT,PROCEDURE ONLY Reason for Visit and Comments: Follow-up [817160] - Pump Refill alarm date 02/07/23 [facility] Office Vis[place] 01-11-2023 Follow-up visit [id number] Sapphire Palmer T 1965 M Date Provider Department Center 01/11/2023 1211-KELSEA KEMP RHC RHEUM José Miguel Heal Family History Adopted: Yes Family history unknown: Yes Level of Service:04416 [place] OFFICE/OUTPATIENT NEW LOW MDM 30-44 MINUTES (GC) Reason for Visit and Comments: New Patient [632] [facility] Office Visiton 12-27-2022 Follow-up visit [id number] Sapphire Palmer T 1965 M Date Provider Department Center 12/27/2022 170-DREAD CASTILLO PAIN [facility] Family History Adopted: Yes Family history unknown: Yes Level of Service:58751 NH OFFICE/OUTPATIENT NEW LOW MDM 30-44 MINUTES Reason for Visit and Comments: New Patient [632] - Pump alarm date 02/07/23 [facility] RONI by IFAon 12-07-2022 Antinuclear Antibodies, IFA Negative Normal [facility] Comment on above: Result Comment: Nega tive <1:80 Borderline 1:80 Positive >1:80 ICAP nomenclature: AC-0 For more information about Hep-2 cell patterns use ANApatterns.org, the official website for the International Consensus on Antinuclear Antibody (RONI) Patterns (ICAP). Performed By: #### A NAIFA #### [facility] Laboratory [address] [place] [address] Dr. Shweta Dillard ANTISTREPTOLYSIN O AB (ASO)o n 12-06-2022 Antistreptolysin O Ab 72.7 IU/mL Normal 0.0-200.0 [facility] Comment on above: Performed By: #### A SOAB #### [facility] [address] [place] [address] Dr. Shweta Dillard RHEUMATOID FACTORon 12-06-19 RA Latex Turbid. 42.4 IU/mL Critically high <14.0 [facility] Comment on above: Performed By: #### R F #### [facility] [address] [address] [address] Shweta Dillard CRPon 12-05-2022 CRP 0.5 mg/dL Normal <=1.0 [facility] Comment on above: Performed By: #### C RP ####[facility] [address] [address]Dr. Shweta Dillard SED RATE WESTERGRENon 2022 SED RATE 15 mm/hr Normal <=20 [facility] Comment on above: Performed By: #### S EDR #### [facility] [address] [place] [address] Dr. Shweta Dillard US TYLER DOP LEG [...] by: JEMIMA DELATORRE Date: 2022-12-05 10:24 Normal [facility] Office Visiton 11-28-2022 Follow-up visit [id number] Sapphire Palmer 1965 M Date Provider Department Center 11/28/2022 MARIANNA ROCHA [facility] [place] Family History Adopted: Yes Family history unknown: Yes Level of Service:53844 [place] OFFICE/OUTPT VISIT,PROCEDURE ONLY Reason for Visit and Comments: Baclofen Pump Refill [698] Normal [facility] [place] CBC AUTO DIFFon 11-01-2022 BASO # 0.1 103/ul Normal 0.0-0.1 [facility] Comment on above: Performed By: #### C BC #### [facility] [address] [place] [address] Dr. Shweta Dillard Basophils/100 WBC (Bld) 0.8 % Normal 0.2-2.0 [facility] Comment on above: Performed By: #### C BC #### [facility] [address] [place] [address] Dr. Shweta Dillard EO # 0.3 103/ul Normal 0.0-0.7 [facility] Comment on above: Performed By: #### C BC #### [facility] [address] [place] [address] Dr. Shweta Dillard Eosinophils/100 WBC (Bld) 3.5 % Normal 0.9-7.0 [facility] Comment on above: Performed By: #### C BC #### [facility] [address] [place] [address] Dr. Shweta Dillard Erythrocyte distribution width (RBC) [Ratio] 13.2 % Normal 11.0-15.0 [facility] Comment on above: Performed By: #### C BC #### [facility] [address] [place] [address] Dr. Shweta Dillard Hematocrit (Bld) [Volume fraction] 45.6 % Normal 42.0-54.0 [facility] Comment on above: Performed By: #### C BC #### [facility] [address] [place] [address] Dr. Shweta Dillard Hemoglobin (Bld) [Mass/Vol] 13.6 g/dL Critically low 14.0-18.0 [facility] Comment on above: Performed By: #### C BC #### [facility] [address] [place] [address] Dr. Shweta Dillard IG # 0.07 10e3/ul Critically high 0.00-0.03 [facility] Comment on above: Performed By: #### C BC #### [facility] [address] [place] [address] Dr. Shweta Dillard IG % 0.7 % Critically high 0.0-0.5 [facility] Comment on above: Performed By: #### C BC #### [facility] [address] [place] [address] Dr. Shweta Dilalrd LYMPH # 3.4 103/ul Normal 1.2-3.8 [facility] Comment on above: Performed By: #### C BC #### [facility] [address] [place] [address] Dr. Shweta Dillard Lymphocytes/100 WBC (Bld) 34.6 % Normal 20.5-60.0 [facility] Comment on above: Performed By: #### C BC #### [facility] [address] [place] [address] Dr. Shweta Dillard MANUAL DIFF REQ NO Normal [facility] Comment on above: Performed By: #### C BC #### [facility] [address] [place] [address] Dr. Shweta Dillard MCH (RBC) [Entitic mass] 29.4 pg Normal 25.9-34.0 [facility] Comment on above: Performed By: #### C BC #### [facility] [address] [place] [address] Dr. Shweta Dillard MCHC (RBC) [Mass/Vol] 29.8 g/dL Critically low 29.9-35.2 [facility] Comment on above: Performed By: #### C BC #### [facility] [address] [place] [address] Dr. Shweta Dillard MCV (RBC) [Entitic vol] 98.7 fL Critically high 80.0-94.0 [facility] Comment on above: Performed By: #### C BC #### [facility] [address] [place] [address] Dr. Shweta Dillard MONO # 0.7 103/ul Normal 0.3-0.8 [facility] Comment on above: Performed By: #### C BC #### [facility] [address] [place] [address] Dr. Shweta Dillard Monocytes/100 WBC (Bld) 7.4 % Normal 1.7-12.0 [facility] Comment on above: Performed By: #### C BC #### [facility] [address] [place] [address] Dr. Shweta Dillard NEUT # 5.2 103/ul Normal 1.4-6.5 [facility] Comment on above: Performed By: #### C BC #### [facility] [address] [place] [address] Dr. Shweta Dillard Neutrophils/100 WBC (Bld) 53.0 % Normal 43.0-75.0 [facility] Comment on above: Performed By: #### C BC #### [facility] [address] [place], [place] [address] Dr. Shweta Dillard Platelet mean volume (Bld) [Entitic vol] 9.9 fL Normal 9.5-13.5 [facility] Comment on above: Performed By: #### C BC #### [facility] [address] [place], [place] [address] Dr. Shweta Dillard PLT 253 103/ul Normal 150-450 [facility] Comment on above: Performed By: #### C BC #### [facility] [address] [place], [place] [address] Dr. Shweta Dillard RBC 4.62 106/ul Critically low 4.70-6.10 [facility] Comment on above: Performed By: #### C BC #### [facility] [id number] Shweta Dillard WBC 9.8 103/ul Normal 4.0-11.0 [facility] Comment on above: Performed By: #### C BC #### [facility] [address] [place], [place] [address] Dr. Shweta Dillard DIRECT LDLon 11-01-2022 Cholesterol in LDL [Mass/Vol] 105 mg/dL Normal [facility] Comment on above: Performed By: #### U ZAIRA, CMP, DLDL, LIPID ####[facility] [address] [place], [place] [address]VuDr. Shweta Dillard DLDL NORMAL SEE BELOW Normal [facility] Comment on above: Result Comment: <100 mg/dl OPTIMAL 100 - 129 mg/dl NEAR OR ABOVE OPTIMAL 130 - 159 mg/dl BORDERLINE HIGH 160 - 189 mg/dl HIGH >190 mg/dl VERY HIGH Performed By: #### U ZAIRA, CMP, DLDL, LIPID ####[facility] [address] [place], [place] [address]SqDr. Shweta Dillard GLYCOHEMOGLOBIN A1Con 2022 ADA RECOMMENDATION SEE BELOW Normal [facility] Comment on above: Result Comment: ADA RECOMMENDED LIMIT 4.0 - 6.0 ADA THERAPEUTIC TARGET < 7.0 ACTION SUGGESTED > 7.0 Performed By: #### A 1C ####[facility] [address] [place], [place] [address]CdDr. Shweta Dillard Glucose [Mass/Vol] 114 mg/dL Normal [facility] Comment on above: Performed By: #### A 1C ####[facility] [address] [place], [place] [address]DtDr. Shweta Dillard HbA1c (Bld) [Mass fraction] 5.6 % Normal 4.5-6.2 [facility] Comment on above: Performed By: #### A 1C ####[facility] [address] [place], [place] [address]EfDr. Shweta Dillard LIPID PROFILEon 11-01-2022 CHOL-HDL RATIO NORM SEE BELOW Normal [facility] Comment on above: Result Comment: 3.3 - 4.4 LOW RISK 4.4 - 7.1 AVERAGE RISK 7.1 - 11.0 MODERATE RISK >11.0 HIGH RISK Performed By: #### U ZAIRA, CMP, DLDL, LIPID #### [facility] [address] [address] [address] Shweta Dillard Cholesterol [Mass/Vol] 172 mg/dL Normal <=200 [facility] Comment on above: Performed By: #### U ZAIRA, CMP, DLDL, LIPID #### [facility] [address] [address] [address] Shweta Dillard Cholesterol in HDL [Mass/Vol] 31 mg/dL Critically low 40-60 [facility] Comment on above: Performed By: #### U ZAIRA, CMP, DLDL, LIPID #### [facility] [address] [address] [address] Shweta Dillard Cholesterol in LDL [Mass/Vol] 49.6 mg/dL Normal [facility] Comment on above: Performed By: #### U ZAIRA, CMP, DLDL, LIPID #### [facility] [address] [address] [address] Shweta Dillard Cholesterol.total/Cho lesterol in HDL [Mass ratio] 5.5 {ratio} Normal [facility] Comment on above: Performed By: #### U ZAIRA, CMP, DLDL, LIPID #### [facility] [address] [place], [place] [address] Dr. Shweta Dillard HDL NORMAL > or = 60 mg/dl - LOW CARDIOVASCULAR RISK <40 mg/dl - HIGH CARDIOVASCULAR RISK Normal [facility] Comment on above: Performed By: #### U ZAIRA, CMP, DLDL, LIPID #### [facility] [address] [place], [place] [address] Dr. Shweta Dillard LDL CALC NORMAL SEE BELOW Normal [facility] Comment on above: Result Comment: <100 mg/dl OPTIMAL 100 - 129 mg/dl NEAR OR ABOVE OPTIMAL 130 - 159 mg/dl BORDERLINE HIGH 160 - 189 mg/dl HIGH >190 mg/dl VERY HIGH Performed By: #### U ZAIRA, CMP, DLDL, LIPID #### [facility] [address] [address] [address] Shweta Dillard Triglyceride [Mass/Vol] 457 mg/dL Critically high <=150 [facility] Comment on above: Performed By: #### U ZAIRA, CMP, DLDL, LIPID #### [facility] [address] [address] [address] Shweta Dillard VLDL CALC 91.4 mg/dL Normal [facility] Comment on above: Performed By: #### U ZAIRA, CMP, DLDL, LIPID #### [facility] [address] [place], [place] [address] Dr. Shweta Dillard MICROALBUMIN, RAND URon 10-21 mALB <1.3 Normal <=30.0 [facility] Comment on above: Performed By: #### M ALBR ####[facility] [address] [place], [place] [address]JkDr. Shweta Dillard PROF 14(COMP METB)on 023 Albumin [Mass/Vol] 4.0 g/dL Normal 3.4-5.0 [facility] Comment on above: Performed By: #### U ZAIRA, CMP, DLDL, LIPID #### [facility] [address] [place], [place] [address] Dr. Shweta Dillard Albumin/Globulin [Mass ratio] 1.3 {ratio} Normal [facility] Comment on above: Performed By: #### U ZAIRA, CMP, DLDL, LIPID #### [facility] [address] [address] [address] Shweta Dillard ALP [Catalytic activity/Vol] 95 U/L Normal 46-116 [facility] Comment on above: Performed By: #### U ZAIRA, CMP, DLDL, LIPID #### [facility] [address] [place] [address] Dr. Shweta Dillard ALT [Catalytic activity/Vol] 25 U/L Normal 16-63 [facility] Comment on above: Performed By: #### U ZAIRA, CMP, DLDL, LIPID #### [facility] [address] [place] [address] Dr. Shweta Dillard Anion gap [Moles/Vol] 13.4 mmol/L Normal [facility] Comment on above: Performed By: #### U ZAIRA, CMP, DLDL, LIPID #### [facility] [address] [place] [address] Dr. Shweta Dillard AST [Catalytic activity/Vol] 18 U/L Normal 15-37 [facility] Comment on above: Performed By: #### U ZAIRA, CMP, DLDL, LIPID #### [facility] [address] [place] [address] Dr. Shweta Dillard Bilirubin [Mass/Vol] 0.2 mg/dL Normal 0.2-1.0 [facility] Comment on above: Performed By: #### U ZAIRA, CMP, DLDL, LIPID #### [facility] [address] [place] [address] Dr. Shweta Dillard Calcium [Mass/Vol] 9.0 mg/dL Normal 8.5-10.1 [facility] Comment on above: Performed By: #### U ZAIRA, CMP, DLDL, LIPID #### [facility] [address] [place] [address] Dr. Shweta Dillard Chloride [Moles/Vol] 100 mmol/L Normal 98-107 [facility] Comment on above: Performed By: #### U ZAIRA, CMP, DLDL, LIPID #### [facility] [address] [address] [address] Shweta Dillard CO2 [Moles/Vol] 30.0 mmol/L Normal 21.0-32.0 [facility] Comment on above: Performed By: #### U ZAIRA, CMP, DLDL, LIPID #### [facility] [address] [address] [address] Shweta Dillard Creatinine [Mass/Vol] 0.89 mg/dL Normal 0.70-1.30 [facility] Comment on above: Performed By: #### U ZAIRA, CMP, DLDL, LIPID #### [facility] [address] [address] [address] Shweta Dillard EGFR-AF UKRAINIAN >60 Normal >=60 [facility] Comment on above: Performed By: #### U ZAIRA, CMP, DLDL, LIPID #### [facility] [address] [place] [address] Dr. Shweta Dillard EGFR-NON AF UKRAINIAN >60 Normal >=60 [facility] Comment on above: Performed By: #### U ZAIRA, CMP, DLDL, LIPID #### [facility] [address] [address] [address] Shweta Dillard Globulin (S) [Mass/Vol] 3.1 g/dL Normal [facility] Comment on above: Performed By: #### U ZAIRA, CMP, DLDL, LIPID #### [facility] [address] [address] [address] Shweta Dillard Glucose [Mass/Vol] 125 mg/dL Critically high 74-106 [facility] Comment on above: Performed By: #### U ZAIRA, CMP, DLDL, LIPID #### [facility] [address] [address] [address] Shweta Dillard Potassium [Moles/Vol] 4.4 mmol/L Normal 3.5-5.1 [facility] Comment on above: Performed By: #### U ZAIRA, CMP, DLDL, LIPID #### [facility] [address] [address] [address] Shweta Dillard Protein [Mass/Vol] 7.1 g/dL Normal 6.4-8.2 [facility] Comment on above: Performed By: #### U ZAIRA, CMP, DLDL, LIPID #### [facility] [address] [address] [address] Shweta Dillard Sodium [Moles/Vol] 139 mmol/L Normal 136-145 [facility] Comment on above: Performed By: #### U ZAIRA, CMP, DLDL, LIPID #### [facility] [address] [address] [address] Shweta Dillard Urea nitrogen [Mass/Vol] 25.0 mg/dL Critically high 7.0-18.0 [facility] Comment on above: Performed By: #### U ZAIRA, CMP, DLDL, LIPID #### [facility] [address] [address] [address] Shweta Dillard Urea nitrogen/Creatinine [Mass ratio] 28.1 mg/mg Normal [facility] Comment on above: Performed By: #### U ZAIRA, CMP, DLDL, LIPID #### [facility] [address] [address] [address] Shweta Dillard UA RANDOM W/MICROSCOPICon BACTERIA NONE SEEN Normal NONE SEEN [facility] Comment on above: Performed By: #### U AMIC ####[facility] [address] [address]DrMarky Dillard Bilirubin Ql (U) Negative Normal NEGATIVE [facility] Comment on above: Performed By: #### U AMIC ####[facility] [address] [address]DrMarky Dillard CAST NONE SEEN Normal NONE SEEN [facility] Comment on above: Performed By: #### U AMIC ####[facility] [address] [address]Dr. Shweta Dillard Clarity (U) CLEAR Normal CLEAR [facility] Comment on above: Performed By: #### U AMIC ####[facility] [address] [address]Dr. Shweta Dillard Color (U) LT. YELLOW Normal YELLOW [facility] Comment on above: Performed By: #### U AMIC ####[facility] [address] [address]Dr. Shweta Dillard Crystals LM Nom (Urine sed) NONE SEEN Normal NONE SEEN [facility] Comment on above: Performed By: #### U AMIC ####[facility] [address] [address]Dr. Shweta Dillard Epithelial cells LM Ql (Urine sed) RARE Normal NONE SEEN /RARE [facility] Comment on above: Performed By: #### U AMIC ####[facility] [address] [address]Dr. Lisbethraheel Dillard Glucose Ql (U) Negative Normal NEGATIVE [facility] Comment on above: Performed By: #### U AMIC ####[facility] [address] [address]Dr. Shweta Dillard Hemoglobin Ql (U) Negative Normal NEGATIVE [facility] Comment on above: Performed By: #### U AMIC ####[facility] [address] [place], [place] [address]Dr. Shweta Dillard Ketones Ql (U) Negative Normal NEGATIVE [facility] Comment on above: Performed By: #### U AMIC ####[facility] [address] [place], [place] [address]Dr. Yilan Dillard LEUKOCYTES Negative Normal NEGATIVE [facility] Comment on above: Performed By: #### U AMIC ####[facility] [address] [address]Dr. Yilan Dillard MUCOUS NONE SEEN Normal NONE SEEN [facility] Comment on above: Performed By: #### U AMIC ####[facility] [address] [place] [address]Dr. Shweta Dillard Nitrite Ql (U) Negative Normal NEGATIVE [facility] Comment on above: Performed By: #### U AMIC ####[facility] [address] [place] [address]Dr. Shweta Dillard pH (U) 5.0 [pH] Normal 5-9 [facility] Comment on above: Performed By: #### U AMIC ####[facility] [address] [place], [place] [address]Gb. Lisbethraheel Dillard RBC NONE SEEN Abnormal 0-2 [facility] Comment on above: Performed By: #### U AMIC ####[facility] [address] [place], [place] [address]Kg. Shweta Dillard SPEC GRAVITY 1.020 Normal 1.005-<=1.025 The [facility] Comment on above: Performed By: #### U AMIC ####[facility] [address] [place] [id number]. Shweta Dillard UA PROTEIN Negative Normal NEGATIVE/ TRACE [facility] Comment on above: Performed By: #### U AMIC ####[facility] [address] [place] [id number]. Shweta Dillard Urobilinogen Qn (U) 0.2 {Bruce'U}/dL Normal 0.2 - 1. 0 [facility] Comment on above: Performed By: #### U AMIC ####[facility] [address] [place] [id number]. Shweta Dillard WBC NONE SEEN Normal NONE SEEN [facility] Comment on above: Performed By: #### U AMIC ####[facility] [address] [place] [id number] Dillard URIC ACID SERUMon 11-01-2022 Urate [Mass/Vol] 3.7 mg/dL Normal 3.5-7.2 The [facility] Comment on above: Performed By: #### U ZAIRA, CMP, DLDL, LIPID #### [facility] Laboratory [address] [place], [place] [address] Dr. Shweta Dillard US TYLER DOP LEG [...] JEMIMA DELATORRE Date: 2022-11-01 10:54 Normal [facility] Office Visiton 10-29-2022 Follow-up visit [id number] Sapphire Palmer 1965 M Date Provider Department Center 10/29/2022 Jenny-IMMANUEL TORRES [facility] SURG [address] Family History Adopted: Yes Family history unknown: Yes Level of Service:[id number] [place] POSTOP FOLLOW UP VISIT RELATED TO ORIGINAL PX Reason for Visit and Comments: Post-op [483] - s/p 10/03/22 pump replacement. Give new refill date: Patient states he has back and hip pain. Has not changed Normal [facility] [place] Vital Signs Date Time Vital Sign Value Performing Clinician Faci lity 10-31-2023 13:59-0500 Diastolic blood pressure 78 mm[Hg] Therese Ayala MD Work Phone: [facility] Localist [facility] 10-31-2023 13:59-0500 Heart rate 62 /min Therese Ayala MD Work Phone: [facility] [employer] 10-31-2023 13:59-0500 Systolic blood pressure 124 mm[Hg] Therese Ayala MD Work Phone: [facility] [employer] 10-31-2023 13:58-0500 Body height 182.9 cm Therese Ayala MD Work Phone: [facility] [employer] 10-31-2023 13:58-0500 Body mass index (BMI) [Ratio] 34.56 kg/m2 Therese Ayala MD Work Phone: [facility] [employer] 10-31-2023 13:58-0500 Body weight 115.58 kg Therese Ayala MD Work Phone: [facility] [employer] 10-31-2023 13:58-0500 Respiratory rate 18 /min Therese Ayala MD Work Phone: [facility] Localist [facility] Encounters Encounter Date Encounter Type Care Provider Facility Start: 10-31-2023 End: 10-31-2023 ambulatory THERESE AYALA [facility] Start: 10-31-2023 End: 10-31-2023 Office outpatient visit 25 minutes Therese Ayala MD Work Phone: [facility] Comment on above: Venous insufficiency of both lower extremities (Primary Dx); Varicose veins of left lower extremity with pain ; Chronic back pain, unspecified back location, unspecified back pain laterality; Severe obesity (BMI 35.0-39.9) with comorbidity (CMS-HCC) Start: 10-22-2023 ambulatory DREAD CASTILLO [facility] Start: 08-06-2023 ambulatory DREAD CASTILLO [facility] Start: 05-28-2023 ambulatory DREAD CASTILLO [facility] Start: 03-26-2023 ambulatory DREAD CASTILLO [facility] Start: 02-01-2023 End: 02-02-2023 ambulatory DREAD [facility] Start: 01-29-2023 ambulatory DREAD CASTILLO [facility] Start: 01-11-2023 End: 01-11-2023 ambulatory KELSEA [facility] Start: 12-27-2022 End: 12-28-2022 ambulatory DREAD [facility] Start: 12-27-2022 ambulatory DREAD CASTILLO [facility] Start: 12-05-2022 End: 12-06-2022 ambulatory MANDA DUARTE Facility:[facility]1 Start: 11-28-2022 End: 11-28-2022 ambulatory MARIANNA HAYES [facility] [place] Start: 11-01-2022 End: 11-02-2022 ambulatory MANDA DUARTE Facility:[facility] Start: 10-29-2022 End: 10-29-2022 ambulatory IMMANUEL TORRES [facility] [place] Procedures Date Procedure Procedure Detail Performing Clinician Start: 11-01-2022 PSA screening MANDA DUARTE Comment on above: Performed By: #### P [facility] #### [facility] Laboratory [address] [place] [address] Dr. Shweta Dillard Plan of Treatment Date Care Activity Detail Author Start: 10-31-2024 Adult BMI Screening Adult BMI Screening [facility] Start: 10-31-2024 Tobacco Screening Tobacco Screening [facility] Start: 01-30-2024 End: 01-30-2024 Patient encounter procedure 01/30/2024 10:50 AM EDT Office Visit [facility] [address] [place] [address] Merary Sue MD [address], [address] [address] [facility] Start: 06-21-2023 COVID-19 Vaccine () COVID-19 Vaccine () [facility] Start: 06-21-2023 Influenza vaccination Influenza Vaccine [facility] Start: 2017 Administration of varicella zoster vaccine Zoster (Shingles) Vaccine (1 of 2) [facility] Start: 1986 DTaP,Tdap and Td Vaccines (1 - Tdap) DTaP,Tdap and Td Vaccines (1 - Tdap) [facility] Start: 1985 Adult BMI Follow Up Plan Adult BMI Follow Up Plan [facility] Start: 1985 Diabetic foot examination Diabetic Foot Exam [facility] Start: 1979 Depression Screening Depression Screening [facility] Start: 1967 Glaucoma screening Diabetic Ophthalmology Exam [facility] Start: 1967 Tobacco Counseling Tobacco Counseling [facility] Start: 1967 Urine screening for protein Urine Microalbumin [facility] Immunizations Immunization Date Immunization Notes Care Provider Fa cility 07-13-2021 influenza virus vaccine, unspecified formulation Therese Ayala MD Work Phone: [facility] 02-21-2021 COVID-19, mRNA, LNP- S, PF, 100mcg/0.5mL Dose Therese Ayala MD Work Phone: [facility] 01-24-2021 COVID-19, mRNA, LNP- S, PF, 100mcg/0.5mL Dose Therese Ayala MD Work Phone: [facility] Payers Date Payer Category Payer Medicare AETNA MEDICARE A ETNA MEDICARE PLAN (PPO) [id number] 2021-Present [phone] [address] [place] [address] [id number] 2018 Medicaid MEDICAID [place] -[place] ONLY [id number] 2018-Present [phone] [address] [place] [address] [id number] 2018 Unknown [id number] 1965 Unknown [id number] 1965 Unknown [id number] 1965 Unknown [id number] 1957 Medicare [id number] Social History Date Type Detail Facility [facility] Start: 10-21-1985 History of tobacco use Cigarette Smo ker [facility] Start: 12-01-2020 End: 10-31-2023 Cigarettes smoked current (pack per day) - Reported 1 [facility] Start: 10-31-2023 Tobacco use and exposure Smokeless tobacco non-user [facility] Start: 10-31-2023 Alcohol intake Current drinke r of alcohol (finding) [facility] Start: 12-01-2020 End: 10-31-2023 Tobacco use panel [facility] Childcare Unknown [facility] Start: 07-27-2020 Alcohol Comment weekends [facility] Start: 1965 Sex Assigned At Not on file P [facility] Clinical Notes 04-27-2021 to 10-31-2023 [...] months for follow-up. [facility] Note PROCEDURE PERFORMED: Intrathecal pump refill. PERFORMING PROVIDER: Dread Castillo Nurse Practitioner. SEISMOGRAPH SUPERVISOR: Marcy David RN PREPROCEDURE DIAGNOSIS: Post laminectomy [...] technique utilizing the needle provided in the ASP64tronic pump refill kit. The remaining medication in [...] W REPROG & REFILL REQUIRING PHYSICIAN SKILL [facility] [place] 08-06-2023 Note PROCEDURE PERFORMED: Intrathecal pump refill. PERFORMING PROVIDER: Dread Castillo, Nurse Practitioner. SEISMOGRAPH SUPERVISOR: Marcy Avendano RN PREPROCEDURE DIAGNOSIS: Post laminectomy [...] W REPROG & REFILL REQUIRING PHYSICIAN SKILL [facility] [place] 05-28-2023 Note PROCEDURE PERFORMED: Intrathecal pump refill. PERFORMING PROVIDER: Dread Castillo, Nurse Practitioner. SEISMOGRAPH SUPERVISOR: Marcy Avendano RN PREPROCEDURE DIAGNOSIS: Post laminectomy [...] technique utilizing the needle provided in the ASP64tronic pump refill kit. The remaining medication in [...] W REPROG & REFILL REQUIRING PHYSICIAN SKILL [facility] [place] 03-26-2023 Note PROCEDURE PERFORMED: Intrathecal pump refill. PERFORMING PROVIDER: Dread Castillo Nurse Practitioner. SEISMOGRAPH SUPERVISOR: Marcy Avendano RN PREPROCEDURE DIAGNOSIS: Post laminectomy [...] W REPROG & REFILL REQUIRING PHYSICIAN SKILL [facility] [place] 01-29-2023 Note PROCEDURE PERFORMED: Intrathecal pump refill. PERFORMING PROVIDER: Dread Castillo, Nurse Practitioner. 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 Pt denies pain in small [...] Seen by Dr. Chery and Dr. Kemp [facility] [place] 12-27-2022 Note HPI: Referral source: 12/27/22 CC: [...] neural foraminal narrowin (more content not included)... [facility] [place] 11-28-2022 Note PROCEDURE PERFORMED: Intrathecal pump refill. PERFORMING PROVIDER: Marianna Hayes Nurse Practitioner. SEISMOGRAPH SUPERVISOR: Dulce Fnik MA. PREPROCEDURE DIAGNOSIS: Lumbar postlaminectomy syndrome. POSTPROCEDURE [...] 1 (one) time each day. FLU VACC [id number] 6MOS UP,PF, (FLUZONE QUAD [id number], PF,) 60 MCG (15 MCG X 4)/0.5 [...] PRIOR TO R (more content not included)... [facility] [place] 10-29-2022 Note Neurosurgery Clinic Note Chief Complaint: [...] tablet 1 tablet, oral, Daily flu vacc [id number] 6mos up,PF, (Fluzone Quad [id number], PF,) 60 mcg (15 mcg x 4)/0.5 [...] ongoing care by the pain management team. [facility] [place] 03-29-2022 Note MR#: [id number] [facility] [place] Pt. Name: Sapphire Palmer Surgery Date: 03/28/2022 Room #: 2H Date of : 1965 PROCEDURE NOTE ATTENDING: Marianna Hayes NP PERFORMING PROVIDER: Marianna Hayes Nurse Practitioner. SEISMOGRAPH SUPERVISOR: Hyacinth Coleman RN. PREPROCEDURE DIAGNOSIS: Lumbar post-laminectomy [...] NP 03/30/2022 06:05 P ___ Marianna Hayes, WARP KNIT OPERATOR Date Dict: 03/28/2022/10:46 A/Marianna Hayes NP Date Trans: 03/29/2022 01:46 Mady/ulysses [id number] [facility] 01-24-2022 Note MR#: [id number] [facility] [place] Pt. Name: Sapphire Palmer Surgery Date: 01/24/2022 Room #: 1H Date of : 1965 PROCEDURE NOTE ATTENDING: Marianna Hayes NP PERFORMING PROVIDER: Marianna Hayes Nurse Practitioner. SEISMOGRAPH SUPERVISOR: Hyacinth Coleman RN. PREPROCEDURE DIAGNOSIS: Lumbar post-laminectomy [...] technique utilizing the needle provided in the ASP64tronic pump refill kit. The old medication in [...] Hayes NP Date Trans: 01/24/2022 04:48 P/ulysses [id number] [facility] 11-16-2021 Note MR#: [id number] [facility] [place] Pt. Name: Sapphire Palmer Surgery Date: 11/15/2021 [...] Hayes NP Date Trans: 11/16/2021 03:25 A/ulysses [id number] [facility] 09-14-2021 Note MR#: [id number] [facility] [place] Pt. Name: Sapphire Palmer Surgery Date: 09/13/2021 [...] Hayes NP Date Trans: 09/13/2021 11:54 P/ulysses [id number] [facility] [place] 07-05-2021 Note MR#: [id number] [facility] [place] Pt. Name: Sapphire Palmer Surgery Date: 07/05/2021 Room #: Date of : 1965 PROCEDURE NOTE ATTENDING: Marianna Hayes NP SEISMOGRAPH SUPERVISOR: Hyacinth Coleman RN PREPROCEDURE DIAGNOSIS: Lumbar post-laminectomy [...] Hayes NP Date Trans: 07/05/2021 12:01 P/ulysses [id number] [facility] [place] 04-27-2021 Note MR#: [id number] [facility] [place] Pt. Name: Sapphire Palmer Surgery Date: 04/26/2021 Room #: 1H Date of : 1965 PROCEDURE NOTE ATTENDING: Marianna Hayes NP SEISMOGRAPH SUPERVISOR: Hyacinth Coleman RN PREPROCEDURE DIAGNOSIS: Lumbar post-laminectomy [...] Hayes NP Date Trans: 04/27/2021 02:00 A/ulysses [id number] [facility] [place] Evaluation note Diagnosis Venous insufficiency of both lower extremities- Primary Varicose veins of left lower extremity with pain Chronic back pain, unspecified back location, unspecified back pain laterality Severe obesity (BMI 35.0-39.9) with comorbidity (CMS-HCC) [facility] in [facility] Summary Purpose Family History [...] and content) DATE CREATED AUTHOR 04/03/2022 [facility] DATE CREATED AUTHOR AUTHOR'S ORGANIZ ATION 12/10/2022 [facility] [place] [facility] DATE CREATED AUTHOR AUTHOR'S ORGANIZ ATION 10/27/2023 [facility] DATE CREATED AUTHOR AUTHOR'S ORGANIZ ATION [facility]/03/[facility] Reason for Visit (unrecogniz ed section and content) Reason Comments Follow-up Follow up with recen t testing. Patient notes he had right leg ablation this morning and Vein and Body office. Pain states pain more to right leg 5/10. Care Teams (unrecognized sec tion and content) [employer] Crewmember Relationship Specialty Start Date End Date Mirtha Duarte, ELECTRICIAN MASTER-CNC WOOD LATHE OPERATOR [address] [place] [address] PCP - General Nurse Practitioner 05/29/23 FOR [...] BE BASED ON THE PRIMARY CLINICAL RECORDS. [employer] provides no warranty or guarantee of the accuracy or completeness of information in this document.
--- NOTE | 2023-12-17 07:46 | VEIN_ITS ---
Patient Name: SAPPHIRE PALMER MR#: [id number] : 1965 Exam Date: 12/17/2023 Ordering Doctor: DR JOHNIE PEREZ M.D. RADIOLOGY REPORT PROCEDURE: VC EXT VENOUS RT LMTD COMPARISON: VC EXT VENOUS RT LMTD, 11/07/2023. VC EXT VENOUS RT LMTD, 10/16/2023. INDICATIONS: I80.01 Phlebitis of superficial veins of rt lower extremity TECHNIQUE: Lower extremity ramirez scale and Duplex Doppler evaluation of the deep venous system from the inguinal ligament through the calf veins. FINDINGS: REGION: Right lower extremity. THROMBI: Negative for DVT. Varithena induced thrombus visualized at mid/lat calf, mid/ant calf, and mid/medial thigh. COMPRESSIBILITY: Non-compressible segments corresponding to thrombus FLOW: Normal waveform and antegrade flow between 5 and 20 cm/s. Areas of no flow corresponding to thrombus OTHER: No varicose veins remain. CONCLUSION: Post ablation occlusion of treated right leg incompetent varicose veins. No deep vein thrombus Dictated by: Johnie Perez MD on 12/17/2023 at 08:05 Approved by: Johnie Perez MD on 12/17/2023 at 08:06
--- NOTE | 2023-12-17 07:46 | VEIN_ITS ---
Patient Name: SAPPHIRE PALMER MR#: [id number] : 1965 Exam Date: 12/17/2023 Ordering Doctor: DR JOHNIE PEREZ M.D. RADIOLOGY REPORT PROCEDURE: FACILITY EST LMTD VEIN CENTER - OFFICE VISIT FOLLOW UP COMPARISON: FACILITY EST LMTD, 11/27/2023. FACILITY EST LMTD, 11/07/2023. PROGRESS NOTES: The patient reports no significant problems following micro chemical ablation of right leg incompetent varicose veins. The patient did not require oral analgesics for the patient has worn his compression stockings and try to exercise to the best of his ability. Physical exam demonstrates continued moderate edema below the the right knee, significantly improved from his initial presenting exam. No active ulceration. No residual varicose veins period reticular and spider veins are noted. Review of the ultrasound performed the same day demonstrates occlusive thrombus extending throughout the treated right leg varicose veins. No significant incompetent varicose veins remain. No deep vein thrombus. The patient expressed a desire to proceed with treatment of incompetent left leg varicose veins with micro foam chemical ablation. VEIN/ Facility EST LMTD IMPRESSION: 1. Successful ablation of right leg incompetent varicose veins 2. Persistent left leg incompetent varicose veins. PLAN: Micro foam chemical ablation left leg incompetent varicose veins Nurse notes, history and physical were reviewed and confirmed, see attached forms. The nurse was present throughout the physical exam and consultation Dictated by: Johnie Perez MD on 12/17/2023 at 08:19 Approved by: Johnie Perez MD on 12/17/2023 at 08:20
== END 2023-12-17 07:44 | disposition home or self-care (01) ==
LOC: VC 07:43
PROVIDERS: PCP Radiology Diagnostic Radiology; Visit Provider Radiology Diagnostic Radiology
DX: I80.01 Phlebitis and thrombophlebitis of superficial vessels of right lower extremity (principal)
CPT/HCPCS: 93971; G0463

== ENCOUNTER 2023-12-24 08:30 | Outpatient (OUT) | payer MEDICARE, SELFPAY ==
--- NOTE | 2023-12-24 08:32 | VEIN_ITS ---
[address] [address] Patient Name: SAPPHIRE PALMER MRN: [id number] date: 1965 Sex: M Assigned Patient Location: Current Patient Location: Accession/Order Number: [id number] Exam Date: 12/24/2023 08:40 Report Date: 12/24/2023 09:43 At the request of: EVA ELLIS Procedure: VC INJ Foam Sclerosant WUS STAGE DIRECTOR PROCEDURE: VC INJ Foam Sclerosant WUS STAGE DIRECTOR COMPARISON: None. HISTORY: Pain due to varicose veins of bilateral legs I83.813 Pre-operative Diagnosis: CEAP class C4a venous insufficiency with pain, tenderness, edema and incompetent left saphenous and varicose vein(s), chronic venous insufficiency left leg secondary to venous incompetence Post-operative Diagnosis: CEAP class C4a venous insufficiency with pain, tenderness, edema and incompetent left saphenous and varicose vein(s), chronic venous insufficiency left leg secondary to venous incompetence Procedure Performed: 1. Ultrasound-guided microfoam chemical ablation with Varithenaregistered 2. Intraoperative ultrasound guidance Anesthesia: None Indications for Procedure: 58-year-old male who presents with a long history of lower extremity pain and swelling with extensive hemosiderin staining. The patient failed conservative medical therapy including medical compression stockings, exercise and analgesics. Prior procedures include endovenous laser ablation. Multiple incompetent varicosities of the left leg. Duplex scan showed reflux and enlarged diameters up to 6 mm. The patient underwent informed consent including management options where the complications of infection, bleeding, pain, and skin injury were discussed. Particular attention was spent discussing thrombus extension and deep vein thrombosis as well as the possibility of pulmonary embolus and treatment with oral or injectable blood thinners. Procedure: The patient walked to the procedure room. All applicable staff donned appropriate apparel. A procedure timeout was performed to confirm correct patient, correct extremity, correct procedure, and correct room set-up including presence of all applicable supplies, devices, and drugs. A duplex ultrasound, performed by myself confirmed the location and incompetence of branch saphenous varicosities and their course was marked on the skin together with the dilated tributaries. The extent of treatment of the vein and the associated varicosities was determined through ultrasound mapping. The skin was prepped and then punctured with a butterfly needle and advanced under ultrasound guidance. The Varithenaregistered canister was activated and the canister was primed and purged as required in the instructions for use. Varithenaregistered was drawn into a sterile syringe. The following injections were made: 7 cc injected into a 6 mm incompetent patent distal left great saphenous vein of the left ankle 7 cc injected into a 5 mm incompetent patent varicose vein anterior distal left lower leg at the level of the ankle Varithenaregistered was slowly administered at 0.5-1.0 cc/second with close observation by ultrasound of its course in the vessels. Total volume utilized was: 14cc. Following administration of Varithenaregistered the leg was elevated and the patient was asked to repeatedly dorsiflex the ankle to limit flow of Varithenaregistered into perforating veins. Once appropriate spasm had been confirmed in the treated veins, the vascular catheter was removed from the leg and light pressure was applied over the puncture site for hemostasis. The common femoral and deep superficial veins were then evaluated for flow and compressibility prior to dressing placement. The lower extremity was kept elevated at 45 degrees above the horizontal and cording material was applied over the saphenous segments and tributaries to allow for eccentric compression over the target vessels including the targeted saphenous vein(s). A multilayer dressing was applied consisting of foam pads, coban and thigh-high 20-30 mm Hg compression elastic support hose were placed on the patient. The leg was lowered only after compression had been applied and the patient was immediately ambulatory. The patient ambulated 10 minutes under supervision and was without apparent concerns at time of release. Post-care instructions include advising patient to keep post-treatment bandages in place and dry for 48 hours, avoid extended periods of inactivity, avoid heavy exercise for one week, wear compression stockings on the treated leg continuously for two weeks, to walk daily for 10 minutes over the next month. The patient was instructed to take an anti-inflammatory medicine as needed and to follow up for color duplex scan of the Saphenous veins, the treated branch saphenous varicosities, the adjacent deep veins, and additional treatment within 7 days. PERSONNEL: Cleve Cyr RN Electronically authenticated by: EVA ELLIS Date: 12/24/2023 09:43
--- OUTSIDE RECORDS SUMMARY | 2023-12-24 08:33 | XMS_ITS | CCD ---
Author Name Unknown Address [address] [place] [address] Organization [facility] Care Team Providers Care Trapper Animal Name Role Phone MIHAI, GLASS FRAME FITTER MIRTHA Admitting Unavailable AICHHOLZ, GLASS FRAME FITTER MIRTHA Attending Unavailable AICHHOLZ, GLASS FRAME FITTER MIRTHA Primary Care Unavailable AICHHOLZ, GLASS FRAME FITTER MIRTHA Consulting Unavailable DR JEMIMA DELATORRE Consulting Unavailable AICHHOLZ, GLASS FRAME FITTER MIRTHA Admitting Unavailable AICHHOLZ, GLASS FRAME FITTER MIRTHA Attending Unavailable AICHHOLZ, GLASS FRAME FITTER MIRTHA Primary Care Unavailable AICHHOLZ, GLASS FRAME FITTER MIRTHA Consulting Unavailable DR JEMIMA DELATORRE Consulting Unavailable THERESE AYALA Attending Unavailable AICHHOLZ, MIRTHA J Referring Unavailable AICHHOLZ, MIRTHA J Primary Care Unavailable Aichholz WEIGHT LOSS PHYSICIAN-GLASS FRAME FITTER, Mirtha J Primary Care Provider KELSEA KEMP Attending Unavailable CLIFFORD, DREAD Attending Unavailable CLIFFORD, [...] Simvastatin; Translations: [SIMVASTATIN] Drug Allergy 7 [facility] Repository (1 source) Simvastatin Drug Allergy 9 [...] Start: 03-22-2019 take 1 tablet by alexandru th once daily furosemide (LASIX) 40 mg tablet [...] disc disorders; other back problems (3 sources) Lumbar post-laminectomy syndrome; Translations: [Postlaminectomy syndrome, not elsewhere classified] Onset: 08-06-2014 07-21-2020 Chronic Varicose veins of lower extremity (2 sources) [...] Translations: [Localized edema] Onset: 07-21-2020 07-21-2020 Episodic Spondylosis; intervertebral disc disorders; other back problems (4 sources) Chronic back pain ; Translations: [Dorsalgia, unspecified] Onset: 07-21-2020 11-17-2023 Episodic Results Test Name Value Interpretation Reference Range Facility [facility] 12-19-2023 Refill [id number] Sapphire Palmer 1965 M Date Provider Department Center 12/19/2023 DREAD MURO MP PAIN [facility] [place] Family History Adopted: Yes Family history unknown: Yes Reason for Visit and Comments: Med Refill [[id number]] Normal [facility] Office Vis[facility] 10-22-2023 Follow-up visit [id number] Sapphire Palmer 1965 M Date Provider Department Center 10/22/2023 170-CLIFFORD, DREAD MP PAIN [facility] [place] Family History Adopted: Yes Family history unknown: Yes Level of Service:05026 NE OFFICE/OUTPT VISIT,PROCEDURE ONLY Reason for Visit and Comments: Follow-up [[id number]] [facility] Office Vis[facility] 08-06-2023 Follow-up visit [id number] Sapphire Palmer 1965 M Date Provider Department Center 08/06/2023 DREAD MURO TRACEY PAIN [facility] [place] Family History Adopted: Yes Family history unknown: Yes Level of Service:01593 NE OFFICE/OUTPT VISIT,PROCEDURE ONLY Reason for Visit and Comments: Baclofen Pump Refill [698] Normal [facility] Office Visiton 05-28-2023 Follow-up visit [id number] Sapphire Palmer Kristy 1965 M Date Provider Department Center 05/28/2023 CASE MUROONEAL WEBB PAIN [facility] [place] Family History Adopted: Yes Family history unknown: Yes Level of Service:80917 NE OFFICE/OUTPT VISIT,PROCEDURE ONLY [facility] Office Vis[facility] 03-26-2023 Follow-up visit [id number] Sapphire Palmer Kristy 1965 M Date Provider Department Center 03/26/2023 CASE MUROONEAL WEBB PAIN [facility] [place] Family History Adopted: Yes Family history unknown: Yes Level of Service:53050 NE OFFICE/OUTPT VISIT,PROCEDURE ONLY Reason for Visit and Comments: Follow-up [[id number]] - Pump refill - alarm date 04/10 [...] L1-2, and bilateral L2-3. Approved by:Qamar Zamarripa 02/08/2023 9:01 AM. I, Desmond Farmer,have reviewed the image(s) and agree with the findings in this report. Electronically signed: Desmond Farmer. [facility] Office Vis[facility] 01-29-2023 Follow-up visit [id number] Sapphire Palmer 1965 [facility] Provider Department Center 01/29/2023 DREAD MURO MP PAIN [facility] Family History Adopted: Yes Family history unknown: Yes Level of Service:68887 NE OFFICE/OUTPT VISIT,PROCEDURE ONLY Reason for Visit and Comments: Follow-up [[id number]] - Pump Refill alarm date 02/07/23 [facility] Office Vis[facility] 01-11-2023 Follow-up visit [id number] Sapphire Palmer T 1965 M Date Provider Department Center 01/11/2023 1211-JUSTO, RAWISH RHC RHEUM José Miguel Heal Family History Adopted: Yes Family history unknown: Yes Level of Service:07412 NE OFFICE/OUTPATIENT NEW LOW MDM 30-44 MINUTES (GC) Reason for Visit and Comments: New Patient [632] [facility] Office Visiton 12-27-2022 Follow-up visit [id number] Sapphire Palmer T 1965 M Date Provider Department Center 12/27/2022 DREAD MURO MP PAIN [facility] Family History Adopted: Yes Family history unknown: Yes Level of Service:70169 NE OFFICE/OUTPATIENT NEW LOW MDM 30-44 MINUTES Reason for Visit and Comments: New Patient [632] - Pump alarm date 02/07/23 [facility] RONI by IFAon 12-07-2022 Antinuclear Antibodies, IFA Negative Normal [facility] Comment on above: Result Comment: Nega tive <1:80 Borderline 1:80 Positive >1:80 ICAP nomenclature: AC-0 For more information about Hep-2 cell patterns use ANApatterns.org, the official website for the International Consensus on Antinuclear Antibody (RONI) Patterns (ICAP). Performed By: #### A NAIFA #### [facility] [address] [place] [address] Dr. Shweta Dillard ANTISTREPTOLYSIN O AB (ASO)o n 12-06-2022 Antistreptolysin O Ab 72.7 IU/mL Normal 0.0-200.0 [facility] Comment on above: Performed By: #### A SOAB #### [facility] [address] [address] [address] Shweta Dillard RHEUMATOID FACTORon 12-06-19 RA Latex Turbid. 42.4 IU/mL Critically high <14.0 [facility] Comment on above: Performed By: #### R F #### [facility] [address] [address] [address] Shweta Dillard CRPon 12-05-2022 CRP 0.5 mg/dL Normal <=1.0 [facility] Comment on above: Performed By: #### C RP ####[facility] [address] [place] [address]Dr. Shweta Dillard SED RATE WESTERGRENon 2022 SED RATE 15 mm/hr Normal <=20 [facility] Comment on above: Performed By: #### S EDR #### [facility] [address] [place] [address] Dr. Shweta Dillard US TYLER DOP LEG [...] JEMIMA DELATORRE Date: 2022-12-05 10:24 Normal [facility] CBC AUTO DIFFon 11-01-2022 BASO # 0.1 103/ul Normal 0.0-0.1 [facility] Comment on above: Performed By: #### C BC #### [facility] [address] [place] [address] Dr. Shweta Dillard Basophils/100 WBC (Bld) 0.8 % Normal 0.2-2.0 [facility] Comment on above: Performed By: #### C BC #### [facility] [address] [place] [address] Dr. Shweta Dillard EO # 0.3 103/ul Normal 0.0-0.7 [facility] Comment on above: Performed By: #### C BC #### [facility] [address] [place] [address] Dr. Shweta Dillard Eosinophils/100 WBC (Bld) 3.5 % Normal 0.9-7.0 [facility] Comment on above: Performed By: #### C BC #### [facility] [address] [place] [address] Dr. Shweta Dillard Erythrocyte distribution width (RBC) [Ratio] 13.2 % Normal 11.0-15.0 [facility] Comment on above: Performed By: #### C BC #### [facility] [address] [place] [address] Dr. Shweta Dillard Hematocrit (Bld) [Volume fraction] 45.6 % Normal 42.0-54.0 [facility] Comment on above: Performed By: #### C BC #### [facility] [address] [place] [address] Dr. Shweta Dillard Hemoglobin (Bld) [Mass/Vol] 13.6 g/dL Critically low 14.0-18.0 [facility] Comment on above: Performed By: #### C BC #### [facility] [address] [place] [address] Dr. Shweta Dillard IG # 0.07 10e3/ul Critically high 0.00-0.03 [facility] Comment on above: Performed By: #### C BC #### [facility] [address] [place] [address] Dr. Shweta Dillard IG % 0.7 % Critically high 0.0-0.5 [facility] Comment on above: Performed By: #### C BC #### [facility] [address] [place] [address] Dr. Shweta Dillard LYMPH # 3.4 103/ul Normal 1.2-3.8 [facility] Comment on above: Performed By: #### C BC #### [facility] [address] [place] [address] Dr. Shweta Dillard Lymphocytes/100 WBC (Bld) 34.6 % Normal 20.5-60.0 [facility] Comment on above: Performed By: #### C BC #### [facility] [address] [place] [address] Dr. Shweta Dillard MANUAL DIFF REQ NO Normal [facility] Comment on above: Performed By: #### C BC #### [facility] [address] [place] [address] Dr. Shweta Dillard MCH (RBC) [Entitic mass] 29.4 pg Normal 25.9-34.0 [facility] Comment on above: Performed By: #### C BC #### [facility] [address] [place] [address] Dr. Shweta Dilladr MCHC (RBC) [Mass/Vol] 29.8 g/dL Critically low 29.9-35.2 [facility] Comment on above: Performed By: #### C BC #### [facility] [address] [place] [address] Dr. Shweta Dillard MCV (RBC) [Entitic vol] 98.7 fL Critically high 80.0-94.0 [facility] Comment on above: Performed By: #### C BC #### [facility] [address] [place] [address] Dr. Shweta Dillard MONO # 0.7 103/ul Normal 0.3-0.8 [facility] Comment on above: Performed By: #### C BC #### [facility] [address] [place] [address] Dr. Shweta Dillard Monocytes/100 WBC (Bld) 7.4 % Normal 1.7-12.0 [facility] Comment on above: Performed By: #### C BC #### [facility] [address] [place] [address] Dr. Shweta Dillard NEUT # 5.2 103/ul Normal 1.4-6.5 [facility] Comment on above: Performed By: #### C BC #### [facility] [address] [place] [address] Dr. Shweta Dillard Neutrophils/100 WBC (Bld) 53.0 % Normal 43.0-75.0 [facility] Comment on above: Performed By: #### C BC #### [facility] [address] [place] [address] Dr. Shweta Dillard Platelet mean volume (Bld) [Entitic vol] 9.9 fL Normal 9.5-13.5 [facility] Comment on above: Performed By: #### C BC #### [facility] [address] [place], [place] [address] Dr. Shweta Dillard PLT 253 103/ul Normal 150-450 [facility] Comment on above: Performed By: #### C BC #### [facility] [address] [place], [place] [address] Dr. Shweta Dillard RBC 4.62 106/ul Critically low 4.70-6.10 [facility] Comment on above: Performed By: #### C BC #### [facility] [address] [place], [place] [address] Dr. Shweta Dillard WBC 9.8 103/ul Normal 4.0-11.0 [facility] Comment on above: Performed By: #### C BC #### [facility] [address] [place], [place] [address] Dr. Shweta Dillard DIRECT LDLon 11-01-2022 Cholesterol in LDL [Mass/Vol] 105 mg/dL Normal [facility] Comment on above: Performed By: #### U ZAIRA, CMP, DLDL, LIPID ####[facility] [address] [place], [place] [address]FpMarky Dillard DLDL NORMAL SEE BELOW Normal [facility] Comment on above: Result Comment: <100 mg/dl OPTIMAL 100 - 129 mg/dl NEAR OR ABOVE OPTIMAL 130 - 159 mg/dl BORDERLINE HIGH 160 - 189 mg/dl HIGH >190 mg/dl VERY HIGH Performed By: #### U ZAIRA, CMP, DLDL, LIPID ####[facility] [address] [place], [place] [address]DlDr. Shweta Dillard GLYCOHEMOGLOBIN A1Con 2022 ADA RECOMMENDATION SEE BELOW Normal [facility] Comment on above: Result Comment: ADA RECOMMENDED LIMIT 4.0 - 6.0 ADA THERAPEUTIC TARGET < 7.0 ACTION SUGGESTED > 7.0 Performed By: #### A 1C ####[facility] [address] [place], [place] [address]HaDr. Shweta Dillard Glucose [Mass/Vol] 114 mg/dL Normal [facility] Comment on above: Performed By: #### A 1C ####[facility] [address] [place], [place] [address]GbDr. Shweta Dillard HbA1c (Bld) [Mass fraction] 5.6 % Normal 4.5-6.2 [facility] Comment on above: Performed By: #### A 1C ####[facility] [address] [place], [place] [address]BkDr. Shweta Dillard LIPID PROFILEon 11-01-2022 CHOL-HDL RATIO NORM SEE BELOW Normal [facility] Comment on above: Result Comment: 3.3 - 4.4 LOW RISK 4.4 - 7.1 AVERAGE RISK 7.1 - 11.0 MODERATE RISK >11.0 HIGH RISK Performed By: #### U ZAIRA, CMP, DLDL, LIPID #### [facility] [address] [address] [address] Shweta Dillard Cholesterol [Mass/Vol] 172 mg/dL Normal <=200 [facility] Comment on above: Performed By: #### U ZAIRA, CMP, DLDL, LIPID #### [facility] [address] [address] [address] Shweta Dillard Cholesterol in HDL [Mass/Vol] 31 mg/dL Critically low 40-60 [facility] Comment on above: Performed By: #### U ZAIRA, CMP, DLDL, LIPID #### [facility] [address] [address] [address] Shweta Dillard Cholesterol in LDL [Mass/Vol] 49.6 mg/dL Normal [facility] Comment on above: Performed By: #### U ZAIRA, CMP, DLDL, LIPID #### [facility] [address] [place], [place] [address] Dr. Shweta Dillard Cholesterol.total/Cho lesterol in HDL [Mass ratio] 5.5 {ratio} Normal [facility] Comment on above: Performed By: #### U ZAIRA, CMP, DLDL, LIPID #### [facility] [address] [address] [address] Shweta Dillard HDL NORMAL > or = 60 mg/dl - LOW CARDIOVASCULAR RISK <40 mg/dl - HIGH CARDIOVASCULAR RISK Normal [facility] Comment on above: Performed By: #### U ZAIRA, CMP, DLDL, LIPID #### [facility] [address] [address] [address] Shweta Dillard LDL CALC NORMAL SEE BELOW Normal [facility] [place] [facility] Comment on above: Result Comment: <100 mg/dl OPTIMAL 100 - 129 mg/dl NEAR OR ABOVE OPTIMAL 130 - 159 mg/dl BORDERLINE HIGH 160 - 189 mg/dl HIGH >190 mg/dl VERY HIGH Performed By: #### U ZAIRA, CMP, DLDL, LIPID #### [facility] [address] [address] [address] Shweta Dillard Triglyceride [Mass/Vol] 457 mg/dL Critically high <=150 [facility] Comment on above: Performed By: #### U ZAIRA, CMP, DLDL, LIPID #### [facility] [address] [address] [address] Shweta Dillard VLDL CALC 91.4 mg/dL Normal [facility] Comment on above: Performed By: #### U ZAIRA, CMP, DLDL, LIPID #### [facility] [address] [address] [address] Shweta Dillard MICROALBUMIN, RAND URon 10-21 mALB <1.3 Normal <=30.0 [facility] Comment on above: Performed By: #### M ALBR ####[facility] [address] [place], [place] [address]KjDr. Shweta Dillard PROF 14(COMP METB)on 023 Albumin [Mass/Vol] 4.0 g/dL Normal 3.4-5.0 [facility] Comment on above: Performed By: #### U ZAIRA, CMP, DLDL, LIPID #### [facility] [address] [address] [address] Shweta Dillard Albumin/Globulin [Mass ratio] 1.3 {ratio} Normal [facility] Comment on above: Performed By: #### U ZAIRA, CMP, DLDL, LIPID #### [facility] [address] [address] [address] Shweta Dillard ALP [Catalytic activity/Vol] 95 U/L Normal 46-116 [facility] Comment on above: Performed By: #### U ZAIRA, CMP, DLDL, LIPID #### [facility] [address] [place] [address] Dr. Shweta Dillard ALT [Catalytic activity/Vol] 25 U/L Normal 16-63 [facility] Comment on above: Performed By: #### U ZAIRA, CMP, DLDL, LIPID #### [facility] [address] [place] [address] Dr. Shweta Dillard Anion gap [Moles/Vol] 13.4 mmol/L Normal Th e [facility] Comment on above: Performed By: #### U ZAIRA, CMP, DLDL, LIPID #### [facility] [address] [place] [address] Dr. Shweta Dillard AST [Catalytic activity/Vol] 18 U/L Normal 15-37 [facility] Comment on above: Performed By: #### U ZAIRA, CMP, DLDL, LIPID #### [facility] [address] [place] [address] Dr. Shweta Dillard Bilirubin [Mass/Vol] 0.2 mg/dL Normal 0.2-1.0 [facility] Comment on above: Performed By: #### U ZAIRA, CMP, DLDL, LIPID #### [facility] [address] [place] [address] Dr. Shweta Dillard Calcium [Mass/Vol] 9.0 mg/dL Normal 8.5-10.1 [facility] Comment on above: Performed By: #### U ZAIRA, CMP, DLDL, LIPID #### [facility] [address] [place] [address] Dr. Shweta Dillard Chloride [Moles/Vol] 100 mmol/L Normal 98-107 [facility] Comment on above: Performed By: #### U ZAIRA, CMP, DLDL, LIPID #### [facility] [address] [place] [address] Dr. Shweta Dillard CO2 [Moles/Vol] 30.0 mmol/L Normal 21.0-32.0 [facility] Comment on above: Performed By: #### U ZAIRA, CMP, DLDL, LIPID #### [facility] [address] [address] [address] Shweta Dillard Creatinine [Mass/Vol] 0.89 mg/dL Normal 0.70-1.30 [facility] Comment on above: Performed By: #### U ZAIRA, CMP, DLDL, LIPID #### [facility] [address] [address] [address] Shweta Dillard EGFR-AF ESTONIAN >60 Normal >=60 [facility] Comment on above: Performed By: #### U ZAIRA, CMP, DLDL, LIPID #### [facility] [address] [address] [address] Shweta Dillard EGFR-NON AF ESTONIAN >60 Normal >=60 [facility] Comment on above: Performed By: #### U ZAIRA, CMP, DLDL, LIPID #### [facility] [address] [address] [address] Shweta Dillard Globulin (S) [Mass/Vol] 3.1 g/dL Normal [facility] Comment on above: Performed By: #### U ZAIRA, CMP, DLDL, LIPID #### [facility] [address] [address] [address] Shweta Dillard Glucose [Mass/Vol] 125 mg/dL Critically high 74-106 [facility] Comment on above: Performed By: #### U ZAIRA, CMP, DLDL, LIPID #### [facility] [address] [address] [address] Shweta Dillard Potassium [Moles/Vol] 4.4 mmol/L Normal 3.5-5.1 [facility] Comment on above: Performed By: #### U ZAIRA, CMP, DLDL, LIPID #### [facility] [address] [address] [address] Shweta Dillard Protein [Mass/Vol] 7.1 g/dL Normal 6.4-8.2 [facility] Comment on above: Performed By: #### U ZAIRA, CMP, DLDL, LIPID #### [facility] [address] [address] [address] Shweta Dillard Sodium [Moles/Vol] 139 mmol/L Normal 136-145 [facility] Comment on above: Performed By: #### U ZAIRA, CMP, DLDL, LIPID #### [facility] [address] [address] [address] Shweta Dillard Urea nitrogen [Mass/Vol] 25.0 mg/dL Critically high 7.0-18.0 [facility] Comment on above: Performed By: #### U ZAIRA, CMP, DLDL, LIPID #### [facility] [address] [address] [address] Shweta Dillard Urea nitrogen/Creatinine [Mass ratio] 28.1 mg/mg Normal [facility] Comment on above: Performed By: #### U ZAIRA, CMP, DLDL, LIPID #### [facility] [address] [address] [address] Shweta Dillard UA RANDOM W/MICROSCOPICon BACTERIA NONE SEEN Normal NONE SEEN [facility] Comment on above: Performed By: #### U AMIC ####[facility] [address] [place] [address]Dr. Shweta Dillard Bilirubin Ql (U) Negative Normal NEGATIVE [facility] Comment on above: Performed By: #### U AMIC ####[facility] [address] [place] [address]Dr. Shweta Dillard CAST NONE SEEN Normal NONE SEEN [facility] Comment on above: Performed By: #### U AMIC ####[facility] [address] [place] [address]Dr. Shweta Dillard Clarity (U) CLEAR Normal CLEAR [facility] Comment on above: Performed By: #### U AMIC ####[facility] [address] [place] [address]Dr. Shweta Dillard Color (U) LT. YELLOW Normal YELLOW [facility] Comment on above: Performed By: #### U AMIC ####[facility] [address] [place] [address]Dr. Shweta Dillard Crystals LM Nom (Urine sed) NONE SEEN Normal NONE SEEN [facility] Comment on above: Performed By: #### U AMIC ####[facility] [address] [place] [address]Dr. Shweta Dillard Epithelial cells LM Ql (Urine sed) RARE Normal NONE SEEN /RARE [facility] Comment on above: Performed By: #### U AMIC ####[facility] [address] [place] [address]Dr. Shweta Dillard Glucose Ql (U) Negative Normal NEGATIVE [facility] Comment on above: Performed By: #### U AMIC ####[facility] [address] [place] [address]Dr. Shweta Dillard Hemoglobin Ql (U) Negative Normal NEGATIVE [facility] Comment on above: Performed By: #### U AMIC ####[facility] [address] [place], [place] [address]Dr. Shweta Dillard Ketones Ql (U) Negative Normal NEGATIVE [facility] Comment on above: Performed By: #### U AMIC ####[facility] [address] [place], [place] [address]Dr. Shweta Dillard LEUKOCYTES Negative Normal NEGATIVE [facility] Comment on above: Performed By: #### U AMIC ####[facility] [address] [place], [place] [address]Dr. Shweta Dillard MUCOUS NONE SEEN Normal NONE SEEN [facility] Comment on above: Performed By: #### U AMIC ####[facility] [address] [place], [place] [address]Dr. Shweta Dillard Nitrite Ql (U) Negative Normal NEGATIVE [facility] Comment on above: Performed By: #### U AMIC ####[facility] [address] [place] [address]Dr. Shweta Dillard pH (U) 5.0 [pH] Normal 5-9 [facility] Comment on above: Performed By: #### U AMIC ####[facility] [address] [place] [address]Dr. Shweta Dillard RBC NONE SEEN Abnormal 0-2 [facility] Comment on above: Performed By: #### U AMIC ####[facility] [address] [place] [address] Shweta Dillard SPEC GRAVITY 1.020 Normal 1.005-<=1.025 [facility] [place] [facility] Comment on above: Performed By: #### U AMIC ####[facility] [address] [place] [id number]. Shweta Dillard UA PROTEIN Negative Normal NEGATIVE/ TRACE [facility] Comment on above: Performed By: #### U AMIC ####[facility] [address] [place] [id number]. Shweta Dillard Urobilinogen Qn (U) 0.2 {Bruce'U}/dL Normal 0.2 - 1. 0 [facility] Comment on above: Performed By: #### U AMIC ####[facility] [id number] [place] [address]Dr. Shweta Dillard WBC NONE SEEN Normal NONE SEEN [facility] Comment on above: Performed By: #### U AMIC ####[facility] [id number] [place] [id number]. Shweta Dillard URIC ACID SERUMon 11-01-2022 Urate [Mass/Vol] 3.7 mg/dL Normal 3.5-7.2 [facility] Comment on above: Performed By: #### U ZAIRA, CMP, DLDL, LIPID #### [facility] [address] [place], [place] [address] Dr. Shweta Dillard TYLER DOP LEG RTon 11-01-19 23 US [...] JEMIMA DELATORRE Date: 2022-11-01 10:54 Normal [facility] Vital Signs Date Time Vital Sign Value Performing Clinician Sanchez pearson 10-31-2023 13:59-0500 Diastolic blood pressure 78 mm[Hg] Therese Ayala MD Work Phone: [facility] 10-31-2023 13:59-0500 Heart rate 62 /min Therese Ayala MD Work Phone: [facility] 10-31-2023 13:59-0500 Systolic blood pressure 124 mm[Hg] Therese Ayala MD Work Phone: [facility] 10-31-2023 13:58-0500 Body height 182.9 cm Therese Ayala MD Work Phone: [facility] 10-31-2023 13:58-0500 Body mass index (BMI) [Ratio] 34.56 kg/m2 Therese Ayala MD Work Phone: [facility] 10-31-2023 13:58-0500 Body weight 115.58 kg Therese Ayala MD Work Phone: [facility] 10-31-2023 13:58-0500 Respiratory rate 18 /min Therese Ayala MD Work Phone: [facility] Encounters Encounter Date Encounter Type Care Provider Facility Start: 10-31-2023 End: 10-31-2023 ambulatory [facility] Kristy [facility] Start: 10-31-2023 End: 10-31-2023 Office outpatient visit 25 minutes Therese Ayala MD Work Phone: [facility] Comment on above: Venous insufficiency of both lower extremities (Primary Dx); Varicose veins of left lower extremity with pain ; Chronic back pain, unspecified back location, unspecified back pain laterality; Severe obesity (BMI 35.0-39.9) with comorbidity (CMS-HCC) Start: 10-22-2023 ambulatory DREAD CASTILLO [facility] Start: 08-06-2023 ambulatory DREAD CASTILLO [facility] Start: 05-28-2023 ambulatory DREAD CASTILLO [facility] Start: 03-26-2023 ambulatory DREAD CASTILLO [facility] Start: 02-01-2023 End: 02-02-2023 ambulatory DREAD [facility] Start: 01-29-2023 ambulatory DREAD CASTILLO [facility] Start: 01-11-2023 End: 01-11-2023 ambulatory KELSEA KEMP [facility] Start: 12-27-2022 End: 12-28-2022 ambulatory DREAD CASTILLO [facility] Start: 12-27-2022 ambulatory DREAD CASTILLO [facility] Start: 12-05-2022 End: 12-06-2022 ambulatory MANDA DUARTE Facility:[facility] Start: 11-01-2022 End: 11-02-2022 ambulatory MANDA DUARTE Facility:[facility] Procedures Date Procedure Procedure Detail Performing Clinician Start: 11-01-2022 PSA screening MANDA DUARTE Comment on above: Performed By: #### P [facility] #### [facility] [address] [place] [address] Dr. Shweta Dillard Plan of Treatment Date Care Activity Detail Author Start: 10-31-2024 Adult BMI Screening Adult BMI Screening [facility] Start: 10-31-2024 Tobacco Screening Tobacco Screening [facility] Start: 01-30-2024 End: 01-30-2024 Patient encounter procedure 01/30/2024 10:50 AM EDT Office Visit [facility] [address] [place] [id number] Merary Sue MD [address], [address] [address] [facility] Start: 06-21-2023 COVID-19 Vaccine ( season) COVID-19 Vaccine ( season) [facility] Start: 06-21-2023 Influenza vaccination Influenza Vaccine [facility] Start: 2017 Administration of varicella zoster vaccine Zoster (Shingles) Vaccine (1 of 2) [facility] Start: 1986 DTaP,Tdap and Td Vaccines (1 - Tdap) DTaP,Tdap and Td Vaccines (1 - Tdap) [facility] Start: 1985 Adult BMI Follow Up Plan Adult BMI Follow Up Plan [facility] Start: 1985 Diabetic foot examination Diabetic Foot Exam [facility] Start: 1979 Depression Screening Depression Screening [facility] Start: 1967 Glaucoma screening Diabetic Ophthalmology Exam [facility] Start: 1967 Tobacco Counseling Tobacco Counseling [facility] Start: 1967 Urine screening for protein Urine Microalbumin [facility] Immunizations Immunization Date Immunization Notes Care Provider Fa cility 07-13-2021 influenza virus vaccine, unspecified formulation Therese Ayala MD Work Phone: [facility] 02-21-2021 COVID-19, mRNA, LNP- S, PF, 100mcg/0.5mL Dose Therese Ayala MD Work Phone: [facility] 01-24-2021 COVID-19, mRNA, LNP- S, PF, 100mcg/0.5mL Dose Therese Ayala MD Work Phone: [facility] Payers Date Payer Category Payer Medicare AETNA MEDICARE A ETNA MEDICARE PLAN (PPO) [id number] 2021-Present [phone] [address] [place] [address] [id number] 2018 Medicaid [facility]ICAID [facility] [id number] 2018-Present [phone] [address] [place] [address] [id number] 2018 Unknown [id number] 1965 Unknown [id number] 1965 Unknown [id number] 1967 Unknown [id number] 1957 Medicare [id number] Social History Date Type Detail Facility Start: 10-21-1985 [facility] Start: 10-21-1985 History of tobacco use Cigarette Smo ker [facility] Start: 12-01-2020 End: 10-31-2023 Cigarettes smoked current (pack per day) - Reported 1 [facility] Start: 10-31-2023 Tobacco use and exposure Smokeless tobacco non-user [facility] Start: 10-31-2023 Alcohol intake Current drinke r of alcohol (finding) [facility] Start: 12-01-2020 End: 10-31-2023 Tobacco use panel [facility] Childcare Unknown [facility] Start: 07-27-2020 Alcohol Comment weekends [facility] Start: 1965 Sex Assigned At Not on file P [facility] Clinical Notes 04-27-2021 to 10-31-2023 Therese Ayala [...] months for follow-up. documented in this encounter [facility] 10-22-2023 Note PROCEDURE PERFORMED: Intrathecal pump refill. PERFORMING PROVIDER: Dread Castillo Nurse Practitioner. ORGANIC SECTION TECHNICAL LEAD: Marcy David RN PREPROCEDURE DIAGNOSIS: Post laminectomy [...] IMPLANTATION Comment: Exchange of intrathecal pump, Dr. Birmingham No date: KNEE SURGERY; Left No date: [...] & REFILL REQUIRING PHYSICIAN SKILL [facility] 08-06-2023 Note PROCEDURE PERFORMED: Intrathecal pump refill. PERFORMING PROVIDER: Dread Castillo Nurse Practitioner. ORGANIC SECTION TECHNICAL LEAD: Marcy Avendano RN PREPROCEDURE DIAGNOSIS: Post laminectomy [...] IMPLANTATION / REPLACEMENT INFUSION PUMP Comment: [facility] 10/03/2022: INTRATHECAL PUMP IMPLANTATION Comment: Exchange of intrathecal pump, Dr. Birmingham No date: KNEE SURGERY; Left No date: [...] & REFILL REQUIRING PHYSICIAN SKILL [facility] 05-28-2023 Note PROCEDURE PERFORMED: Intrathecal pump refill. PERFORMING PROVIDER: Dread Castillo Nurse Practitioner. ORGANIC SECTION TECHNICAL LEAD: Marcy Avendano RN PREPROCEDURE DIAGNOSIS: Post laminectomy [...] IMPLANTATION Comment: Exchange of intrathecal pump, Dr. Birmingham No date: KNEE SURGERY; Left No date: [...] & REFILL REQUIRING PHYSICIAN SKILL [facility] 03-26-2023 Note PROCEDURE PERFORMED: Intrathecal pump refill. PERFORMING PROVIDER: Dread Castillo Nurse Practitioner. ORGANIC SECTION TECHNICAL LEAD: Marcy Avendano RN PREPROCEDURE DIAGNOSIS: Post laminectomy [...] IMPLANTATION / REPLACEMENT INFUSION PUMP Comment: [facility] 10/03/2022: INTRATHECAL PUMP IMPLANTATION Comment: Exchange of intrathecal pump, Dr. Birmingham No date: KNEE SURGERY; Left No date: [...] & REFILL REQUIRING PHYSICIAN SKILL [facility] 01-29-2023 Note PROCEDURE PERFORMED: Intrathecal pump refill. PERFORMING PROVIDER: Dread Castillo Nurse Practitioner. ORGANIC SECTION TECHNICAL LEAD: Marcy Godinez RN PREPROCEDURE DIAGNOSIS: Post laminectomy [...] IMPLANTATION Comment: Exchange of intrathecal pump, Dr. 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 Pt denies pain in small [...] Dr. Chery and Dr. Kemp [facility] 12-27-2022 Note HPI: Referral source: 12/27/22 [...] Dr. Roldan. Changed on 10/[address] Birmingham. He continues to have low back pain 7/10 that goes down to his bilateral hips [...] or MRI of his lumbar spine since 2017. 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 Birmingham KNEE SURGERY Left PROSTHODONTIC PROCEDURE Imaging: MRI LUMBAR SPINE W WO CONTRAST 08/12/2017 10:14 AM EDT SIGNS AND SYMPTOMS: M54.5 Low back pain I10 TECHNOLOGIST COMMENTS: Lower back pain with bilateral lower extremity pain and difficulty ambulating. QUESTION FOR THE RADIOLOGIST: , , please schedule on a clinic day of Divina'js Saturday day or am, to be schedule [...] narrowin (more content not included)... [facility] 03-29-2022 Note MR#: [id number] [facility] Pt. Name: [facility] Date: 03/28/2022 Room #: Date of : 1965 PROCEDURE NOTE ATTENDING: Marianna Nur NP PERFORMING PROVIDER: Marianna Nur Nurse Practitioner. ORGANIC SECTION TECHNICAL LEAD: Hyacinth Coleman RN. PREPROCEDURE DIAGNOSIS: Lumbar post-laminectomy [...] technique utilizing the needle provided in the [employer] pump refill kit. The old medication in [...] by: Marianna Nur NP 03/30/2022 06:05 P ____ Marianna Nur NP Date Dict: 03/28/2022/10:46 Mady/Marianna Nur NP Date Trans: 03/29/2022 01:46 Mady/ulysses [id number] [facility] 01-24-2022 Note MR#: [id number] [facility] Pt. Name: [facility] Date: 01/24/2022 Room #: 1H Date of : 1965 PROCEDURE NOTE ATTENDING: Marianna Nur NP PERFORMING PROVIDER: Marianna Nur Nurse Practitioner. ORGANIC SECTION TECHNICAL LEAD: Hyacinth Coleman RN. PREPROCEDURE DIAGNOSIS: Lumbar post-laminectomy [...] by: Marianna Nur NP 01/26/2022 03:24 P ____ Marianna Nur NP Date Dict: 01/24/2022/01:37 P/Marianna Nur NP Date Trans: 01/24/2022 04:48 P/mmo [id number] [facility] 11-16-2021 Note MR#: [id number] [facility] Pt. Name: [facility] Date: [...] by: Marianna Nur NP 11/20/2021 12:27 P ____ Marianna Nur NP Date Dict: 11/15/2021/11:02 Mady/Marianna Nur NP Date Trans: 11/16/2021 03:25 Mady/ulysses [id number] [facility] 09-14-2021 Note MR#: [id number] [facility] Pt. Name: [facility] Date: [...] by: Marianna Nur NP 09/19/2021 08:13 A ____ Marianna Nur NP Date Dict: 09/13/2021/10:37 A/Marianna Nur NP Date Trans: 09/13/2021 11:54 P/mmo [id number] [facility] 07-05-2021 Note MR#: [id number] [facility] Pt. Name: [facility] Date: 07/05/2021 Room #: 1H Date of : 1965 PROCEDURE NOTE ATTENDING: Marianna Nur NP ORGANIC SECTION TECHNICAL LEAD: Hyacinth Coleman RN PREPROCEDURE DIAGNOSIS: Lumbar post-laminectomy [...] by: Marianna Nur NP 07/07/2021 12:00 P ____ Marianna Nur NP Date Dict: 07/05/2021/11:09 A/Marianna Nur NP Date Trans: 07/05/2021 12:01 P/angeliao [id number] [facility] 04-27-2021 Note MR#: [id number] [facility] Pt. Name: [facility] Date: 04/26/2021 Room #: Date of : 1965 PROCEDURE NOTE ATTENDING: Marianna Nur NP ORGANIC SECTION TECHNICAL LEAD: Hyacinth Coleman RN PREPROCEDURE DIAGNOSIS: Lumbar post-laminectomy [...] by: Marianna Nur NP 04/28/2021 04:20 P ____ Marianna Nur NP Date Dict: 04/26/2021/11:09 A/Marianna Nur NP Date Trans: 04/27/2021 02:00 A/ulysses [id number] [facility] Evaluation note Diagnosis Venous insufficiency of both lower extremities- Primary Varicose veins of left lower extremity with pain Chronic back pain, unspecified back location, unspecified back pain laterality Severe obesity (BMI 35.0-39.9) with comorbidity (CMS-HCC) documented in this encounter [facility] SystemInstructionsNot on filedocumented in this encounter [facility] Summary Purpose Family History No Family [...] and content) DATE CREATED AUTHOR 04/03/2022 [facility] DATE CREATED AUTHOR AUTHOR'S ORGANIZ ATION 12/10/2022 [facility] DATE CREATED AUTHOR AUTHOR'S ORGANIZ ATION [facility]/03[facility]20[facility] DATE CREATED AUTHOR AUTHOR'S ORGANIZ ATION 12/21/2023 [facility] Reason for Visit (unrecogniz ed section and content) Reason Comments Follow-up Follow up with recen t testing. Patient notes he had right leg ablation this morning and [facility] Body office. Pain states pain more to right leg 5/10. Care Teams (unrecognized sec tion and content) Trapper Animal Relationship Specialty Start Date End Date Mirtha Duarte, WEIGHT LOSS PHYSICIAN-GLASS FRAME FITTER [address] [place] [address] PCP - General Nurse Practitioner 05/29/23 FOR [...] BE BASED ON THE PRIMARY CLINICAL RECORDS. Treater. provides no warranty or guarantee of the accuracy or completeness of information in this document.
== END 2023-12-24 08:31 | disposition home or self-care (01) ==
PROVIDERS: PCP Radiology Diagnostic Radiology; Visit Provider Radiology Diagnostic Radiology
DX: I83.813 Varicose veins of bilateral lower extremities with pain (principal)
CPT/HCPCS: 36466

== ENCOUNTER 2023-12-31 08:14 | Outpatient (OUT) | payer MEDICARE, SELFPAY ==
--- NOTE | 2023-12-31 08:15 | VEIN_ITS ---
Patient Name: SAPPHIRE PALMER MR#: [id number] : 1965 Exam Date: 12/31/2023 Ordering Doctor: DR JOHNIE PEREZ M.D. RADIOLOGY REPORT PROCEDURE: [facility] EST LMTD VEIN CENTER - OFFICE VISIT FOLLOW UP COMPARISON: [facility] EST LMTD, 12/17/2023. [facility] EST LMTD, 11/27/2023. PROGRESS NOTES: The patient reports no significant problems following micro foam chemical ablation of incompetent left leg varicose veins. The patient did not require oral analgesics. The patient has worn his compression stockings on and off. Physical exam demonstrates persistent subcutaneous edema below the knee, significantly improved from his initial presenting symptoms. Marked reduction in erythema from his initial exam. The patient was counseled on continued use of 20-30 mm knee or thigh-high compression stockings to control his swelling. Review of the ultrasound performed the same day demonstrates occlusive thrombus extending throughout the treated varicose veins. No residual varicose veins are noted on the right or the left leg. The patient's treatments are now complete. Patient was asked to return in 12-24 months for follow-up . VEIN/[facility] EST LMTD IMPRESSION: 1. Successful ablation of treated incompetent left leg varicose veins 2. Treatment plan is complete. PLAN: 1. Long-term use of bilateral knee or thigh-high 20-30 mm compression stockings 2. Follow-up in 12-24 months Nurse notes, history and physical were reviewed and confirmed, see attached forms. The nurse was present throughout the physical exam and consultation Dictated by: Johnie Perez MD on 12/31/2023 at 08:51 Approved by: Johnie Perez MD on 12/31/2023 at 08:55
--- NOTE | 2023-12-31 08:15 | VEIN_ITS ---
Patient Name: SAPPHIRE PALMER MR#: [id number] : 1965 Exam Date: 12/31/2023 Ordering Doctor: DR JOHNIE PEREZ M.D. RADIOLOGY REPORT PROCEDURE: VC EXT VENOUS LT LIMITED COMPARISON: VC EXT VENOUS LT LIMITED, 11/27/2023. VC EXT VENOUS LT LIMITED, 10/25/2023. INDICATIONS: I80.02 Phlebitis of superficial veins of lt lower extremity TECHNIQUE: Lower extremity ramirez scale and Duplex Doppler evaluation of the deep venous system from the inguinal ligament through the calf veins. FINDINGS: REGION: Left lower extremity. THROMBI: Negative for DVT. Varithena induced thrombus visualized at distal calf GSV and dist/ant calf. COMPRESSIBILITY: Non-compressible segments corresponding to thrombus FLOW: Areas of no flow corresponding to thrombus OTHER: No patent varicose veins remain. CONCLUSION: Post ablation occlusion of treated left leg incompetent varicose veins. No residual varicose veins observed Dictated by: Johnie Perez MD on 12/31/2023 at 08:30 Approved by: Johnie Perez MD on 12/31/2023 at 08:31
--- OUTSIDE RECORDS SUMMARY | 2023-12-31 08:17 | XMS_ITS | CCD ---
Author Name Unknown Address [address] [place] [address] Organization [facility] Care Team Providers Care Central Supply Clerk Name Role Phone MIHAI, CASE AIDE MIRTHA Admitting Unavailable AICHHOLZ, CASE AIDE MIRTHA Attending Unavailable AICHHOLZ, CASE AIDE MIRTHA Primary Care Unavailable AICHHOLZ, CASE AIDE MIRTHA Consulting Unavailable DR JEMIMA DELATORRE Consulting Unavailable AICHHOLZ, CASE AIDE MIRTHA Admitting Unavailable AICHHOLZ, CASE AIDE MIRTHA Attending Unavailable AICHHOLZ, CASE AIDE MIRTHA Primary Care Unavailable AICHHOLZ, CASE AIDE MIRTHA Consulting Unavailable DR JEMIMA DELATORRE Consulting Unavailable THERESE AYALA Attending Unavailable AICHHOLZ, MIRTHA J Referring Unavailable AICHHOLZ, MIRTHA J Primary Care Unavailable Aichholz MECHANICAL RESEARCH ENGINEER-CASE AIDE, Mirtha J Primary Care Provider KELSEA KEMP [...] Simvastatin; Translations: [SIMVASTATIN] Drug Allergy 7 [facility] Repository (1 source) Simvastatin Drug Allergy [...] Interpretation Reference Range Facility Refillon 12-19-2023 Refill [id number] Sapphire Palmer 1965 M Date Provider Department Center 12/19/2023 DREAD MURO MP PAIN [facility] [place] Family History Adopted: Yes Family history unknown: Yes Reason for Visit and Comments: Med Refill [200622] Normal [facility] Office Visiton 10-22-2023 Follow-up visit [id number] Sapphire Palmer 1965 M Date Provider Department Center 10/22/2023 170-CLIFFORD, DREAD MP PAIN [facility] [place] Family History Adopted: Yes Family history unknown: Yes Level of Service:03134 [place] OFFICE/OUTPT VISIT,PROCEDURE ONLY Reason for Visit and Comments: Follow-up [102853] [facility] Office Visiton 08-06-2023 Follow-up visit [id number] Sapphire Palmer 1965 M Date Provider Department Center 08/06/2023 DREAD MURO TRACEY PAIN [facility] [place] Family History Adopted: Yes Family history unknown: Yes Level of Service:16517 [place] OFFICE/OUTPT VISIT,PROCEDURE ONLY Reason for Visit and Comments: Baclofen Pump Refill [698] Normal [facility] Office Visiton 05-28-2023 Follow-up visit [id number] Sapphire Palmer Kristy 1965 M Date Provider Department Center 05/28/2023 CASE MUROONEAL WEBB PAIN [facility] [place] Family History Adopted: Yes Family history unknown: Yes Level of Service:84598 [place] OFFICE/OUTPT VISIT,PROCEDURE ONLY [facility] Office Visiton 03-26-2023 Follow-up visit [id number] Sapphire Palmer Kristy 1965 M Date Provider Department Center 03/26/2023 CASE MUROONEAL WEBB PAIN [facility] [place] Family History Adopted: Yes Family history unknown: Yes Level of Service:93359 [facility] OFFICE/OUTPT VISIT,PROCEDURE ONLY Reason for Visit and Comments: Follow-up [861481] - Pump refill - alarm date 04/10 [facility] MR LUMBAR SPINE WO CONTRASTo n [...] in this report. Electronically signed: Desmond Farmer. [facility] Office Visiton 01-29-2023 Follow-up visit [id number] Sapphire Palmer 1965 [facility] Provider Department Center 01/29/2023 DREAD MURO MP PAIN [facility] Family History Adopted: Yes Family history unknown: Yes Level of Service:72761 [facility] OFFICE/OUTPT VISIT,PROCEDURE ONLY Reason for Visit and Comments: Follow-up [212713] - Pump Refill alarm date 02/07/23 [facility] Office Visiton 01-11-2023 Follow-up visit [id number] Sapphire Palmer T 1965 M Date Provider Department Center 01/11/2023 1211-JUSTO, RAWISH RHC RHEUM José Miguel Heal Family History Adopted: Yes Family history unknown: Yes Level of Service:13289 [place] OFFICE/OUTPATIENT NEW LOW MDM 30-44 MINUTES (GC) Reason for Visit and Comments: New Patient [632] [facility] Office Visiton 12-27-2022 Follow-up visit [id number] Sapphire Palmer T 1965 M Date Provider Department Center 12/27/2022 DREAD MURO MP PAIN [facility] [place] Family History Adopted: Yes Family history unknown: Yes Level of Service:48515 [place] OFFICE/OUTPATIENT NEW LOW MDM 30-44 MINUTES Reason for Visit and Comments: New Patient [632] - Pump alarm date 02/07/23 [facility] RONI by IFAon 12-07-2022 Antinuclear Antibodies, IFA Negative Normal [facility] Comment on above: Result Comment: Nega tive <1:80 Borderline 1:80 Positive >1:80 ICAP nomenclature: AC-0 For more information about Hep-2 cell patterns use ANApatterns.org, the official website for the International Consensus on Antinuclear Antibody (RONI) Patterns (ICAP). Performed By: #### A NAIFA #### [facility] [address] [place] [address] Dr. Shweta Dillard ANTISTREPTOLYSIN O AB (ASO)o n 12-06-2022 Antistreptolysin O Ab 72.7 IU/mL Normal 0.0-200.0 [facility] Comment on above: Performed By: #### A SOAB #### [facility] [address] [address] [address] Shweta Dillard RHEUMATOID FACTORon 12-06-19 RA Latex Turbid. 42.4 IU/mL Critically high <14.0 [facility] Comment on above: Performed By: #### R F #### [facility] [address] [address] [address] Shweta Dillard CRPon 12-05-2022 CRP 0.5 mg/dL Normal <=1.0 [facility] Comment on above: Performed By: #### C RP ####[facility] [address] [address]Dr. Shweta Dillard SED RATE WESTERGRENon 2022 SED RATE 15 mm/hr Normal <=20 [facility] Comment on above: Performed By: #### S EDR #### [facility] [address] [place] [address] Dr. Shweta Dillard US TYLER DOP LEG [...] JEMIMA DELATORRE Date: 2022-12-05 10:24 Normal [facility] CBC AUTO DIFFon 11-01-2022 BASO # 0.1 103/ul Normal 0.0-0.1 [facility] Comment on above: Performed By: #### C BC #### [facility] [address] [place] [address] Dr. Shweta Dillard Basophils/100 WBC (Bld) 0.8 % Normal 0.2-2.0 [facility] Comment on above: Performed By: #### C BC #### [facility] [address] [place] [address] Dr. Shweta Dillard EO # 0.3 103/ul Normal 0.0-0.7 [facility] Comment on above: Performed By: #### C BC #### [facility] [address] [place] [address] Dr. Shweta Dillard Eosinophils/100 WBC (Bld) 3.5 % Normal 0.9-7.0 [facility] Comment on above: Performed By: #### C BC #### [facility] [address] [place] [address] Dr. Shweta Dillard Erythrocyte distribution width (RBC) [Ratio] 13.2 % Normal 11.0-15.0 [facility] Comment on above: Performed By: #### C BC #### [facility] [address] [place] [address] Dr. Shweta Dillard Hematocrit (Bld) [Volume fraction] 45.6 % Normal 42.0-54.0 [facility] Comment on above: Performed By: #### C BC #### [facility] [address] [place] [address] Dr. Shweta Dillard Hemoglobin (Bld) [Mass/Vol] 13.6 g/dL Critically low 14.0-18.0 [facility] Comment on above: Performed By: #### C BC #### [facility] [address] [place] [address] Dr. Shweta Dillard IG # 0.07 10e3/ul Critically high 0.00-0.03 [facility] Comment on above: Performed By: #### C BC #### [facility] [address] [place] [address] Dr. Shweta Dillard IG % 0.7 % Critically high 0.0-0.5 [facility] Comment on above: Performed By: #### C BC #### [facility] [address] [place] [address] Dr. Shweta Dillard LYMPH # 3.4 103/ul Normal 1.2-3.8 [facility] Comment on above: Performed By: #### C BC #### [facility] [address] [place] [address] Dr. Shweta Dillard Lymphocytes/100 WBC (Bld) 34.6 % Normal 20.5-60.0 [facility] Comment on above: Performed By: #### C BC #### [facility] [address] [place] [address] Dr. Shweta Dillard MANUAL DIFF REQ NO Normal [facility] Comment on above: Performed By: #### C BC #### [facility] [address] [place] [address] Dr. Shweta Dillard MCH (RBC) [Entitic mass] 29.4 pg Normal 25.9-34.0 [facility] Comment on above: Performed By: #### C BC #### [facility] [address] [place] [address] Dr. Shweta Dillard MCHC (RBC) [Mass/Vol] 29.8 g/dL Critically low 29.9-35.2 [facility] Comment on above: Performed By: #### C BC #### [facility] [address] [place] [address] Dr. Shweta Dillard MCV (RBC) [Entitic vol] 98.7 fL Critically high 80.0-94.0 [facility] Comment on above: Performed By: #### C BC #### [facility] [address] [place] [address] Dr. Shweta Dillard MONO # 0.7 103/ul Normal 0.3-0.8 [facility] Comment on above: Performed By: #### C BC #### [facility] [address] [place] [address] Dr. Shweta Dillard Monocytes/100 WBC (Bld) 7.4 % Normal 1.7-12.0 [facility] Comment on above: Performed By: #### C BC #### [facility] [address] [place] [address] Dr. Shweta Dillard NEUT # 5.2 103/ul Normal 1.4-6.5 [facility] Comment on above: Performed By: #### C BC #### [facility] [address] [place] [address] Dr. Shweta Dillard Neutrophils/100 WBC (Bld) 53.0 % Normal 43.0-75.0 [facility] Comment on above: Performed By: #### C BC #### [facility] [address] [place] [address] Dr. Shweta Dillard Platelet mean volume (Bld) [Entitic vol] 9.9 fL Normal 9.5-13.5 [facility] Comment on above: Performed By: #### C BC #### [facility] [address] [place], [place] [address] Dr. Shweta Dillard PLT 253 103/ul Normal 150-450 [facility] Comment on above: Performed By: #### C BC #### [facility] [address] [place], [place] [address] Dr. Shweta Dillard RBC 4.62 106/ul Critically low 4.70-6.10 [facility] Comment on above: Performed By: #### C BC #### [facility] [address] [place], [place] [address] Dr. Shweta Dillard WBC 9.8 103/ul Normal 4.0-11.0 [facility] Comment on above: Performed By: #### C BC #### [facility] [address] [place], [place] [address] Dr. Shweta Dillard DIRECT LDLon 11-01-2022 Cholesterol in LDL [Mass/Vol] 105 mg/dL Normal [facility] Comment on above: Performed By: #### U ZAIRA, CMP, DLDL, LIPID ####[facility] [address] [place], [place] [address]EvMarky Dillard DLDL NORMAL SEE BELOW Normal [facility] Comment on above: Result Comment: <100 mg/dl OPTIMAL 100 - 129 mg/dl NEAR OR ABOVE OPTIMAL 130 - 159 mg/dl BORDERLINE HIGH 160 - 189 mg/dl HIGH >190 mg/dl VERY HIGH Performed By: #### U ZAIRA, CMP, DLDL, LIPID ####[facility] [address] [place], [place] [address]LlDr. Shweta Dillard GLYCOHEMOGLOBIN A1Con 2022 ADA RECOMMENDATION SEE BELOW Normal [facility] Comment on above: Result Comment: ADA RECOMMENDED LIMIT 4.0 - 6.0 ADA THERAPEUTIC TARGET < 7.0 ACTION SUGGESTED > 7.0 Performed By: #### A 1C ####[facility] [address] [place], [place] [address]DuDr. Shweta Dillard Glucose [Mass/Vol] 114 mg/dL Normal [facility] Comment on above: Performed By: #### A 1C ####[facility] [address] [place], [place] [address]WeDr. Shweta Dillard HbA1c (Bld) [Mass fraction] 5.6 % Normal 4.5-6.2 [facility] Comment on above: Performed By: #### A 1C ####[facility] [address] [place], [place] [address]TwDr. Shweta Dillard LIPID PROFILEon 11-01-2022 CHOL-HDL RATIO NORM SEE BELOW Normal [facility] Comment on above: Result Comment: 3.3 - 4.4 LOW RISK 4.4 - 7.1 AVERAGE RISK 7.1 - 11.0 MODERATE RISK >11.0 HIGH RISK Performed By: #### U ZAIRA, CMP, DLDL, LIPID #### [facility] [address] [address] [address] Shweta Dillard Cholesterol [Mass/Vol] 172 mg/dL Normal <=200 [facility] Comment on above: Performed By: #### U ZAIRA, CMP, DLDL, LIPID #### [facility] [address] [address] [address] Shweta Dillard Cholesterol in HDL [Mass/Vol] 31 mg/dL Critically low 40-60 [facility] Comment on above: Performed By: #### U ZAIRA, CMP, DLDL, LIPID #### [facility] [address] [address] [address] Shweta Dillard Cholesterol in LDL [Mass/Vol] 49.6 mg/dL Normal [facility] Comment on above: Performed By: #### U ZAIRA, CMP, DLDL, LIPID #### [facility] [address] [place], [place] [address] Dr. Shweta Dillard Cholesterol.total/Cho lesterol in HDL [Mass ratio] 5.5 {ratio} Normal [facility] Comment on above: Performed By: #### U ZAIRA, CMP, DLDL, LIPID #### [facility] [address] [address] [address] Shweta Dillard HDL NORMAL > or = 60 mg/dl - LOW CARDIOVASCULAR RISK <40 mg/dl - HIGH CARDIOVASCULAR RISK Normal [facility] Comment on above: Performed By: #### U ZAIRA, CMP, DLDL, LIPID #### [facility] [address] [address] [address] Shweta Dillard LDL CALC NORMAL SEE BELOW Normal [facility] Comment on above: Result Comment: <100 mg/dl OPTIMAL 100 - 129 mg/dl NEAR OR ABOVE OPTIMAL 130 - 159 mg/dl BORDERLINE HIGH 160 - 189 mg/dl HIGH >190 mg/dl VERY HIGH Performed By: #### U ZAIRA, CMP, DLDL, LIPID #### [facility] [address] [address] [address] Shweta Dillard Triglyceride [Mass/Vol] 457 mg/dL Critically high <=150 [facility] Comment on above: Performed By: #### U ZAIRA, CMP, DLDL, LIPID #### [facility] [address] [address] [address] Shweta Dillard VLDL CALC 91.4 mg/dL Normal [facility] Comment on above: Performed By: #### U ZAIRA, CMP, DLDL, LIPID #### [facility] [address] [address] [address] Shweta Dillard MICROALBUMIN, RAND URon 10-21 mALB <1.3 Normal <=30.0 [facility] Comment on above: Performed By: #### M ALBR ####[facility] [address] [place], [place] [address]ChDr. Swheta Dillard PROF 14(COMP METB)on 023 Albumin [Mass/Vol] 4.0 g/dL Normal 3.4-5.0 [facility] Comment on above: Performed By: #### U ZAIRA, CMP, DLDL, LIPID #### [facility] [address] [address] [address] Shweta Dillard Albumin/Globulin [Mass ratio] 1.3 {ratio} Normal [facility] Comment on above: Performed By: #### U ZAIRA, CMP, DLDL, LIPID #### [facility] [address] [address] [address] Shweta Dillard ALP [Catalytic activity/Vol] 95 U/L Normal 46-116 [facility] Comment on above: Performed By: #### U ZAIRA, CMP, DLDL, LIPID #### [facility] [address] [place] [address] Dr. hSweta Dillard ALT [Catalytic activity/Vol] 25 U/L Normal 16-63 [facility] Comment on above: Performed By: #### U ZAIRA, CMP, DLDL, LIPID #### [facility] [address] [place] [address] Dr. Shweta Dillard Anion gap [Moles/Vol] 13.4 mmol/L Normal [facility] Comment on above: Performed By: #### U ZAIRA, CMP, DLDL, LIPID #### [facility] [address] [place] [address] Dr. Shweta Dillard AST [Catalytic activity/Vol] 18 U/L Normal 15-37 [facility] Comment on above: Performed By: #### U ZAIRA, CMP, DLDL, LIPID #### [facility] [address] [place] [address] Dr. Shweta Dillard Bilirubin [Mass/Vol] 0.2 mg/dL Normal 0.2-1.0 [facility] Comment on above: Performed By: #### U ZAIRA, CMP, DLDL, LIPID #### [facility] [address] [place] [address] Dr. Shweta Dillard Calcium [Mass/Vol] 9.0 mg/dL Normal 8.5-10.1 [facility] Comment on above: Performed By: #### U ZAIRA, CMP, DLDL, LIPID #### [facility] [address] [place] [address] Dr. Shweta Dillard Chloride [Moles/Vol] 100 mmol/L Normal 98-107 [facility] Comment on above: Performed By: #### U ZAIRA, CMP, DLDL, LIPID #### [facility] [address] [place] [address] Dr. Shweta Dillard CO2 [Moles/Vol] 30.0 mmol/L Normal 21.0-32.0 [facility] Comment on above: Performed By: #### U ZAIRA, CMP, DLDL, LIPID #### [facility] [address] [address] [address] Shweta Dillard Creatinine [Mass/Vol] 0.89 mg/dL Normal 0.70-1.30 [facility] Comment on above: Performed By: #### U ZAIRA, CMP, DLDL, LIPID #### [facility] [address] [address] [address] Shweta Dillard EGFR-AF DJIBOUTIAN >60 Normal >=60 [facility] Comment on above: Performed By: #### U ZAIRA, CMP, DLDL, LIPID #### [facility] [address] [address] [address] Shweta Dillard EGFR-NON AF DJIBOUTIAN >60 Normal >=60 [facility] Comment on above: Performed By: #### U ZAIRA, CMP, DLDL, LIPID #### [facility] [address] [address] [address] Shweta Dillard Globulin (S) [Mass/Vol] 3.1 g/dL Normal [facility] Comment on above: Performed By: #### U ZAIRA, CMP, DLDL, LIPID #### [facility] [address] [address] [address] Shweta Dillard Glucose [Mass/Vol] 125 mg/dL Critically high 74-106 [facility] Comment on above: Performed By: #### U ZAIRA, CMP, DLDL, LIPID #### [facility] [address] [address] [address] Shweta Dillard Potassium [Moles/Vol] 4.4 mmol/L Normal 3.5-5.1 [facility] Comment on above: Performed By: #### U ZAIRA, CMP, DLDL, LIPID #### [facility] [address] [address] [address] Shweta Dilladr Protein [Mass/Vol] 7.1 g/dL Normal 6.4-8.2 [facility] Comment on above: Performed By: #### U ZAIRA, CMP, DLDL, LIPID #### [facility] [address] [address] [address] Shweta Dillard Sodium [Moles/Vol] 139 mmol/L Normal 136-145 [facility] Comment on above: Performed By: #### U ZAIRA, CMP, DLDL, LIPID #### [facility] [address] [address] [address] Shweta Dillard Urea nitrogen [Mass/Vol] 25.0 mg/dL Critically high 7.0-18.0 [facility] Comment on above: Performed By: #### U ZAIRA, CMP, DLDL, LIPID #### [facility] [address] [address] [address] Shweta Dillard Urea nitrogen/Creatinine [Mass ratio] 28.1 mg/mg Normal [facility] Comment on above: Performed By: #### U ZAIRA, CMP, DLDL, LIPID #### [facility] [address] [address] [address] Shweta Dillard UA RANDOM W/MICROSCOPICon BACTERIA NONE SEEN Normal NONE SEEN [facility] Comment on above: Performed By: #### U AMIC ####[facility] [address] [address]Dr. Shweta Dillard Bilirubin Ql (U) Negative Normal NEGATIVE [facility] Comment on above: Performed By: #### U AMIC ####[facility] [address] [address]Dr. Shweta Dillard CAST NONE SEEN Normal NONE SEEN [facility] Comment on above: Performed By: #### U AMIC ####[facility] [address] [address]Dr. Shweta Dillard Clarity (U) CLEAR Normal CLEAR [facility] Comment on above: Performed By: #### U AMIC ####[facility] [address] [place] [address]Dr. Shweta Dillard Color (U) LT. YELLOW Normal YELLOW [facility] Comment on above: Performed By: #### U AMIC ####[facility] [address] [place] [address]Dr. Shweta Dillard Crystals LM Nom (Urine sed) NONE SEEN Normal NONE SEEN [facility] Comment on above: Performed By: #### U AMIC ####[facility] [address] [place] [address]Dr. Shweta Dillard Epithelial cells LM Ql (Urine sed) RARE Normal NONE SEEN /RARE [facility] Comment on above: Performed By: #### U AMIC ####[facility] [address] [place] [address]Dr. Shweta Dillard Glucose Ql (U) Negative Normal NEGATIVE [facility] Comment on above: Performed By: #### U AMIC ####[facility] [address] [place] [address]Dr. Shweta Dillard Hemoglobin Ql (U) Negative Normal NEGATIVE [facility] Comment on above: Performed By: #### U AMIC ####[facility] [address] [place], [place] [address]Dr. Shweta Dillard Ketones Ql (U) Negative Normal NEGATIVE [facility] Comment on above: Performed By: #### U AMIC ####[facility] [address] [place], [place] [address]Dr. Shweta Dillard LEUKOCYTES Negative Normal NEGATIVE [facility] Comment on above: Performed By: #### U AMIC ####[facility] [address] [place], [place] [address]Dr. Shweta Dillard MUCOUS NONE SEEN Normal NONE SEEN [facility] Comment on above: Performed By: #### U AMIC ####[facility] [address] [place], [place] [address]Dr. Shweta Dillard Nitrite Ql (U) Negative Normal NEGATIVE [facility] Comment on above: Performed By: #### U AMIC ####[facility] [address] [place] [address]Dr. Shweta Dillard pH (U) 5.0 [pH] Normal 5-9 [facility] Comment on above: Performed By: #### U AMIC ####[facility] [address] [address]Dr. Shweta Dillard RBC NONE SEEN Abnormal 0-2 [facility] Comment on above: Performed By: #### U AMIC ####[facility] [address] [place] [address]Lq. Shweta Dillard SPEC GRAVITY 1.020 Normal 1.005-<=1.025 [facility] Comment on above: Performed By: #### U AMIC ####[facility] [address] [place] [id number]. Shweta Dillard UA PROTEIN Negative Normal NEGATIVE/ TRACE [facility] Comment on above: Performed By: #### U AMIC ####[facility] [address] [id number]. Shweta Dillard Urobilinogen Qn (U) 0.2 {Bruce'U}/dL Normal 0.2 - 1. 0 [facility] Comment on above: Performed By: #### U AMIC ####[facility] [address] [place] [address]Dr. Shweta Dillard WBC NONE SEEN Normal NONE SEEN [facility] Comment on above: Performed By: #### U AMIC ####[facility] [address] [place] [id number]. Shweta Dillard URIC ACID SERUMon 11-01-2022 Urate [Mass/Vol] 3.7 mg/dL Normal 3.5-7.2 [facility] Comment on above: Performed By: #### U ZAIRA, CMP, DLDL, LIPID #### [facility] [address] [place], [place] [address] Dr. Shweta Dillard TYLER DOP LEG RTon [...] JEMIMA DELATORRE Date: 2022-11-01 10:54 Normal [facility] Vital Signs Date Time Vital Sign Value Performing Clinician Sanchez pearson 10-31-2023 13:59-0500 Diastolic blood pressure 78 mm[Hg] Therese Ayala MD Work Phone: [facility] 10-31-2023 13:59-0500 Heart rate 62 /min Therese Ayala MD Work Phone: [facility] 10-31-2023 13:59-0500 Systolic blood pressure 124 mm[Hg] Therese Ayala MD Work Phone: [facility] 10-31-2023 13:58-0500 Body height 182.9 cm Therese Ayala MD Work Phone: [facility] 10-31-2023 13:58-0500 Body mass index (BMI) [Ratio] 34.56 kg/m2 Therese Ayala MD Work Phone: [facility] 10-31-2023 13:58-0500 Body weight 115.58 kg Therese Ayala MD Work Phone: [facility] 10-31-2023 13:58-0500 Respiratory rate 18 /min Therese Ayala MD Work Phone: [facility] Encounters Encounter Date Encounter Type Care Provider Facility Start: 10-31-2023 End: 10-31-2023 ambulatory [facility] Start: 10-31-2023 End: 10-31-2023 Office outpatient visit 25 minutes Therese Ayala MD Work Phone: [facility] Comment on above: Venous insufficiency of both lower extremities (Primary Dx); Varicose veins of left lower extremity with pain ; Chronic back pain, unspecified back location, unspecified back pain laterality; Severe obesity (BMI 35.0-39.9) with comorbidity (CMS-HCC) Start: 10-22-2023 ambulatory DREAD CASTILL[facility] Start: 08-06-2023 ambulatory DREAD CASTILLO [facility] Start: 05-28-2023 ambulatory DREAD CASTILLO [facility] Start: 03-26-2023 ambulatory DREAD CASTILLO [facility] Start: 02-01-2023 End: 02-02-2023 ambulatory DREAD [facility] Start: 01-29-2023 ambulatory DREAD CASTILLO [facility] Start: 01-11-2023 End: 01-11-2023 ambulatory KELSEA KEMP [facility] Start: 12-27-2022 End: 12-28-2022 ambulatory DREAD CASTILLO [facility] Start: 12-27-2022 ambulatory DREAD CASTILLO [facility] Start: 12-05-2022 End: 12-06-2022 ambulatory MANDA UDARTE Facility:H1 Start: 11-01-2022 End: 11-02-2022 ambulatory MANDA DUARTE Facility:[facility]1 Procedures Date Procedure Procedure Detail Performing Clinician Start: 11-01-2022 PSA screening MANDA DUARTE Comment on above: Performed By: #### P [facility] #### [facility] [address] [place] [address] Dr. Shweta Dillard Plan of Treatment Date Care Activity Detail Author Start: 10-31-2024 Adult BMI Screening Adult BMI Screening [facility] Start: 10-31-2024 Tobacco Screening Tobacco Screening [facility] Start: 01-30-2024 End: 01-30-2024 Patient encounter procedure 01/30/2024 10:50 AM EDT Office Visit [facility] [address] [place] [phone] Merary Sue MD [address], [address] [address] [facility] Start: 06-21-2023 COVID-19 Vaccine ( season) COVID-19 Vaccine ( season) [facility] Start: 06-21-2023 Influenza vaccination Influenza Vaccine [facility] Start: 2017 Administration of varicella zoster vaccine Zoster (Shingles) Vaccine (1 of 2) [facility] Start: 1986 DTaP,Tdap and Td Vaccines (1 - Tdap) DTaP,Tdap and Td Vaccines (1 - Tdap) [facility] Start: 1985 Adult BMI Follow Up Plan Adult BMI Follow Up Plan [facility] Start: 1985 Diabetic foot examination Diabetic Foot Exam [facility] Start: 1979 Depression Screening Depression Screening [facility] Start: 1967 Glaucoma screening Diabetic Ophthalmology Exam [facility] Start: 1967 Tobacco Counseling Tobacco Counseling [facility] Start: 1967 Urine screening for protein Urine Microalbumin [facility] Immunizations Immunization Date Immunization Notes Care Provider Fa cility 07-13-2021 influenza virus vaccine, unspecified formulation Therese Ayala MD Work Phone: [facility] 02-21-2021 COVID-19, mRNA, LNP- S, PF, 100mcg/0.5mL Dose Therese Ayala MD Work Phone: [facility] 01-24-2021 COVID-19, mRNA, LNP- S, PF, 100mcg/0.5mL Dose Therese Ayala MD Work Phone: [facility] Payers Date Payer Category Payer Medicare A[employer] MEDICARE A ETNA MEDICARE PLAN (PPO) [id number] 2021-Present [phone] [address] [place] [address] [id number] 2018 Medicaid MEDICAID [facility] ONLY [id number] 2018-Present [phone] [address] [place] [address] [id number] 2018 Unknown [id number] 1965 Unknown [id number] 1967 Unknown [id number] 1967 Unknown [id number] 1957 Medicare [id number] Social History Date Type Detail Facility Start: 10-21-1985 [facility] Start: 10-21-1985 History of tobacco use Cigarette Smo ker [facility] Start: 12-01-2020 End: 10-31-2023 Cigarettes smoked current (pack per day) - Reported 1 [facility] Start: 10-31-2023 Tobacco use and exposure Smokeless tobacco non-user [facility] Start: 10-31-2023 Alcohol intake Current drinke r of alcohol (finding) [facility] Start: 12-01-2020 End: 10-31-2023 Tobacco use panel [facility] Childcare Unknown [facility] Start: 07-27-2020 Alcohol Comment weekends [facility] Start: 1965 Sex Assigned At Not on file [facility] Clinical Notes 04-27-2021 to 10-31-2023 Therese [...] months for follow-up. documented in this encounter [facility] 10-22-2023 Note PROCEDURE PERFORMED: Intrathecal pump refill. PERFORMING PROVIDER: Dread Castillo Nurse Practitioner. AIRCRAFT MAINTENANCE INSTRUCTOR: Marcy David RN PREPROCEDURE DIAGNOSIS: Post laminectomy [...] & REFILL REQUIRING PHYSICIAN SKILL [facility] 08-06-2023 Note PROCEDURE PERFORMED: Intrathecal pump refill. PERFORMING PROVIDER: Dread Castillo Nurse Practitioner. AIRCRAFT MAINTENANCE INSTRUCTOR: Marcy Avendano RN PREPROCEDURE DIAGNOSIS: Post laminectomy [...] & REFILL REQUIRING PHYSICIAN SKILL [facility] 05-28-2023 Note PROCEDURE PERFORMED: Intrathecal pump refill. PERFORMING PROVIDER: Dread Castlilo Nurse Practitioner. AIRCRAFT MAINTENANCE INSTRUCTOR: Marcy Avendano RN PREPROCEDURE DIAGNOSIS: Post laminectomy [...] & REFILL REQUIRING PHYSICIAN SKILL [facility] 03-26-2023 Note PROCEDURE PERFORMED: Intrathecal pump refill. PERFORMING PROVIDER: Dread Castillo Nurse Practitioner. AIRCRAFT MAINTENANCE INSTRUCTOR: Marcy Avendano RN PREPROCEDURE DIAGNOSIS: Post laminectomy [...] & REFILL REQUIRING PHYSICIAN SKILL [facility] 01-29-2023 Note PROCEDURE PERFORMED: Intrathecal pump refill. PERFORMING PROVIDER: Dread Castillo Nurse Practitioner. AIRCRAFT MAINTENANCE INSTRUCTOR: Marcy Godinez RN PREPROCEDURE DIAGNOSIS: Post laminectomy [...] & REFILL REQUIRING PHYSICIAN SKILL [facility] 01-11-2023 Note Attestation signed by Tal Chery [...] leg swelling was reduced and they felt records associate than usual. Pt denies pain in small [...] Dr. Chery and Dr. Kemp [facility] 12-27-2022 Note HPI: Referral source: 12/27/22 CC: [...] narrowin (more content not included)... [facility] 03-29-2022 Note MR#: [id number] [facility] Pt. Name: [facility] Date: 03/28/2022 Room #: Date of : 1965 PROCEDURE NOTE ATTENDING: Marianna Nur NP PERFORMING PROVIDER: Marianna Nur Nurse Practitioner. AIRCRAFT MAINTENANCE INSTRUCTOR: Hyacinth Coleman RN. PREPROCEDURE DIAGNOSIS: Lumbar post-laminectomy [...] technique utilizing the needle provided in the [employer] pump refill kit. The old medication in [...] Nur NP Date Trans: 03/29/2022 01:46 Mady/ulysses [id number] [facility] 01-24-2022 Note MR#: [id number] [facility] Pt. Name: [facility] Date: 01/24/2022 Room #: 1H Date of : 1965 PROCEDURE NOTE ATTENDING: Marianna Nur NP PERFORMING PROVIDER: Marianna Nur Nurse Practitioner. AIRCRAFT MAINTENANCE INSTRUCTOR: Hyacinth Coleman RN. PREPROCEDURE DIAGNOSIS: Lumbar post-laminectomy [...] Nur NP Date Trans: 01/24/2022 04:48 P/mmo [id number] [facility] 11-16-2021 Note MR#: [id number] [facility] Pt. Name: [facility] Date: 11/15/2021 [...] Nur NP Date Trans: 11/16/2021 03:25 Mady/ulysses [id number] [facility] 09-14-2021 Note MR#: [id number] [facility] Pt. Name: [facility] Date: 09/13/2021 [...] Nur NP Date Trans: 09/13/2021 11:54 P/mmo [id number] [facility] 07-05-2021 Note MR#: [id number] [facility] Pt. Name: [facility] Date: 07/05/2021 Room #: 1H Date of : 1965 PROCEDURE NOTE ATTENDING: Marianna Nur NP AIRCRAFT MAINTENANCE INSTRUCTOR: Hyacinth Coleman RN PREPROCEDURE DIAGNOSIS: Lumbar post-laminectomy [...] Nur NP Date Trans: 07/05/2021 12:01 P/angeliao [id number] [facility] 04-27-2021 Note MR#: [id number] [facility] Pt. Name: [facility] Date: 04/26/2021 Room #: Date of : 1965 PROCEDURE NOTE ATTENDING: Marianna Nur NP AIRCRAFT MAINTENANCE INSTRUCTOR: Hyacinth Coleman RN PREPROCEDURE DIAGNOSIS: Lumbar post-laminectomy [...] Nur NP Date Trans: 04/27/2021 02:00 A/ulysses [id number] [facility] Evaluation note Diagnosis Venous insufficiency of both lower extremities- Primary Varicose veins of left lower extremity with pain Chronic back pain, unspecified back location, unspecified back pain laterality Severe obesity (BMI 35.0-39.9) with comorbidity (CMS-HCC) documented in this encounter [facility] myEDmatch SystemInstructionsNot on filedocumented in this encounter [facility] [facility] Summary Purpose Family History No Family [...] and content) DATE CREATED AUTHOR 04/03/2022 [facility] DATE CREATED AUTHOR AUTHOR'S ORGANIZ ATION 12/10/2022 [facility] DATE CREATED AUTHOR AUTHOR'S ORGANIZ ATION [facility]03/2023 [facility] DATE CREATED AUTHOR AUTHOR'S ORGANIZ ATION 12/21/2023 [facility] Reason for Visit (unrecogniz ed section and content) Reason Comments Follow-up Follow up with recen t testing. Patient notes he had right leg ablation this morning and [facility]. Pain states pain more to right leg 5/10. Care Teams (unrecognized sec tion and content) Central Supply Clerk Relationship Specialty Start Date End Date Mirtha Duarte, MECHANICAL RESEARCH ENGINEER-CASE AIDE [address] [place] [address] PCP - General Nurse Practitioner 05/29/23 FOR [...] BE BASED ON THE PRIMARY CLINICAL RECORDS. [employer] provides no warranty or guarantee of the accuracy or completeness of information in this document.
== END 2023-12-31 08:15 | disposition home or self-care (01) ==
LOC: VC 08:14
PROVIDERS: PCP Radiology Diagnostic Radiology; Visit Provider Radiology Diagnostic Radiology
DX: I80.02 Phlebitis and thrombophlebitis of superficial vessels of left lower extremity (principal)
CPT/HCPCS: 93971; G0463

== ENCOUNTER 2025-01-22 09:51 | Outpatient (OUT) | payer MEDICARE, SELFPAY ==
--- NOTE | 2025-01-22 10:05 | US_ITS ---
The [address] [address] Patient Name: SAPPHIRE PALMER MRN: [id number] date: 1965 Sex: M Assigned Patient Location: CT Current Patient Location: CT Accession/Order Number: [id number] Exam Date: 01/22/2025 12:25 Report Date: 01/22/2025 12:29 At the request of: ELISHA HOLM NP Procedure: US scrotum SCROTAL ULTRASOUND WITH DUPLEX IMAGING CLINICAL DATA: Right testicular lump The right testis measures 4.3 x 3.4 x 2.6 cm. The left testis measures 4.3 x 2.8 x 2.6 cm. There is normal echogenicity. No intratesticular masses are identified. The documentation of bilateral duplex and color Doppler testicular blood flow. At the right epididymal head, there is a cluster of cysts which correlate with the palpable finding. These measure 1.9 x 2.1 x 2.3 cm in total. There are small bilateral hydroceles. There is also left varicocele. US/US scrotum IMPRESSION: NO INTRATESTICULAR MASS OR TORSION. RIGHT EPIDIDYMAL CYSTS AT THE SITE OF PALPABLE CONCERN. SMALL BILATERAL HYDROCELES. LEFT VARICOCELE. Impression dictated by: Aislinn Almanza M.D.01/22/2025 12:29 PM Dictation Location: [place] [address] Electronically authenticated by: [id number] Y Date: 01/22/2025 12:29
--- NOTE | 2025-01-22 10:05 | CT_ITS ---
The [address] [address] Patient Name: SAPPHIRE PALMER MRN: [id number] date: 1965 Sex: M Assigned Patient Location: CT Current Patient Location: CT Accession/Order Number: [id number] Exam Date: 01/22/2025 11:15 Report Date: 01/22/2025 11:23 At the request of: ELISHA HOLM NP Procedure: CT lung screening low-dose LOW-DOSE SCREENING CHEST CT WITHOUT CONTRAST COMPARISON: None CLINICAL DATA: Current smoker with 40 year history of tobacco use. Intermittent cough. Spiral axial unenhanced low-dose images were obtained through the chest. Images were reviewed using both narrow and wide window settings. This CT exam was performed using one or more following dose reduction techniques: Automated exposure control, adjustment of the mA and/or kV according to patient size, or use of iterative reconstruction technique. The heart is within normal limits for size. No pericardial effusion is seen. Mild coronary artery disease is visualized. The ascending aorta shows mild aneurysmal dilatation with diameter 4.4 cm. There are small calcified and noncalcified mediastinal lymph nodes. Calcified right hilar granulomas are also seen. There is subtle dextroscoliotic curvature and endplate spurring at the spine. There is minor obstructive lung disease with airspace lucencies. There is mild basilar scarring or atelectasis, predominantly on the left. There is no focal consolidation, pleural effusion or pneumothorax. Calcified right upper granulomas are present. No other pulmonary nodularity is seen. Limited cuts through the upper abdomen show calcified splenic granulomas. CT/CT lung screening low-dose IMPRESSION: ASCENDING AORTIC ANEURYSM. GRANULOMATOUS CHANGES. ATELECTASIS AND/OR SCARRING, GREATER ON THE LEFT. NO SUSPICIOUS PULMONARY NODULARITY. Lung RADS category 1 - negative Twelve-month low-dose CT follow-up suggested Impression dictated by: Aislinn Almanza M.D.01/22/2025 11:23 AM Dictation Location: [place] [address] Electronically authenticated by: [id number] Y Date: 01/22/2025 11:23
== END 2025-01-22 09:52 | disposition home or self-care (01) ==
LOC: CT 10:00
PROVIDERS: PCP Nurse Practitioner; Visit Provider Nurse Practitioner
DX: N50.89 Other specified disorders of the male genital organs (principal); F17.210 Nicotine dependence, cigarettes, uncomplicated; Z12.2 Encounter for screening for malignant neoplasm of respiratory organs; I71.21 Aneurysm of the ascending aorta, without rupture
CPT/HCPCS: 71271; 76870

== ENCOUNTER 2025-03-03 12:41 | Outpatient (OUT) | payer MEDICARE, SELFPAY ==
--- NOTE | 2025-03-03 12:48 | CT_ITS ---
[address] [address] Patient Name: SAPPHIRE PALMER MRN: [id number] date: 1965 Sex: M Assigned Patient Location: CT Current Patient Location: CT Accession/Order Number: [id number] Exam Date: 03/03/2025 15:23 Report Date: 03/03/2025 15:26 At the request of: ELISHA HOLM NP Procedure: CT sinus wo con CT sinus wo con 03/03/2025 1:03 PM SIGN AND SYMPTOMS: Chronic Pansinusitis TECHNIQUE: Multidetector CT axial slices of the sinuses were obtained without IV contrast. Coronal reformats were generated and reviewed to further define anatomy and possible pathology. CT was performed with one or more of the following dose reduction techniques: Automated exposure control, adjustment of the mA and/or kV according to patient size, or use of iterative reconstruction technique. COMPARISON: None. Turbinates: There is a paradoxical turn of the right middle nasal turbinate. Septum: There is slight leftward deviation of nasal septum measuring approximately 4 mm. Sinuses and drainage pathways: Right: Frontal sinus and frontal recess: Minimal mucosal thickening is noted. Maxillary sinus: There is mucosal thickening with dependent frontal secretions. This may represent sequelae of acute sinusitis. Ethmoid sinuses: Mild mucosal thickening is present. Ostiomeatal complex: Occluded secondary to mucosal thickening. Spehnoid sinus: Well aerated. Sphenoethmoidal recess: Well aerated. Left: Frontal sinus and frontal recess: Mucosal thickening is noted extending into the left frontal recess. Maxillary sinus: Well aerated. Ethmoid sinuses: Mild mucosal thickening is present. Ostiomeatal complex: Patent. Sphenoid sinus: Well aerated. Sphenoethmoidal recess: Well aerated. Anatomic variations: There is a well aerated Bhavya cell on the left. Orbits: Within normal limits. Anterior cranial fossa: No acute findings. CT/CT sinus wo con IMPRESSION: Mucosal thickening is noted in the right maxillary sinus with findings suggesting acute sinusitis. Mucosal thickening occludes the infundibulum of the right ostiomeatal complex. Lesser degrees of mucosal thickening are noted in the ethmoid air cells and frontal sinuses. There is 4 mm of leftward deviation of nasal septum. Impression dictated by: Akin Carvajal M.D. 03/03/2025 3:26 PM Dictation Location: [place] [address] Electronically authenticated by: [id number] Y Date: 03/03/2025 15:26
--- OUTSIDE RECORDS SUMMARY | 2025-03-03 12:59 | XMS_ITS | CCD ---
Author Organization [facility] Care Team Providers Care Personnel Scheduler Name Role Phone AICHHOLZ, FULL TIME BABYSITTER MIRTHA Admitting Unavailable AICHHOLZ, FULL TIME BABYSITTER MIRTHA Attending Unavailable AICHHOLZ, FULL TIME BABYSITTER MIRTHA Primary Care Unavailable AICHHOLZ, FULL TIME BABYSITTER MIRTHA Consulting Unavailable DR JEMIMA DELATORRE Consulting Unavailable AICHHOLZ, FULL TIME BABYSITTER MIRTHA Admitting Unavailable AICHHOLZ, FULL TIME BABYSITTER MIRTHA Attending Unavailable AICHHOLZ, FULL TIME BABYSITTER MIRTHA Primary Care Unavailable AICHHOLZ, FULL TIME BABYSITTER MIRTHA Consulting Unavailable DR JEMIMA DELATORRE Consulting Unavailable THERESE AYALA Attending Unavailable AICHHOLZ, MIRTHA J Referring Unavailable AICHHOLZ, MIRTHA J Primary Care Unavailable Zackary Weston MD Primary Care Provider Aichholz AYDE, Mirtha Laury Primary Care Provider Shen ROSS Attending Unavailable Shen ROSS Attending Unavailable AICHHOLZ, MIRTHA J Referring Unavailable AICHHOLZ, MIRTHA Attending Unavailable AICHHOLZ, MIRTHA Attending Unavailable AICHHOLZ, MIRTHA Attending Unavailable AICHHOLZ, MIRTHA Attending Unavailable CLIFFORD, MAGGIE Attending Unavailable CLIFFORD, MAGGIE Referring Unavailable MAGDA, JESSICA Attending Unavailable CLIFFORD, MAGGIE Attending Unavailable CLIFFORD, MAGGIE Referring Unavailable AICHHOLZ, MIRTHA Referring Unavailable ESAU LAL Attending Unavailable JESSICA MAN Attending Unavailable LAL, RIAZLILYN Referring Unavailable CLIFFORD, MAGGIE Attending Unavailable CLIFFORD, MAGGIE Referring Unavailable CLIFFORD, MAGGIE Attending Unavailable CLIFFORD, MAGGIE Referring Unavailable NAZZAL, MUNIER Referring Unavailable CLIFFORD, MAGGIE Attending Unavailable CLIFFORD, MAGGIE Referring Unavailable CLIFFORD, MAGGIE Attending Unavailable CLIFFORD, MAGGIE Referring Unavailable Allergies Allergy Classification Reported Allergen(s) Allergy Type Date of Onset Reaction(s) Facility (4 sources) Simvastatin; Translations: [SIMVASTATIN] Drug Allergy 7 [facility] Repository (12 sources) Simvastatin Propensity to adverse reactions [address] [facility] (1 source) Simvastatin Drug Allergy 9 Other (See Comments) [facility] Medications Current Medications Medication Drug Class(es) Dates Sig (Normalized) Sig (Original) acetaminophen 500 mg oral tablet (13 sources) take 1 tablet by mouth twice daily as needed for pain acetaminophen (Tylenol) 500 MG tablet Take 500 mg by mouth 2 (two) times a day as needed for mild pain. Active take 2 tablets by mo uth every six hours as needed for pain acetaminophen (TYLENOL) 325 mg tablet Ta ke 2 tablets (650 mg total) by mouth every 6 (six) hours as needed for pain. 0 Active [id number] 200 actuat albuterol 0.09 mg/actuat metered dose inhaler (12 sources) beta2-Adrenergic Agonist take 2 puff(s) by inhalation every four hours for wheezing albuterol HFA 90 mcg/act inhaler Inhale 2 puffs every 4 (four) hours if needed for wheezing. Active 24 hr alfuzosin hydrochloride 10 mg extended release oral tablet (3 sources) alpha-Adrenergic Laura Start: take 1 tablet by mouth once daily, then take 1 tablet by mouth every twenty-four hours alfuzosin ER (Uroxatral) 10 MG 24 hr tablet Take 10 mg by mouth Daily 02/05/2025 Active amoxicillin 875 mg / clavulanate 125 mg oral tablet (4 sources) Penicillin-class Antibacterial Start: End: take 1 tablet by mouth in the morning amoxicillin-clavul anate (Augmentin) 875-125 MG tablet Indications: Subacute pansinusitis Take 1 tablet (875 mg) by mouth in the morning and 1 tablet (875 mg) before bedtime. Do all this for 10 days. Take with food. 20 tablet 10/06/2024 10/16/2024 Active Start: 07-07-2024 End: 07-17-2024 take 1 tablet by mouth in the morning amoxicillin-clavulanate (Augmentin) 875-125 MG tablet Indications: Subacute sinusitis, unspecified location Take 1 tablet (875 mg) by mouth in the morning and 1 tablet (875 mg) before bedtime. Do all this for 10 days. Take with food. 20 tablet 07/07/2024 07/17/2024 Active Blood Glucose Monitoring Suppl (Blood Glucose Monitor System) w/Device kit (12 sources) Blood Glucose Monitoring Suppl (Blood Glucose Monitor System) w/Device kit Active cetirizine hydrochloride 10 mg oral capsule (1 source) Histamine-1 Receptor Antagonist take 1 capsule by mouth once daily cetirizine (ZyrTEC) 10 mg capsule Take 1 capsule by mouth daily. 0 Active dutasteride 0.5 mg oral capsule (3 sources) 5-alpha Reductase Inhibitor Start: take 1 capsule by mouth once daily dutasteride (Avodart) 0.5 MG capsule Take 0.5 mg by mouth Daily 02/05/2025 Active febuxostat 40 mg oral tablet (12 sources) Xanthine Oxidase Inhibitor Start: End: take 1 tablet by mouth once daily febuxostat (Uloric) 40 MG tablet Indications: Idiopathic chronic gout of multiple sites without tophus Take 1 tablet (40 mg) by mouth Daily 90 tablet 1 01/06/2025 04/06/2025 Active Start: 06-08-2024 take 1 tablet by alexandru th once daily febuxostat (Uloric) 40 MG tablet Take 40 mg by mouth Daily 06/08/2024 Active take 1 tablet by alexandru th in the morning febuxostat (ULORIC) 40 mg tablet Take 1 tablet (40 mg total) by mouth in the morning. 0 Active fenofibrate 48 mg oral tablet (1 source) Peroxisome Proliferator Receptor alpha Agonist Start: 01-13-2015 take 1 tablet by mouth in the morning fenofibrate (TRICOR) 48 mg tablet Take 1 tablet (48 mg total) by mouth in the morning. 0 01/13/2015 Active fexofenadine hydrochloride 180 mg oral tablet (4 sources) Histamine-1 Receptor Antagonist Start: 10-06-2024 End: 01-04-2025 take 1 tablet by mouth once daily as needed fexofenadine (Pallavi) 180 MG tablet Indications: Chronic rhinitis Take 1 tablet (180 mg) by mouth Daily as needed (allergies) 90 tablet 1 10/06/2024 01/04/2025 Active finasteride 5 mg oral tablet (1 source) 5-alpha Reductase Inhibitor Start: 03-20-2021 take 1 tablet by mouth once daily finasteride (PROSCAR) 5 mg tablet Take 5 mg by mouth daily. 0 03/20/2021 Active fluticasone propionate 0.05 mg/actuat metered dose nasal spray (10 sources) Corticosteroid Start: 01-06-2025 End: 04-06-2025 take 2 spray(s) nasal route once daily fluticasone (Flonase) 50 MCG/ACT nasal spray Indications: Chronic rhinitis Administer 2 sprays into each nostril Daily Shake gently. Before first use, prime pump. After use, clean tip and replace cap. 48 g 1 01/06/2025 04/06/2025 Active Start: 10-06-2024 End: 01-04-2025 take 2 spray(s) nasal route once daily fluticasone (Flonase) 50 MCG/ACT nasal spray Indications: Chronic rhinitis Administer 2 sprays into each nostril Daily Shake gently. Before first use, prime pump. After use, clean tip and replace cap. 48 g 1 10/06/2024 01/04/2025 Active furosemide 20 mg oral tablet (2 [...] 01/13/2015 Active lisinopril 30 mg oral tablet (14 sources) Angiotensin Converting Enzyme Inhibitor Start: 01-06-2025 End: 04-06-2025 take 1 tablet by mouth once daily lisinopril 30 MG tablet Indications: Benign essential hypertension (CMS/HCC) Take 1 tablet (30 mg) by mouth Daily 90 tablet 1 01/06/2025 04/06/2025 Active Start: 04-07-2024 End: 11-11-2024 take 1 tablet by mouth once daily lisinopril 30 MG tablet Indications: Benign essential hypertension (CMS/HCC) Take 1 tablet (30 mg) by mouth Daily 90 tablet 1 08/13/2024 11/11/2024 Active Start: 03-15-2021 take 1 tablet by alexandru th once daily lisinopriL (PRINIVIL,ZESTRIL) 30 mg tablet Take 30 mg by mouth daily. 0 03/15/2021 Active meloxicam 15 mg oral tablet (13 sources) Nonsteroidal Anti-inflammatory Drug Start: 01-06-2025 End: 04-06-2025 take 1 tablet by mouth once daily meloxicam (Mobic) 15 MG tablet Indications: Chronic pain syndrome Take 1 tablet (15 mg) by mouth Daily 90 tablet 1 01/06/2025 04/06/2025 Active take 1 tablet by mouth in the mo rning meloxicam (Mobic) 15 MG tablet Take 15 mg by mouth in the morning. Active metFORMIN hydrochloride 500 mg oral tablet (13 sources) Biguanide Start: 01-06-2025 End: 04-06-2025 take 1 tablet by mouth in the morning metFORMIN (Glucophage) 500 MG tablet Indications: Type 2 diabetes mellitus without complication, without long-term current use of insulin Take 1 tablet (500 mg) by mouth in the morning and 1 tablet (500 mg) in the evening. Take with meals. 180 tablet 1 01/06/2025 04/06/2025 Active Start: 03-06-2019 take 1 tablet by alexandru th once daily at breakfast metFORMIN (GLUCOPHAGE) 500 mg tablet Take 500 mg by mouth daily with breakfast. 0 03/06/2019 Active spironolactone 50 mg oral tablet (14 sources) Aldosterone Antagonist Start: 01-06-2025 End: 04-06-2025 take 1 tablet by mouth once daily spironolactone (Aldactone) 50 MG tablet Indications: Edema of lower extremity Take 1 tablet (50 mg) by mouth Daily 90 tablet 1 01/06/2025 04/06/2025 Active Start: 05-11-2024 End: 11-11-2024 take 1 tablet by mouth once daily spironolactone (Aldactone) 50 MG tablet Indications: Edema of lower extremity Take 1 tablet (50 mg) by mouth Daily 90 tablet 1 08/13/2024 11/11/2024 Active take 1 tablet by alexandru th in the morning spironolactone (ALDACTONE) 50 mg tablet Take 1 tablet (50 mg total) by mouth in the morning. 0 Active tamsulosin hydrochloride 0.4 mg oral capsule (6 sources) alpha-Adrenergic Laura take 1 capsule by mouth every twenty-four hours in the morning tamsulosin (Flomax) 0.4 MG 24 hr capsule Take 0.4 mg by mouth in the morning. Active triamcinolone acetonide 1 mg/ml topical cream (1 source) Corticosteroid triamcinolone (KENALOG) 0.1 % cream Apply 1 each topically 2 (two) times a day. 0 Active Problems Active Problems Problem Classification Problem Date Documented Da te Episodic/Chronic Aortic; peripheral; and visceral artery aneurysms (6 sources) Aneurysm of ascending aorta; Translations: [Aneurysm of ascending aorta without rupture] Onset: 01-25-2025 01-25-2025 Chronic Diabetes mellitus with complications (1 source) Type 2 diabetes mellitus with diabetic polyneuropathy; Translations: [TYPE 2 DM W/DIABETIC POLYNEUROPATHY] Onset: 11-08-2022 Chronic Diabetes mellitus without complication (18 sources) Type 2 diabetes mellitus without complication; Translations: [Type 2 diabetes mellitus without complications] Onset: 12-16-2023 Resolved: 04-30-2024 04-30-2024 Chronic Disorders of lipid metabolism (9 sources) Mixed hyperlipidemia; Translations: [Mixed hyperlipidemia] Onset: 10-06-2024 10-06-2024 Chronic Essential hypertension (18 sources) Benign essential hypertension; Translations: [Essential (primary) hypertension] Onset: 11-05-2013 08-13-2024 Chronic Gout and other crystal arthropathies (16 sources) Idiopathic chronic gout, multiple sites, without tophus (tophi); Translations: [Primary chronic gout without tophus of multiple sites] Onset: 11-01-2022 Chronic Other male genital disorders (10 sources) Testicular mass; Translations: [Other specified disorders of the male genital organs] Onset: 01-06-2025 01-06-2025 Episodic Other nervous system disorders (12 sources) Chronic pain syndrome; Translations: [Chronic pain syndrome] Onset: 09-25-2022 12-16-2023 Chronic Other nutritional; endocrine; and metabolic disorders (16 sources) Severe obesity; Translations: [Morbid (severe) obesity due to excess calories] Onset: 08-04-2020 12-16-2023 Chronic Other screening for suspected conditions (not mental disorders or infectious disease) (19 sources) Encounter for screening for malignant neoplasm of prostate; Translations: [Patient encounter status] Onset: 11-08-2022 04-30-2024 Episodic Other upper respiratory disease (10 sources) Chronic rhinitis; Translations: [Chronic rhinitis] Onset: 10-06-2024 10-06-2024 Chronic Other upper respiratory infections (6 sources) Chronic pansinusitis; Translations: [Chronic pansinusitis] Onset: 02-17-2025 02-17-2025 Chronic Residual codes; unclassified (7 sources) Localized edema; Translations: [LOCALIZED EDEMA] Onset: 11-08-2022 Episodic Spondylosis; intervertebral disc disorders; other back problems (20 sources) Lumbosacral spondylosis without myelopathy; Translations: [Spondylosis without myelopathy or radiculopathy, lumbosacral region] Onset: 11-05-2013 12-16-2023 Chronic Substance-related disorders (16 sources) Smoker; Translations: [Nicotine dependence, unspecified, uncomplicated] Onset: 04-30-2024 04-30-2024 Chronic Unclassified (2 sources) Chronic pain of right knee 10-06-2024 Unclassified (1 source) Aneurysm of the ascending aorta, without rupture; Translations: [Aneurysm of the ascending aorta, without rupture] Onset: 02-18-2025 Unclassified (2 sources) New Patient; Translations: [New Patient] Onset: 11-18-2024 Past or Other Problems Problem Classification Problem Date Documented Date Episodic/Chronic Allergic reactions (1 source) Contact dermatitis; Translations: [Unspecified contact dermatitis, unspecified cause] Onset: 11-05-2013 07-21-2020 Episodic Genitourinary symptoms and ill-defined conditions (12 sources) Retention of urine; Translations: [Retention of urine, unspecified] Onset: 06-13-2022 12-16-2023 Episodic Mood disorders (12 sources) Mood disorders Onset: 04-30-2024 04-30-2024 Other connective tissue disease (12 sources) Myofascial pain syndrome; Translations: [Myalgia, other site] Onset: 01-13-2015 12-16-2023 Episodic Other diseases of veins and lymphatics (18 sources) Venous insufficiency of leg; Translations: [Venous insufficiency (chronic) (peripheral)] Onset: 12-17-2019 12-16-2023 Episodic Other diseases of veins and lymphatics (13 sources) Stasis dermatitis; Translations: [Venous insufficiency (chronic) (peripheral)] Onset: 07-21-2020 12-16-2023 Episodic Other non-traumatic joint disorders (11 sources) Pain in right knee; Translations: [Pain in joint, lower leg] Onset: 05-29-2017 10-06-2024 Episodic Other non-traumatic joint disorders (1 source) Hip pain; Translations: [Pain in unspecified hip] Onset: 05-29-2017 07-21-2020 Episodic Other upper respiratory infections (20 sources) Viral upper respiratory tract infection; Translations: [Acute upper respiratory infection, unspecified] Onset: 04-30-2024 Resolved: 02-17-2025 07-30-2024 Episodic Residual codes; unclassified (16 sources) Edema of lower extremity; Translations: [Localized edema] Onset: 07-21-2020 08-13-2024 Episodic Spondylosis; intervertebral disc disorders; other back problems (20 sources) Sciatica; Translations: [Sciatica, unspecified side] Onset: 07-21-2020 12-16-2023 Episodic Unclassified (1 source) Aneurysm of the ascending aorta, without rupture; Translations: [Aneurysm of the ascending aorta, without rupture] Onset: 02-18-2025 Varicose veins of lower extremity (2 sources) Pain co-occurrent and due to varicose veins of left leg; Translations: [Varicose veins of left lower extremity with pain] Onset: 12-17-2019 11-17-2023 Episodic Results Test Name Value Interpretation Reference Range Facility Office Visiton 03-02-2025 Follow-up visit [id number] Marilyn Palmer 1965 M Date Provider Department Center 03/02/2025 MAGGIE MURO [facility] Family History Adopted: Yes Family history unknown: Yes Level of Service:37054 ME OFFICE/OUTPT VISIT,PROCEDURE ONLY Reason for Visit and Comments: Follow-up [520090] - Pump refill [facility] Follow-Upon 02-18-2025 Follow-Up [id number] RenatoMarilyn Wagner 1965 M Date Provider Department Center 02/18/2025 JESSICA SNOW [facility] Family History Adopted: Yes Family history unknown: Yes Level of Service:44398 ME OFFICE/OUTPATIENT ESTABLISHED LOW MDM [address] [facility] 36on 02-16-2025 36 Called [place] radiology department to have patient's lung screening CT from 01/22/25 images pushed to [facility] PACS. Outside images request form faxed to [place] radiology department. [facility] Telephoneon 02-16-2025 Telephone [id number] WaynejackelinMarilyn Wagner 1965 M Date Provider Department Center 02/16/2025 [id number]-SYUPIA, LASHAWN [facility] Family History Adopted: Yes Family history unknown: Yes [facility] Ambulatory Visit Summaryon 0 02-05-2025 Ambulatory Visit Summary Ambulatory Visit Summary WAYNEMATT VILLALOBOS :1965 Visit Date:02/05/2025 Ambulatory Visit Instructions Your Diagnosis Spermatocele BPH with urinary obstruction Hydrocele Varicocele Smoker Your Care Team Attending Physician - Shen ROSS MD Primary Care Physician - MIRTHA DUARTE CNP Referring Physician - MIRTHA DUARTE CNP This Is Your Medications List Contact prescribing physician if questions or concerns febuxostat (febuxostat 40 mg oral tablet) lisinopril (lisinopril 30 mg Tab) meloxicam (meloxicam 15 mg Tab) Procedures Performed Back, Colonoscopy. Discharge Vitals Temperature (Temporal Artery) 35.8 ???C Heart Rate (Peripheral) 57 Respiratory Rate 16 Blood Pressure 132/82 Height 183 cm Height 72 in Weight 115 kg Weight 253.531 lb BMI 34.34 Medications What How Much When Instructions Unchanged febuxostat (febuxostat 40 mg oral tablet) 1 Tablets By Mouth Every day TAKE 1 TABLET BY MOUTH EVERY DAY Contact prescribing physician if questions or concerns Unchanged lisinopril (lisinopril 30 mg Tab) 1 Tablets By Mouth Every day TAKE 1 TABLET BY MOUTH EVERY DAY Contact prescribing physician if questions or concerns Unchanged meloxicam (meloxicam 15 mg Tab) 1 Tablets By Mouth Every day Contact prescribing physician if questions or concerns Allergies simvastatin (Swelling) Problems Ongoing - Any problem that you are currently receiving treatment for. 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 Please share your experience with us by completing your survey. We appreciate your feedback and thank you for choosing us for your care. Education Materials Benign Prostatic Hyperplasia Benign prostatic hyperplasia (BPH) is an enlarged prostate gland that is caused by the normal aging process. The prostate may get bigger as a man gets older. The condition is not caused by cancer. The prostate is a walnut-sized gland that is involved in the production of semen. It is located in front of the rectum and below the bladder. The bladder stores urine. The urethra carries stored urine out of the body. An enlarged prostate can press on the urethra. This can make it harder to pass urine. The buildup of urine in the bladder can cause infection. Back pressure and infection may progress to bladder damage and kidney (renal) failure. What are the causes? This condition is part of the normal aging process. However, not all men develop problems from this condition. If the prostate enlarges away from the urethra, urine flow will not be blocked. If it enlarges toward the urethra and compresses it, there will be problems passing urine. What increases the risk? This condition is more likely to develop in men older than 50 years. What are the signs or symptoms? Symptoms of this condition include: ??? Getting up often during the night to urinate. ??? Needing to urinate frequently during the day. ??? Difficulty starting urine flow. ??? Decrease in size and strength of your urine stream. ??? Leaking (dribbling) after urinating. ??? Inability to pass urine. This needs immediate treatment. ??? Inability to completely empty your bladder. ??? Pain when you pass urine. This is more common if there is also an infection. ??? Urinary tract infection (UTI). How is this diagnosed? This condition is diagnosed based on your medical history, a physical exam, and your symptoms. Tests will also be done, such as: ??? A post-void bladder scan. This measures any amount of urine that may remain in your bladder after you finish urinating. ??? A digital rectal exam. In a rectal exam, your health care provider checks your prostate by putting a lubricated, gloved finger into your rectum to feel the back of your prostate gland. This exam detects the size of your gland and any abnormal lumps or growths. ??? An exam of your urine (urinalysis). ??? A prostate specific antigen (PSA) screening. This is a blood test used to screen for prostate cancer. ??? An ultrasound. This test uses sound waves to electronically produce a picture of your prostate gland. Your health care provider may refer you to a specialist in kidney and prostate diseases (urologist). How is this treated? Once symptoms begin, your health care provider will monitor your condition (active surveillance or watchful waiting). Treatment for this condition will depend on the severity of your condition. (more content not included)... Normal [facility] Urology Office/Clinic Noteon 02-05-2025 Urology Office/Clinic Note Urology Office/Clinic Note Chief Complaint New patient right Testicular lump HPI Staff 59 year old male new patient referred for right testicular lump x 1 month. Pt states it has gotten bigger quick within the past month but recently has stayed about the same size. Scrotal US done 01/22/25. PSA 04/28/24: 0.12 IPSS: 15 Denies dysuria, denies hematuria, denies abdominal/flank pain. Has some pelvic pressure off and on PVR: 61 ml History of Present Illness Tests reviewed: reviewed UA, scrotal US, PSA, external records. I have reviewed the previous health record information and history for this patient from Dr. Ross I have reviewed and verified the staff HPI to be accurate for this encounter. There have been no associated fever, chills, flank pain, or blood in the urine. Denies any urinary infections since last encounter. Review of Systems PHQ Score Initial Depression Screen Score: 0 SCORE ROS - Provider Constitutional: denies weight loss, denies hot flashes. Eyes: denies eye problems. Gastrointestinal: denies nausea, denies vomiting. Cardiovascular: denies chest pain or angina. Integumentary: no dryness Musculoskeletal: denies musculoskeletal symptoms. ENMT: denies otolaryngeal symptoms. Respiratory: no shortness of breath. Heme/Lymph: denies easy bleeding tendency, denies easy bruising tendency. Psychiatric: no confusion, no anxiety. Genitourinary: See HPI. Physical Exam Vitals & Measurements T: 35.8 ???C(Temporal Artery) HR: 57(Peripheral) RR: 16 BP: 132/82 HT: 72 in HT: 183 cm WT: 115 kg WT: 253.531 lb BMI: 34.34 General Appearance: alert, no distress, well nourished, well developed male. Head: normocephalic . Eyes: normal orbit and globe. ENMT: normal examination of external ears. Genitourinary: R spermatocele, 3 cm. Otherwise normal exam. Penis: normal shaft, normal glans. Psychiatric: cooperative, affect appropriate for age, normal judgement, euthymic mood. Assessment/Plan 59 yo male referred by Mirtha Duarte for testicular lump. Pt accompanied by today. Limited history due to being adopted as an . 1. Spermatocele (N43.40: Spermatocele of epididymis, unspecified) Scrotal US 01/22/25 [facility] - at the right epididymal head, there is a cluster of cysts which correlate with the palpable finding. These measure 1.9 x 2.1 x 2.3 cm in total. Pt states he first noticed a lump on his right testicle 1 month ago. Pt states the lump has grown in size rapidly over the last month. Pt states the lump is bothersome. Exam - R spermatocele, 3 cm. tender Advised pt that spermatoceles can be surgically managed however he may benefit from starting prostate meds. See below. Will further discuss surgical mgmt at f/up visit. Pt states he does want to proceed with surgery. -Cont self exams -Further discuss spermatocelectomy at f/up visit in 4 months 2. BPH with urinary obstruction (N40.1: Benign prostatic hyperplasia with lower urinary tract symptoms) PSA 04/28/24 - 0.12 Primary care checks PSA. UA today negative for blood or infection. IPSS 15. PVR 61 mL. Pt states he was started on a medication in the past for BPH however does not recall much improvement. Does not remember the med, likely Flomax. Pt states he gets up at least twice during the night. Pt states he does not sleep well due to chronic pain. Discussed starting medications to improve LUTS. He is willing to try new meds. -Start Alfuzosin 10mg ER qd and Dutasteride 0.5mg qd, monitor for SEs -F/up in 4 mos 3. Hydrocele (N43.3: Hydrocele, unspecified) Scrotal US 01/22/25 [facility] - small bilateral hydroceles. Not bothersome. 4. 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 -Treatment not required unless bothersome 5. Smoker (F17.200: Nicotine dependence, unspecified, uncomplicated) Cessation encouraged. Education attached. Increased risk for urothelial CA. Follow-up No qualifying data available 4 mos Patient Education Spermatocele Benign Prostatic Hyperplasia Steps to Quit Smoking Testicular Self-Exam I, Stacy Ley, personally scribed for Dr. Ross on 02/05/2025 10:47:56. . Documentation recorded by the scribeStacy, accurately reflects the services(s) I performed and decisions made by me. Authenticated by Dr. Ross on 02/05/2025 10:50:51. 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 Medications febuxostat (more content not included)... Normal [facility] Comment on above: Result Comment: Elec tronically Signed By: Shen ROSS MDbr\Date and Time Signed: 02/05/25 10:50 EDT\.br\Electronically Co-Signed By: Jil, Stacy B\.br\Date and Time Co-Signed: 02/05/25 10:[address] LUNG SCREENING LOW DOSEon 01-22-2025 [place] [address] CT Scan Report Signed Patient: MATT PALMER MR#: [id number] : 1965 Acct:[id number] Age/Sex: 59 / M ADM Date: 01/22/25 Loc: CT Attending Dr: Mirtha Duarte NP Ordering Physician: Mirtha Duarte NP Date of Service: 01/22/25 Procedure(s): CT lung screening low-dose Accession Number(s): [id number] cc: Mirtha Duarte NP [place] [id number] Patient Name: MATT PALMER MRN: [id number] date: 1965 Sex: M Assigned Patient Location: CT Current Patient Location: CT Accession/Order Number: [id number] Exam Date: 01/22/2025 11:15 Report Date: 01/22/2025 11:23 At the request of: MIRTHA DUARTE NP Procedure: CT lung screening low-dose LOW-DOSE SCREENING CHEST CT WITHOUT CONTRAST COMPARISON: None CLINICAL DATA: Current smoker with 40 year history of tobacco use. Intermittent cough. Spiral axial unenhanced low-dose images were obtained through the chest. Images were reviewed using both narrow and wide window settings. This CT exam was performed using one or more following dose reduction techniques: Automated exposure control, adjustment of the mA and/or kV according to patient size, or use of iterative reconstruction technique. The heart is within normal limits for size. No pericardial effusion is seen. Mild coronary artery disease is visualized. The ascending aorta shows mild aneurysmal dilatation with diameter 4.4 cm. There are small calcified and noncalcified mediastinal lymph nodes. Calcified right hilar granulomas are also seen. There is subtle dextroscoliotic curvature and endplate spurring at the spine. There is minor obstructive lung disease with airspace lucencies. There is mild basilar scarring or atelectasis, predominantly on the left. There is no focal consolidation, pleural effusion or pneumothorax. Calcified right upper granulomas are present. No other pulmonary nodularity is seen. Limited cuts through the upper abdomen show calcified splenic granulomas. CT/CT lung screening low-dose IMPRESSION: ASCENDING AORTIC ANEURYSM. GRANULOMATOUS CHANGES. ATELECTASIS AND/OR SCARRING, GREATER ON THE LEFT. NO SUSPICIOUS PULMONARY NODULARITY. Lung RADS category 1 - negative Twelve-month low-dose CT follow-up suggested Impression dictated by: Aislinn Almanza M.D.01/22/2025 11:23 AM Dictation Location: [place] [address] Electronically authenticated by: [id number] Y Date: 01/22/2025 11:23 Dictated By: Aislinn Almanza M.D. Signed By: 01/22/25 1125 DD/ 1123 TD/TT: Sound Technician Supervisor: [facility] Radiology, Radiologist, MD - 01/22/2025 [place] [address] CT Scan Report Signed Patient: MATT PALMER MR#: [id number] : 1965 Acct:[id number] Age/Sex: 59 / M ADM Date: 01/22/25 Loc: CT Attending Dr: Mirtha Duarte NP Ordering Physician: Mirtha Duarte NP Date of Service: 01/22/25 Procedure(s): CT lung screening low-dose Accession Number(s): [id number] cc: Mirtha Duarte NP The [place] [address] Patient Name: MATT PALMER MRN: [facility]:[id number] date: 1965 Sex: M Assigned Patient Location: CT Current Patient Location: CT Accession/Order Number: [id number] Exam Date: 01/22/2025 11:15 Report Date: 01/22/2025 11:23 At the request of: MIRTHA DUARTE NP Procedure: CT lung screening low-dose LOW-DOSE SCREENING CHEST CT WITHOUT CONTRAST COMPARISON: None CLINICAL DATA: Current smoker with 40 year history of tobacco use. Intermittent cough. Spiral axial unenhanced low-dose images were obtained through the chest. Images were reviewed using both narrow and wide window settings. This CT exam was performed using one or more following dose reduction techniques: Automated exposure control, adjustment of the mA and/or kV according to patient size, or use of iterative reconstruction technique. The heart is within normal limits for size. No pericardial effusion is seen. Mild coronary artery disease is visualized. The ascending aorta shows mild aneurysmal dilatation with diameter 4.4 cm. There are small calcified and noncalcified mediastinal lymph nodes. Calcified right hilar granulomas are also seen. There is subtle dextroscoliotic curvature and endplate spurring at the spine. There is minor obstructive lung disease with airspace lucencies. There is mild basilar scarring or atelectasis, predominantly on the left. There is no focal consolidation, pleural effusion or pneumothorax. Calcified right upper granulomas are present. No other pulmonary nodularity is seen. Limited cuts through the upper abdomen show calcified splenic granulomas. CT/CT lung screening low-dose IMPRESSION: ASCENDING AORTIC ANEURYSM. GRANULOMATOUS CHANGES. ATELECTASIS AND/OR SCARRING, GREATER ON THE LEFT. NO SUSPICIOUS PULMONARY NODULARITY. Lung RADS category 1 - negative Twelve-month low-dose CT follow-up suggested Impression dictated by: Aislinn Almanza M.D.01/22/2025 11:23 AM Dictation Location: [place] [address] Electronically authenticated by: [id number] Y Date: 01/22/2025 11:23 Dictated By: Aislinn Almanza M.D. Signed By: 01/22/25 1125 DD/ 1123 TD/TT: Sound Technician Supervisor: [facility] Radiology Study observation (narrative) [facility] CT LUNG SCREENING LOW DOSEOr dered By: Radiologist Radiology on 01-22-2025 [facility] Work Phone: [place] [address] Ultrasound Report Signed Patient: MATT PALMER MR#: [id number] : 1965 Acct:[id number] Age/Sex: 59 / M ADM Date: 01/22/25 Loc: CT Attending Dr: Mirtha Duarte POT PRESS OPERATOR Ordering Physician: Mirtha Duarte NP Date of Service: 01/22/25 Procedure(s): US scrotum Accession Number(s): [id number] cc: Mirtha Duarte NP The [place] [id number] Patient Name: MATT PALMER MRN: [facility]:[id number] date: 1965 Sex: M Assigned Patient Location: CT Current Patient Location: CT Accession/Order Number: [id number] Exam Date: 01/22/2025 12:25 Report Date: 01/22/2025 12:29 At the request of: MIRTHA DUARTE NP Procedure: US scrotum SCROTAL ULTRASOUND WITH DUPLEX IMAGING CLINICAL DATA: Right testicular lump The right testis measures 4.3 x 3.4 x 2.6 cm. The left testis measures 4.3 x 2.8 x 2.6 cm. There is normal echogenicity. No intratesticular masses are identified. The documentation of bilateral duplex and color Doppler testicular blood flow. At the right epididymal head, there is a cluster of cysts which correlate with the palpable finding. These measure 1.9 x 2.1 x 2.3 cm in total. There are small bilateral hydroceles. There is also left varicocele. US/US scrotum IMPRESSION: NO INTRATESTICULAR MASS OR TORSION. RIGHT EPIDIDYMAL CYSTS AT THE SITE OF PALPABLE CONCERN. SMALL BILATERAL HYDROCELES. LEFT VARICOCELE. Impression dictated by: Aislinn Almanza M.D.01/22/2025 12:29 PM Dictation Location: [place] [address] Electronically authenticated by: [id number] Y Date: 01/22/2025 12:29 Dictated By: Aislinn Almanza M.D. Signed By: 01/22/25 1231 DD/ 1229 TD/TT: Sound Technician Supervisor: [facility] Radiology, Radiologist, - 01/22/[address] [address] Ultrasound Report Signed Patient: MATT PALMER MR#: [id number] : 1965 Acct:[id number] Age/Sex: 59 / M ADM Date: 01/22/25 Loc: CT Attending Dr: Mirtha Duarte NP Ordering Physician: Mirtha Duarte NP Date of Service: 01/22/25 Procedure(s): US scrotum Accession Number(s): [id number] cc: Mirtha Duarte NP [place] [address] Patient Name: MATT PALMER MRN: [facility]:[id number] date: 1965 Sex: M Assigned Patient Location: CT Current Patient Location: CT Accession/Order Number: [id number] Exam Date: 01/22/2025 12:25 Report Date: 01/22/2025 12:29 At the request of: MIRTHA DUARTE NP Procedure: US scrotum SCROTAL ULTRASOUND WITH DUPLEX IMAGING CLINICAL DATA: Right testicular lump The right testis measures 4.3 x 3.4 x 2.6 cm. The left testis measures 4.3 x 2.8 x 2.6 cm. There is normal echogenicity. No intratesticular masses are identified. The documentation of bilateral duplex and color Doppler testicular blood flow. At the right epididymal head, there is a cluster of cysts which correlate with the palpable finding. These measure 1.9 x 2.1 x 2.3 cm in total. There are small bilateral hydroceles. There is also left varicocele. US/US scrotum IMPRESSION: NO INTRATESTICULAR MASS OR TORSION. RIGHT EPIDIDYMAL CYSTS AT THE SITE OF PALPABLE CONCERN. SMALL BILATERAL HYDROCELES. LEFT VARICOCELE. Impression dictated by: Aislinn Almanza M.D.01/22/2025 12:29 PM Dictation Location: [place] [address] Electronically authenticated by: [id number] Y Date: 01/22/2025 12:29 Dictated By: Aislinn Almanza M.D. Signed By: 01/22/25 1231 DD/ 1229 TD/TT: Sound Technician Supervisor: [facility] Radiology Study observation (narrative) [facility] US Scrotum and testicleOrder ed By: Radiologist Radiology on 01-22-2025 [facility] Work Phone: 36on 12-30-2024 36 Returned Kimber's call and LVM letting her know per Jessica Aggarwal, the patient needs juxtalite hd. Requested a call back with questions or if needs more information. [facility] Office Visiton 12-29-2024 Follow-up visit [id number] Marilyn Palmer T 1965 [facility] Provider Department Center 12/29/2024 MAGGIE MURO PAIN [facility] [place] Family History Adopted: Yes Family history unknown: Yes Level of Service:96604 ME OFFICE/OUTPT VISIT,PROCEDURE ONLY [facility] 36on 12-25-2024 36 Kimber from [employer] called asking what kind of wrap specifically the patient needed? Thero-wrap, ready wrap, etc? Her phone number is [phone]. An order was filled out and scanned into patients chart, but does not specify what type. [facility] Clinical Supporton Clinical Support [id number] Marilyn Palmer T 1965 Provider Department Center 12/14/2024 3413-GLV ULTRASOUND ROOM GLV [facility] Family History Adopted: Yes Family history unknown: Yes [facility] Follow-Upon 12-14-2024 Follow-Up [id number] Marilyn Palmer T 1965 [facility] Provider Department Center 12/14/2024 503-JESSICA MAN GLV [facility] Family History Adopted: Yes Family history unknown: Yes Level of Service:85470 ME OFFICE/OUTPATIENT ESTABLISHED LOW MDM 20 MIN Reason for Visit and Comments: Follow-up [765410] - Follow to review venous reflux. [facility] Consulton 11-18-2024 Consult [id number] Marilyn Palmer T 1965 Provider Department Center 11/18/2024 30944-NIXJESAU LAL HVCVASENDO [facility] Family History Adopted: Yes Family history unknown: Yes Level of Service:03541 ME OFFICE/OUTPATIENT NEW MODERATE MDM 45 MINUTES Reason for Visit and Comments: New Patient [632] - Venous insufficiency seen previously @ [facility] by Dr Ayala Ref Dr Duarte [facility] Office Visiton 10-27-2024 Follow-up visit [id number] RenatoMarilyn art T 1965 Provider Department Center 10/27/2024 MAGGIE MURO MP PAIN [facility] Family History Adopted: Yes Family history unknown: Yes Level of Service:92025 ME OFFICE/OUTPT VISIT,PROCEDURE ONLY Reason for Visit and Comments: Follow-up [946068] - Pump refill [facility] 36on 10-26-2024 36 Last seen 08/27/24. Please advise. [facility] Refillon 10-24-2024 Refill [id number] RenatoMarilyn art T 1965 Provider Department [place] 10/24/2024 MAGGIE MURO MP PAIN [facility] Family History Adopted: Yes Family history unknown: Yes Reason for Visit and Comments: Med Refill [261746] [facility] 36on 09-28-2024 36 Multiple attempts to contact patient regarding appointment. Mailbox is full and conventional mortgage underwriter is unable to leave a voicemail. A letter will be sent out today regarding rescheduling appointment. [facility] Orders Onlyon 09-28-2024 Orders Only [id number] WaynejackelinMarilyn art T 1965 Provider Department Center 09/28/2024 98219-KUBSNCONI MANLEY MP PAIN [facility] Family History Adopted: Yes Family history unknown: Yes [facility] Refillon 08-18-2024 Refill [id number] Marilyn Palmer T 1965 [facility] Provider Department Center 08/18/2024 MAGGIE MURO MP PAIN [facility] [place] Family History Adopted: Yes Family history unknown: Yes Reason for Visit and Comments: Med Refill [252118] [facility] Office Visiton 08-11-2024 Follow-up visit [id number] Marilyn Palmer T 1965 [facility] Provider Department Center 08/11/2024 MAGGIE MURO MP PAIN [facility] Family History Adopted: Yes Family history unknown: Yes Level of Service:59924 ME OFFICE/OUTPT VISIT,PROCEDURE ONLY Reason for Visit and Comments: Follow-up [070492] - Pump refill Normal [facility] Office Visiton 06-02-2024 Follow-up visit [id number] Marilyn Palmer T 1965 M Date Provider Department Center 06/02/2024 MAGGIE MURO MP PAIN [facility] [place] Family History Adopted: Yes Family history unknown: Yes Level of Service:70467 ME OFFICE/OUTPT VISIT,PROCEDURE ONLY Reason for Visit and Comments: Follow-up [544597] - Pump refill Normal [facility] Refillon 03-26-2024 Refill [id number] Marilyn Palmer rubens T 1965 M Date Provider Department Center 03/26/2024 MAGGIE MURO MP [facility] Medical [place] Family History Adopted: Yes Family history unknown: Yes Reason for Visit and Comments: Med Refill [409750] Normal [facility] Office Visiton 03-24-2024 Follow-up visit [id number] Marilyn Palmer rubens T 1965 M Date Provider Department Center 03/24/2024 MAGGIE MURO MP PAIN [facility] [place] Family History Adopted: Yes Family history unknown: Yes Level of Service:80242 ME OFFICE/OUTPT VISIT,PROCEDURE ONLY Reason for Visit and Comments: Follow-up [168092] - Pump refill Normal [facility] RONI by IFAon 12-07-2022 Antinuclear Antibodies, IFA Negative Normal [facility] Comment on above: Result Comment: Nega tive <1:80 Borderline 1:80 Positive >1:80 ICAP nomenclature: AC-0 For more information about Hep-2 cell patterns use ANApatterns.org, the official website for the International Consensus on Antinuclear Antibody (RONI) Patterns (ICAP). Performed By: #### A NAIFA #### [facility] [address] [place] [address] Dr. Shweta Dillard ANTISTREPTOLYSIN O AB (ASO)o n 12-06-2022 Antistreptolysin O Ab 72.7 IU/mL Normal 0.0-200.0 [facility] Comment on above: Performed By: #### A SOAB #### [facility] [address] [place] [address] [address] Shweta Dillard RHEUMATOID FACTORon 12-06-19 RA Latex Turbid. 42.4 IU/mL Critically high <14.0 [facility] Comment on above: Performed By: #### R F #### [facility] [address] [place] [address] [address] Shweta Dillard CRPon 12-05-2022 CRP 0.5 mg/dL Normal <=1.0 [facility] Comment on above: Performed By: #### C RP ####[facility] [address] [place] [address]Dr. Shweta Dillard SED RATE WESTERGRENon 2022 SED RATE 15 mm/hr Normal <=20 [facility] Comment on above: Performed By: #### S EDR #### [facility] [address] [place] [address] [address] Shweta Dillard US TYLER DOP LEG RTon 12-05-19 US TYLER DOP LEG RT EXAMINATION: US [...] JEMIMA DELATORRE Date: 2022-12-05 10:24 Normal [facility] CBC AUTO DIFFon 11-01-2022 BASO # 0.1 103/ul Normal 0.0-0.1 [facility] Comment on above: Performed By: #### C BC #### [facility] [address] [place] [address] [address] Shweta Dillard Basophils/100 WBC (Bld) 0.8 % Normal 0.2-2.0 [facility] Comment on above: Performed By: #### C BC #### [facility] [address] [place] [address] [address] Shweta Dillard EO # 0.3 103/ul Normal 0.0-0.7 [facility] Comment on above: Performed By: #### C BC #### [facility] [address] [place] [address] [address] Shweta Dillard Eosinophils/100 WBC (Bld) 3.5 % Normal 0.9-7.0 [facility] Comment on above: Performed By: #### C BC #### [facility] [address] [place] [address] [address] Shweta Dillard Erythrocyte distribution width (RBC) [Ratio] 13.2 % Normal 11.0-15.0 [facility] Comment on above: Performed By: #### C BC #### [facility] [address] [place] [address] Dr. Shweta Dillard Hematocrit (Bld) [Volume fraction] 45.6 % Normal 42.0-54.0 [facility] Comment on above: Performed By: #### C BC #### [facility] [address] [place] [address] Dr. Shweta Dillard Hemoglobin (Bld) [Mass/Vol] 13.6 g/dL Critically low 14.0-18.0 [facility] Comment on above: Performed By: #### C BC #### [facility] [address] [place] [address] Dr. Shweta Dillard IG # 0.07 10e3/ul Critically high 0.00-0.03 [facility] Comment on above: Performed By: #### C BC #### [facility] [address] [place] [address] Dr. Shweta Dillard IG % 0.7 % Critically high 0.0-0.5 [facility] Comment on above: Performed By: #### C BC #### [facility] [address] [place] [address] Dr. Shweta Dillard LYMPH # 3.4 103/ul Normal 1.2-3.8 [facility] Comment on above: Performed By: #### C BC #### [facility] [address] [place] [address] Dr. Shweta Dillard Lymphocytes/100 WBC (Bld) 34.6 % Normal 20.5-60.0 [facility] Comment on above: Performed By: #### C BC #### [facility] [address] [place] [address] Dr. Shweta Dillard MANUAL DIFF REQ NO Normal [facility] Comment on above: Performed By: #### C BC #### [facility] [address] [place] [address] Dr. Shweta Dillard MCH (RBC) [Entitic mass] 29.4 pg Normal 25.9-34.0 [facility] Comment on above: Performed By: #### C BC #### [facility] [address] [place] [address] Dr. Shweta Dillard MCHC (RBC) [Mass/Vol] 29.8 g/dL Critically low 29.9-35.2 [facility] Comment on above: Performed By: #### C BC #### [facility] [address] [place] [address] Dr. Shweta Dillrad MCV (RBC) [Entitic vol] 98.7 fL Critically high 80.0-94.0 [facility] Comment on above: Performed By: #### C BC #### [facility] [address] [place] [address] Dr. Shweta Dillard MONO # 0.7 103/ul Normal 0.3-0.8 [facility] Comment on above: Performed By: #### C BC #### [facility] [address] [place] [address] Dr. Shweta Dillard Monocytes/100 WBC (Bld) 7.4 % Normal 1.7-12.0 [facility] Comment on above: Performed By: #### C BC #### [facility] [address] [place] [address] Dr. Shweta Dillard NEUT # 5.2 103/ul Normal 1.4-6.5 [facility] Comment on above: Performed By: #### C BC #### [facility] [address] [place] [address] Dr. Shweta Dillard Neutrophils/100 WBC (Bld) 53.0 % Normal 43.0-75.0 [facility] Comment on above: Performed By: #### C BC #### [facility] [address] [place], [place] [address] Dr. Shweta Dillard Platelet mean volume (Bld) [Entitic vol] 9.9 fL Normal 9.5-13.5 [facility] Comment on above: Performed By: #### C BC #### [facility] [address] [place], [place] [address] Dr. Shweta Dillard PLT 253 103/ul Normal 150-450 [facility] Comment on above: Performed By: #### C BC #### [facility] [address] [place], [place] [address] Dr. Shweta Dillard RBC 4.62 106/ul Critically low 4.70-6.10 [facility] Comment on above: Performed By: #### C BC #### [facility] [address] [place], [place] [address] Dr. Shweta Dillard WBC 9.8 103/ul Normal 4.0-11.0 [facility] Comment on above: Performed By: #### C BC #### [facility] [address] [place], [place] [address] Dr. Shweta Dillard DIRECT LDLon 11-01-2022 Cholesterol in LDL [Mass/Vol] 105 mg/dL Normal [facility] Comment on above: Performed By: #### U ZAIRA, CMP, DLDL, LIPID ####[facility] [address] [place], [place] [address]WgDr. Shweta Dillard DLDL NORMAL SEE BELOW Normal [facility] Comment on above: Result Comment: <100 mg/dl OPTIMAL 100 - 129 mg/dl NEAR OR ABOVE OPTIMAL 130 - 159 mg/dl BORDERLINE HIGH 160 - 189 mg/dl HIGH >190 mg/dl VERY HIGH Performed By: #### U ZAIRA, CMP, DLDL, LIPID ####[facility] [address] [place], [place] [address]GdDr. Shweta Dillard GLYCOHEMOGLOBIN A1Con 2022 ADA RECOMMENDATION SEE BELOW Normal [facility] Comment on above: Result Comment: ADA RECOMMENDED LIMIT 4.0 - 6.0 ADA THERAPEUTIC TARGET < 7.0 ACTION SUGGESTED > 7.0 Performed By: #### A 1C ####[facility] [address] [place], [place] [address]FgDr. Shweta Dillard Glucose [Mass/Vol] 114 mg/dL Normal [facility] Comment on above: Performed By: #### A 1C ####[facility] [address] [place], [place] [address]OaDr. Shweta Dillard HbA1c (Bld) [Mass fraction] 5.6 % Normal 4.5-6.2 [facility] Comment on above: Performed By: #### A 1C ####[facility] [address] [place], [place] [address]LyDr. Shweta Dillard LIPID PROFILEon 11-01-2022 CHOL-HDL RATIO NORM SEE BELOW Normal [facility] Comment on above: Result Comment: 3.3 - 4.4 LOW RISK 4.4 - 7.1 AVERAGE RISK 7.1 - 11.0 MODERATE RISK >11.0 HIGH RISK Performed By: #### U ZAIRA, CMP, DLDL, LIPID #### [facility] [address] [place] [address] [address] Shweta Dillard Cholesterol [Mass/Vol] 172 mg/dL Normal <=200 [facility] Comment on above: Performed By: #### U ZAIRA, CMP, DLDL, LIPID #### [facility] [address] [address] [address] Shweta Dilalrd Cholesterol in HDL [Mass/Vol] 31 mg/dL Critically low 40-60 [facility] Comment on above: Performed By: #### U ZAIRA, CMP, DLDL, LIPID #### [facility] [address] [address] [address] Shweta Dillard Cholesterol in LDL [Mass/Vol] 49.6 mg/dL Normal [facility] Comment on above: Performed By: #### U ZAIRA, CMP, DLDL, LIPID #### [facility] [address] [address] [address] Shweta Dillard Cholesterol.total/Cho lesterol in HDL [Mass ratio] 5.5 {ratio} Normal [facility] Comment on above: Performed By: #### U ZAIRA, CMP, DLDL, LIPID #### [facility] [address] [address] [address] Shweta Dillard HDL NORMAL > or = 60 mg/dl - LO W CARDIOVASCULAR RISK <40 mg/dl - HIGH CARDIOVASCULAR RISK Normal [facility] Comment on above: Performed By: #### U ZAIRA, CMP, DLDL, LIPID #### [facility] [address] [address] [address] Shweta Dillard LDL CALC NORMAL SEE BELOW Normal [facility] Comment on above: Result Comment: <100 mg/dl OPTIMAL 100 - 129 mg/dl NEAR OR ABOVE OPTIMAL 130 - 159 mg/dl BORDERLINE HIGH 160 - 189 mg/dl HIGH >190 mg/dl VERY HIGH Performed By: #### U ZAIRA, CMP, DLDL, LIPID #### [facility] [address] [address] [address] Shweta Dillard Triglyceride [Mass/Vol] 457 mg/dL Critically high <=150 [facility] Comment on above: Performed By: #### U ZAIRA, CMP, DLDL, LIPID #### [facility] [address] [address] [address] Shweta Dillard VLDL CALC 91.4 mg/dL Normal [facility] Comment on above: Performed By: #### U ZAIRA, CMP, DLDL, LIPID #### [facility] [address] [address] [address] Shweta Dillard MICROALBUMIN, RAND URon 10-21 mALB <1.3 Normal <=30.0 [facility] Comment on above: Performed By: #### M ALBR ####[facility] [address] [address]Dr. Shweta Dillard PROF 14(COMP METB)on 023 Albumin [Mass/Vol] 4.0 g/dL Normal 3.4-5.0 [facility] Comment on above: Performed By: #### U ZAIRA, CMP, DLDL, LIPID #### [facility] [address] [address] [address] Shweta Dillard Albumin/Globulin [Mass ratio] 1.3 {ratio} Normal [facility] Comment on above: Performed By: #### U ZAIRA, CMP, DLDL, LIPID #### [facility] [address] [address] [address] Shweta Dillard ALP [Catalytic activity/Vol] 95 U/L Normal 46-116 [facility] Comment on above: Performed By: #### U ZAIRA, CMP, DLDL, LIPID #### [facility] [address] [address] [address] Shweta Dillard ALT [Catalytic activity/Vol] 25 U/L Normal 16-63 [facility] Comment on above: Performed By: #### U ZAIRA, CMP, DLDL, LIPID #### [facility] [address] [address] [address] Shweta Dillard Anion gap [Moles/Vol] 13.4 mmol/L Normal [facility] Comment on above: Performed By: #### U ZAIRA, CMP, DLDL, LIPID #### [facility] [address] [place] [address] Dr. Shweta Dillard AST [Catalytic activity/Vol] 18 U/L Normal 15-37 [facility] Comment on above: Performed By: #### U ZAIRA, CMP, DLDL, LIPID #### [facility] [address] [address] [address] Shweta Dillard Bilirubin [Mass/Vol] 0.2 mg/dL Normal 0.2-1.0 [facility] Comment on above: Performed By: #### U ZAIRA, CMP, DLDL, LIPID #### [facility] [address] [address] [address] Shweta Dillard Calcium [Mass/Vol] 9.0 mg/dL Normal 8.5-10.1 [facility] Comment on above: Performed By: #### U ZAIRA, CMP, DLDL, LIPID #### [facility] [address] [place] [address] Dr. Shweta Dillard Chloride [Moles/Vol] 100 mmol/L Normal 98-107 [facility] Comment on above: Performed By: #### U ZAIRA, CMP, DLDL, LIPID #### [facility] [address] [place] [address] Dr. Shweta Dillard CO2 [Moles/Vol] 30.0 mmol/L Normal 21.0-32.0 [facility] Comment on above: Performed By: #### U ZAIRA, CMP, DLDL, LIPID #### [facility] [address] [address] [address] Shweta Dillard Creatinine [Mass/Vol] 0.89 mg/dL Normal 0.70-1.30 [facility] Comment on above: Performed By: #### U ZAIRA, CMP, DLDL, LIPID #### [facility] [address] [address] [address] Shweta Dillard EGFR-AF CROATIAN >60 Normal >=60 [facility] Comment on above: Performed By: #### U ZAIRA, CMP, DLDL, LIPID #### [facility] [address] [address] [address] Shweta Dillard EGFR-NON AF CROATIAN >60 Normal >=60 [facility] Comment on above: Performed By: #### U ZAIRA, CMP, DLDL, LIPID #### [facility] [address] [address] [address] Shweta Dillard Globulin (S) [Mass/Vol] 3.1 g/dL Normal [facility] Comment on above: Performed By: #### U ZAIRA, CMP, DLDL, LIPID #### [facility] [address] [address] [address] Shweta Dillard Glucose [Mass/Vol] 125 mg/dL Critically high 74-106 [facility] Comment on above: Performed By: #### U ZAIRA, CMP, DLDL, LIPID #### [facility] [address] [address] [address] Shweta Dillard Potassium [Moles/Vol] 4.4 mmol/L Normal 3.5-5.1 [facility] Comment on above: Performed By: #### U ZAIRA, CMP, DLDL, LIPID #### [facility] [address] [address] [address] Shweta Dillard Protein [Mass/Vol] 7.1 g/dL Normal 6.4-8.2 [facility] Comment on above: Performed By: #### U ZAIRA, CMP, DLDL, LIPID #### [facility] [address] [address] [address] Shweta Dillard Sodium [Moles/Vol] 139 mmol/L Normal 136-145 [facility] Comment on above: Performed By: #### U ZAIRA, CMP, DLDL, LIPID #### [facility] [address] [address] [address] Shweta Dillard Urea nitrogen [Mass/Vol] 25.0 mg/dL Critically high 7.0-18.0 [facility] Comment on above: Performed By: #### U ZAIRA, CMP, DLDL, LIPID #### [facility] [address] [address] [address] Shweta Dillard Urea nitrogen/Creatinine [Mass ratio] 28.1 mg/mg Normal [facility] Comment on above: Performed By: #### U ZAIRA, CMP, DLDL, LIPID #### [facility] [address] [address] [address] Shweta Dillard UA RANDOM W/MICROSCOPICon BACTERIA NONE SEEN Normal NONE SEEN [facility] Comment on above: Performed By: #### U AMIC ####[facility] [address] [address]Dr. Shweta Dillard Bilirubin Ql (U) Negative Normal NEGATIVE [facility] Comment on above: Performed By: #### U AMIC ####[facility] [address] [address]Dr. Shweta Dillard CAST NONE SEEN Normal NONE SEEN [facility] Comment on above: Performed By: #### U AMIC ####[facility] [address] [address]Dr. Shweta Dillard Clarity (U) CLEAR Normal CLEAR [facility] Comment on above: Performed By: #### U AMIC ####[facility] [address] [address]Dr. Shweta Dillard Color (U) LT. YELLOW Normal YELLOW [facility] Comment on above: Performed By: #### U AMIC ####[facility] [address] [address]Dr. Shweta Dillard Crystals LM Nom (Urine sed) NONE SEEN Normal NONE SEEN [facility] Comment on above: Performed By: #### U AMIC ####[facility] [address] [address]Dr. Shweta Dillard Epithelial cells LM Ql (Urine sed) RARE Normal NONE SEEN /RARE [facility] Comment on above: Performed By: #### U AMIC ####[facility] [address] [address]Dr. Shweta Dillard Glucose Ql (U) Negative Normal NEGATIVE [facility] Comment on above: Performed By: #### U AMIC ####[facility] [address] [place], [place] [address]Dr. Shweta Dillard Hemoglobin Ql (U) Negative Normal NEGATIVE [facility] Comment on above: Performed By: #### U AMIC ####[facility] [address] [place], [place] [address]Dr. Shweta Dillard Ketones Ql (U) Negative Normal NEGATIVE [facility] Comment on above: Performed By: #### U AMIC ####[facility] [address] [place], [place] [address]Dr. Shweta Dillard LEUKOCYTES Negative Normal NEGATIVE [facility] Comment on above: Performed By: #### U AMIC ####[facility] [address] [address]Dr. Shweta Dillard MUCOUS NONE SEEN Normal NONE SEEN [facility] Comment on above: Performed By: #### U AMIC ####[facility] [address] [address]Dr. Shweta Dillard Nitrite Ql (U) Negative Normal NEGATIVE [facility] Comment on above: Performed By: #### U AMIC ####[facility] [address] [place], [place] [address]Dr. Shweta Dillard pH (U) 5.0 [pH] Normal 5-9 [facility] Comment on above: Performed By: #### U AMIC ####[facility] [address] [place], [place] [address]Dr. Shweta Dillard RBC NONE SEEN Abnormal 0-2 [facility] Comment on above: Performed By: #### U AMIC ####[facility] [address] [id number]. Shweta Dillard SPEC GRAVITY 1.020 Normal 1.005-<=1.025 [facility] Comment on above: Performed By: #### U AMIC ####[facility] [address] [id number] Dillard UA PROTEIN Negative Normal NEGATIVE/ TRACE [facility] Comment on above: Performed By: #### U AMIC ####[facility] [address] [id number] Dillard Urobilinogen Qn (U) 0.2 {Bruce'U}/dL Normal 0.2 - 1. 0 [facility] Comment on above: Performed By: #### U AMIC ####[facility] [address] [address]DrMarky Dillard WBC NONE SEEN Normal NONE SEEN [facility] Comment on above: Performed By: #### U AMIC ####[facility] [address] [id number] Dillard URIC ACID SERUMon 11-01-2022 Urate [Mass/Vol] 3.7 mg/dL Normal 3.5-7.[address] [facility] Comment on above: Performed By: #### U ZAIRA, CMP, DLDL, LIPID #### [facility] [address] [place], [place] [address] Dr. Shweta Dillard US TYLER DOP LEG [...] JEMIMA DELATORRE Date: 2022-11-01 10:54 Normal [facility] Vital Signs Date Time Vital Sign Value Performing Clinician Facility 02-17-2025 09:13-0400 Body mass index (BMI) [Ratio] 34.64 kg/m2 Mirtha Sortoesmer [employer] PR[employer] OPERATOR Work Phone: [facility] 02-17-2025 09:13-0400 Body temperature 97.81 [degF] Mirtha Sortoesmer [employer] PR[employer] OPERATOR Work Phone: [facility] 02-17-2025 09:13-0400 Body weight 115.85 kg Mirtha Salazarsolo [employer] PR[employer] OPERATOR Work Phone: [facility] 02-17-2025 09:13-0400 Diastolic blood pressure 78 mm[Hg] Mirtha Felicia [employer] PRESS OPERATOR Work Phone: [facility] 02-17-2025 09:13-0400 Heart rate 70 /min Mirtha Sortoesmer [employer] PR[employer] OPERATOR Work Phone: [facility] 02-17-2025 09:13-0400 Respiratory rate 20 /min Mirtha Woodmatt [employer] PR[employer] OPERATOR Work Phone: [facility] 02-17-2025 09:13-0400 SaO2% (BldA) [Mass fraction] 97 % Mirtha Sortoesmer [employer] PR[employer] OPERATOR Work Phone: [facility] 02-17-2025 09:13-0400 Systolic blood pressure 118 mm[Hg] Mirtha Sortoesmer POT PRESS OPERATOR Work Phone: [facility] 10-06-2024 14:02-0500 Body height 182.9 cm Mirtha Sortoesmer [employer] PR[employer] OPERATOR Work Phone: [facility] 10-06-2024 14:02-0500 Body mass index (BMI) [Ratio] 34.15 kg/m2 Mirtha Felicia [employer] PRESS OPERATOR Work Phone: [facility] 10-06-2024 14:02-0500 Body temperature 98.49 [degF] Mirtha Felicia P[employer] PRESS OPERATOR Work Phone: [facility] 10-06-2024 14:02-0500 Body weight 114.22 kg Mirtha Duarte POT PRESS OPERATOR Work Phone: [facility] 10-06-2024 14:02-0500 Diastolic blood pressure 80 mm[Hg] Mirtha Duarte POT PRESS OPERATOR Work Phone: [facility] 10-06-2024 14:02-0500 Heart rate 50 /min Mirtha Duarte P[employer] PRESS OPERATOR Work Phone: [facility] 10-06-2024 14:02-0500 Respiratory rate 18 /min Mirtha Duarte P[employer] PRESS OPERATOR Work Phone: [facility] 10-06-2024 14:02-0500 SaO2% (BldA) [Mass fraction] 98 % Mirtha Duarte P[employer] PRESS OPERATOR Work Phone: [facility] 10-06-2024 14:02-0500 Systolic blood pressure 130 mm[Hg] Mirtha Duarte POT PRESS OPERATOR Work Phone: [facility] 10-31-2023 13:59-0500 Diastolic blood pressure 78 mm[Hg] Therese Ayala MD Work Phone: [facility] 10-31-2023 13:59-0500 Heart rate 62 /min Therese Ayala MD Work Phone: [facility] 10-31-2023 13:59-0500 Systolic blood pressure 124 mm[Hg] Therese Ayala MD Work Phone: [facility] 10-31-2023 13:58-0500 Body height 182.9 cm Therese Ayala MD Work Phone: [facility] 10-31-2023 13:58-0500 Body mass index (BMI) [Ratio] 34.56 kg/m2 Therese Ayala MD Work Phone: [facility] 10-31-2023 13:58-0500 Body weight 115.58 kg Therese Ayala MD Work Phone: [facility] 10-31-2023 13:58-0500 Respiratory rate 18 /min Therese Ayala MD Work Phone: [facility] [employer] [facility] Encounters Encounter Date Encounter Type Care Provider Facility Start: 06-14-2025 ambulatory Shen ROSS Facili ty:[facility] Start: 03-02-2025 ambulatory MAGGIE CASTILLO [facility] Start: 02-18-2025 ambulatory JESSICA MAN [facility] Start: 02-17-2025 End: 02-17-2025 Bamboo flowsheet Mirtha Duarte [employer] PR[employer] OPERATOR Work Phone: [facility] Start: 02-17-2025 End: 02-17-2025 Bamboo flowsheet Mirtha Duarte [employer] PR[employer] OPERATOR Work Phone: [facility] Start: 02-17-2025 End: 02-17-2025 Office outpatient visit 25 minutes Mirtha Duarte [employer] PR[employer] OPERATOR Work Phone: [facility] Comment on above: Aneurysm of ascendin g aorta without rupture (CMS/HCC) (Primary Dx); Essential hypertension (CMS/HCC); Testicular lump; Severe obesity (BMI 35.0-39.9) with comorbidity (CMS/HCC); Cigarette nicotine dependence without complication; Chronic pansinusitis Start: 02-17-2025 End: 02-17-2025 ambulatory MIRTHA DUARTE Not Available Start: 02-16-2025 End: 02-16-2025 ambulatory [facility] Start: 02-05-2025 End: 02-05-2025 ambulatory Shen ROSS Facility:[facility] Start: 01-26-2025 ambulatory Shen ROSS Facility :[facility] Start: 01-25-2025 End: 01-25-2025 Orders Only Mirtha Duarte P[employer] PR[employer] OPERATOR Work Phone: [facility] Comment on above: Testicular lump (Sonia xiomara Dx) Start: 01-22-2025 End: 01-22-2025 Clinisync Result Encounter Mirtha Duarte [employer] PR[employer] OPERATOR Work Phone: [facility] Unsolicited Start: 01-22-2025 End: 01-22-2025 Clinisync Result Encounter Mirtha Duarte [employer] PR[employer] OPERATOR Work Phone: [facility] Unsolicited Start: 01-06-2025 End: 01-06-2025 ambulatory MIRTHA DUARTE Not Available Start: 12-29-2024 ambulatory MAGGIE CASTILLO [facility] Start: 12-14-2024 End: 12-14-2024 ambulatory JESSICA MAN [facility] Start: 11-18-2024 ambulatory MIRTHA DUARTE [facility] Start: 10-27-2024 ambulatory MAGGIE CASTILLO [facility] Start: 10-06-2024 End: 10-06-2024 Bamboo flowsheet Mirtha Duarte POT PRESS OPERATOR Work Phone: [facility] Start: 10-06-2024 End: 10-06-2024 Bamboo flowsheet Mirtha Duarte P[employer] PR[employer] OPERATOR Work Phone: [facility] Start: 10-06-2024 End: 10-06-2024 Office outpatient visit 25 minutes Mirtha Duarte P[employer] PR[employer] OPERATOR Work Phone: [facility] Comment on above: Venous insufficiency of both lower extremities (Primary Dx); Essential hypertension (CMS/HCC); Edema of lower extremity; Smoker; Chronic rhinitis; Subacute pansinusitis; Chronic pain of right knee Start: 10-06-2024 End: 10-06-2024 ambulatory MIRTHA DUARTE Not Available Start: 08-18-2024 End: 08-18-2024 Refill Mirtha Duarte [employer] PRESS OPERATOR Work Phone: [facility] Start: 08-13-2024 End: 08-13-2024 Refill Mirtha Felicia [employer] PR[employer] OPERATOR Work Phone: [facility] Comment on above: Benign essential hyp ertension (CMS/HCC); Edema of lower extremity Start: 08-11-2024 ambulatory MAGGIE CASTILLO [facility] Start: 07-07-2024 End: 07-07-2024 Refill Mirtha Felicia [employer] PR[employer] OPERATOR Work Phone: [facility] Comment on above: Subacute sinusitis, unspecified location (Primary Dx) Start: 06-02-2024 ambulatory MAGGIE CASTILLO [facility] Start: 04-30-2024 Patient encounter procedure Mirtha Woodtierneysolo POT PRESS OPERATOR Work Phone: [facility] Start: 04-30-2024 End: 04-30-2024 ambulatory MIRTHA WOODTEIRNEYSolo Not Available Start: 03-24-2024 ambulatory MAGGIE CASTILLO [facility] Start: 10-31-2023 End: 10-31-2023 ambulatory THERESE AYALA [facility] Start: 10-31-2023 End: 10-31-2023 Office outpatient visit 25 minutes Therese Ayala MD Work Phone: [facility] Comment on above: Venous insufficiency of both lower extremities (Primary Dx); Varicose veins of left lower extremity with pain ; Chronic back pain, unspecified back location, unspecified back pain laterality; Severe obesity (BMI 35.0-39.9) with comorbidity (CMS-HCC) Start: 12-05-2022 End: 12-06-2022 ambulatory MANDA TELLO FELICIA Facility:[facility] Start: 11-01-2022 End: 11-02-2022 ambulatory MANDA TELLO NOAMLudwinTIERNEYSolo Facility:[facility] Procedures Date Procedure Procedure Detail Performing Clinician Start: 01-22-2025 Us scrotum & contents L kan Duarte [employer] PRESS OPERATOR Work Phone: Start: 01-22-2025 CT LUNG SCREENING LOW DOSE Mirtha Felicia POT PRESS OPERATOR Work Phone: Start: 12-14-2024 Follow-up visit Follow-up JESSICA MAN Start: 11-01-2022 PSA screening FULL TIME BABYSITTER MIRTHA FELICIA Comment on above: Performed By: #### P [facility] #### [facility] [address] [place] [address] Dr. Shweta Dillard Start: 02-15-2021 Colonoscopy Mirtha Richard oneil POT PRESS OPERATOR Work Phone: Plan of Treatment Date Care Activity Detail Author Start: 02-15-2031 Screening for malign ant neoplasm of colon [facility] Start: 01-05-2027 Glaucoma screening Diabetes: R etinopathy Screening [facility] Start: 01-05-2026 Glaucoma screening Diabetes: R etinopathy Screening [facility] Start: 07-09-2025 Hemoglobin A1c measurement Diabetes: Hemoglobin A1C [facility] Start: 04-30-2025 Medicare Annual Well ness (AWV) Medicare Annual Wellness (AWV) [facility] Start: 04-28-2025 Urine screening for protein Diabetes: Urine Protein Screening [facility] Start: 04-19-2025 End: 04-19-2025 Patient encounter procedure 04/19/2025 9:20 AM EDT Office Visit [facility] [address] [place] [address] Mirtha Duarte NP [address] [place] [address] [facility] Start: 02-17-2025 End: 02-17-2026 CT Maxillofacial region WO and W contrast IV CT SINUS WO IV CONTRAST Imaging Routine Chronic pansinusitis Expected: 02/17/2025, Expires: 02/17/2026 [facility] Work Phone: Comment on above: Expected: 02/17/2025 , Expires: 02/17/2026 Start: 02-17-2025 End: 02-17-2025 Patient encounter procedure [facility] Comment on above: Essential hypertensi on (CMS/HCC) (Primary Dx); Testicular lump; Severe obesity (BMI 35.0-39.9) with comorbidity (CMS/HCC); Cigarette nicotine dependence without complication; Aneurysm of ascending aorta without rupture (CMS/HCC) Start: 10-31-2024 Adult BMI Screening Adult BMI Screen ing [facility] Start: 10-31-2024 Tobacco Screening Tobacco Screening [facility] Start: 10-29-2024 Hemoglobin A1c measurement Diabetes: Hemoglobin A1C [facility] Start: 10-06-2024 End: 10-06-2024 Patient encounter procedure 10/06/2024 1:40 PM EST Office Visit [facility] [address] [place] [address] Mirtha Daurte NP [address] [place] [phone] Essential hypertension (CMS/HCC) (Primary Dx); Edema of lower extremity; Smoker [facility] Comment on above: Essential hypertensi on (CMS/HCC) (Primary Dx); Edema of lower extremity; Smoker Start: 07-30-2024 End: 07-30-2024 Patient encounter procedure 07/30/2024 9:40 AM EDT Office Visit [facility] [address] [place] [phone] Mirtha Duarte NP [address] [place] [phone] [facility] Start: 07-29-2024 Hemoglobin A1c measurement Diabetes: Hemoglobin A1C [facility] Start: 01-30-2024 End: 01-30-2024 Patient encounter procedure 01/30/2024 10:50 AM EDT [facility] [address] [place] [address] Merary Sue MD [address], [address] [address] [facility] Start: 06-21-2023 COVID-19 Vaccine ( season) COVID-19 Vaccine ( season) [facility] Start: 06-21-2023 Influenza vaccination Influenza Vacc ine [facility] Start: 2017 Administration of varicella zoster vaccine Zoster (Shingles) Vaccine (1 of 2) [facility] Start: 1986 DTaP,Tdap and Td Vaccines (1 - Tdap) DTaP,Tdap and Td Vaccines (1 - Tdap) [facility] Start: 1985 Adult BMI Follow Up Plan Adult BMI Follow Up Plan [facility] Start: 1985 Diabetic foot examination Diabetic Foot Exam [facility] Start: 1979 Depression Screening Depression Scre ening [facility] Start: 1967 Glaucoma screening Diabetic Op hthalmology Exam [facility] Start: 1967 Screening for malign ant neoplasm of colon [facility] Start: 1967 Tobacco Counseling Tobacco Counselin g [facility] Start: 1967 Urine screening for protein Urine Microalbumin [facility] Immunizations Immunization Date Immunization Notes Care Provider Fa cility 11-03-2021 Moderna SARS-CoV-2 Vaccination Mirtha Felicia POT PRESS OPERATOR Work Phone: [facility] 11-03-2021 SARS-CoV-2, Unspecified Mirtha Aichholz POT PRESS OPERATOR Work Phone: [facility] 07-13-2021 influenza, injectabl e, quadrivalent, preservative free Mirtha Aichholz POT PRESS OPERATOR Work Phone: [facility] 07-13-2021 influenza virus vaccine, unspecified formulation Therese Ayala MD Work Phone: [facility] 02-21-2021 COVID-19, mRNA, LNP- S, PF, 100mcg/0.5mL Dose Therese Ayala MD Work Phone: [facility] [facility] 01-24-2021 COVID-19, mRNA, LNP- S, PF, 100mcg/0.5mL Dose Therese Ayala MD Work Phone: [facility] 09-30-2020 influenza, injectabl e, quadrivalent, preservative free Mirtha Aichholz POT PRESS OPERATOR Work Phone: [facility] 07-21-2013 influenza, injectabl e, madin tabatha canine kidney, preservative free Mirtha Aichholz POT PRESS OPERATOR Work Phone: [facility] Payers Date Payer Category Payer Private Health Insurance [employer] [id number] 2024 Medicaid [id number] 2021 Medicare [id number] 2018 Medicaid [id number] 2018 Unknown [id number] 1967 Unknown [id number]. 593 1967 Unknown [id number]. 593 1967 Unknown [id number]. 1286 1967 Unknown [id number] [id number]. 727 1967 Unknown [id number] [id number]. 727 1967 Unknown [id number] [id number]. 727 1967 Unknown [id number] [id number]. 1259 1967 Unknown [id number] [id number]. 1259 1967 Unknown [id number] [id number]. 1259 1967 Unknown [id number]. 1259 1957 Medicare [id number] Social History Date Type Detail Facility Start: 10-21-1985 End: 10-31-2023 Tobacco smoking status NHIS Smokes tobacco daily [facility] Start: 10-21-1985 History of tobacco use Cigarette Smo ker [facility] Start: 04-30-2024 End: 02-17-2025 Alcoholic beverage intake Current drinker of alcohol (finding) [facility] Start: 04-30-2024 End: 01-06-2025 History of Social function [facility] Start: 04-30-2024 End: 01-06-2025 Tobacco use panel [facility] Start: 10-12-2023 Alcohol Comment 2-3 times a week [facility] Start: 1965 Sex assigned at Not on file P [facility] Start: 10-31-2023 Tobacco use and exposure Smokeless tobacco non-user [facility] Childcare Unknown [facility] Start: 07-27-2020 Alcohol Comment weekends [facility] Clinical Notes 04-27-2021 to 03-02-2025 Mirtha Duarte NP - 02/17/2025 10:47 AM EDROBERTO SPRINGER 02/17/2025 9:20 AM Sherman Duarte NP - 02/17/2025 9:20 AM Sherman Duarte NP - 02/17/2025 6:23 AM EDTPatient Instructions Note Date & Type Note Facility 03-02-2025 Note PROCEDURE PERFORMED: Intrathecal pump refill. PERFORMING PROVIDER: Maggie Castillo, Nurse Practitioner. FILM AND VIDEO EDITOR: Yessica Lucero RN PREPROCEDURE DIAGNOSIS: Post laminectomy syndrome POSTPROCEDURE DIAGNOSIS: Post laminectomy syndrome INDICATION FOR THE PROCEDURE: 58 year old male here for follow up [...] were verified by 2 nurses. Start time: 1030 End time: 1115 The pump was interrogated prior to initiation [...] OF MEDICATION IN RESERVOIR PRIOR TO REFILL: 9.6ml ACTUAL REMAINING VOLUME OF MEDICATION IN RESERVOIR PRIOR TO REFILL: 12ml CURRENT MEDICATION AND CONCENTRATION PRIOR TO REFILL: Dilaudid 15 mg/mL with bupivacaine 15 mg/mL, 40 mL. CURRENT DOSE: Dilaudid 6.902 mg/day with bupivacaine mg/day disabled ptm VOLUME OF MEDICATION REFILLED: 40ml BRIDGE BOLUS PROGRAMMED: n/a NEW DOSE: 7.249mg/day COMPLICATIONS: None. ESTIMATED BLOOD LOSS: None. CAIT: June 2029 ALARM DATE: 05/19/25 REFILL DATE: 05/04/25 Diagnosis Plan 1. Post laminectomy syndrome PUMP W REPROG & REFILL REQUIRING PHYSICIAN SKILL PUMP W REPROG & REFILL REQUIRING PHYSICIAN SKILL [facility] 02-18-2025 Note DEPARTMENT OF VASCUL AR SURGERY HPI Matt Palmer is a 59 y.o. 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 On CT the ascending aorta shows mild aneurysmal dilatation with diameter 4.4 cm. He denies any chest pain radiating to the back. He is a heavy smoker about 1-1.5PPD. He is on BP medications and takes his blood pressure at home regularly and normally runs in low 120s/70s. His last echo was in 2019. Review of Systems Constitutional: Negative. HENT: Negative. Eyes: Negative. Cardiovascular: Negative. Respiratory: Negative. Endocrine: Negative. Hematologic/Lymphatic: Negative. Skin: Positive for color change. Musculoskeletal: Negative. Gastrointestinal: Negative. Genitourinary: Negative. Neurological: Negative. Psychiatric/Behavioral: Negative. Allergic/Immunologic: Negative. 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 Appearance: Normal appearance. He is not ill-appearing. HENT: Head: Normocephalic and atraumatic. Eyes: General: No scleral icterus. Pupils: Pupils are equal, round, and reactive to light. Cardiovascular: Rate and Rhythm: Normal rate and regular rhythm. Pulmonary: Effort: Pulmonary effort is normal. Breath sounds: Normal breath sounds. Musculoskeletal: Cervical back: Neck supple. Skin: General: Skin is warm and dry. Neurological: General: No focal deficit present. Mental Status: He is alert and oriented to person, place, and time. Psychiatric: Mood and Affect: Mood normal. Behavior: Behavior normal. Thought Content: Thought content normal. Judgment: Judgment normal. Assessment and Plan: Diagnoses and all orders for this visit: Abdominal aortic aneurysm (AAA) without rupture, unspecified part Aneurysm of ascending aorta without rupture Reviewed CT with patient. Discussed size is small and typically do not require repair at this size; however Aneurysm is in ascending aorta and is managed by CT surgery team and he will need assessment by their team for full recommendations. Discussed with CT surgery and they will see patient, ordered echo to be done this year per CT surgery recommendations. Surveillance CTA also ordered for 1 year Discussed impulse control and to continue to monitor BP at home- currently well controlled Discussed smoking and effects of smoking on aneurysm progression Continue with plan for follow up annually with our service for CVI. Electronically signed by: Jessica Man PA-C Physician [facility] 02/18/2025 This note was created with the assistance of a speech-recognition program. While intending to generate a document that accurately reflects the content of the encounter, no guarantee can be provided that every mistake has been identified and corrected by editing [facility] 02-17-2025 History of Presen t illness Narrative Associated Problem(s): Chronic pansinusitis Ongoing issues with this for some times Trialed multiple antihistamines as well as nasal steroids Still with congestion worsens and caused difficulty breathing during the night Will order CT sinuses Fasting BS range: 100-120 Images from the original note were not included. Matt Palmer is a 59 y.o. male presents with chief complaint of Hypertension HPI: Saw urology regarding abnormal US scrotom, given different meds will fu in 4 months if still bothering him at that time will discuss surgery Low dose CT chest: done, noted to have aneurysm ascending aorta Constant sinus congestion, resulting in difficulty breathing out of nose for many months, no help with various allergy medications/nasal spray, wonders about seeing specialist or something else. Cannot get anything blown out of nose Hypertension This is a chronic problem. The problem is unchanged. The problem is controlled. Associated symptoms include peripheral edema. Pertinent negatives include no blurred vision, chest pain or shortness of breath. There are no associated agents to hypertension. Risk factors for coronary artery disease include diabetes mellitus, male gender, obesity, sedentary lifestyle and smoking/tobacco exposure. Past treatments include diuretics and ALEXANDRO inhibitors. The current treatment provides significant improvement. There are no compliance problems. SUBJECTIVE: MEDICATIONS: Current Outpatient Medications Medication Instructions acetaminophen (TYLENOL) 500 mg, 2 times daily PRN albuterol HFA 90 mcg/act inhaler 2 puffs, Every 4 hours PRN alfuzosin ER (UROXATRAL) 10 mg, Daily Blood Glucose Monitoring Suppl (Blood Glucose Monitor System) w/Device kit No dose, route, or frequency recorded. dutasteride (AVODART) 0.5 mg, Daily febuxostat (ULORIC) 40 mg, Oral, Daily fluticasone (Flonase) 50 MCG/ACT nasal spray 2 sprays, Each Nostril, Daily, Shake gently. Before first use, prime pump. After use, clean tip and replace cap. lisinopril 30 mg, Oral, Daily meloxicam (MOBIC) 15 mg, Oral, Daily metFORMIN (GLUCOPHAGE) 500 mg, Oral, 2 times daily with meals spironolactone (ALDACTONE) 50 mg, Oral, Daily ALLERGIES: Allergies Allergen Reactions Simvastatin Swelling REVIEW OF SYMPTOMS: Review of Systems Constitutional: Negative for activity change, appetite change and unexpected weight change. HENT: Positive for congestion and sinus pressure. Negative for ear pain, nosebleeds, sneezing, trouble swallowing and voice change. Eyes: Negative for blurred vision, pain, discharge and visual disturbance. Respiratory: Negative for apnea, chest tightness, shortness of breath and wheezing. Cardiovascular: Positive for leg swelling. Negative for chest pain. Gastrointestinal: Negative for abdominal distention, blood in stool, constipation and diarrhea. Genitourinary: Negative for decreased urine volume, difficulty urinating, dysuria and hematuria. Skin: Negative for color change. Neurological: Negative for dizziness, tremors and seizures. Psychiatric/Behavioral: Negative for agitation, decreased concentration, hallucinations, self-injury and suicidal ideas. The patient is not nervous/anxious. Hematological: Negative for adenopathy. Does not bruise/bleed easily. Endocrine: Negative for cold intolerance, heat intolerance, polydipsia and polyuria. Allergic/Immunologic: Negative for environmental allergies and food allergies. PAST MEDICAL HISTORY Past Medical History: Diagnosis Date Allergic rhinitis, mild BPH (benign prostatic hyperplasia) Bundle branch block, right Chronic back pain Chronic bilateral low back pain with bilateral sciatica Chronic gout of multiple sites, unspecified cause Chronic obstructive pulmonary disease, unspecified COPD type (CMS/HCC) Chronic pain of both knees Degenerative disc disease, lumbar Difficulty urinating Edema of right lower extremity Gout Hyperglycemia Hyperlipidemia, acquired (CMS/HCC) Hypertension, benign (CMS/HCC) Idiopathic chronic gout of multiple sites without tophus 09/24/2023 Leg swelling Onychodystrophy PAD (peripheral artery disease) (CMS/HCC) Pain in both lower extremities Peripheral edema Rheumatoid arthritis (CMS/HCC) Swelling of right foot Tobacco user Past Surgical History: Procedure Laterality Date LUMBAR FUSION Back fusion L3-5 MENISCECTOMY 11/2016 Medial & lateral OTHER SURGICAL HISTORY BGS implanted and then removed OTHER SURGICAL HISTORY Pain pump family history is not on file. OBJECTIVE: Visit Vitals BP 118/78 (BP Location: Left arm, Patient Position: Sitting, BP Cuff Size: Large adult) Pulse 70 Temp 97.8 F (Temporal) Resp 20 Wt 255 lb 6.4 oz SpO2 97% BMI 34.64 kg/m Smoking Status Every Day BSA 2.43 m Physical Exam Vitals and nursing note reviewed. Constitutional: Appearance: Normal appearance. HENT: Head: Normocephalic. Right Ear: External ear normal. Left Ear: External ear normal. Nose: Congestion present. Mouth/Throat: Mouth: Mucous membranes are moist. Pharynx: Oropharynx is clear. Eyes: Extraocular Movements: Extraocular movements intact. Conjunctiva/sclera: Conjunctivae normal. Cardiovascular: Rate and Rhythm: Normal rate and regular rhythm. Pulses: Normal pulses. Heart sounds: Normal heart sounds. Pulmonary: Effort: Pulmonary effort is normal. Breath sounds: Normal breath sounds. Abdominal: General: Bowel sounds are normal. Palpations: Abdomen is soft. Musculoskeletal: Cervical back: Neck supple. Right lower leg: Edema present. Left lower leg: Edema present. Skin: General: Skin is warm and dry. Capillary Refill: Capillary refill takes 2 to 3 seconds. Neurological: General: No focal deficit present. Mental Status: He is alert. Psychiatric: Mood and Affect: Mood normal. Behavior: Behavior normal. Thought Content: Thought content normal. Judgment: Judgment normal. ASSESSMENT AND PLAN: No follow-ups on file. Problem List Items Addressed This Visit Severe obesity (BMI 35.0-39.9) with comorbidity (CMS/HCC) Discussed with patient their BMI (actual, verses recommended). We have also discussed lifestyle modifications: attempts to perform physical activity as chronic conditions allow, also to monitor dietary intake: increasing protein/fruits/veggies and lowering carb intake (unless contraindicated). Limit sodas, juices, and sugary drinks. Essential hypertension (CMS/HCC) - Primary Please check blood pressure daily and record DASH diet Limit caffeine Take medication as directed Contact office if chest pain, pressure, dizziness, shortness of breath, swelling legs Recommend slow position changes Current meds: lisinopril Cigarette nicotine dependence without complication The patient has been advised of the risks of continued smoking: stroke, NH, all forms of cancer, lung disease, and . Options for quitting smoking include: cold turkey, hypnosis, acupuncture, nicotine replacement meds (gum, lozenges, and patches), Buproprion, and Varenicline. At this time pt is encouraged to evaluate their goals for wanting to quit smoking, and reach out to provider when ready to start this process Testicular lump US : see report for specifics Was referred to urology as well, see their notes New meds, fu in 4 months with them Aneurysm of ascending aorta without rupture (CMS/HCC) Noted on low dose CT chest, is established with vascular at [facility] for legs, we did forward to them the report as well Has appt with Marian brooke tomorrow, and I gave pt a copy of report and told him to get a copy of disc to take with him as well Chronic pansinusitis Ongoing issues with this for some times Trialed multiple antihistamines as well as nasal steroids Still with congestion worsens and caused difficulty breathing during the night Will order CT sinuses Relevant Orders CT SINUS WO IV CONTRAST Associated Problem(s): Aneurysm of ascending aorta without rupture (CMS/HCC) Noted on low dose CT chest, is established with vascular at [facility] for legs, we did forward to them the report as well Has appt with Marian brooke tomorrow, and I gave pt a copy of report and told him to get a copy of disc to take with him as well Associated Problem(s): Cigarette nicotine dependence without complication The patient has been advised of the risks of continued smoking: stroke, NH, all forms of cancer, lung disease, and . Options for quitting smoking include: cold turkey, hypnosis, acupuncture, nicotine replacement meds (gum, lozenges, and patches), Buproprion, and Varenicline. At this time pt is encouraged to evaluate their goals for wanting to quit smoking, and reach out to provider when ready to start this process Associated Problem(s): Severe obesity (BMI 35.0-39.9) with comorbidity (CMS/HCC) Discussed with patient their BMI (actual, verses recommended). We have also discussed lifestyle modifications: attempts to perform physical activity as chronic conditions allow, also to monitor dietary intake: increasing protein/fruits/veggies and lowering carb intake (unless contraindicated). Limit sodas, juices, and sugary drinks. Associated Problem(s): Testicular lump US : see report for specifics Was referred to urology as well, see their notes New meds, fu in 4 months with them Associated Problem(s): Essential hypertension (CMS/HCC) Please check blood pressure daily and record DASH diet Limit caffeine Take medication as directed Contact office if chest pain, pressure, dizziness, shortness of breath, swelling legs Recommend slow position changes Current meds: lisinopril documented in this encounter [facility] 02-17-2025 Instructions Mirtha Duarte NP - 02/17/2025 9:20 AM EDT Take copy of disc to vascular appt tomorrow Will order CT sinuses documented in this encounter [facility] 02-05-2025 Note Patient Education Pulmonary Medicine Steps to Quit Smoking Smoking tobacco is the leading cause of preventable . It can affect almost every organ in the body. Smoking puts you and those around you at risk for developing many serious chronic diseases. Quitting smoking can be very challenging. Do not get discouraged if you are not successful the first time. Some people need to make many attempts to quit before they achieve long-term success. Do your best to stick to your quit plan, and talk with your health care provider if you have any questions or concerns. How do I get ready to quit? When you decide to quit smoking, create a plan to help you succeed. Before you quit: ??? Pick a date to quit. Set a date within the next 2 weeks to give you time to prepare. ??? Write down the reasons why you are quitting. Keep this list in places where you will see it often. ??? Tell your family, friends, and co-workers that you are quitting. Support from people you are close to can make quitting easier. ??? Talk with your health care provider about your options for quitting smoking. ??? Find out what treatment options are covered by your health insurance. ??? Identify people, places, things, and activities that make you want to smoke (triggers). Avoid them. What first steps can I take to quit smoking? Throw away all cigarettes at home, at work, and in your car. ??? Throw away smoking accessories, such as ashtrays and lighters. ??? Clean your car. Make sure to empty the ashtray. ??? Clean your home, including curtains and carpets. What strategies can I use to quit smoking? Talk with your health care provider about combining strategies, such as taking medicines while you are also receiving in-person counseling. Using these two strategies together makes you more likely to succeed in quitting than if you used either strategy on its own. If you are or , talk with your health care provider about finding counseling or other support strategies to quit smoking. Do not take medicine to help you quit smoking unless your health care provider tells you to. Quit right away ??? Quit smoking completely, instead of gradually reducing how much you smoke over a period of time. Stopping smoking right away may be more successful than gradually quitting. ??? Attend in-person counseling to help you build problem-solving skills. You are more likely to succeed in quitting if you attend counseling sessions regularly. Even short sessions of 10 minutes can be effective. Take medicine You may take medicines to help you quit smoking. Some medicines require a prescription. You can also purchase dlfq-xgw-yideddt medicines. Medicines may have nicotine in them to replace the nicotine in cigarettes. Medicines may: ??? Help to stop cravings. ??? Help to relieve withdrawal symptoms. Your health care provider may recommend: ??? Nicotine patches, gum, or lozenges. ??? Nicotine inhalers or sprays. ??? Non-nicotine medicine that you take by mouth. Find resources Find resources and support systems that can help you quit smoking and remain smoke-free after you quit. These resources are most helpful when you use them often. They include: ??? Online chats with a counselor. ??? Telephone quitlines. ??? Printed self-help materials. ??? Support groups or group counseling. ??? Text messaging programs. ??? Mobile phone apps or applications. Use apps that can help you stick to your quit plan by providing reminders, tips, and encouragement. Examples of free services include Quit Guide from the CDC and smokefree.gov What can I do to make it easier to quit? Reach out to your family and friends for support and encouragement. Call telephone quitlines, such as 5-795-CINL-NOW, reach out to support groups, or work with a counselor for support. ??? Ask people who smoke to avoid smoking around you. ??? Avoid places that trigger you to smoke, such as bars, parties, or smoke-break areas at work. ??? Spend time with people who do not smoke. ??? Lessen the stress in your life. Stress can be a smoking trigger for some people. To lessen stress, try: ? Exercising regularly. ? Doing deep-breathing exercises. ? Doing yoga. ? Meditating. What benefits will I see if I quit smoking? Over time, you should start to see positive results, such as: ??? Improved sense of smell and taste. ??? Decreased coughing and sore throat. ??? Slower heart rate. ??? Lower blood pressure. ??? Clearer and healthier skin. ??? The ability to breathe more easily. ??? Fewer sick days. Summary ??? Quitting smoking can be very challenging. Do not get discouraged if you are not successful the first time. Some people need to make many attempts to quit before they achieve long-term success. ??? When you decide to quit smoking, create a plan to help you succeed. ??? Quit smoking right away, not s (more content not included)... [facility] 12-29-2024 Note PROCEDURE PERFORMED: Intrathecal pump refill. PERFORMING PROVIDER: Maggie Castillo, Nurse Practitioner. FILM AND VIDEO EDITOR: Yessica Lucero RN PREPROCEDURE DIAGNOSIS: Post laminectomy syndrome POSTPROCEDURE DIAGNOSIS: Post laminectomy syndrome INDICATION FOR THE PROCEDURE: 58 year old male here for follow up [...] were verified by 2 nurses. Start time: 1030 End time: 1115 The pump was interrogated prior to initiation [...] OF MEDICATION IN RESERVOIR PRIOR TO REFILL: 9.6ml ACTUAL REMAINING VOLUME OF MEDICATION IN RESERVOIR PRIOR TO REFILL: 12ml CURRENT MEDICATION AND CONCENTRATION PRIOR TO REFILL: Dilaudid 15 mg/mL with bupivacaine 15 mg/mL, 40 mL. CURRENT DOSE: Dilaudid 6.902 mg/day with bupivacaine mg/day disabled ptm VOLUME OF MEDICATION REFILLED: 40ml BRIDGE BOLUS PROGRAMMED: n/a NEW DOSE: 7.249mg/day COMPLICATIONS: None. ESTIMATED BLOOD LOSS: None. CAIT: June 2029 ALARM DATE: 03/17/25 REFILL DATE: 03/02/25 Diagnosis Plan 1. Post laminectomy syndrome PUMP W REPROG & REFILL REQUIRING PHYSICIAN SKILL PUMP W REPROG & REFILL REQUIRING PHYSICIAN SKILL [facility] 12-14-2024 Note Faxed [employer] are form to [employer] (F: [phone]) on this date along with progress notes and facesheet. Also, faxed facesheet and progress notes with measurements to [employer] (F: [phone]). [facility] 12-14-2024 Note DEPARTMENT OF VASCUL AR SURGERY HPI Matt Palmer is a 59 y.o. male with history of CVI status post bilateral GSV and SSV ablations who presents today for 2 week follow up to review venous reflux. These procedures were done over the course from 2019- 2022. Patient does have compression stockings which she has been wearing consistently. He does continue to have significant lower extremity edema associate with heaviness and achiness to the legs which is worse at the end of the day. [place] for M[place]. He had does not have a lymphedema pump. He does have difficulty getting compression socks on and is interested in wraps. Review of Systems Constitutional: Negative. HENT: Negative. Eyes: Negative. Cardiovascular: Positive for leg swelling. Bilaterally leg swelling, tingling, numbness, pain. Respiratory: Negative. Endocrine: Negative. Hematologic/Lymphatic: Bruises/bleeds easily. Skin: Positive for color change. Right leg discoloration. Musculoskeletal: Positive for back pain. Gastrointestinal: Negative. Genitourinary: Negative. Neurological: Negative. Psychiatric/Behavioral: Negative. Allergic/Immunologic: Negative. 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 Appearance: Normal appearance. He is not ill-appearing. HENT: Head: Normocephalic and atraumatic. Eyes: General: No scleral icterus. Pupils: Pupils are equal, round, and reactive to light. Cardiovascular: Rate and Rhythm: Normal rate and regular rhythm. Pulmonary: Effort: Pulmonary effort is normal. Breath sounds: Normal breath sounds. Musculoskeletal: Cervical back: Neck supple. Right lower leg: Edema present. Left lower leg: Edema present. Skin: General: Skin is warm and dry. Comments: Lymphedema skin changes with fibrosis, hyperpigmentation, hyperkeratosis bilateral lower extremities. Neurological: General: No focal deficit present. Mental Status: He is alert and oriented to person, place, and time. Psychiatric: Mood and Affect: Mood normal. Behavior: Behavior normal. Thought Content: Thought content normal. Judgment: Judgment normal. Edema measurements (cm): 12/14/2024 LEFT Thigh: 68 Right Knee: 50 Right Calf: 36 Right Foot: 12 Right Thigh: 64.5 Left Knee: 51 Left Calf: 36 Left fOOT:11.5 Imaging Reviewed: I personally reviewed and interpreted the following images-venous reflux studies: Bilateral GSV ablated. There is isolated SFJ reflux on the right proximally, as well as calf reflux only. Bilateral SSV ablated. 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 Refluxing varicosity to the left mid calf Assessment and Plan: Diagnoses and all orders for this visit: Venous insufficiency (chronic) (peripheral) Lymphedema Reviewed reflux studies, GSV and SSV ablated bilaterally. Only one refluxing varicosity on the left leg which in particular does not bother him much- symptoms are more global heaviness and aching Many of his residual symptoms are from lymphedema which has not been responsive to standard therapy- compression, elevation, CMP exercises. MLD not available in his area, cannot travel for frequent visits. Patient presents with Chronic Venous Insufficiency (i87.2) and a secondary history of Lymphedema (i89.0). Since 10/06/2024 the patient has tried elevation, exercise, and compression.. Despite regular compliance with these modalities the pt continues to present with edema of the lower extremity hyperpigmentation, hyperkeratosis, fibrosis. Patient would benefit from a vasopneumatic pump to be ordered through [employer] to help manage patient condition and improve overall quality of life. Patient has secondary lymphedema (I89.0) and would benefit from gradient compression wraps with adjustable straps, below the knee 30-50mmHg, 3 pairs per lower leg and foot refilled every 6 months. 2 nighttime garment per leg refilled q2 years Follow up in 1 year for re-evaluation Electronically signed by: Jessica Man PA-C Physician [facility] 12/14/2024 This note was created with the assistance of a speech-recognition program. While intending to generate a document that accurately reflects the content of the encounter, no guarantee can be provided that every mistake has been identified and corrected by editing [facility] 12-14-2024 Note DEPARTMENT OF VASCUL AR SURGERY HPI Matt Palmer is a 59 y.o. male with history of CVI status post bilateral GSV and SSV ablations who presents today for 2 week follow up to review venous reflux. These procedures were done over the course from 2019- 2022. Patient does have compression stockings which she has been wearing consistently. He does continue to have significant lower extremity edema associate with heaviness and achiness to the legs which is worse at the end of the day. [place] ability for MLD. He had does not have a lymphedema pump. He does have difficulty getting compression socks on and is interested in wraps. Review of Systems Constitutional: Negative. HENT: Negative. Eyes: Negative. Cardiovascular: Positive for leg swelling. Bilaterally leg swelling, tingling, numbness, pain. Respiratory: Negative. Endocrine: Negative. Hematologic/Lymphatic: Bruises/bleeds easily. Skin: Positive for color change. Right leg discoloration. Musculoskeletal: Positive for back pain. Gastrointestinal: Negative. Genitourinary: Negative. Neurological: Negative. Psychiatric/Behavioral: Negative. Allergic/Immunologic: Negative. 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 Smoking Status Every Day BSA 2.38 m??? Physical Exam Constitutional: General: He is not in acute distress. Appearance: Normal appearance. He is not ill-appearing. HENT: Head: Normocephalic and atraumatic. Eyes: General: No scleral icterus. Pupils: Pupils are equal, round, and reactive to light. Cardiovascular: Rate and Rhythm: Normal rate and regular rhythm. Pulmonary: Effort: Pulmonary effort is normal. Breath sounds: Normal breath sounds. Musculoskeletal: Cervical back: Neck supple. Right lower leg: Edema present. Left lower leg: Edema present. Skin: General: Skin is warm and dry. Comments: Lymphedema skin changes with fibrosis, hyperpigmentation, hyperkeratosis bilateral lower extremities. Neurological: General: No focal deficit present. Mental Status: He is alert and oriented to person, place, and time. Psychiatric: Mood and Affect: Mood normal. Behavior: Behavior normal. Thought Content: Thought content normal. Judgment: Judgment normal. Edema measurements (cm): 01/19/2025 LEFT Thigh: 68 Right Knee: 50 Right Calf: 36 Right Foot: 12 Right Thigh: 64.5 Left Knee: 51 Left Calf: 36 Left fOOT:11.5 Imaging Reviewed: I personally reviewed and interpreted the following images-venous reflux studies: Bilateral GSV ablated. There is isolated SFJ reflux on the right proximally, as well as calf reflux only. Bilateral SSV ablated. 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 Refluxing varicosity to the left mid calf Assessment and Plan: Diagnoses and all orders for this visit: Venous insufficiency (chronic) (peripheral) Lymphedema Reviewed reflux studies, GSV and SSV ablated bilaterally. Only one refluxing varicosity on the left leg which in particular does not bother him much- symptoms are more global heaviness and aching Many of his residual symptoms are from lymphedema which has not been responsive to standard therapy- compression, elevation, CMP exercises. MLD not available in his area, cannot travel for frequent visits. Patient presents with Chronic Venous Insufficiency (i87.2) and a secondary history of Lymphedema (i89.0). Since 10/06/2024 the patient has tried elevation, exercise, and compression.. Despite regular compliance with these modalities the pt continues to present with edema of the lower extremity hyperpigmentation, hyperkeratosis, fibrosis. Patient would benefit from a vasopneumatic pump to be ordered through [employer] to help manage patient condition and improve overall quality of life. *Patient has tried an E0651 device, however, the outcomes were unsatisfactory. Due to the patient's significant symptoms and unique characteristics of abdominal lymphedema and reoccurring cellulitis infections an advanced E0652 device along with suitable garments is medically necessary to assist in bringing fluids past the point of standard compression garments and improve their quality of life. Measurements are as follows: Abdomen: 116. 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 2 nighttime garment per leg refilled q2 years Follow up in 1 year for re-evaluation Electronically signed by: Elizabeth Gomez (more content not included)... [facility] 11-18-2024 Note Subjective Patient ID: Matt Palmer is a 59 y.o. male who presents for New Patient (Venous insufficiency seen previously @ [facility] by Dr Ayala Ref Dr Duarte). HPI Patient presents today for evaluation of bilateral lower extremity pain and swelling. States he has had these symptoms for many years. States his legs are always swollen and describes his leg pain has a dull ache that is constant and relieved somewhat by walking. Has compression stockings at home but does not wear them consistently. Patient historically followed with [facility]. Had L GSV ablation in 2019 and R GSV ablation on 10/16/[address] Ayala. Patient has not followed with Dr. Ayala since October 2023 and states he would like to follow with [facility] moving forward. Reports work history of prolonged standing. States he is unsure if he has family history of venous insufficiency. Denies history of claudication, ulcers, rest pain. Last vascular imaging was [id number] post ablation which showed success R GSV ablation. Review of Systems Constitutional: Negative for activity change, appetite change, chills, diaphoresis, fatigue, fever and unexpected weight change. HENT: Positive for sinus pressure. Negative for congestion, dental problem, drooling, ear discharge, ear pain, facial swelling, hearing loss, mouth sores, nosebleeds, postnasal drip, rhinorrhea, sinus pain, sneezing, sore throat, tinnitus, trouble swallowing and voice change. Eyes: Negative for photophobia, pain, discharge, redness, itching and visual disturbance. Respiratory: Negative for apnea, cough, choking, chest tightness, shortness of breath, wheezing and stridor. Cardiovascular: Negative for chest pain, palpitations and leg swelling. Gastrointestinal: Negative for abdominal distention, abdominal pain, anal bleeding, blood in stool, constipation, diarrhea, nausea, rectal pain and vomiting. Endocrine: Negative for cold intolerance, heat intolerance, polydipsia, polyphagia and polyuria. Genitourinary: Negative for decreased urine volume, difficulty urinating, dysuria, enuresis, flank pain, frequency, genital sores, hematuria, penile discharge, penile pain, penile swelling, scrotal swelling, testicular pain and urgency. Musculoskeletal: Positive for joint swelling. Negative for arthralgias, back pain, gait problem, myalgias and neck pain. Right knee swelling Skin: Positive for wound. Negative for color change, pallor and rash. Right leg wound/skin tenderness Allergic/Immunologic: Negative for environmental allergies, food allergies and immunocompromised state. Neurological: Negative for dizziness, tremors, seizures, syncope, facial asymmetry, speech difficulty, weakness, light-headedness, numbness and headaches. Hematological: Negative for adenopathy. Does not bruise/bleed easily. Psychiatric/Behavioral: Negative for agitation, behavioral problems, confusion, decreased concentration, dysphoric mood, hallucinations, self-injury, sleep disturbance and suicidal ideas. The patient is not nervous/anxious and is not hyperactive. Objective Visit Vitals BP 141/79 (BP Location: Right arm, Patient Position: Sitting) Pulse 57 Temp 36.5 ???C (97.7 ???F) (Temporal) Physical Exam Constitutional: Appearance: Normal appearance. HENT: Head: Normocephalic and atraumatic. Cardiovascular: Rate and Rhythm: Normal rate and regular rhythm. Pulses: Normal pulses. Pulmonary: Effort: Pulmonary effort is normal. No respiratory distress. Musculoskeletal: Right lower leg: Edema present. Left lower leg: Edema present. Skin: General: Skin is warm and dry. Neurological: General: No focal deficit present. Mental Status: He is alert and oriented to person, place, and time. Mental status is at baseline. Psychiatric: Mood and Affect: Mood normal. Behavior: Behavior normal. Thought Content: Thought content normal. Assessment/Plan #CVI s/p bilateral GSV ablation Patient will need bilateral lower extremity venous reflux studies to evaluate venous insufficiency. Will plan to have completed in 2 to 3 weeks at [facility] with visit following [facility] conservative treatment at this time. Educated patient to elevate BLE, increase physical activity/walking and wear graded compression stockings 20-30mmHg Patient has good palpable pulses. Arterial imaging is not needed at this time Patient lives in [place]. Planning for next visit at [facility] so patient can minimize trips to [place]. States [facility] is similar distance from home compared to [facility] and [place] with the drive Diagnosis Plan 1. Localized edema Vasc Us Lower Extremity Venous Insufficiency Bilateral (Reflux) 2. Venous insufficiency of both lower extremities No orders of the defined types were placed in this encounter. No results found for this or any previous visit (from the past 36 hour(s)). No follow-ups on file. [facility] 10-27-2024 Note PROCEDURE PERFORMED: Intrathecal pump refill. PERFORMING PROVIDER: Maggie Castillo, Nurse Practitioner. FILM AND VIDEO EDITOR: Coni Manley LPN PREPROCEDURE DIAGNOSIS: Post laminectomy syndrome POSTPROCEDURE DIAGNOSIS: Post laminectomy syndrome INDICATION FOR THE PROCEDURE: 58 year old male here for follow up [...] were verified by 2 nurses. Start time: 1026 End time: 1112 The pump was interrogated prior to initiation [...] OF MEDICATION IN RESERVOIR PRIOR TO REFILL: 2.8ml ACTUAL REMAINING VOLUME OF MEDICATION IN RESERVOIR PRIOR TO REFILL: 5ml CURRENT MEDICATION AND CONCENTRATION PRIOR TO REFILL: Dilaudid 15 mg/mL with bupivacaine 15 mg/mL, 40 mL. CURRENT DOSE: Dilaudid 6.902 mg/day with bupivacaine mg/day disabled ptm VOLUME OF MEDICATION REFILLED: 40ml BRIDGE BOLUS PROGRAMMED: n/a NEW DOSE: 7.249mg/day COMPLICATIONS: None. ESTIMATED BLOOD LOSS: None. CAIT: June 2029 ALARM DATE: 01/13/25 REFILL DATE: 12/29/24 Diagnosis Plan 1. Post laminectomy syndrome PUMP W REPROG & REFILL REQUIRING PHYSICIAN SKILL PUMP W REPROG & REFILL REQUIRING PHYSICIAN SKILL [facility] 10-06-2024 History of Presen t illness Narrative Associated Problem(s): Chronic pain of right knee Would like referral to Ortho Associated Problem(s): Venous insufficiency of both lower extremities Worsening symptoms, will send to see vascular at [facility] Associated Problem(s): Subacute pansinusitis Treat with atb and allergy meds If not better call office consider CT sinuses Associated Problem(s): Chronic rhinitis No help w cetirizine Trial flonase and pallavi Nasal congestion has lasted for a couple months never went away since the last time he was here. He has been taking phenylephrine nasal spray he has gone thru an entire bottle in 1 week he is unable to sleep has to sleep sitting up and can not breath from his nose. Knee pain is getting worse-giving out on him. He said it use to grind and pop now it sounds gushy feel Knee pain has gotten worse with it becoming colder and gets worse at night and becomes restless. Images from the original note were not included. Matt Palmer is a 59 y.o. male presents with chief complaint of Nasal Congestion HPI: Sinus congestion for a few months, not better with OTC nasal spray w psuedophed Sinus pressures, some sinus MALDONADO, no runny nose, no cough/dyspnea RLE edema: venous insuffiency, feels heavy and full, itchy at times, cannot get compression stocking on this, alexandro wraps some improvement, had treatment at vein center [facility], still not better Right knee pain: worsening, would like referral to Ortho SUBJECTIVE: MEDICATIONS: Current Outpatient Medications Medication Instructions acetaminophen (TYLENOL) 500 mg, Oral, 2 times daily PRN albuterol HFA 90 mcg/act inhaler 2 puffs, Inhalation, Every 4 hours PRN Blood Glucose Monitoring Suppl (Blood Glucose Monitor System) w/Device kit Does not apply febuxostat (ULORIC) 40 mg, Oral, Daily lisinopril 30 mg, Oral, Daily meloxicam (MOBIC) 15 mg, Oral, Daily metFORMIN (GLUCOPHAGE) 500 mg, Oral, 2 times daily with meals spironolactone (ALDACTONE) 50 mg, Oral, Daily tamsulosin (FLOMAX) 0.4 mg, Oral, Daily ALLERGIES: Allergies Allergen Reactions Simvastatin Swelling REVIEW OF SYMPTOMS: Review of Systems Constitutional: Negative for activity change, appetite change and unexpected weight change. HENT: Positive for rhinorrhea and sinus pressure. Negative for ear pain, nosebleeds, sneezing, trouble swallowing and voice change. Eyes: Negative for pain, discharge and visual disturbance. Respiratory: Negative for apnea, chest tightness and wheezing. Cardiovascular: Positive for leg swelling. Gastrointestinal: Negative for abdominal distention, blood in stool, constipation and diarrhea. Genitourinary: Negative for decreased urine volume, difficulty urinating, dysuria and hematuria. Musculoskeletal: Positive for arthralgias. Skin: Negative for color change. Neurological: Negative for dizziness, tremors and seizures. Psychiatric/Behavioral: Negative for agitation, decreased concentration, hallucinations, self-injury and suicidal ideas. The patient is not nervous/anxious. Hematological: Negative for adenopathy. Does not bruise/bleed easily. Endocrine: Negative for cold intolerance, heat intolerance, polydipsia and polyuria. Allergic/Immunologic: Negative for environmental allergies and food allergies. PAST MEDICAL HISTORY Past Medical History: Diagnosis Date Allergic rhinitis, mild BPH (benign prostatic hyperplasia) Bundle branch block, right Chronic back pain Chronic bilateral low back pain with bilateral sciatica Chronic gout of multiple sites, unspecified cause Chronic obstructive pulmonary disease, unspecified COPD type (CMS/HCC) Chronic pain of both knees Degenerative disc disease, lumbar Difficulty urinating Edema of right lower extremity Gout Hyperglycemia Hyperlipidemia, acquired (CMS/HCC) Hypertension, benign (CMS/HCC) Idiopathic chronic gout of multiple sites without tophus 09/24/2023 Leg swelling Onychodystrophy PAD (peripheral artery disease) (CMS/HCC) Pain in both lower extremities Peripheral edema Rheumatoid arthritis (CMS/HCC) Swelling of right foot Tobacco user Past Surgical History: Procedure Laterality Date LUMBAR FUSION Back fusion L3-5 MENISCECTOMY 11/2016 Medial & lateral OTHER SURGICAL HISTORY BGS implanted and then removed OTHER SURGICAL HISTORY Pain pump family history is not on file. OBJECTIVE: Visit Vitals BP 130/80 (BP Location: Left arm, Patient Position: Sitting, BP Cuff Size: Adult long) Pulse 50 Temp 98.5 F (Temporal) Resp 18 Ht 6' Wt 251 lb 12.8 oz SpO2 98% BMI 34.15 kg/m Smoking Status Every Day BSA 2.41 m Physical Exam Vitals and nursing note reviewed. Constitutional: General: He is not in acute distress. Appearance: Normal appearance. He is obese. He is not ill-appearing. HENT: Head: Normocephalic. Right Ear: Tympanic membrane, ear canal and external ear normal. Left Ear: Tympanic membrane, ear canal and external ear normal. Nose: Congestion present. Mouth/Throat: Mouth: Mucous membranes are moist. Pharynx: Oropharynx is clear. No oropharyngeal exudate or posterior oropharyngeal erythema. Eyes: Extraocular Movements: Extraocular movements intact. Conjunctiva/sclera: Conjunctivae normal. Neck: Vascular: No carotid bruit. Cardiovascular: Rate and Rhythm: Normal rate and regular rhythm. Pulses: Normal pulses. Heart sounds: Normal heart sounds. Pulmonary: Effort: Pulmonary effort is normal. Breath sounds: Normal breath sounds. Abdominal: General: Bowel sounds are normal. Palpations: Abdomen is soft. There is no mass. Tenderness: There is no abdominal tenderness. Musculoskeletal: Cervical back: Neck supple. Right lower leg: Edema present. Left lower leg: Edema present. Comments: Bilat LE edema, with venous insuffiency discoloration as well Pain and decreased ROM right knee Lymphadenopathy: Cervical: No cervical adenopathy. Skin: General: Skin is warm and dry. Capillary Refill: Capillary refill takes 2 to 3 seconds. Neurological: General: No focal deficit present. Mental Status: He is alert. Psychiatric: Mood and Affect: Mood normal. Behavior: Behavior normal. Thought Content: Thought content normal. Judgment: Judgment normal. ASSESSMENT AND PLAN: No follow-ups on file. Problem List Items Addressed This Visit Venous insufficiency of both lower extremities Worsening symptoms, will send to see vascular at [facility] Relevant Orders Ambulatory referral to Vascular Surgery Essential hypertension (CMS/HCC) - Primary Please check blood pressure daily and record DASH diet Limit caffeine Take medication as directed Contact office if chest pain, pressure, dizziness, shortness of breath, swelling legs Recommend slow position changes Current meds: lisinopril Edema of lower extremity Elevate legs as much as possible Limit sodium Continue diuretic as directed Smoker The patient has been advised of the risks of continued smoking: stroke, NH, all forms of cancer, lung disease, and . Options for quitting smoking include: cold turkey, hypnosis, acupuncture, nicotine replacement meds (gum, lozenges, and patches), Buproprion, and Varenicline. At this time pt is encouraged to evaluate their goals for wanting to quit smoking, and reach out to provider when ready to start this process Chronic rhinitis No help w cetirizine Trial flonase and pallavi Relevant Medications fexofenadine (Pallavi) 180 MG tablet fluticasone (Flonase) 50 MCG/ACT nasal spray Subacute pansinusitis Treat with atb and allergy meds If not better call office consider CT sinuses Relevant Medications amoxicillin-clavulanate (Augmentin) 875-125 MG tablet Chronic pain of right knee Would like referral to Ortho Relevant Orders Ambulatory referral to Orthopaedic Surgery Associated Problem(s): Smoker The patient has been advised of the risks of continued smoking: stroke, NH, all forms of cancer, lung disease, and . Options for quitting smoking include: cold turkey, hypnosis, acupuncture, nicotine replacement meds (gum, lozenges, and patches), Buproprion, and Varenicline. At this time pt is encouraged to evaluate their goals for wanting to quit smoking, and reach out to provider when ready to start this process Associated Problem(s): Edema of lower extremity Elevate legs as much as possible Limit sodium Continue diuretic as directed Associated Problem(s): Essential hypertension (CMS/HCC) Please check blood pressure daily and record DASH diet Limit caffeine Take medication as directed Contact office if chest pain, pressure, dizziness, shortness of breath, swelling legs Recommend slow position changes Current meds: lisinopril documented in this encounter [facility] 10-06-2024 Instructions Mirtha Duarte NP - 10/06/2024 1:40 PM EST Finish atb and if in 3-4 weeks not better call me and I will order CT sinuses Vascular: referral to [facility] Dr Fonseca-they should call Ortho: referral to Dr Romero-they should call documented in this encounter [facility] 08-11-2024 Note PROCEDURE PERFORMED: Intrathecal pump refill. PERFORMING PROVIDER: Maggie Castillo, Nurse Practitioner. FILM AND VIDEO EDITOR: Coni Manley LPN PREPROCEDURE DIAGNOSIS: Post laminectomy syndrome POSTPROCEDURE DIAGNOSIS: Post laminectomy syndrome INDICATION FOR THE PROCEDURE: 58 year old male here for follow up [...] date: IMPLANTATION / REPLACEMENT INFUSION PUMP Comment: JODI YanezDEL 10/03/2022: INTRATHECAL PUMP IMPLANTATION Comment: Exchange of [...] were verified by 2 nurses. Start time: 0926 End time: 1000 The pump was interrogated prior to initiation [...] OF MEDICATION IN RESERVOIR PRIOR TO REFILL: 6.2ml ACTUAL REMAINING VOLUME OF MEDICATION IN RESERVOIR PRIOR TO REFILL: 8ml CURRENT MEDICATION AND CONCENTRATION PRIOR TO REFILL: Dilaudid 15 mg/mL with bupivacaine 15 mg/mL, 40 mL. CURRENT DOSE: Dilaudid 6.902 mg/day with bupivacaine mg/day disabled ptm VOLUME OF MEDICATION REFILLED: 40ml BRIDGE BOLUS PROGRAMMED: n/a NEW DOSE: 7.249mg/day COMPLICATIONS: None. ESTIMATED BLOOD LOSS: None. CAIT: June 2029 ALARM DATE: 10/28/2023 REFILL DATE: 10/20/24 Diagnosis Plan 1. Post laminectomy syndrome PUMP W REPROG & REFILL REQUIRING PHYSICIAN SKILL PUMP W REPROG & REFILL REQUIRING PHYSICIAN SKILL [facility] 06-02-2024 Note PROCEDURE PERFORMED: Intrathecal pump refill. PERFORMING PROVIDER: Maggie Castillo, Nurse Practitioner. FILM AND VIDEO EDITOR: Marcy David RN PREPROCEDURE DIAGNOSIS: Post laminectomy syndrome POSTPROCEDURE DIAGNOSIS: Post laminectomy syndrome INDICATION FOR THE PROCEDURE: 58 year old male here for follow up [...] date: IMPLANTATION / REPLACEMENT INFUSION PUMP Comment: Beau JODIDEL 10/03/2022: INTRATHECAL PUMP IMPLANTATION Comment: Exchange of [...] were verified by 2 nurses. Start time: 0926 End time: 1000 The pump was interrogated prior to initiation [...] OF MEDICATION IN RESERVOIR PRIOR TO REFILL: 7.2ml ACTUAL REMAINING VOLUME OF MEDICATION IN RESERVOIR PRIOR TO REFILL: 6.2ml CURRENT MEDICATION AND CONCENTRATION PRIOR TO REFILL: Dilaudid 15 mg/mL with bupivacaine 15 mg/mL, 40 mL. CURRENT DOSE: Dilaudid 6.902 mg/day with bupivacaine mg/day disabled ptm VOLUME OF MEDICATION REFILLED: 40ml BRIDGE BOLUS PROGRAMMED: n/a NEW DOSE: 7.249mg/day COMPLICATIONS: None. ESTIMATED BLOOD LOSS: None. CAIT: June 2029 ALARM DATE: 08/19/24 REFILL DATE: Diagnosis Plan 1. Post laminectomy syndrome PUMP W REPROG & REFILL REQUIRING PHYSICIAN SKILL PUMP W REPROG & REFILL REQUIRING PHYSICIAN SKILL [facility] 03-24-2024 Note PROCEDURE PERFORMED: Intrathecal pump refill. PERFORMING PROVIDER: Maggie Castillo Nurse Practitioner. FILM AND VIDEO EDITOR: Marcy David RN PREPROCEDURE DIAGNOSIS: Post laminectomy syndrome POSTPROCEDURE DIAGNOSIS: Post laminectomy syndrome INDICATION FOR THE PROCEDURE: 58 year old male here for follow up [...] OF MEDICATION IN RESERVOIR PRIOR TO REFILL: 4.7ml ACTUAL REMAINING VOLUME OF MEDICATION IN RESERVOIR PRIOR TO REFILL: 8.5 ml CURRENT MEDICATION AND CONCENTRATION PRIOR TO REFILL: Dilaudid 15 mg/mL with bupivacaine 15 mg/mL, 40 mL. CURRENT DOSE: Dilaudid 6.902 mg/day with bupivacaine mg/day disabled ptm VOLUME OF MEDICATION REFILLED: 40ml BRIDGE BOLUS PROGRAMMED: n/a NEW DOSE: 7.249mg/day COMPLICATIONS: None. ESTIMATED BLOOD LOSS: None. CAIT: June 2029 ALARM DATE: 06/10/24 REFILL DATE: 06/02/24 Diagnosis Plan 1. Post laminectomy syndrome PUMP W REPROG & REFILL REQUIRING PHYSICIAN SKILL PUMP W REPROG & REFILL REQUIRING PHYSICIAN SKILL [facility] 03-24-2024 Note pump [facility] 10-31-2023 History of Presen t illness Narrative CHIEF COMPLAINT: Chief Complaint Patient presents with Follow-up Follow up with recent testing. Patient notes he had right leg ablation this morning and [facility]. Pain states pain more to right leg 5/10. HISTORY OF PRESENT ILLNESS: Matt Palmer is a 58 y.o. male who [...] extremity pulses Radial: 2+ ASSESSMENT AND PLAN: Matt was seen today for follow-up. Diagnoses and [...] months for follow-up. documented in this encounter [facility] 03-29-2022 Note MR#: [id number] [facility] Pt. Name: Matt Palmer Surgery Date: 03/28/2022 Room #: 2H Date of : 1965 PROCEDURE NOTE ATTENDING: Marianna Nur NP PERFORMING PROVIDER: Marianna Nur Nurse Practitioner. FILM AND VIDEO EDITOR: Hyacinth Coleman RN. PREPROCEDURE DIAGNOSIS: Lumbar post-laminectomy [...] A/Marianna Nur NP Date Trans: 03/29/2022 01:46 A/ulysess [id number] [facility] 01-24-2022 Note MR#: [id number] [facility] Pt. Name: Matt Palmer Surgery Date: 01/24/2022 Room #: 1H Date of : 1965 PROCEDURE NOTE ATTENDING: Marianna Nur NP PERFORMING PROVIDER: Marianna Nur, Nurse Practitioner. FILM AND VIDEO EDITOR: Hyacinth Coleman RN. PREPROCEDURE DIAGNOSIS: Lumbar post-laminectomy [...] P/Marianna Nur NP Date Trans: 01/24/2022 04:48 P/angeliao [id number] [facility] 11-16-2021 Note MR#: [id number] [facility] Pt. Name: Matt Palmer Surgery Date: 11/15/2021 Room #: 1H Date of : 1965 PROCEDURE NOTE ATTENDING: aMrianna Nur NP PREPROCEDURE DIAGNOSIS: Lumbar post-laminectomy syndrome. [...] Nur NP Date Trans: 11/16/2021 03:25 Mady/ulysses [id number] [facility] 09-14-2021 Note MR#: [id number] [facility] Pt. Name: Matt Palmer Surgery Date: 09/13/2021 Room #: 1H [...] technique utilizing the needle provided in the eASICtronic pump refill kit. The old medication in [...] Nur NP Date Trans: 09/13/2021 11:54 P/mmo [id number] [facility] 07-05-2021 Note MR#: [id number] [facility] Pt. Name: Matt Palmer Surgery Date: 07/05/2021 Room #: 1H Date of : 1965 PROCEDURE NOTE ATTENDING: Marianna Nur NP FILM AND VIDEO EDITOR: Hyacinth Coleman RN PREPROCEDURE DIAGNOSIS: Lumbar post-laminectomy [...] P Marianna Nur NP Date Dict: 07/05/2021/11:09 A/Marianna Nur NP Date Trans: 07/05/2021 12:01 P/ulysses [id number] [facility] 04-27-2021 Note MR#: [id number] [facility] Pt. Name: Matt Palmer Surgery Date: 04/26/2021 Room #: Date of : 1965 PROCEDURE NOTE ATTENDING: Marianna Nur NP FILM AND VIDEO EDITOR: Hyacinth Coleman RN PREPROCEDURE DIAGNOSIS: Lumbar post-laminectomy [...] P Marianna Nur NP Date Dict: 04/26/2021/11:09 A/Marianna Nur NP Date Trans: 04/27/2021 02:00 A/ulysses [id number] [facility] Evaluation note Diagnosis Encounter for subsequent annual wellness visit (AWV) in Medicare patient- Primary Essential hypertension ([facility]/HCC) Unspecified essential hypertension Type 2 diabetes mellitus without complication, without long-term current use of insulin ([facility]) Prostate cancer screening Special screening for malignant neoplasm of prostate Idiopathic chronic gout of multiple sites without tophus Venous insufficiency of both lower extremities Chronic pain syndrome Edema of lower extremity Severe obesity (BMI 35.0-39.9) with comorbidity (CMS/HCC) Viral upper respiratory tract infection Acute upper respiratory infections of unspecified site Smoker Tobacco use disorder Peripheral vascular disease, unspecified (CMS/HCC) Peripheral vascular disease, unspecified Rheumatoid arthritis, unspecified ([facility]/HCC) Benign essential hypertension ([facility]/HCC) Essential hypertension, benign Edema of lower extremity documented in this encounter [facility] HealthcareEvaluation note* Diagnosis Subacute sinusitis, unspecified location- Primary documented in this encounter [facility] HealthcareEvaluation note* Diagnosis Encounter for subsequent annual wellness visit (AWV) in Medicare patient- Primary Essential hypertension (CMS/HCC) Unspecified essential hypertension Type 2 diabetes mellitus without complication, without long-term current use of insulin (CMS/HCC) Prostate cancer screening Special screening for malignant neoplasm of prostate Idiopathic chronic gout of multiple sites without tophus Venous insufficiency of both lower extremities Chronic pain syndrome Edema of lower extremity Severe obesity (BMI 35.0-39.9) with comorbidity (CMS/HCC) Viral upper respiratory tract infection Acute upper respiratory infections of unspecified site Smoker Tobacco use disorder Peripheral vascular disease, unspecified (CMS/HCC) Peripheral vascular disease, unspecified Rheumatoid arthritis, unspecified (CMS/HCC) Venous insufficiency of both lower extremities- Primary Essential hypertension (CMS/HCC) Unspecified essential hypertension Edema of lower extremity Smoker Tobacco use disorder Chronic rhinitis Subacute pansinusitis Chronic pain of right knee documented in this encounter [facility] HealthcareEvaluation note* Diagnosis Venous insufficiency of both lower extremities- Primary Varicose veins of left lower extremity with pain Chronic back pain, unspecified back location, unspecified back pain laterality Severe obesity (BMI 35.0-39.9) with comorbidity (CMS-HCC) documented in this encounter [facility] SystemEvaluation note* Diagnosis Encounter for subsequent annual wellness visit (AWV) in Medicare patient- Primary Essential hypertension (CMS/HCC) Unspecified essential hypertension Type 2 diabetes mellitus without complication, without long-term current use of insulin Prostate cancer screening Special screening for malignant neoplasm of prostate Idiopathic chronic gout of multiple sites without tophus Venous insufficiency of both lower extremities Chronic pain syndrome Edema of lower extremity Severe obesity (BMI 35.0-39.9) with comorbidity (CMS/HCC) Viral upper respiratory tract infection Acute upper respiratory infections of unspecified site Smoker Tobacco use disorder Peripheral vascular disease, unspecified (CMS/HCC) Peripheral vascular disease, unspecified Rheumatoid arthritis, unspecified Venous insufficiency of both lower extremities- Primary Essential hypertension (CMS/HCC) Unspecified essential hypertension Edema of lower extremity Smoker Tobacco use disorder Chronic rhinitis Subacute pansinusitis Chronic pain of right knee Essential hypertension (CMS/HCC)- Primary Unspecified essential hypertension Venous insufficiency of both lower extremities Severe obesity (BMI 35.0-39.9) with comorbidity (CMS/HCC) Mixed hyperlipidemia (CMS/HCC) Mixed hyperlipidemia Cigarette nicotine dependence without complication Smoker Tobacco use disorder Type 2 diabetes mellitus without complication, without long-term current use of insulin Benign essential hypertension (CMS/HCC) Essential hypertension, benign Chronic rhinitis Edema of lower extremity Chronic pain syndrome Idiopathic chronic gout of multiple sites without tophus Encounter for screening for lung cancer Testicular lump Other specified disorder of male genital organs Testicular lump- Primary Other specified disorder of male genital organs documented in this encounter [facility] HealthcareEvaluation note* Diagnosis Encounter for subsequent annual wellness visit (AWV) in Medicare patient- Primary Essential hypertension (CMS/HCC) Unspecified essential hypertension Type 2 diabetes mellitus without complication, without long-term current use of insulin Prostate cancer screening Special screening for malignant neoplasm of prostate Idiopathic chronic gout of multiple sites without tophus Venous insufficiency of both lower extremities Chronic pain syndrome Edema of lower extremity Severe obesity (BMI 35.0-39.9) with comorbidity (CMS/HCC) Viral upper respiratory tract infection Acute upper respiratory infections of unspecified site Smoker Tobacco use disorder Peripheral vascular disease, unspecified (CMS/HCC) Peripheral vascular disease, unspecified Rheumatoid arthritis, unspecified Venous insufficiency of both lower extremities- Primary Essential hypertension (CMS/HCC) Unspecified essential hypertension Edema of lower extremity Smoker Tobacco use disorder Chronic rhinitis Subacute pansinusitis Chronic pain of right knee Essential hypertension (CMS/HCC)- Primary Unspecified essential hypertension Venous insufficiency of both lower extremities Severe obesity (BMI 35.0-39.9) with comorbidity (CMS/HCC) Mixed hyperlipidemia (CMS/HCC) Mixed hyperlipidemia Cigarette nicotine dependence without complication Smoker Tobacco use disorder Type 2 diabetes mellitus without complication, without long-term current use of insulin Benign essential hypertension (CMS/HCC) Essential hypertension, benign Chronic rhinitis Edema of lower extremity Chronic pain syndrome Idiopathic chronic gout of multiple sites without tophus Encounter for screening for lung cancer Testicular lump Other specified disorder of male genital organs Aneurysm of ascending aorta without rupture (CMS/HCC)- Primary Essential hypertension (CMS/HCC) Unspecified essential hypertension Testicular lump Other specified disorder of male genital organs Severe obesity (BMI 35.0-39.9) with comorbidity (CMS/HCC) Cigarette nicotine dependence without complication Chronic pansinusitis Other chronic sinusitis documented in this encounter [facility] HealthcareInstructionsNot on filedocumented in this [facility] Purpose Family History No Family [...] and content) DATE CREATED AUTHOR 04/03/2022 [facility] DATE CREATED AUTHOR AUTHOR'S ORGANIZ ATION 12/10/2022 [facility] DATE CREATED AUTHOR AUTHOR'S ORGANIZ ATION 11/03/2023 [facility] DATE CREATED AUTHOR AUTHOR'S ORGANIZ ATION 02/07/2025 Gonzalez Joaquín [facility] DATE CREATED AUTHOR AUTHOR'S ORGANIZ ATION 02/18/2025 [facility] DATE CREATED AUTHOR AUTHOR'S ORGANIZ ATION 03/03/2025 [facility] Care Teams (unrecognized sec tion and content) Personnel Scheduler Relationship Specialty Start Date End Date Zackary Weston MD [address] [place] [phone] PCP - General Family Medicine 05/01/23 Personnel Scheduler Relationship Specialty Start Date End Date Zackary Weston MD [address] [place] [phone] PCP - General Family Medicine 05/01/23 Personnel Scheduler Relationship Specialty Start Date End Date Zackary Weston MD [address] [place] [phone] PCP - General Family Medicine 05/01/23 Personnel Scheduler Relationship Specialty Start Date End Date Zackary Weston MD [address] [place] [phone] PCP - General Family Medicine 05/01/23 Personnel Scheduler Relationship Specialty Start Date End Date Zackary Weston MD [address] [place] [phone] PCP - General Family Medicine 05/01/23 Personnel Scheduler Relationship Specialty Start Date End Date Mirtha Duarte, [employer] TRA[employer] TIME BAB[employer]IT[employer] [address] [place] [phone] PCP - General Nurse Practitioner 05/29/23 Personnel Scheduler Relationship Specialty Start Date End Date Zackary Weston MD [address] [place] [phone] PCP - General Family Medicine 05/01/23 Personnel Scheduler Relationship Specialty Start Date End Date Zackary Weston MD [address] [place] [phone] PCP - General Family Medicine 05/01/23 Personnel Scheduler Relationship Specialty Start Date End Date Zackary Weston MD [address] [place] [phone] PCP - General Family Medicine 05/01/23 Personnel Scheduler Relationship Specialty Start Date End Date Zackary Weston MD [address] [place] [phone] PCP - General Family Medicine 05/01/23 Reason for Visit (unrecogniz ed section and content) Reason Comments Nasal Congestion Knee Pain Reason Comments Follow-up Follow up with recen t testing. Patient notes he had right leg ablation this morning and [facility] office. Pain states pain more to right leg 5/10. Reason Comments Hypertension FOR RECORDS PERTAINING TO PATIENTS WHO ARE [...] BE BASED ON THE PRIMARY CLINICAL RECORDS. [employer] [facility]. provides no warranty or guarantee of the accuracy or completeness of information in this document.
== END 2025-03-03 12:42 | disposition home or self-care (01) ==
LOC: CT 12:42
PROVIDERS: PCP Nurse Practitioner; Visit Provider Nurse Practitioner
DX: J32.4 Chronic pansinusitis (principal)
CPT/HCPCS: 70486